=== PATIENT | male | born 1935 | race Caucasian/White ===

== ENCOUNTER 2021-10-17 11:06 | Emergency (ER) | payer MEDICARE, SELFPAY ==
[2021-10-17 11:18] VITALS: BP 98/74; PULSE 86; RESP 18; TEMP 36.1; O2SAT 97; BMI 29.3
--- NOTE | 2021-10-17 11:42 | ED_ITS ---
HPI - General Adult General Chief complaint: Extremity Pain/Injury, Upper Stated complaint: Forearm laceration Time Seen by Provider: 10/17/21 11:40 History of Present Illness HPI narrative: Pt scratched on the Right forarm by his dog earlier this week with skin tear. Minimal pain. Skin ear is 1 by 2 cm on posterior forearm. Minimal erythema. No other symptoms otherwise feeling well. Pt due for Tdap. Has been treating the wound with triple antibiotics. No fever. Related Data Home Medications Medication Instructions Recorded Confirmed [id number] tab PO 09/16/21 09/16/21 250 mg-250 mg-120 mg tab fluocinonide 0.05 % topical 1 topical BID 09/16/21 09/16/21 solution Previous Rx's Medication Instructions Recorded allopurinol 300 mg tablet 300 mg PO DAILY Gout #90 tabs 09/16/21 simvastatin 40 mg tablet 40 mg PO .Bedtime #90 tabs 09/16/21 tamsulosin 0.4 mg capsule 0.4 mg PO DAILY BPH #90 caps 09/16/21 triamterene 37.5 1 cap PO DAILY Hypertension #90 09/16/21 mg-hydrochlorothiazide 25 mg caps capsule levetiracetam 1,000 mg tablet 2,000 mg PO BID Seizure #180 tabs 10/06/21 Allergies Allergy/AdvReac Type Severity Reaction Status Date / Time enoxaparin Allergy Severe contraindictation Verified 10/17/21 11:17 to all anticoagulants - see history anticoagulants-relative AdvReac Unknown Uncoded 10/17/21 11:17 contraindication-brain bleed Review of Systems Status of ROS: Reports: 10 or more systems reviewed and unremarkable except as noted in History and below [facility] Medical History BPH (benign prostatic hyperplasia) History of pancreatitis (09/15/08) History of seizure (11/23/11) Surgical History History of hemorrhoidectomy (09/15/08) History of knee surgery (09/15/08) History of tonsillectomy Status post evacuation of subdural hematoma (06/01/11) Social History Smoking Status: Never smoker Exam Narrative: Exam Narrative: EXAM GENERAL: Patient appears comfortable and well. EYES: No scleral icterus. LYMPH: No supraclavicular or cervical lymphadenopathy. SKIN: Visible skin seen during exam normal or with benign process only. EXT: No dependent lower extremity pedal edema. HEART: Regular rate and rhythm with no murmurs, rubs, or gallops. LUNGS: Clear to auscultation bilaterally with no crackles or wheezes. ABD: Soft, non tender, non distended. PSYCH: Good eye contact, speech is not pressured. Const: Vital Signs, click to edit/add: Vital Signs - 24 hr 10/17/21 11:18 Temperature 97 F L Pulse Rate [Pulse Oximeter] 86 Respiratory Rate 18 Blood Pressure [Le ft Upper Arm] 98/74 Pulse Oximetry 97 Oxygen Delivery Me thod Room Air Course Course Hospital Course: Pts wound cleaned and bandaged. Tdap verified. Vital Signs Vital signs: Initial Vital Signs Temperature 97 F L 10/17/21 11:18 Temperature Source Temporal Artery Scan 10/17/21 11:18 Pulse Rate 86 10/17/21 11:18 Pulse Rhythm 10/17/21 11:18 Respiratory Rate 18 10/17/21 11:18 Blood Pressure 98/74 10/17/21 11:18 Blood Pressure Mean 82 10/17/21 11:18 Pulse Oximetry 97 10/17/21 11:18 Oxygen Delivery Method 10/17/21 11:18 Vital Signs Temperature 97 F L 10/17/21 11:18 Pulse Rate 86 10/17/21 11:18 Respiratory Rate 18 10/17/21 11:18 Blood Pressure 98/74 10/17/21 11:18 Pulse Oximetry 97 10/17/21 11:18 Oxygen Delivery Method 10/17/21 11:18 Temperature 97 F L 10/17/21 11:18 Pulse Rate 86 10/17/21 11:18 Respiratory Rate 18 10/17/21 11:18 Blood Pressure 98/74 10/17/21 11:18 Pulse Oximetry 97 10/17/21 11:18 Oxygen Delivery Method 10/17/21 11:18 Medical Decision Making MDM Narrative Medical decision making narrative: Dog bite could be infected by the oral soraya. Will cover with broad spectrum antibiotics and have pt change bandage daily. Discharge Plan Discharge Clinical Impression: Dog bite Patient Disposition: Home, Self-Care Condition: Stable Additional Instructions: Keflex as directed Daily dressing changes Follow up with Dr. Curran as needed Continue remainder of medications Activity Level: No Restrictions Discharge Diet: Regular Prescriptions: No Action [id number] 250-250-120 mg tablet PO fluocinonide 0.05 % solution 1 topical BID allopurinol 300 mg tablet 300 mg PO DAILY Qty: 90 3RF simvastatin 40 mg tablet 40 mg PO .Bedtime Qty: 90 3RF tamsulosin 0.4 mg capsule 0.4 mg PO DAILY Qty: 90 3RF triamterene-hydrochlorothiazid 37.5-25 mg capsule 1 cap PO DAILY Qty: 90 3RF levetiracetam 1,000 mg tablet 2,000 mg PO BID Qty: 180 3RF Follow Up/Referrals: Russ Curran MD [Primary Care Provider] - Stand Alone Forms: [employer] Info Instructions
[2021-10-17] MEDS: TETANUS/DIPHTH/PERTUSSIS 0.5 ML SYRINGE IM (12:25)
== END 2021-10-17 12:36 | disposition home or self-care (01) ==
LOC: ED 12:23
PROVIDERS: Emergency Provider Internal Medicine; PCP Internal Medicine
DX: S51.851A Open bite of right forearm, initial encounter (principal); W54.0XXA Bitten by dog, initial encounter
CPT/HCPCS: 90471; 90715; 99283; 99284

== ENCOUNTER 2022-11-23 10:00 | Outpatient (RCR) | payer MEDICARE, SELFPAY ==
--- NOTE | 2022-11-16 13:42 | PT.OPEX ---
[facility] Eval Start: 11/16/22 12:31 Freq: Status: Active Protocol: Document 11/16/22 12:32 CRP (Rec: 11/16/22 13:32 CRP [id number]) E-signed By Abel Abreu PT Physical Therapy Outpatient Evaluation Insurance Information Recert Due Date 02/14/23 Insurance Name Medicare B Medical Diagnosis Back Pain Subjective Subjective For the last year or so he has been waking up with sore back . November 03 started having more substantial LBP. Pain got up to 11/13. Was put on prednisone and pain meds. This has helped to some degree. Pain at /10 and is pretty constant. Yesterday he did have a flare. Pain is worse with sitting. Walks with walker and there isn't any aggravation of pain when walking. No pain into the LEs and no numbness or tingling. Pain is mainly on the R side but can go to the L. Sleep has been ok. Pain will also increase on going sit to stand . Is doing fine with self care now but last week it was really painful. Pain is associated with sitting in his desk chair when he uses the computer. Pt is legally blind and the only way he can watch TV is to use his computer. This means too many hours sitting in his desk chair. He feels fine if he is sitting in any of his lounge chairs. Pain Comments 06/13 Current Work Status Retired Objective Range of Motion Trunk ROM Flex mod dec wiht pain Ext jarett dec R SB jarett dec L SB jarett dec with LBP Hip ROM WNL bilat Strength Myotomes WNL Hip ext 4-/5 bilat Trunk flex 3+/5 bilat Trunk Ext 3+/5 bilat Balance & Gait Amb with SEC. Short step lengths with wide base of support Posture SItting Posture: Sitting without back support increases his pain Other/Pertinent Objective SLR testing negative bilateral Functional Test Performed & Score 30 sec sit to stand test - 2 reps and ended sec to pain Assessment Assessment/Impression Pt presents to the clinic with persistent LBP. Pt shows pain associated with poor postural load tolerance and underlying issues of lumbar DDD/DJD. Pts pain more associated with sitting and with this he does show a flexion pattern pain presentation. Skilled PT necessary to incorporate ther ex, postural ed, ther act, manual therapy, NM sharri and pt education to decrease pain and improve functional mobility. Primary Functional Limitations Poor tolerance to sitting Poor tolerance with sit to stand Pain with daily chores Plan of Care Rehabilitation Potential Excellent Physical Therapy Goals 1. Pt will have an appropriate ergonomic chair for home computer and understand proper posturing in 4 weeks 2. Pt will be independent with HEP in 4-6 weeks 3. Pt will sit as desired to work on his computer without pain in 12 weeks Coordination/Communication With Referral Source Treatment Plan/Direct Interventions Joint Mobilization,Manual Therapy,Neuromuscular Re-ed, Self-Care/Home Management, Therapeutic Activities, Therapeutic Exercises Frequency/Duration 1x/wk for 12 weeks Patient Will Be Discharged From Therapy Completion of LTG(s),Skills Plateau,Independent w/HEP, Independently Progressing Evaluation Billing Untimed Code Treatment Minutes 30 Complexity Moderate Certification Information Initial Certification Date 11/16/22 Ending Certification Date 02/14/23 Provider Signature Shows Agreement With POC & Medical Necessity Physician Signature & Date Requested Please Sign/Date Here Physician Comment/Change : Physician NPI Number #
== END 2023-03-23 14:47 | disposition home or self-care (01) ==
PROVIDERS: PCP Internal Medicine; Visit Provider Family Medicine
DX: M54.9 Dorsalgia, unspecified (principal); R29.3 Abnormal posture; R29.898 Other symptoms and signs involving the musculoskeletal system; M25.60 Stiffness of unspecified joint, not elsewhere classified; Z51.89 Encounter for other specified aftercare
CPT/HCPCS: 97110; 97140; 97162; 97530

== ENCOUNTER 2023-01-24 08:38 | Outpatient (CLI) | payer MEDICARE, SELFPAY | END 2023-01-24 08:39 | disposition home or self-care (01) | LOC: NFLDREF 14:31 | PROVIDERS: PCP Internal Medicine; Referring Provider Internal Medicine; Visit Provider Internal Medicine | DX: Z23 Encounter for immunization (principal); I10 Essential (primary) hypertension; E78.5 Hyperlipidemia, unspecified; Z12.5 Encounter for screening for malignant neoplasm of prostate | CPT/HCPCS: 80053; 80061; 84153 ==

== ENCOUNTER 2023-02-13 16:58 | Outpatient (CLI) | payer MEDICARE, SELFPAY | END 2023-02-13 16:59 | disposition home or self-care (01) | PROVIDERS: PCP Internal Medicine; Visit Provider Internal Medicine | DX: R53.83 Other fatigue (principal); R60.9 Edema, unspecified | CPT/HCPCS: 80048; 83880 ==

== ENCOUNTER 2023-02-16 09:31 | Observation (INO) | payer MEDICARE, SELFPAY ==
[2023-02-16] VITALS (37 sets, daily range): BP systolic 94–139; BP diastolic 62–93; PULSE 76–103; RESP 20–22; TEMP 36.3–36.9; O2SAT 94–99; BMI 30.3
--- NOTE | 2023-02-16 09:44 | ED_ITS ---
HPI - SOB/Dyspnea General Time Seen by Provider: 09:44 Date Seen: 02/16/23 Chief Complaint: Shortness of Breath/Dyspnea Stated Complaint: Shortness of breath Time Seen by Provider: 02/16/23 09:44 Source: patient, RN notes reviewed and old records reviewed Mode of arrival: ambulatory Limitations: no limitations History of Present Illness HPI Narrative: This very pleasant 87-year-old male is coming into the ER for further evaluation of shortness of breath. This morning he was just attempting to put his clothes on and get dressed and became very dyspneic. No chest pain, no palpitations. He is feeling bloated in his stomach, was in the clinic on February [address] Curran. He went into the clinic for increased lower extremity edema, feeling bloated and swollen, noting decreased appetite, malaise and fatigue. He was complaining of no chest pain, no orthopnea, no paroxysmal nocturnal dyspnea and still supports that he is not having no symptoms. He does have chronic hypertension. He was started on Lasix 20 mg daily, notes that he took that Monday, Monday and this morning. His lower extremities are still significantly swollen. During his clinic visit on February 13 he had chemistries, CBC which looked stable, no acute concerns. His proBNP was 260. He had a chest x-ray showing no acute findings but I do note that there was prominence of the left pulmonary artery noted which was not new. He is wondering if the Lasix is working. He feels like he has to go to the bathroom and will just go small amounts, have to go back in go small amounts. I do see BPH as listed issue for him. Did review that he could be having complications with his prostate making the Lasix not seem is as effective. He has not had a known significant cardiac, pulmonary history. MD elicited complaint: shortness of breath Related Data Home oxygen amount: none Home Medications Medication Instructions Recorded Confirmed gabapentin 100 mg capsule 100 mg PO HS 02/16/23 02/16/23 simvastatin 40 mg tablet 40 mg PO HS 02/16/23 02/16/23 Previous Rx's Medication Instructions Recorded levetiracetam 1,000 mg tablet 2,000 mg (2 x 1,000 mg) PO BID 03/18/22 Seizure #360 tabs allopurinol 300 mg tablet 300 mg PO DAILY Gout #90 tabs 10/05/22 tamsulosin 0.4 mg capsule 0.4 mg PO DAILY BPH #90 caps 10/05/22 furosemide 20 mg tablet 20 mg PO DAILY@0800 #30 tabs 02/17/23 spironolactone 50 mg tablet 50 mg PO DAILY #30 tabs 02/17/23 Allergies Allergy/AdvReac Type Severity Reaction Status Date / Time enoxaparin Allergy Severe contraindictation Verified 02/13/23 16:40 to all anticoagulants - see history anticoagulants-relative AdvReac Unknown Uncoded 02/13/23 16:40 contraindication-brain bleed Review of Systems Status of ROS: Reports: 6 or more systems reviewed and unremarkable except as noted in History and below [facility] Medical History (Updated 02/17/23 @ 14:54 by Chen Vargsa PA-C) History of subdural hematoma (11/23/11) ?Z86.79 - Personal history of other diseases of the circulatory system (ICD- 10) Gout (09/15/08) ?M10.9 - Gout, unspecified (ICD-10) Tubular adenoma of colon (09/15/08) ?D12.6 - Benign neoplasm of colon, unspecified (ICD-10) Traumatic brain injury (06/14/11) ?S06.9X9A - Unspecified intracranial injury with loss of consciousness of unspecified duration, initial encounter (ICD-10) Subjective tinnitus (10/06/11) ?H93.19 - Tinnitus, unspecified ear (ICD-10) Sensorineural hearing loss (SNHL) (11/23/11) ?H90.5 - Unspecified sensorineural hearing loss (ICD-10) Rosacea (05/21/06) ?L71.9 - Rosacea, unspecified (ICD-10) 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) ?L71.1 - Rhinophyma (ICD-10) Osteoarthritis of cervical spine ?M47.812 - Spondylosis without myelopathy or radiculopathy, cervical region (ICD-10) Obesity (08/16/10) ?E66.9 - Obesity, unspecified (ICD-10) Macular degeneration ?H35.30 - Unspecified macular degeneration (ICD-10) Intestinal obstruction ?K56.609 - Unspecified intestinal obstruction, unspecified as to partial versus complete obstruction (ICD-10) Hyperlipidemia (02/25/14) ?E78.5 - Hyperlipidemia, unspecified (ICD-10) BPH (benign prostatic hyperplasia) ?N40.0 - Benign prostatic hyperplasia without lower urinary tract symptoms (ICD-10) History of seizure (11/23/11) ?Z87.898 - Personal history of other specified conditions (ICD-10) History of pancreatitis (09/15/08) ?Z87.19 - Personal history of other diseases of the digestive system (ICD-10) Surgical History Status post evacuation of subdural hematoma (06/01/11) ?Z98.890 - Other specified postprocedural states (ICD-10) ?Z86.79 - Personal history of other diseases of the circulatory system (ICD- 10) History of tonsillectomy ?Z90.89 - Acquired absence of other organs (ICD-10) History of knee surgery (09/15/08) ?Z98.890 - Other specified postprocedural states (ICD-10) History of hemorrhoidectomy (09/15/08) ?Z98.890 - Other specified postprocedural states (ICD-10) Social History What is your current living situation?: I presently have a place to live Problems where you live: no known problems Problems where you live details: N/A In the past 12 months, utilities in danger of being shut off: no In past 12 months, lack of transportation kept you from medical appts, meetings, work, or getting things needed for daily living: no In the past 12 mos, have been you worried that your food would run out before you had money to buy more?: never true In the past 12 mos, the food you bought just didn't last and you didn't have money to buy more?: never true Highest level of school completed/degree received: Bachelor's degree Smoking Status: Former smoker How often do you have a drink containing alcohol: never How often do you have six or more drinks on one occasion: Never AUDIT-C Alcohol total score: 0 Non-prescribed substance use: denies use Caffeine: No How often does anyone, including family, friends and others, physically hurt you : never How often does anyone, including family, friends and others, insult or talk down to you: never How often does anyone, including family, friends and others, threaten you with harm: never How often does anyone, including family, friends and others, scream or curse at you: never Little interest or pleasure in doing things: not at all Feeling down, depressed, or hopeless: not at all service: No Exam Const: Vital Signs, click to edit/add: Vital Signs - 24 hr 02/16/23 09:41 02/16/23 09:54 02/16/23 10:00 Temperature 97.4 F L Pulse Rate 93 Pulse Rate [Pulse Oximeter] 103 H Respiratory Rate 20 Blood Pressure Blood Pressure [Ri ght Upper Arm] 121/87 Pulse Oximetry 99 99 96 Oxygen Delivery Me thod Room Air 02/16/23 10:15 02/16/23 10:30 02/16/23 10:45 Temperature Pulse Rate 88 87 90 Pulse Rate [Pulse Oximeter] Respiratory Rate Blood Pressure Blood Pressure [Ri ght Upper Arm] Pulse Oximetry 96 95 94 Oxygen Delivery Me thod 02/16/23 10:54 02/16/23 11:00 02/16/23 11:17 Temperature Pulse Rate 86 96 Pulse Rate [Pulse Oximeter] 85 Respiratory Rate Blood Pressure Blood Pressure [Ri ght Upper Arm] Pulse Oximetry 95 94 96 Oxygen Delivery Me thod Room Air 02/16/23 11:30 02/16/23 11:40 02/16/23 11:54 Temperature Pulse Rate 88 90 Pulse Rate [Pulse Oximeter] Respiratory Rate Blood Pressure 119/74 Blood Pressure [Ri ght Upper Arm] Pulse Oximetry 97 96 94 Oxygen Delivery Me thod 02/16/23 11:57 02/16/23 12:00 02/16/23 12:01 Temperature Pulse Rate 90 88 88 Pulse Rate [Pulse Oximeter] Respiratory Rate Blood Pressure 132/77 119/72 Blood Pressure [Ri ght Upper Arm] Pulse Oximetry 98 98 97 Oxygen Delivery Me thod 02/16/23 12:15 02/16/23 12:30 02/16/23 12:31 Temperature Pulse Rate 87 89 89 Pulse Rate [Pulse Oximeter] Respiratory Rate Blood Pressure 103/69 Blood Pressure [Ri ght Upper Arm] Pulse Oximetry 97 97 96 Oxygen Delivery Me thod 02/16/23 12:32 02/16/23 12:48 02/16/23 13:00 Temperature Pulse Rate 89 90 91 Pulse Rate [Pulse Oximeter] Respiratory Rate Blood Pressure Blood Pressure [Ri ght Upper Arm] Pulse Oximetry 97 98 96 Oxygen Delivery Me thod 02/16/23 13:01 Temperature Pulse Rate 91 Pulse Rate [Pulse Oximeter] Respiratory Rate Blood Pressure 107/74 Blood Pressure [Ri ght Upper Arm] Pulse Oximetry 96 Oxygen Delivery Me thod This is an 87-year-old male resting comfortably in the bed in exam room 3. He is oxygenating above 97% when I am in with him. At rest he is not tachypneic, able to speak in complete sentences. Sclera clear, face atraumatic, normal symmetrical facial function. Neck is thick, do not really appreciate jugular venous distension. There is certainly no cervical adenopathy, no thyromegaly masses or nodules. He is able to sit up with some assistance, lungs are clear, good air entry, no wheezing or crackles. CV regular rate and rhythm, no murmur, normal S1-S2, no S3 or S4. Abdomen is mildly obese but soft, nontender, does not seem to be distended, no organomegaly noted. He does have significant pitting edema of his lower extremities, at least 3 to 4+ up to his knees on my inspection. There does not seem to be any overlying erythema or skin changes concerning for infection. The edema is bilateral. Documenting provider has reviewed patient's vital signs: yes Course Course ED Course: Will have him on pulse oximetry, his initial EKG looks reassuring. Reviewed with him that we will be repeating some blood work, adding in some other blood work with a troponin, thyroid. Will repeat his chest x-ray. I do wonder if he perhaps needs an echo, this certainly could be right heart failure/cor pulmonale. Thyroid will be checked. He is also on trying tearing, hydrochlorothiazide baseline looking at his chart. Reevaluation(s) Time of Reevaluation #1: 11:06 Reevaluation #1: Have reviewed with patient that his D-dimer is elevated. We will be ordering ch est CT PE protocol and bilateral lower extremity venous ultrasounds. He understands. Reviewed that his chest x-ray is looking clear but the chest CT will show us a much better picture of his underlying lung parenchyma. Time of Reevaluation #2: 13:41 Reevaluation #2: Have explained to patient that it appears he has right heart failure, needs diuresis, needs ECHO to help define causative etiology of his symptoms. He understands that he will be hospitalized for further cares. Consultations Consultation #1: Have spoken with Chen Vargas regarding this patient. She does accept him for diagnosis of right heart failure. Will give this patient 40 mg IV Lasix as we have confirmed no pulmonary embolus. Time: 13:35 Vital Signs Vital signs: Initial Vital Signs Temperature 97.4 F L 02/16/23 09:41 Temperature Source Temporal Artery Scan 02/16/23 09:41 Pulse Rate 103 H 02/16/23 09:41 Respiratory Rate 20 02/16/23 09:41 Blood Pressure 121/87 02/16/23 09:41 Blood Pressure Mean 98 02/16/23 09:41 Blood Pressure Position Supine 02/16/23 09:41 Pulse Oximetry 99 02/16/23 09:41 Oxygen Delivery Method Room Air 02/16/23 09:41 Vital Signs Temperature 97.4 F L 02/16/23 09:41 Pulse Rate 103 H 02/16/23 09:41 Respiratory Rate 20 02/16/23 09:41 Blood Pressure 121/87 02/16/23 09:41 Pulse Oximetry 99 02/16/23 09:41 Oxygen Delivery Method Room Air 02/16/23 09:41 Temperature 98.0 F 02/17/23 11:00 Pulse Rate 80 02/17/23 11:00 Respiratory Rate 18 02/17/23 11:00 Blood Pressure 120/75 02/17/23 11:00 Pulse Oximetry 95 02/17/23 11:00 Oxygen Delivery Method Room Air 02/17/23 11:00 Medications Administered Medications: Discontinued Medications Generic Name Dose Route Start Last Admin Trade Name Freq PRN Reason Stop Dose Admin Allopurinol 300 mg 02/17/23 09:00 02/17/23 08:10 Allopurinol 300 Mg Tablet PO 300 mg DAILY DENNIS Administration Furosemide 40 mg 02/16/23 13:36 02/16/23 14:00 Furosemide 10 Mg/Ml Inj IVP 02/16/23 13:37 40 mg ONCE ONE Administration Furosemide 80 mg 02/17/23 08:00 02/17/23 08:10 Furosemide 40 Mg Tablet PO 80 mg DAILY@0800 DENNIS Administration Gabapentin 100 mg 02/16/23 21:00 02/16/23 20:53 Gabapentin 100 Mg Capsule PO 100 mg HS DENNIS Administration Levetiracetam 2,000 mg 02/16/23 21:00 02/17/23 08:09 Levetiracetam 500 Mg Tablet PO 2,000 mg BID DENNIS Administration Simvastatin 40 mg 02/16/23 21:00 02/16/23 20:54 Simvastatin 40 Mg Tablet PO 40 mg HS DENNIS Administration Sodium Chloride 5 ml 02/16/23 21:00 02/16/23 20:54 Sodium Chloride 0.9 % (Flush) 10 Ml Syringe IVF 5 ml BID DENNIS Administration Tamsulosin HCl 0.4 mg 02/17/23 09:00 02/17/23 08:09 Tamsulosin Hcl 0.4 Mg Capsule PO 0.4 mg DAILY DENNIS Administration MDM - SOB/Dyspnea Differential Diagnosis Differential diagnosis: Likely acute exacerbation of chronic obstructive airways disease, congestive heart failure, community acquired pneumonia and pulmonary embolism Lab Data Attestation: I reviewed the patient's lab results. Labs: Lab Results 02/16/23 02/16/23 Range/Units 10:00 13:53 WBC 6.51 (4.50-11.00) K/uL RBC 3.86 L (4.30-5.90) m/uL Hgb 13.1 L (13.5-17.5) gm/dL Hct 39.2 (37.0-53.0) % MCV 102 H (80-100) fL MCH 34 (26-34) pg MCHC 33 (32-36) gm/dL RDW Coeff of Jose 15.0 (11.5-15.5) % Plt Count 188 (140-440) K/uL Neut % (Auto) 60.6 (42.0-72.0) % Lymph % (Auto) 29.5 (20-44) % Wetzel % (Auto) 8.6 (0.0-11.0) % Eos % (Auto) 0.8 (0.0-7.0) % Baso % (Auto) 0.3 (0.0-3.0) % Neut # (Auto) 3.95 (1.7-7.0) K/uL Lymph # (Auto) 1.92 (0.90-2.90) K/uL Wetzel # (Auto) 0.60 (0.00-0.90) K/UL Eos # (Auto) 0.05 (0.00-0.50) K/uL Baso # (Auto) 0.02 (0.00-0.30) K/uL Abs Immat Gran (auto) 0.01 (0.00-0.30) K/uL Imm/Tot Granulo (auto) 0.2 % INR 1.16 H (0.91-1.10) APTT 39 H (23-33) Seconds Fibrinogen 258 (200-450) mg/dL D-Dimer Quant (PE/DVT) 2.52 H (0.00-0.50) ug/ml Sodium 137 (135-149) mmol/L Potassium 3.6 (3.6-5.1) mmol/L Chloride 105 (96-114) mmol/L Carbon Dioxide 27 (20-32) mmol/L Anion Gap 5 L (7-15) mEq/L BUN 19 (7-30) mg/dL Creatinine 0.9 (0.5-1.5) mg/dL Estimated GFR 83 ml/min Glucose 156 H (60-115) mg/dL Hemoglobin A1c 5.1 (0-5.6) % Uric Acid 3.3 (2.2-8.4) mg/dL Calcium 8.5 (8.4-10.6) mg/dL Magnesium 1.6 (1.5-2.6) mg/dL Total Bilirubin 1.4 (0.1-1.5) mg/dL GGT 90 H (8-55) U/L AST 57 H (12-35) U/L ALT 34 (4-50) U/L Alkaline Phosphatase 216 H (40-150) U/L Troponin I < 0.01 L (0.01-0.04) ng/mL NT-Pro-B Natriuret Pep 261 pg/mL Total Protein 6.5 (6.0-8.3) g/dL Albumin 3.0 L (3.3-5.0) g/dL Lipase 73 (23-300) U/L TSH 2.970 (0.270-4.200) uIU/mL SARS-CoV-2 (PCR) Cancelled Imaging Data Chest x-ray: Attestation: I have reviewed the pertinent imaging results. Radiologist's impression: Patient: LIYAH MARTIN Facility:?[facility] Patient ID:?[id number] Site Patient ID:?[id number]. Site :?[id number] Study:?XRay Chest Portable one view-02/16/2023 10:26:52 AM Ordering Physician:?Tammy Blanca Final Report: Indication: Worsening shortness of breath. Technique: Chest 1 view. Comparison: February 13, 2023. Findings/Impression: Cardiovascular and mediastinum: Heart size and vasculature are normal in caliber and appearance. Lungs and pleural space: Bibasilar atelectasis favored over infiltrates. Remainder of the lungs and pleural spaces are clear. No pneumothorax. Bones and soft tissues: No acute findings. Dictated by Butch Mccarthy MD @ 02/16/2023 10:50:14 AM (Electronic Signature) CT scan - chest: Attestation: I have reviewed the pertinent imaging results. Radiologist's impression: Patient: LIYAH MARTIN Facility:?[facility] Patient ID:?[id number] Site Patient ID:?[id number]. Site :?[id number] Study:?CT Chest Angio PE STUDY-02/16/2023 11:59:01 AM Ordering Physician:?Tammy Blanca Final Report: INDICATION: Short of breath and dyspnea on exertion with elevated D-dimer COMPARISON: Same-day chest radiograph. TECHNIQUE: CT angiogram chest with contrast, pulmonary embolism protocol. Multiplanar axial, coronal, and sagittal reformats are included. MIP images to improve detection of pulmonary emboli are included. Intravenous contrast: 95 mL Isovue 370 FINDINGS: PE: Well-timed contrast bolus. No pulmonary emboli. Normal caliber main pulmonary artery, but the branch pulmonary arteries are both significantly dilated. Dilated right ventricle. No reflux of contrast below the diaphragm. Heart and great vessels: No pericardial effusion. Dilated right ventricle with some septal flattening. Heavy coronary atherosclerotic plaques. Upper limits of normal size of the ascending aorta, 4 cm. Lungs: Inspiratory phase imaging. There is an 8 mm nodule in the peripheral left lower lobe on series 5, image 117. Immediately adjacent smaller, 4 mm, nodule. No consolidations. Centrilobular emphysema. Pleura: No pleural effusion. No pneumothorax. Airway: Normal tracheobronchial tree. Mild bronchial wall thickening in the parenchyma. Lymph nodes: Coarse calcifications consistent with prior granulomatous disease. Mediastinum: No pneumomediastinum. Bones: No fractures. No focal bone lesions. Normal for age. Chest wall: Normal. No masses. Upper abdomen: Cirrhosis. Ascites. IMPRESSION: 1. No pulmonary embolus. 2. Pulmonary nodules. Fleischner society recommends follow-up CT in 3-6 months, but must be taken in contact with the patient`s other medical history. 3. Cirrhosis and upper abdominal ascites. Please note that all CT scans at this facility use dose modulation, iterative reconstruction, and/or weight-based dosing when appropriate to reduce radiation dose to as low as reasonably achievable. Dictated by Jackie Esquivel MD @ 02/16/2023 1:00:41 PM (Electronic Signature) Venous US: Attestation: I have reviewed the pertinent imaging results. Radiologist's impression: Patient: LIYAH MARTIN Facility:?[facility] Patient ID:?[id number] Site Patient ID:?[id number]. Site :?[id number] Study:?US Extremity Bilateral LEV-02/16/2023 11:36:18 AM Ordering Physician:Peter Blanca Final Report: INDICATION: EDEMA, ELEVATED D-dimer COMPARISON: none TECHNIQUE: A compression venous ultrasound exam was performed of both lower extremities using bonds scale imaging, color Doppler and spectral Doppler analysis. FINDINGS: Sonographic imaging of the lower extremities demonstrates normal compressibility and color Doppler venous blood flow within the common femoral, deep femoral, and proximal greater saphenous veins. Within the thighs the femoral veins are patent and compressible. At a lower level the popliteal and posterior tibial veins also show normal compressibility and color Doppler venous blood flow. IMPRESSION: No evidence of deep vein thrombosis within either the left or right lower extremity. Dictated by Isai Chase MD @ 02/16/2023 12:02:08 PM (Electronic Signature) ECG Data Attestation: I personally reviewed and interpreted this ECG as follows: (Normal sinus rhythm, 99 beats per minute. Low voltage QRS noted, artifact noted. Nonspecific ST and T-wave changes, nothing indicative of an ischemic pattern. QT corrected 444 milliseconds.) ECG interpretation date: 02/16/23 ECG interpretation time: 09:45 Critical Care Time Critical Care Time Critical Care Time: No Discharge Plan Discharge Clinical Impression: Right heart failure Patient Disposition: Admitted As Observation Condition: Improved Activity Level: Activity as Tolerated Discharge Diet: Heart Healthy (2 gm sodium, low fat)
--- NOTE | 2023-02-16 09:55 | CRLHL7_ITS ---
For Patients: As a result of the Century Cures Act, medical imaging exams and procedure reports are released immediately into your electronic medical record. You may view this report before your referring provider. If you have questions, please contact your health care provider. Indication: Worsening shortness of breath. Technique: Chest 1 view. Comparison: February 13, 2023. Findings/Impression: Cardiovascular and mediastinum: Heart size and vasculature are normal in caliber and appearance. Lungs and pleural space: Bibasilar atelectasis favored over infiltrates. Remainder of the lungs and pleural spaces are clear. No pneumothorax. Bones and soft tissues: No acute findings. Dictated by Butch Mccarthy MD @ 02/16/2023 10:50:14 AM (Electronically Signed)
[2023-02-16 10:15] LABS: Basophils Absolute Auto 0.02 K/uL (0.00-0.30); Basophils Percent Auto 0.3 % (0.0-3.0); Eosinophils Absolute Auto 0.05 K/uL (0.00-0.50); Eosinophils Percent Auto 0.8 % (0.0-7.0); Hematocrit 39.2 % (37.0-53.0); Hemoglobin* 13.1 gm/dL (13.5-17.5); Immature Granulocytes Abs Auto 0.01 K/uL (0.00-0.30); Immature Granulocytes Pct Auto 0.2 %; Lymphocytes Absolute Auto 1.92 K/uL (0.90-2.90); Lymphocytes Percent Auto 29.5 % (20-44); Mean Corpuscular HGB Conc 33 gm/dL (32-36); Mean Corpuscular Hemoglobin 34 pg (26-34); Mean Corpuscular Volume 102 fL (80-100); Monocytes Percent Auto 8.6 % (0.0-11.0); Neutrophils Absolute Auto 3.95 K/uL (1.7-7.0); Neutrophils Percent Auto 60.6 % (42.0-72.0); Platelet Count* 188 K/uL (140-440); Red Blood Count 3.86 m/uL (4.30-5.90); White Blood Count* 6.51 K/uL (4.50-11.00)
[2023-02-16 10:20] LABS: Slide Review Reflex No
[2023-02-16 10:25] LABS: Chloride* 105 mmol/L (96-114); Potassium* 3.6 mmol/L (3.6-5.1); Sodium* 137 mmol/L (135-149)
[2023-02-16 10:27] LABS: Bilirubin Total* 1.4 mg/dL (0.1-1.5); Creatinine* 0.9 mg/dL (0.5-1.5); Estimated Glomerular Filt Rate 83 ml/min
[2023-02-16 10:28] LABS: Alanine Aminotransferase* 34 U/L (4-50); Alkaline Phosphatase* 216 U/L (40-150); Anion Gap 5 mEq/L (7-15); Aspartate Amino Transferase* 57 U/L (12-35); Blood Urea Nitrogen* 19 mg/dL (7-30); Carbon Dioxide* 27 mmol/L (20-32); Glucose* 156 mg/dL (60-115); Total Protein* 6.5 g/dL (6.0-8.3)
[2023-02-16 10:29] LABS: Calcium* 8.5 mg/dL (8.4-10.6); Magnesium* 1.6 mg/dL (1.5-2.6)
[2023-02-16 10:30] LABS: D Dimer Quantitative* 2.52 ug/ml (0.00-0.50)
[2023-02-16 10:39] LABS: NT Pro B Type NatriureticPept* 261 pg/mL
[2023-02-16 10:46] LABS: Troponin I* < 0.01 ng/mL (0.01-0.04)
--- NOTE | 2023-02-16 11:01 | CRLHL7_ITS ---
For Patients: As a result of the Century Cures Act, medical imaging exams and procedure reports are released immediately into your electronic medical record. You may view this report before your referring provider. If you have questions, please contact your health care provider. INDICATION: Short of breath and dyspnea on exertion with elevated D-dimer COMPARISON: Same-day chest radiograph. TECHNIQUE: CT angiogram chest with contrast, pulmonary embolism protocol. Multiplanar axial, coronal, and sagittal reformats are included. MIP images to improve detection of pulmonary emboli are included. Intravenous contrast: 95 mL Isovue 370 FINDINGS: PE: Well-timed contrast bolus. No pulmonary emboli. Normal caliber main pulmonary artery, but the branch pulmonary arteries are both significantly dilated. Dilated right ventricle. No reflux of contrast below the diaphragm. Heart and great vessels: No pericardial effusion. Dilated right ventricle with some septal flattening. Heavy coronary atherosclerotic plaques. Upper limits of normal size of the ascending aorta, 4 cm. Lungs: Inspiratory phase imaging. There is an 8 mm nodule in the peripheral left lower lobe on series 5, image 117. Immediately adjacent smaller, 4 mm, nodule. No consolidations. Centrilobular emphysema. Pleura: No pleural effusion. No pneumothorax. Airway: Normal tracheobronchial tree. Mild bronchial wall thickening in the parenchyma. Lymph nodes: Coarse calcifications consistent with prior granulomatous disease. Mediastinum: No pneumomediastinum. Bones: No fractures. No focal bone lesions. Normal for age. Chest wall: Normal. No masses. Upper abdomen: Cirrhosis. Ascites. IMPRESSION: 1. No pulmonary embolus. 2. Pulmonary nodules. Fleischner society recommends follow-up CT in 3-6 months, but must be taken in contact with the patient`s other medical history. 3. Cirrhosis and upper abdominal ascites. Please note that all CT scans at this facility use dose modulation, iterative reconstruction, and/or weight-based dosing when appropriate to reduce radiation dose to as low as reasonably achievable. Dictated by Jackie Esquivel MD @ 02/16/2023 1:00:41 PM (Electronically Signed)
--- NOTE | 2023-02-16 11:02 | CRLHL7_ITS ---
For Patients: As a result of the Century Cures Act, medical imaging exams and procedure reports are released immediately into your electronic medical record. You may view this report before your referring provider. If you have questions, please contact your health care provider. INDICATION: EDEMA, ELEVATED D-dimer COMPARISON: none TECHNIQUE: A compression venous ultrasound exam was performed of both lower extremities using bonds scale imaging, color Doppler and spectral Doppler analysis. FINDINGS: Sonographic imaging of the lower extremities demonstrates normal compressibility and color Doppler venous blood flow within the common femoral, deep femoral, and proximal greater saphenous veins. Within the thighs the femoral veins are patent and compressible. At a lower level the popliteal and posterior tibial veins also show normal compressibility and color Doppler venous blood flow. IMPRESSION: No evidence of deep vein thrombosis within either the left or right lower extremity. Dictated by Isai Chase MD @ 02/16/2023 12:02:08 PM (Electronically Signed)
--- NOTE | 2023-02-16 11:10 | ED.NURSE ---
Pt requested web content writer call with an update. Merchandise Buyer provided update to pt's .
--- NOTE | 2023-02-16 12:39 | ED.NURSE ---
Pt ambulatory independently to the restroom with standby assist.
--- NOTE | 2023-02-16 13:41 | ED.NURSE ---
Pt's called and given update about pt admission.
--- NOTE | 2023-02-16 13:59 | PM.IMHP1 ---
Hospitalist- H&P: HPI History of Present Illness Date Seen: 02/16/23 Chief complaint: Shortness of breath Narrative: ADMISSION HISTORY AND PHYSICAL - HOSPITALIST Chief Complaint: worsening shortness of breath HPI: 87-year-old with no previous cardiac history other than hypertension presents with worsening shortness of breath over the last 2-4 weeks. About 3 or 4 days ago he saw his PCP and was started on 20 mg of furosemide daily. The patient reports a weight gain of 17 lb in the last month. He said his baseline weight is approximately 217 and when he checked in with his PCP he was up to 234. He states that his weight seems mostly in his abdomen and legs. No chest pain or palpitations. No history of coronary artery disease or stents. No hx of cancer (other than skin), No history of liver disease, hepatitis, regular alcohol intake. The lasix has helped but when he still felt SOB this morning he called his PCP's office and told to be evaluated in the ED. No chest pain or cough. occasional he is getting a sharp pain in the left upper chest - he calls pleurisy - Not worse at night. sleeps well. no wheezing. Distant hx of heavy smoking, nothing in >20 years. No recent fever ER COURSE: labs, lasix, CTA, CXR, venous dopplers. Inpatient team asked to admit. CODE STATUS: FULL CODE EMERGENCY CONTACT PLAN: Snow Angela? ?Rel to [facility]? [phone]?Cell Phone? I've updated the PFSH, medications and allergies in the Expanse tabs. INVESTIGATIONS: LABS/MICRO/ECG/IMAGING 97.4? F Blood pressure little soft 103/69, 107/74 Pulse rate 80s and 90s Pulse ox 96% on room air Last weight in the clinic on 02/13 was 106.6 kg, today 101.3 - typically 98-99kg. CBC is unremarkable. There is no elevation is white blood cell count. His hemoglobin is stable at 13.1. His platelet count is 188. D-dimer 2.52 this triggered a CTA Electrolytes unremarkable, normal renal function. Glucose 156 Magnesium, calcium are normal. LFTs reveal an AST that is mildly bumped 57 and elevated alk phos at 216 Troponin is undetectable BNP 260, this is no different than earlier this week in the clinic. No previous levels to compare to. INR 1.16 APTT 39 Normal fibrinogen GGT 90 Normal lipase 73 Normal uric acid 3.3 A1c 5 1 Duplex, bilateral lower extremity No evidence of deep vein thrombosis within either the left or right lower extremity CTA 1. No pulmonary embolus. 2. Pulmonary nodules. Fleischner society recommends follow-up CT in 3-6 months, but must be taken in contact with the patient`s other medical history. 3. Cirrhosis and upper abdominal ascites. also noted on CTA: but the branch pulmonary arteries are both significantly dilated. Dilated right ventricle. No reflux of contrast below the diaphragm. CXR in ED Lungs and pleural space: Bibasilar atelectasis favored over infiltrates. Remainder of the lungs and pleural spaces are clear. No pneumothorax. Bones and soft tissues: No acute findings. REVIEW OF SYSTEMS: 12-point ROS completed with patient and negative unless otherwise stated in HPI or below. PHYSICAL EXAM: CONSTITUTIONAL: Conversive, good historian. A/O. Knows setting and context. making jokes. VITAL SIGNS: see record. mildly orthostatic. on room air. not in shock. HEENT: Normocephalic, atraumatic. PERRL, EOMI, conjunctivae pink, no scleral icterus. Ears and nose externally normal. Pharynx normal. NECK: No JVD. No carotid bruit, no thyromegaly, no adenopathy. CHEST: Clear to auscultation bilaterally without wheeze. HEART: S1 and S2 normal. No harsh murmurs. JVP is difficult to assess given his body habitus. Edema 2-3+ ABDOMEN: soft but generally enlarged. +fluid wave. MUSCULOSKELETAL: No gross joint deformity or swelling. NEURO: Cranial nerves intact. Grossly intact. No asymmetric findings. SKIN: No rashes, petechiae, concerning changes PSYCHIATRIC: Euthymic. ADMIT TO MEDSURG: FLOOR CARE DVT: GI: PO intake Time spent: Today I spent 75 minutes seeing the patient, discussing the patient with ER staff, reviewing Expanse and EPIC notes/diagnostics, discussing the care plan with our care time that includes social work, PT/OT, pharmacy, RT, detention and documenting my impressions and plan in the medical record. [facility] Medical History (Updated 02/16/23 @ 16:31 by Lori Olivera MD) History of subdural hematoma (11/23/11) ?Z86.79 - Personal history of other diseases of the circulatory system (ICD-10) Gout (09/15/08) ?M10.9 - Gout, unspecified (ICD-10) Tubular adenoma of colon (09/15/08) ?D12.6 - Benign neoplasm of colon, unspecified (ICD-10) Traumatic brain injury (06/14/11) ?S06.9X9A - Unspecified intracranial injury with loss of consciousness of unspecified duration, initial encounter (ICD-10) Subjective tinnitus (10/06/11) ?H93.19 - Tinnitus, unspecified ear (ICD-10) Sensorineural hearing loss (SNHL) (11/23/11) ?H90.5 - Unspecified sensorineural hearing loss (ICD-10) Rosacea (05/21/06) ?L71.9 - Rosacea, unspecified (ICD-10) 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) ?L71.1 - Rhinophyma (ICD-10) Osteoarthritis of cervical spine ?M47.812 - Spondylosis without myelopathy or radiculopathy, cervical region (ICD-10) Obesity (08/16/10) ?E66.9 - Obesity, unspecified (ICD-10) Macular degeneration ?H35.30 - Unspecified macular degeneration (ICD-10) Intestinal obstruction ?K56.609 - Unspecified intestinal obstruction, unspecified as to partial versus complete obstruction (ICD-10) Hyperlipidemia (02/25/14) ?E78.5 - Hyperlipidemia, unspecified (ICD-10) BPH (benign prostatic hyperplasia) ?N40.0 - Benign prostatic hyperplasia without lower urinary tract symptoms (ICD-10) History of seizure (11/23/11) ?Z87.898 - Personal history of other specified conditions (ICD-10) History of pancreatitis (09/15/08) ?Z87.19 - Personal history of other diseases of the digestive system (ICD-10) Surgical History Status post evacuation of subdural hematoma (06/01/11) ?Z98.890 - Other specified postprocedural states (ICD-10) ?Z86.79 - Personal history of other diseases of the circulatory system (ICD-10) History of tonsillectomy ?Z90.89 - Acquired absence of other organs (ICD-10) History of knee surgery (09/15/08) ?Z98.890 - Other specified postprocedural states (ICD-10) History of hemorrhoidectomy (09/15/08) ?Z98.890 - Other specified postprocedural states (ICD-10) Social History What is your current living situation?: I presently have a place to live Problems where you live: no known problems Problems where you live details: N/A In the past 12 months, utilities in danger of being shut off: no In past 12 months, lack of transportation kept you from medical appts, meetings, work, or getting things needed for daily living: no In the past 12 mos, have been you worried that your food would run out before you had money to buy more?: never true In the past 12 mos, the food you bought just didn't last and you didn't have money to buy more?: never true Highest level of school completed/degree received: Bachelor's degree Smoking Status: Former smoker How often do you have a drink containing alcohol: never How often do you have six or more drinks on one occasion: Never AUDIT-C Alcohol total score: 0 Non-prescribed substance use: denies use Caffeine: No How often does anyone, including family, friends and others, physically hurt you: never How often does anyone, including family, friends and others, insult or talk down to you: never How often does anyone, including family, friends and others, threaten you with harm: never How often does anyone, including family, friends and others, scream or curse at you: never Little interest or pleasure in doing things: not at all Feeling down, depressed, or hopeless: not at all service: No Meds Home Medications and Allergies Home Medications Medication Instructions Recorded Confirmed Type [id number] tab PO 09/16/21 02/13/23 History 250 mg-250 mg-120 mg tab gabapentin 100 mg capsule 100 mg PO HS 02/16/23 02/16/23 History simvastatin 40 mg tablet 40 mg PO HS 02/16/23 02/16/23 History Allergies Allergy/AdvReac Type Severity Reaction Status Date / Time enoxaparin Allergy Severe contraindictation Verified 02/13/23 16:40 to all anticoagulants - see history anticoagulants-relative AdvReac Unknown Uncoded 02/13/23 16:40 contraindication-brain bleed Exam Const: Vital Signs, click to edit/add: Vital Signs - 24 hr 02/16/23 09:41 02/16/23 09:54 02/16/23 10:00 Temperature 97.4 F L Pulse Rate 93 Pulse Rate [Pulse Oximeter] 103 H Respiratory Rate 20 Blood Pressure Blood Pressure [Ri ght Upper Arm] 121/87 Pulse Oximetry 99 99 96 Oxygen Delivery Me thod Room Air 02/16/23 10:15 02/16/23 10:30 02/16/23 10:45 Temperature Pulse Rate 88 87 90 Pulse Rate [Pulse Oximeter] Respiratory Rate Blood Pressure Blood Pressure [Ri ght Upper Arm] Pulse Oximetry 96 95 94 Oxygen Delivery Me thod 02/16/23 10:54 02/16/23 11:00 02/16/23 11:17 Temperature Pulse Rate 86 96 Pulse Rate [Pulse Oximeter] 85 Respiratory Rate Blood Pressure Blood Pressure [Ri ght Upper Arm] Pulse Oximetry 95 94 96 Oxygen Delivery Me thod Room Air 02/16/23 11:30 02/16/23 11:40 02/16/23 11:54 Temperature Pulse Rate 88 90 Pulse Rate [Pulse Oximeter] Respiratory Rate Blood Pressure 119/74 Blood Pressure [Ri ght Upper Arm] Pulse Oximetry 97 96 94 Oxygen Delivery Me thod 02/16/23 11:57 02/16/23 12:00 02/16/23 12:01 Temperature Pulse Rate 90 88 88 Pulse Rate [Pulse Oximeter] Respiratory Rate Blood Pressure 132/77 119/72 Blood Pressure [Ri ght Upper Arm] Pulse Oximetry 98 98 97 Oxygen Delivery Me thod 02/16/23 12:15 02/16/23 12:30 02/16/23 12:31 Temperature Pulse Rate 87 89 89 Pulse Rate [Pulse Oximeter] Respiratory Rate Blood Pressure 103/69 Blood Pressure [Ri ght Upper Arm] Pulse Oximetry 97 97 96 Oxygen Delivery Me thod 02/16/23 12:32 02/16/23 12:48 02/16/23 13:00 Temperature Pulse Rate 89 90 91 Pulse Rate [Pulse Oximeter] Respiratory Rate Blood Pressure Blood Pressure [Ri ght Upper Arm] Pulse Oximetry 97 98 96 Oxygen Delivery Me thod 02/16/23 13:01 Temperature Pulse Rate 91 Pulse Rate [Pulse Oximeter] Respiratory Rate Blood Pressure 107/74 Blood Pressure [Ri ght Upper Arm] Pulse Oximetry 96 [facility]: Result Labs Labs: Short CBC 02/16/23 Range/Units 10:00 WBC 6.51 (4.50-11.00) K/uL Hgb 13.1 L (13.5-17.5) gm/dL Hct 39.2 (37.0-53.0) % Plt Count 188 (140-440) K/uL BMP 02/16/23 10:00 Sodium 137 Potassium 3.6 Chloride 105 Carbon Dioxide 27 BUN 19 Creatinine 0.9 Glucose 156 H Calcium 8.5 Cardiac Enzymes 02/16/23 Range/Units 10:00 Troponin I < 0.01 L (0.01-0.04) ng/mL Liver Function 02/16/23 Range/Units 10:00 Total Bilirubin 1.4 (0.1-1.5) mg/dL AST 57 H (12-35) U/L ALT 34 (4-50) U/L Alkaline Phosphatase 216 H (40-150) U/L Albumin 3.0 L (3.3-5.0) g/dL Assessment and Plan Assessment and plan (1) Cor pulmonale, acute: Problem comment: -no evidence of shock or acute MS. subacute in presentation. Volume status needs to be assessed with frequent JVP and orthostatic checks. Small bumps with normal saline may be needed. -echo 02/17 -serial troponin -right sided EKG -cards consult when echo is done Caution: Nitrates, which are often used to relieve angina, and diuretics, which are given to patients with evidence of pulmonary congestion should be avoided, as they both reduce RV preload. Similarly, opioid drugs may lower preload. An increase in vagal tone caused by insertion of a bladder catheter can acutely decrease preload and lead to cardiogenic shock. Status: Acute (2) Ascites: Problem comment: -primarily from right-sided heart failure? Verses liver/portal hypertension - MARTI? -ultrasound +/- abd/pelvix CT (had contrast at 11 am on 02/16 - so I did not get CT on admission), echo, paracentesis all likely need to be completed Status: Acute (3) Hypertension: Problem comment: -holding triamterene Status: Acute (4) BPH (benign prostatic hyperplasia): Problem comment: -continue Flomax Status: Acute (5) History of subdural hematoma: Problem comment: -greater than a decade ago, fall on ice. Evacuation x2. Five weeks at [facility]. Maintained on Keppra. Status: Acute (6) Gout: Problem comment: -continue allopurinol -uric acid is normal Status: Acute
[2023-02-16] MEDS: FUROSEMIDE 10 MG/ML inj 40 MG IVP (14:00)
[2023-02-16 15:04] LABS: PCR FLU A Negative PCR FLU A (Negative); PCR FLU B Negative PCR FLU B (Negative); PCR RSV Negative PCR RSV (Negative)
[2023-02-16 15:07] LABS: SARS PCR* Negative SARS-CoV-2 (Negative)
[2023-02-16 15:32] LABS: Gamma Glutamyl Transpeptidase* 90 U/L (8-55); Lipase* 73 U/L (23-300); Uric Acid* 3.3 mg/dL (2.2-8.4)
[2023-02-16 15:33] LABS: Hemoglobin A1C* 5.1 % (0-5.6)
[2023-02-16 15:46] LABS: Fibrinogen* 258 mg/dL (200-450); INR 1.16 (0.91-1.10); Partial Thromboplastin Time* 39 Seconds (23-33); Prothrombin Time 15.5 Seconds
[2023-02-16 16:19] LABS: Troponin I* < 0.01 ng/mL (0.01-0.04)
--- NOTE | 2023-02-16 19:10 | PC.NURSE ---
End of shift: patient up to floor at 1415. Alert and oriented. uses cane to walk, 1 assist to BR and chair. Uses call light appropriately. [place] even though he wears dentures. Patient denies N/V/SOB. 96% on RA. Patient's VSS. NSR on Tele. Patient tolerating 2gm sodium diet. Bilateral Teds applied.
[2023-02-16] MEDS: levETIRAcetam 500 MG TABLET 2000 MG PO (20:53)
[2023-02-16] MEDS: GABAPENTIN 100 MG CAPSULE PO (20:53)
[2023-02-16] MEDS: SODIUM CHLORIDE 0.9 % (FLUSH) 10 ML SYRINGE 5 ML IVF (20:54)
[2023-02-16] MEDS: SIMVASTATIN 40 MG TABLET PO (20:54)
[2023-02-17 03:19] VITALS: BP 111/69; PULSE 71; RESP 20; TEMP 36.3; O2SAT 91
--- NOTE | 2023-02-17 06:30 | CRLHL7_ITS ---
For Patients: As a result of the Century Cures Act, medical imaging exams and procedure reports are released immediately into your electronic medical record. You may view this report before your referring provider. If you have questions, please contact your health care provider. INDICATION: Ascites. TECHNIQUE: Ultrasound abdomen limited. Sonographic images of the right upper quadrant were obtained using bonds-scale and color Doppler images. COMPARISON: None. FINDINGS: Liver: Heterogeneous echotexture nodular contour, consistent with hepatic cirrhosis. No suspicious masses. No intrahepatic biliary dilatation. Normal hepatopetal portal venous directional flow. Gallbladder: No stones or sludge. Gallbladder wall thickness within normal limits (2.9 millimeters), in light of upper abdominal ascites Common bile duct: 5 mm. Pancreas: Unremarkable. Right kidney: Normal in size. Normal echotexture and cortex. No suspicious masses, stones, or hydronephrosis. 1.6 centimeter cyst noted Vasculature: Proximal abdominal aorta and IVC are unremarkable. IMPRESSION: 1. Hepatic cirrhosis. 2. Moderate ascites Dictated by Sherman Viera MD @ 02/17/2023 7:42:06 AM (Electronically Signed)
--- NOTE | 2023-02-17 06:50 | PC.NURSE ---
Addendum entered by Jackie Nunes RN 02/17/23 07:50: Correction: IV to R forearm SL, not L forearm as previously stated. Original Note: IV to L forearm SL and patent when flushed. Pt NPO for ultrasound to be performed this AM which he is aware of. He is noted to be alert & oriented to person, place and time though is hard of hearing and has impaired vision. No c/o shortness of breath or CP this shift. Pt reports, ?I?m feeling so much better? when up to the bathroom after 0300. He transfers/ambulates with SBA using SPC. He has been continent of bladder and uses bathroom for toileting. VSS and pt has been afebrile.
[2023-02-17 07:00] VITALS: BP 117/70; PULSE 84; PULSE 85; RESP 18; TEMP 36.6; O2SAT 93
[2023-02-17] MEDS: levETIRAcetam 500 MG TABLET 2000 MG PO (08:09)
[2023-02-17] MEDS: TAMSULOSIN HCL 0.4 MG CAPSULE PO (08:09)
[2023-02-17] MEDS: allopurinoL 300 MG TABLET PO (08:10)
[2023-02-17] MEDS: FUROSEMIDE 40 MG TABLET 80 MG PO (08:10)
[2023-02-17 11:00] VITALS: BP 120/75; PULSE 80; RESP 18; TEMP 36.7; O2SAT 95
--- NOTE | 2023-02-17 12:07 | PM.IMPN1 ---
Progress Note: A&P Assessment and plan (1) Shortness of breath: Problem details: -initial working diagnosis on admission cor pulmonale, right-sided heart failure, pulmonary hypertension given symptomatology and findings of CTA chest, EKG, labs -serial troponins have been negative -right-sided EKG shows NSR, low voltage QRS 97, vent rate, QTc 457 -echocardiogram shows normal LV size, normal wall thickness, normal global systolic function with an estimated EF of 60-65%, right ventricular cavity size is normal, global systolic RV function is normal, no significant functional valve disease detected. Normal estimated pulmonary pressure. Estimated right ventricular systolic pressure is 23mmHg -patient reports clinical improvement with diuresis at rest. Will follow-up how he does with ambulation/exertion -more likely new working diagnosis is shortness of breath in setting of cirrhosis with moderate ascites after reviewing abdominal ultrasound and labs as noted below Status: Acute (2) Ascites: Problem details: -ultrasound shows heterogenous echotexture nodular contour, consistent with hepatic cirrhosis. No suspicious masses. No intrahepatic biliary dilatation. Normal hepatopetal portal venous directional flow. Hepatic cirrhosis with moderate ascites noted -GGT 90, AST 57, ALT 34, alk-phos 216, total bili 1.4 -hepatic panel pending -plan to start spironolactone 50 mg and Lasix 20 mg once daily. Will need to monitor for lightheadedness/dizziness. Plan for outpatient follow-up with PCP, recheck of electrolytes. Could consider increasing doses to 100 mg of spironolactone and 40 mg Lasix during follow-up -PCP to decide if outpatient follow-up with [facility] appropriate Status: Acute (3) Hypertension: Problem details: -holding triamterene. Continue to hold at discharge given initiation of spironolactone and Lasix. Status: Acute (4) BPH (benign prostatic hyperplasia): Problem details: -continue Flomax Status: Acute (5) History of subdural hematoma: Problem details: -greater than a decade ago, fall on ice. Evacuation x2. Five weeks at [facility]. Maintained on Keppra. Status: Acute (6) Gout: Problem details: -continue allopurinol -uric acid is normal Status: Acute Time Spent With Patient Total time spent: Total time spent caring for the patient today was 45 minutes. This includes time spent for the visit reviewing the chart, time spent during the visit, time spent after the visit and documentation and planning in coordination of care. Subjective Date Seen: 02/17/23 Interval history: Patient reports feeling good this morning, improved from admission. Tells me he already feels better after losing water weight. Denies headache or dizziness. Denies chest pain. No shortness of breath at rest. Has remained afebrile. Tolerating orals without nausea vomiting. Patient otherwise tells me he has not felt well for the past 3 weeks with shortness of breath even with just getting dressed in the morning. Belly has been bloated. History of previous chronic alcohol use, quitting in 2007. Exam Narrative: Exam Narrative: PHYSICAL EXAM General: Sitting up in chair, very Pleasant, conversant, NAD HEENT: Normocephalic, atraumatic, sclera white, EOMI, oral mucosa moist, legally blind Cardiovascular: RRR, S1S2. No pitting edema Pulmonary: CTA bilaterally without rhonchi, rales, expiratory wheezes. No dyspnea on room air Abdominal: distended, somewhat firm, NTTP, no guarding Neurological: Alert, answering questions appropriately, cranial nerves intact, no focal findings Extremities: No gross joint deformity or swelling. AROMI. Neurovascularly intact Skin: Warm, dry. Const: Vital Signs, click to edit/add: Vital Signs - 24 hr 02/16/23 12:15 02/16/23 12:30 02/16/23 12:31 Temperature Pulse Rate 87 89 89 Pulse Rate [Apical ] Pulse Rate [orthos tatic lying] Pulse Rate [orthos tatic sitting] Pulse Rate [orthos tatic standing] Respiratory Rate Blood Pressure 103/69 Blood Pressure [Le ft Arm] Blood Pressure [or thostatic lying] Blood Pressure [or thostatic sitting] Blood Pressure [or thostatic standing ] Pulse Oximetry 97 97 96 Oxygen Delivery Me thod 02/16/23 12:32 02/16/23 12:48 02/16/23 13:00 Temperature Pulse Rate 89 90 91 Pulse Rate [Apical ] Pulse Rate [orthos tatic lying] Pulse Rate [orthos tatic sitting] Pulse Rate [orthos tatic standing] Respiratory Rate Blood Pressure Blood Pressure [Le ft Arm] Blood Pressure [or thostatic lying] Blood Pressure [or thostatic sitting] Blood Pressure [or thostatic standing ] Pulse Oximetry 97 98 96 Oxygen Delivery Mt thod 02/16/23 13:01 02/16/23 13:02 02/16/23 13:15 Temperature Pulse Rate 91 90 89 Pulse Rate [Apical ] Pulse Rate [orthos tatic lying] Pulse Rate [orthos tatic sitting] Pulse Rate [orthos tatic standing] Respiratory Rate Blood Pressure 107/74 Blood Pressure [Le ft Arm] Blood Pressure [or thostatic lying] Blood Pressure [or thostatic sitting] Blood Pressure [or thostatic standing ] Pulse Oximetry 96 96 95 Oxygen Delivery Me thod 02/16/23 13:30 02/16/23 13:45 02/16/23 14:00 Temperature Pulse Rate 90 91 86 Pulse Rate [Apical ] Pulse Rate [orthos tatic lying] Pulse Rate [orthos tatic sitting] Pulse Rate [orthos tatic standing] Respiratory Rate Blood Pressure Blood Pressure [Le ft Arm] Blood Pressure [or thostatic lying] Blood Pressure [or thostatic sitting] Blood Pressure [or thostatic standing ] Pulse Oximetry 95 95 95 Oxygen Delivery Mt thod 02/16/23 14:02 02/16/23 14:22 02/16/23 14:22 Temperature Pulse Rate 91 Pulse Rate [Apical ] Pulse Rate [orthos tatic lying] Pulse Rate [orthos tatic sitting] Pulse Rate [orthos tatic standing] Respiratory Rate 20 Blood Pressure 114/72 Blood Pressure [Le ft Arm] Blood Pressure [or thostatic lying] Blood Pressure [or thostatic sitting] Blood Pressure [or thostatic standing ] Pulse Oximetry 95 98 98 Oxygen Delivery Mt thod Room Air 02/16/23 14:22 02/16/23 14:28 02/16/23 14:28 Temperature 97.3 F L 97.3 F L Pulse Rate Pulse Rate [Apical ] 94 94 Pulse Rate [orthos tatic lying] Pulse Rate [orthos tatic sitting] Pulse Rate [orthos tatic standing] Respiratory Rate 20 22 20 Blood Pressure Blood Pressure [Le ft Arm] 139/93 H 139/93 H Blood Pressure [or thostatic lying] Blood Pressure [or thostatic sitting] Blood Pressure [or thostatic standing ] Pulse Oximetry 98 97 97 Oxygen Delivery Me thod Room Air Room Air Room Air 02/16/23 15:00 02/16/23 15:05 02/16/23 15:11 Temperature Pulse Rate 94 Pulse Rate [Apical ] 98 Pulse Rate [orthos tatic lying] 95 Pulse Rate [orthos tatic sitting] 98 Pulse Rate [orthos tatic standing] 99 Respiratory Rate 20 Blood Pressure Blood Pressure [Le ft Arm] Blood Pressure [or thostatic lying] 129/81 Blood Pressure [or thostatic sitting] 127/70 Blood Pressure [or thostatic standing ] 99/62 Pulse Oximetry Oxygen Delivery Me thod 02/16/23 19:00 02/16/23 22:58 02/16/23 23:02 Temperature 97.9 F Pulse Rate 76 Pulse Rate [Apical ] 93 93 Pulse Rate [orthos tatic lying] Pulse Rate [orthos tatic sitting] Pulse Rate [orthos tatic standing] Respiratory Rate 20 20 Blood Pressure Blood Pressure [Le ft Arm] 127/79 Blood Pressure [or thostatic lying] Blood Pressure [or thostatic sitting] Blood Pressure [or thostatic standing ] Pulse Oximetry 95 Oxygen Delivery Me thod Room Air 02/16/23 23:42 02/17/23 03:19 02/17/23 07:00 Temperature 98.5 F 97.3 F L Pulse Rate 85 Pulse Rate [Apical ] 84 71 Pulse Rate [orthos tatic lying] Pulse Rate [orthos tatic sitting] Pulse Rate [orthos tatic standing] Respiratory Rate 20 20 Blood Pressure Blood Pressure [Le ft Arm] 94/63 111/69 Blood Pressure [or thostatic lying] Blood Pressure [or thostatic sitting] Blood Pressure [or thostatic standing ] Pulse Oximetry 94 91 Oxygen Delivery Me thod Room Air Room Air 02/17/23 07:00 Temperature 97.9 F Pulse Rate Pulse Rate [Apical ] 84 Pulse Rate [orthos tatic lying] Pulse Rate [orthos tatic sitting] Pulse Rate [orthos tatic standing] Respiratory Rate 18 Blood Pressure Blood Pressure [Le ft Arm] 117/70 Blood Pressure [or thostatic lying] Blood Pressure [or thostatic sitting] Blood Pressure [or thostatic standing ] Pulse Oximetry 93 Oxygen Delivery Me thod Room Air Labs Labs: Laboratory Results - last 24 hr 02/16/23 02/16/23 02/16/23 10:00 13:53 14:48 INR 1.16 H APTT 39 H Fibrinogen 258 Hemoglobin A1c 5.1 Uric Acid 3.3 GGT 90 H Troponin I Lipase 73 SARS-CoV-2 (PCR) Cancelled Influenza Type A (PCR) Influenza Type B (PCR) RSV (PCR) Lab Acknowledgement Test Added 02/16/23 02/16/23 15:35 Unknown INR Cancelled APTT Fibrinogen Hemoglobin A1c Uric Acid GGT Troponin I < 0.01 L Lipase SARS-CoV-2 (PCR) Negative SARS-CoV-2 Influenza Type A (PCR) Negative PCR FLU A Influenza Type B (PCR) Negative PCR FLU B RSV (PCR) Negative PCR RSV Lab Acknowledgement
--- NOTE | 2023-02-17 14:51 | P.DS_ITS ---
DS: Providers Provider Date Seen: 02/17/23 Date of admission: 02/16/23 14:06 Primary care physician: Russ Curran MD Admitting Clinician: Lori Olivera MD Consults: 02/16/23 14:22 Consult to Occupational Therapy [CONS] Routine Comment: Reason(s) for OT Consult:: Evaluate and Treat Any Restrictions?:: No Restrictions Consult to Physical Therapy [CONS] Routine Comment: Reason(s) for PT Consult:: Evaluate and Treat Any Restrictions?:: No Restrictions Consult to Respiratory Therapy [CONS] Routine Comment: Reason(s) for RT Consult:: Consult Consult to Neuropsychology Medical Consultant [CONS] Routine Comment: Reason for Consult:: Social Service Consult Attending Physician on discharge: Chen Vargas PA-C Date of Discharge: 02/17/23 DS: Diagnosis Discharge Diagnosis (1) Shortness of breath: Status: Acute Problem details: -initial working diagnosis on admission cor pulmonale, right-sided heart failure, pulmonary hypertension given symptomatology and findings of CTA chest, EKG, labs -serial troponins have been negative -right-sided EKG shows NSR, low voltage QRS 97, vent rate, QTc 457 -echocardiogram shows normal LV size, normal wall thickness, normal global systolic function with an estimated EF of 60-65%, right ventricular cavity size is normal, global systolic RV function is normal, no significant functional valve disease detected. Normal estimated pulmonary pressure. Estimated right ventricular systolic pressure is 23mmHg -patient reports clinical improvement with diuresis at rest. Will follow-up how he does with ambulation/exertion -more likely new working diagnosis is shortness of breath in setting of cirrhosis with moderate ascites after reviewing abdominal ultrasound and labs as noted below (2) Ascites: Status: Acute Problem details: -ultrasound shows heterogenous echotexture nodular contour, consistent with hepatic cirrhosis. No suspicious masses. No intrahepatic biliary dilatation. Normal hepatopetal portal venous directional flow. Hepatic cirrhosis with moderate ascites noted -GGT 90, AST 57, ALT 34, alk-phos 216, total bili 1.4 -hepatic panel pending at time of discharge -plan to start spironolactone 50 mg and Lasix 20 mg once daily. Will need to monitor for lightheadedness/dizziness. Plan for outpatient follow-up with PCP, recheck of electrolytes. Could consider increasing doses to 100 mg of spironolactone and 40 mg Lasix during follow-up -PCP to decide if outpatient follow-up with [facility] appropriate (3) Hypertension: Status: Acute Problem details: -holding triamterene. Continue to hold at discharge given initiation of spironolactone and Lasix. (4) BPH (benign prostatic hyperplasia): Status: Acute Problem details: -continue Flomax (5) History of subdural hematoma: Status: Acute Problem details: -greater than a decade ago, fall on ice. Evacuation x2. Five weeks at [facility]. Maintained on Keppra. (6) Gout: Status: Acute Problem details: -continue allopurinol -uric acid is normal (7) Pulmonary nodules: Status: Acute Problem details: -repeat CT 3-6 months per Fleischner society recommendations DS: Summary Hospital Course Hospital Course: [age] year old male past medical history significant for gout, BPH, hypertension, hyperlipidemia was admitted to the medical floor for further management shortness of breath. Course of care and details as noted above. Initiation of workup as above. Cor pulmonale, right-sided heart failure, pulmonary hypertension less likely cause. Active working diagnosis currently is cirrhosis with moderate ascites. Further workup to be completed in the outpatient setting. Hepatitis panel pending at discharge. Patient was started on spironolactone and Lasix for management with close outpatient follow-up with PCP for recheck of labs, medication management, and consideration for referral to Gastroenterology. PT and OT consulted. Patient able to ambulate 200 ft multiple times without dyspnea. Able to independently complete ADLs also without shortness of breath. Remainder of chronic medical comorbidities were monitored and managed with home medications. Status at Discharge Overall status at discharge: patient is back to baseline Time Spent with Patient Time attestation: Total time spent providing and/or coordinating discharge services: Time spent: Greater than 30 minutes Exam Narrative: Exam Narrative: PHYSICAL EXAM General: Sitting up in chair, very Pleasant, conversant, NAD HEENT: Normocephalic, atraumatic, sclera white, EOMI, oral mucosa moist, legally blind Cardiovascular: RRR, S1S2. No pitting edema Pulmonary: CTA bilaterally without rhonchi, rales, expiratory wheezes. No dyspnea on room air Abdominal: distended, somewhat firm, NTTP, no guarding Neurological: Alert, answering questions appropriately, cranial nerves intact, no focal findings Extremities: No gross joint deformity or swelling. AROMI. Neurovascularly intact Skin: Warm, dry. Const: Vital Signs, click to edit/add: Vital Signs - 24 hr 02/16/23 15:00 02/16/23 15:05 02/16/23 15:11 Temperature Pulse Rate 94 Pulse Rate [Apical ] 98 Pulse Rate [orthos tatic lying] 95 Pulse Rate [orthos tatic sitting] 98 Pulse Rate [orthos tatic standing] 99 Respiratory Rate 20 Blood Pressure [Le ft Arm] Blood Pressure [or thostatic lying] 129/81 Blood Pressure [or thostatic sitting] 127/70 Blood Pressure [or thostatic standing ] 99/62 Pulse Oximetry Oxygen Delivery Me thod 02/16/23 19:00 02/16/23 22:58 02/16/23 23:02 Temperature 97.9 F Pulse Rate 76 Pulse Rate [Apical ] 93 93 Pulse Rate [orthos tatic lying] Pulse Rate [orthos tatic sitting] Pulse Rate [orthos tatic standing] Respiratory Rate 20 20 Blood Pressure [Le ft Arm] 127/79 Blood Pressure [or thostatic lying] Blood Pressure [or thostatic sitting] Blood Pressure [or thostatic standing ] Pulse Oximetry 95 Oxygen Delivery Me thod Room Air 02/16/23 23:42 02/17/23 03:19 02/17/23 07:00 Temperature 98.5 F 97.3 F L Pulse Rate 85 Pulse Rate [Apical ] 84 71 Pulse Rate [orthos tatic lying] Pulse Rate [orthos tatic sitting] Pulse Rate [orthos tatic standing] Respiratory Rate 20 20 Blood Pressure [Le ft Arm] 94/63 111/69 Blood Pressure [or thostatic lying] Blood Pressure [or thostatic sitting] Blood Pressure [or thostatic standing ] Pulse Oximetry 94 91 Oxygen Delivery Me thod Room Air Room Air 02/17/23 07:00 02/17/23 11:00 Temperature 97.9 F 98.0 F Pulse Rate Pulse Rate [Apical ] 84 80 Pulse Rate [orthos tatic lying] Pulse Rate [orthos tatic sitting] Pulse Rate [orthos tatic standing] Respiratory Rate 18 18 Blood Pressure [Le ft Arm] 117/70 120/75 Blood Pressure [or thostatic lying] Blood Pressure [or thostatic sitting] Blood Pressure [or thostatic standing ] Pulse Oximetry 93 95 Oxygen Delivery Me thod Room Air Room Air DS: Data Data Completed and Pending Labs on day of discharge: Labs from last 24 hours 02/16/23 02/16/23 02/16/23 Unknown 15:35 14:48 INR Cancelled APTT Fibrinogen Hemoglobin A1c Uric Acid GGT Troponin I < 0.01 L Lipase SARS-CoV-2 (PCR) Negative SARS-CoV-2 Hepatitis A IgM Ab Pending Hep Bs Antigen Pending Hep B Core IgM Ab Pending Hep C Ab Index (RACHEL) Pending Hep C Ab Interp RACHEL Pending Hepatitis Interpret Pending Influenza Type A (PCR) Negative PCR FLU A Influenza Type B (PCR) Negative PCR FLU B RSV (PCR) Negative PCR RSV Lab Acknowledgement Test Added 02/16/23 10:00 INR 1.16 H APTT 39 H Fibrinogen 258 Hemoglobin A1c 5.1 Uric Acid 3.3 GGT 90 H Troponin I Lipase 73 SARS-CoV-2 (PCR) Hepatitis A IgM Ab Hep Bs Antigen Hep B Core IgM Ab Hep C Ab Index (RACHEL) Hep C Ab Interp RACHEL Hepatitis Interpret Influenza Type A (PCR) Influenza Type B (PCR) RSV (PCR) Lab Acknowledgement Imaging CT scan - chest: Attestation: I have reviewed the pertinent imaging results. Radiologist's impression: CT angiogram chest with contrast, pulmonary embolism protocol. Multiplanar axial, coronal, and sagittal reformats are included. MIP images to improve detection of pulmonary emboli are included. Intravenous contrast: 95 mL Isovue 370 FINDINGS: PE: Well-timed contrast bolus. No pulmonary emboli. Normal caliber main pulmonary artery, but the branch pulmonary arteries are both significantly dilated. Dilated right ventricle. No reflux of contrast below the diaphragm. Heart and great vessels: No pericardial effusion. Dilated right ventricle with some septal flattening. Heavy coronary atherosclerotic plaques. Upper limits of normal size of the ascending aorta, 4 cm. Lungs: Inspiratory phase imaging. There is an 8 mm nodule in the peripheral left lower lobe on series 5, image 117. Immediately adjacent smaller, 4 mm, nodule. No consolidations. Centrilobular emphysema. Pleura: No pleural effusion. No pneumothorax. Airway: Normal tracheobronchial tree. Mild bronchial wall thickening in the parenchyma. Lymph nodes: Coarse calcifications consistent with prior granulomatous disease. Mediastinum: No pneumomediastinum. Bones: No fractures. No focal bone lesions. Normal for age. Chest wall: Normal. No masses. Upper abdomen: Cirrhosis. Ascites. IMPRESSION: 1. No pulmonary embolus. 2. Pulmonary nodules. Fleischner society recommends follow-up CT in 3-6 months, but must be taken in contact with the patient`s other medical history. 3. Cirrhosis and upper abdominal ascites. Venous US: Attestation: I have reviewed the pertinent imaging results. Radiologist's impression: A compression venous ultrasound exam was performed of both lower extremities using bonds scale imaging, color Doppler and spectral Doppler analysis. FINDINGS: Sonographic imaging of the lower extremities demonstrates normal compressibility and color Doppler venous blood flow within the common femoral, deep femoral, and proximal greater saphenous veins. Within the thighs the femoral veins are patent and compressible. At a lower level the popliteal and posterior tibial veins also show normal compressibility and color Doppler venous blood flow. IMPRESSION: No evidence of deep vein thrombosis within either the left or right lower extremity. US - abdomen: Attestation: I have reviewed the pertinent imaging results. Radiologist's impression: Ascites. TECHNIQUE: Ultrasound abdomen limited. Sonographic images of the right upper quadrant were obtained using bonds-scale and color Doppler images. COMPARISON: None. FINDINGS: Liver: Heterogeneous echotexture nodular contour, consistent with hepatic cirrhosis. No suspicious masses. No intrahepatic biliary dilatation. Normal hepatopetal portal venous directional flow. Gallbladder: No stones or sludge. Gallbladder wall thickness within normal limits (2.9 millimeters), in light of upper abdominal ascites Common bile duct: 5 mm. Pancreas: Unremarkable. Right kidney: Normal in size. Normal echotexture and cortex. No suspicious masses, stones, or hydronephrosis. 1.6 centimeter cyst noted Vasculature: Proximal abdominal aorta and IVC are unremarkable. IMPRESSION: 1. Hepatic cirrhosis. 2. Moderate ascite Echo: Attestation: I have reviewed the pertinent imaging results. Radiologist's impression: Normal LV size, normal wall thickness, normal global systolic function with an estimated EF of 60-65%. Right ventricular cavity size is normal, global systolic RV function is normal. No significant functional valve disease detected Discharge Plan Discharge Disposition: Home, Self-Care Date of Admission: 02/16/23 14:06 Attending Provider on Discharge: Chen Vargas Primary Care Provider: Russ Curran Condition: Improved Anticipated Discharge Date/Time: 02/17/23 14:13 Discharge Medications: New spironolactone 50 mg tablet 50 mg PO DAILY Qty: 30 0RF furosemide 20 mg tablet 20 mg PO DAILY@0800 Qty: 30 0RF Continued simvastatin 40 mg tablet 40 mg PO HS gabapentin 100 mg capsule 100 mg PO HS levetiracetam 1,000 mg tablet 2,000 mg PO BID Qty: 360 3RF allopurinol 300 mg tablet 300 mg PO DAILY Qty: 90 3RF tamsulosin 0.4 mg capsule 0.4 mg PO DAILY Qty: 90 3RF Discontinued [id number] 250-250-120 mg tablet PO furosemide [Lasix] 20 mg tablet 20 mg PO QAM Qty: 30 0RF triamterene-hydrochlorothiazid 37.5-25 mg capsule 1 cap PO DAILY Qty: 90 3RF Discharge Orders: Discharge Order (Routine); Ordered 02/17/23 Ordered By: Chen Vargas Patient Education: Spironolactone (By mouth), Furosemide (By mouth), Cirrhosis of the Liver (GEN), Ascites (GEN) Additional Instructions: Continue to take Lasix every morning along with Spironolactone. Stop taking your triamterene HCTZ. You will need to follow up with Dr. Curran next week as already scheduled to recheck your kidney and liver labs. He may schedule you to see a Bpm Developer. Activity Level: Activity as Tolerated Discharge Diet: Heart Healthy (2 gm sodium, low fat) Follow Up Appointments: Russ Curran MD [Primary Care Provider] - 02/22/23 2:45 pm (Next week as scheduled for recheck liver and renal function. Consider outpatient [facility] consult for further evaluation. Repeat CT chest 3-6 months for pulmonary nodules finding) Forms: Explore[employer]To [employer] Info Instructions
--- NOTE | 2023-02-17 16:54 | PC.NURSE ---
Discharge Note: The patient discharged home via wheelchair this afternoon. IV was removed prior to discharge. All discharge instructions were reviewed and signed thoroughly with the patient. All belongings were sent home with the patient as well. JOE GOETZ BSN
[2023-02-18 21:48] LABS: Hep A Ab, IgM Negative (Negative); Hep B Core Ab, IgM Negative (Negative); Hep B Surface Antigen Negative (Negative); Hep C Ab by CIA Index 0.06 IV; Hep C Ab by CIA Interp Negative (Negative)
== END 2023-02-17 15:25 | disposition home or self-care (01) ==
LOC: ED 13:37 → MEDSURG 14:06
PROVIDERS: Admitting Provider Family Medicine; Emergency Provider Family Medicine; PCP Internal Medicine; Visit Provider Physician Assistant
DX: I26.09 Other pulmonary embolism with acute cor pulmonale (principal); I50.810 Right heart failure, unspecified; K74.60 Unspecified cirrhosis of liver; R18.8 Other ascites; I27.20 Pulmonary hypertension, unspecified; R79.89 Other specified abnormal findings of blood chemistry; I11.0 Hypertensive heart disease with heart failure; E78.5 Hyperlipidemia, unspecified; N40.0 Benign prostatic hyperplasia without lower urinary tract symptoms; M10.9 Gout, unspecified; R06.02 Shortness of breath; R91.8 Other nonspecific abnormal finding of lung field; R42 Dizziness and giddiness; R14.0 Abdominal distension (gaseous); H90.5 Unspecified sensorineural hearing loss; H35.30 Unspecified macular degeneration; Z87.898 Personal history of other specified conditions; Z86.79 Personal history of other diseases of the circulatory system; Z87.19 Personal history of other diseases of the digestive system; Z87.891 Personal history of nicotine dependence
CPT/HCPCS: 36415; 71045; 71275; 76705; 80053; 80074; 82977; 83036; 83690; 83735; 83880; 84443; 84484; 84550; 85025; 85379; 85384; 85610; 85730; 87631; 87635; 93005; 93306; 93970; 94761; 95992; 96374; 97116; 97161; 97165; 99285; G0378; A9270; J1940; Q9967

== ENCOUNTER 2023-02-22 09:56 | Outpatient (CLI) | payer MEDICARE, SELFPAY | END 2023-02-22 09:57 | disposition home or self-care (01) | PROVIDERS: PCP Internal Medicine; Visit Provider Internal Medicine | DX: I10 Essential (primary) hypertension (principal); K74.60 Unspecified cirrhosis of liver | CPT/HCPCS: 80053 ==

== ENCOUNTER 2023-03-06 11:57 | Emergency (ER) | payer MEDICARE, SELFPAY ==
[2023-03-06] VITALS (26 sets, daily range): BP systolic 82–121; BP diastolic 56–76; PULSE 80–97; RESP 20; TEMP 36.4; O2SAT 93–99
[2023-03-06 12:27] LABS: Basophils Absolute Auto 0.03 K/uL (0.00-0.30); Basophils Percent Auto 0.3 % (0.0-3.0); Eosinophils Absolute Auto 0.04 K/uL (0.00-0.50); Eosinophils Percent Auto 0.4 % (0.0-7.0); Hematocrit 42.6 % (37.0-53.0); Hemoglobin* 14.3 gm/dL (13.5-17.5); Immature Granulocytes Abs Auto 0.02 K/uL (0.00-0.30); Immature Granulocytes Pct Auto 0.2 %; Lymphocytes Absolute Auto 3.21 K/uL (0.90-2.90); Lymphocytes Percent Auto 32.9 % (20-44); Mean Corpuscular HGB Conc 34 gm/dL (32-36); Mean Corpuscular Hemoglobin 34 pg (26-34); Mean Corpuscular Volume 101 fL (80-100); Monocytes Percent Auto 8.4 % (0.0-11.0); Neutrophils Absolute Auto 5.65 K/uL (1.7-7.0); Neutrophils Percent Auto 57.8 % (42.0-72.0); Platelet Count* 275 K/uL (140-440); RDW Coefficient of Variation % 15.1 % (11.5-15.5); Red Blood Count 4.24 m/uL (4.30-5.90); White Blood Count* 9.77 K/uL (4.50-11.00)
[2023-03-06 12:30] LABS: Slide Review Reflex No
--- OUTSIDE RECORDS SUMMARY | 2023-03-06 12:56 | XMS_ITS | Continuity of Care Document ---
Author Name Unknown Organization [facility] Address [address] [address] [place] [address] Phone Care Team Providers Care Mechanism Assembler Name Role Phone Robert Butler MD, Thad Roman e Advance Directives Directive Yes / No Effective Date File Name No Information Encounters Encounter Description Practice Location Reason(s) For Visit Diagnoses Date Provider Providers Copied on Encounter [facility], [address] [address], [place], [place], [id number], [place] tel:[phone] [facility] No Information Robert Oneil. [address] [facility], [facility] [address], [place], [place], [id number], [place]. tel:[phone] Family History Family Member Type Diagnosis Age At Onset No Information Payers Payer name Insurance type Covered green party ID Authoriza tion(s) No Information Social History Type Description Quantity Date Captured Comments Sex Male Smoking Status No Information Chief Complaint And Reason For Visit No Information Reason For Referral Reason For Referral No Information Plan Of Treatment Date Type Action Status Appointment Scott Angela BOOKED History Of Present Illness Encounter Date Complaint History Of Prese nt Illness No Information Functional Status Date Functional Assessmen t No Information Instructions Date Instruction Additional Infor mation No Information Assessments Type Assessment Date No Information Patient Care Teams Name Effective Dates (start - stop) Status Members No Information
[2023-03-06 13:00] LABS: Albumin* 3.4 g/dL (3.3-5.0)
[2023-03-06 13:01] LABS: Chloride* 105 mmol/L (96-114); Sodium* 136 mmol/L (135-149)
[2023-03-06 13:03] LABS: Alkaline Phosphatase* 305 U/L (40-150); Amylase* 98 U/L (18-89); Anion Gap 9 mEq/L (7-15); Aspartate Amino Transferase* 74 U/L (12-35); Bilirubin Total* 1.7 mg/dL (0.1-1.5); Blood Urea Nitrogen* 19 mg/dL (7-30); Carbon Dioxide* 22 mmol/L (20-32); Creatinine* 0.9 mg/dL (0.5-1.5); Estimated Glomerular Filt Rate 83 ml/min; Glucose* 107 mg/dL (60-115); INR 1.07 (0.91-1.10); Prothrombin Time 14.6 Seconds; Total Protein* 7.2 g/dL (6.0-8.3)
[2023-03-06 13:04] LABS: Alanine Aminotransferase* 45 U/L (4-50); Calcium* 8.7 mg/dL (8.4-10.6)
[2023-03-06] MEDS: ALBUMIN HUMAN 25% 25 GM/100 ML VIAL IVPB (13:49)
--- NOTE | 2023-03-06 14:21 | ED_ITS ---
HPI - SOB/Dyspnea General Chief Complaint: Shortness of Breath/Dyspnea Stated Complaint: short of breath Time Seen by Provider: 03/06/23 12:04 History of Present Illness HPI Narrative: Patient is a 87-year-old gentleman well known to me as he is my primary care patient who called me earlier today stating that he was very short of breath. Item come to the emergency room where was working and found him to have a massive amount of ascites present on his abdomen. This was corroborated with ultrasound. Patient has been progressively short of breath since the last time we visited. He does have cirrhosis after abstaining from alcohol for the last 15 years. I do him set up with [facility] to consult for further management any is currently on both Lasix and spironolactone but is now having increasing lower extremity edema. He has had no chest pain. No orthopnea no PND but is generally short of breath. He has had no bruising or bleeding. He of course is up standing from alcohol. He has been compliant with his medications. Related Data Home Medications Medication Instructions Recorded Confirmed gabapentin 100 mg capsule 100 mg PO HS 02/16/23 02/22/23 simvastatin 40 mg tablet 40 mg PO HS 02/16/23 02/22/23 Previous Rx's Medication Instructions Recorded levetiracetam 1,000 mg tablet 2,000 mg (2 x 1,000 mg) PO BID 03/18/22 Seizure #360 tabs allopurinol 300 mg tablet 300 mg PO DAILY Gout #90 tabs 10/05/22 tamsulosin 0.4 mg capsule 0.4 mg PO DAILY BPH #90 caps 10/05/22 furosemide 20 mg tablet 20 mg PO DAILY@0800 #30 tabs 02/17/23 spironolactone 50 mg tablet 50 mg PO DAILY #30 tabs 02/17/23 Allergies Allergy/AdvReac Type Severity Reaction Status Date / Time enoxaparin Allergy Severe contraindictation Verified 02/22/23 09:33 to all anticoagulants - see history anticoagulants-relative AdvReac Unknown Uncoded 02/22/23 09:33 contraindication-brain bleed Review of Systems Status of ROS: Reports: 10 or more systems reviewed and unremarkable except as noted in History and below [facility] Medical History Cirrhosis ?K74.60 - Unspecified cirrhosis of liver (ICD-10) Hypertension (06/14/11) ?I10 - Essential (primary) hypertension (ICD-10) History of subdural hematoma (11/23/11) ?Z86.79 - Personal history of other diseases of the circulatory system (ICD- 10) Gout (09/15/08) ?M10.9 - Gout, unspecified (ICD-10) Tubular adenoma of colon (09/15/08) ?D12.6 - Benign neoplasm of colon, unspecified (ICD-10) Traumatic brain injury (06/14/11) ?S06.9X9A - Unspecified intracranial injury with loss of consciousness of unspecified duration, initial encounter (ICD-10) Subjective tinnitus (10/06/11) ?H93.19 - Tinnitus, unspecified ear (ICD-10) Sensorineural hearing loss (SNHL) (11/23/11) ?H90.5 - Unspecified sensorineural hearing loss (ICD-10) Rosacea (05/21/06) ?L71.9 - Rosacea, unspecified (ICD-10) 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) ?L71.1 - Rhinophyma (ICD-10) Osteoarthritis of cervical spine ?M47.812 - Spondylosis without myelopathy or radiculopathy, cervical region (ICD-10) Obesity (08/16/10) ?E66.9 - Obesity, unspecified (ICD-10) Macular degeneration ?H35.30 - Unspecified macular degeneration (ICD-10) Intestinal obstruction ?K56.609 - Unspecified intestinal obstruction, unspecified as to partial versus complete obstruction (ICD-10) Hyperlipidemia (02/25/14) ?E78.5 - Hyperlipidemia, unspecified (ICD-10) BPH (benign prostatic hyperplasia) ?N40.0 - Benign prostatic hyperplasia without lower urinary tract symptoms (ICD-10) History of seizure (11/23/11) ?Z87.898 - Personal history of other specified conditions (ICD-10) History of pancreatitis (09/15/08) ?Z87.19 - Personal history of other diseases of the digestive system (ICD-10) Surgical History Status post evacuation of subdural hematoma (06/01/11) ?Z98.890 - Other specified postprocedural states (ICD-10) ?Z86.79 - Personal history of other diseases of the circulatory system (ICD- 10) History of tonsillectomy ?Z90.89 - Acquired absence of other organs (ICD-10) History of knee surgery (09/15/08) ?Z98.890 - Other specified postprocedural states (ICD-10) History of hemorrhoidectomy (09/15/08) ?Z98.890 - Other specified postprocedural states (ICD-10) Social History What is your current living situation?: I presently have a place to live Problems where you live: no known problems Problems where you live details: N/A In the past 12 months, utilities in danger of being shut off: no In past 12 months, lack of transportation kept you from medical appts, meetings, work, or getting things needed for daily living: no In the past 12 mos, have been you worried that your food would run out before you had money to buy more?: never true In the past 12 mos, the food you bought just didn't last and you didn't have money to buy more?: never true Highest level of school completed/degree received: Bachelor's degree Smoking Status: Former smoker How often do you have a drink containing alcohol: never How often do you have six or more drinks on one occasion: Never AUDIT-C Alcohol total score: 0 Non-prescribed substance use: denies use Caffeine: No How often does anyone, including family, friends and others, physically hurt you : never How often does anyone, including family, friends and others, insult or talk down to you: never How often does anyone, including family, friends and others, threaten you with harm: never How often does anyone, including family, friends and others, scream or curse at you: never Little interest or pleasure in doing things: not at all Feeling down, depressed, or hopeless: not at all service: No Exam Narrative: Exam Narrative: EXAM GENERAL: Patient appears stable but uncomfortable. EYES: No scleral icterus. LYMPH: No supraclavicular or cervical lymphadenopathy. SKIN: Visible skin seen during exam normal or with benign process only. EXT: 1+ lower extremity edema bilaterally. HEART: Regular rate and rhythm with no murmurs, rubs, or gallops. LUNGS: Clear to auscultation bilaterally with no crackles or wheezes. ABD: Massively distended with a palpable fluid wave. PSYCH: Good eye contact, speech is not pressured. Const: Vital Signs, click to edit/add: Vital Signs - 24 hr 03/06/23 12:23 03/06/23 12:27 03/06/23 12:30 Temperature 97.6 F Pulse Rate 90 90 Pulse Rate [Pulse Oximeter] 97 Respiratory Rate 20 Blood Pressure Blood Pressure [Ri ght Upper Arm] 121/75 Pulse Oximetry 97 98 96 Oxygen Delivery Me thod Room Air 03/06/23 12:37 03/06/23 12:45 03/06/23 13:00 Temperature Pulse Rate 91 92 93 Pulse Rate [Pulse Oximeter] Respiratory Rate Blood Pressure 111/76 Blood Pressure [Ri ght Upper Arm] Pulse Oximetry 96 96 [facility] 13:02 03/06/23 13:15 03/06/23 13:30 Temperature Pulse Rate 94 90 87 Pulse Rate [Pulse Oximeter] Respiratory Rate Blood Pressure 119/72 Blood Pressure [Ri ght Upper Arm] Pulse Oximetry 97 97 98 Oxygen Delivery Hi thod 03/06/23 13:32 03/06/23 13:45 03/06/23 13:50 Temperature Pulse Rate 86 86 93 Pulse Rate [Pulse Oximeter] Respiratory Rate Blood Pressure 107/56 L 82/56 L Blood Pressure [Ri ght Upper Arm] Pulse Oximetry 99 98 97 Oxygen Delivery Hi thod 03/06/23 13:56 03/06/23 14:00 03/06/23 14:01 Temperature Pulse Rate 87 82 84 Pulse Rate [Pulse Oximeter] Respiratory Rate Blood Pressure 106/69 112/57 L Blood Pressure [Ri ght Upper Arm] Pulse Oximetry 97 97 97 Oxygen Delivery Hi thod 03/06/23 14:12 03/06/23 14:15 Temperature Pulse Rate 86 84 Pulse Rate [Pulse Oximeter] Respiratory Rate Blood Pressure 93/61 Blood Pressure [Ri ght Upper Arm] Pulse Oximetry 96 96 Oxygen Delivery Hi thod Course Course ED Course: Labs are stable upon my review ultrasound shows large volume ascites. After explaining the risks and benefits of the procedure I did with the patient in the recumbent is slightly rotated to the left position I did sterilely anesthetize left lower quadrant using 2% lidocaine. I then injected deeper until the peritoneal space was punctured. I removed the needle and made a 1 cm incision through which I inserted the paracentesis needle and catheter into the peritoneal space. Series of Vacutainer bottles was used to collect 7000 mL of yellow fluid. I did send fluid off for white blood cell/red blood cell with differential total protein LDH glucose cholesterol culture Gram stain and cytology. Once flow was stopped I did remove the catheter and a bandage the puncture site. Vital Signs Vital signs: Initial Vital Signs Temperature 97.6 F 03/06/23 12:23 Temperature Source Temporal Artery Scan 03/06/23 12:23 Pulse Rate 97 03/06/23 12:23 Respiratory Rate 03/06/23 12:23 Blood Pressure 121/75 03/06/23 12:23 Blood Pressure Mean 90 03/06/23 12:23 Blood Pressure Position Sitting 03/06/23 12:23 Pulse Oximetry 97 03/06/23 12:23 Oxygen Delivery Method Room Air 03/06/23 12:23 Vital Signs Temperature 97.6 F 03/06/23 12:23 Pulse Rate 97 03/06/23 12:23 Respiratory Rate 20 03/06/23 12:23 Blood Pressure 121/75 03/06/23 12:23 Pulse Oximetry 97 03/06/23 12:23 Oxygen Delivery Method Room Air 03/06/23 12:23 Temperature 97.6 F 03/06/23 12:23 Pulse Rate 84 03/06/23 14:15 Respiratory Rate 03/06/23 12:23 Blood Pressure 93/61 03/06/23 14:12 Pulse Oximetry 96 03/06/23 14:15 Oxygen Delivery Method Room Air 03/06/23 12:23 Medications Administered Medications: Discontinued Medications Generic Name Dose Route Start Last Admin Trade Name Freq PRN Reason Stop Dose Admin Albumin Human 25 gm in 100 mls @ 100 mls/hr 03/06/23 12:48 03/06/23 13:49 Albumin Human 25% IVPB 03/06/23 13:47 100 mls/hr ONCE ONE Administration MDM - SOB/Dyspnea MDM Narrative Medical decision making narrative: Patient is a 87-year-old gentle with cirrhosis who presents with worsening ascites. The rest of his workup is unremarkable. I did give him standard post procedure albumin infusion after the paracentesis. He is instructed on care will follow-up with me in the office in approximately 2 days. Differential diagnosis includes but not limited to ascites spontaneous bacterial peritonitis acute abdomen perforated viscus. Lab Data Labs: Lab Results 03/06/23 Range/Units 12:20 WBC 9.77 (4.50-11.00) K/uL RBC 4.24 L (4.30-5.90) m/uL Hgb 14.3 (13.5-17.5) gm/dL Hct 42.6 (37.0-53.0) % MCV 101 H (80-100) fL MCH 34 (26-34) pg MCHC 34 (32-36) gm/dL RDW Coeff of Jose 15.1 (11.5-15.5) % Plt Count 275 (140-440) K/uL Neut % (Auto) 57.8 (42.0-72.0) % Lymph % (Auto) 32.9 (20-44) % [place] % (Auto) 8.4 (0.0-11.0) % Eos % (Auto) 0.4 (0.0-7.0) % Baso % (Auto) 0.3 (0.0-3.0) % Neut # (Auto) 5.65 (1.7-7.0) K/uL Lymph # (Auto) 3.21 H (0.90-2.90) K/uL [place] # (Auto) 0.80 (0.00-0.90) K/UL Eos # (Auto) 0.04 (0.00-0.50) K/uL Baso # (Auto) 0.03 (0.00-0.30) K/uL Abs Immat Gran (auto) 0.02 (0.00-0.30) K/uL Imm/Tot Granulo (auto) 0.2 % INR 1.07 (0.91-1.10) Sodium 136 (135-149) mmol/L Potassium 4.0 (3.6-5.1) mmol/L Chloride 105 (96-114) mmol/L Carbon Dioxide 22 (20-32) mmol/L Anion Gap 9 (7-15) mEq/L BUN 19 (7-30) mg/dL Creatinine 0.9 (0.5-1.5) mg/dL Estimated GFR 83 ml/min Glucose 107 (60-115) mg/dL Calcium 8.7 (8.4-10.6) mg/dL Total Bilirubin 1.7 H (0.1-1.5) mg/dL AST 74 H (12-35) U/L ALT 45 (4-50) U/L Alkaline Phosphatase 305 H (40-150) U/L Total Protein 7.2 (6.0-8.3) g/dL Albumin 3.4 (3.3-5.0) g/dL Amylase 98 H (18-89) U/L Discharge Plan Discharge Clinical Impression: Ascites Patient Disposition: Home, Self-Care Condition: Stable Instructions: Ascites (ED) Additional Instructions: Continue current care Follow-up with Dr. Curran in 2 days Activity Level: No Restrictions Discharge Diet: Regular Prescriptions: No Action simvastatin 40 mg tablet 40 mg PO HS gabapentin 100 mg capsule 100 mg PO HS spironolactone 50 mg tablet 50 mg PO DAILY Qty: 30 0RF furosemide 20 mg tablet 20 mg PO DAILY@0800 Qty: 30 0RF levetiracetam 1,000 mg tablet 2,000 mg PO BID Qty: 360 3RF allopurinol 300 mg tablet 300 mg PO DAILY Qty: 90 3RF tamsulosin 0.4 mg capsule 0.4 mg PO DAILY Qty: 90 3RF Follow Up/Referrals: Russ Curran MD [Primary Care Provider] - Stand Alone Forms: MyHealth Info Instructions
[2023-03-06 14:41] LABS: Body Fluid Total Protein* < 2.0 gm/dL; Cholesterol Body Fluid* < 50 mg/dL; Glucose Body Fluid* 104 mg/dL; LDH Body Fluid* 83 U/L
[2023-03-06 15:22] LABS: Mononuclear WBC Body Fluid* 84 %; Polynuclear WBC Body Fluid* 16 %; RBC, Body Fluid* 3000 Cells/uL; WBC, Body Fluid* 439 Cells/uL
[2023-03-06 15:25] LABS: BF Total Volume* 5.2
[2023-03-06 15:26] LABS: BF Clarity* Slightly Cloudy; BF Color Xanthochromic
[2023-03-06 16:04] LABS: Albumin Body Fluid* < 1.0 gm/dL
[2023-03-06 16:08] LABS: Amylase Body Fluid* < 18 U/L
== END 2023-03-06 15:17 | disposition home or self-care (01) ==
PROVIDERS: Emergency Provider Internal Medicine; PCP Internal Medicine
DX: K74.60 Unspecified cirrhosis of liver (principal); R18.8 Other ascites
CPT/HCPCS: 36415; 49083; 80053; 82042; 82150; 82945; 83615; 84155; 84157; 84311; 85025; 85610; 87070; 87205; 88112; 89051; 99283; 99284; P9047

== ENCOUNTER 2023-03-17 13:32 | Outpatient (REF) | payer MEDICARE, SELFPAY ==
--- OUTSIDE RECORDS SUMMARY | 2023-03-17 13:35 | XMS_ITS | Clinical Summary ---
Author Name Unknown Organization [facility] Address [place], [place] [address] Care Team Providers Care Timber Surveyor Name Role Phone Russ Curran MD Primary Care Provider [phone] Allergies No known active allergies Medications Medication Sig Dispensed Refills Start Date End Date Status multivitamin (MVI) tablet Take 1 tablet by mouth once daily. 0 Active doxycycline (VIBRAMYCIN) 100 mg tablet Take 100 mg by mouth once daily. 0 Active HYDROcodone-aceta minophen, 5-500 mg, (VICODIN) Tab tablet Take 1-2 tablets by mouth every 4 hours if needed for Pain. Max acetaminophen dose: 4000mg in 24 hrs. 20 tablet 0 06/20/2011 Active sennosides-docusa te, 8.6-50 mg, (SENOKOT S) 8.6-50 mg tablet Take 1-2 tablets by mouth once daily if needed for Constipation. 40 tablet 0 06/20/2011 Active acetaminophen (TYLENOL EXTRA STRGTH) 500 mg tablet Take 1-2 tablets by mouth every 4 hours if needed for Pain. Max acetaminophen dose: 4000mg in 24 hrs. 0 06/20/2011 Active simvastatin (ZOCOR) 40 mg tablet Take 1 tablet by mouth at bedtime. 30 tablet 0 06/20/2011 Active tamsulosin (FLOMAX) 0.4 mg capsule Take 1 capsule by mouth once daily after a meal. 30 capsule 0 06/20/2011 Active allopurinol (ZYLOPRIM) 300 mg tablet Take 1 tablet by mouth once daily. 30 tablet 0 06/20/2011 Active polyethylene glycol (MIRALAX; GLYCOLAX) 17 g PwPk Take 1 Packet by mouth once daily if needed for Constipation. 30 Packet 0 06/20/2011 Active triamterene-hydro chlorothiazide, 37.5-25 mg, (MAXZIDE-25) 37.5-25 mg tablet Take 1 tablet by mouth every morning. 30 tablet 0 06/20/2011 Active zolpidem (AMBIEN) 5 mg tablet Take 0.5 tablets by mouth at bedtime if needed, may repeat once for Sleep. 30 tablet 0 06/20/2011 Active levETIRAcetam (KEPPRA) 1,000 mg tablet Take 2 tablets by mouth 2 times daily. 90 tablet 0 11/21/2011 Active sodium chloride 1 gram tablet Take 1 tablet by mouth 2 times daily. 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 10/06/2011 HTN (hypertension) 06/14/2011 Urinary retention 06/14/2011 TBI (traumatic brain injury) 06/14/2011 Subdural hematoma 06/01/2011 S/P evacuation of subdural hematoma 06/01/2011 ACP (advance care planning) 06/01/2011 Overview: Patient has identified Health Care Agent(s): Yes Add Health Care Agents: Yes Health Care Agent(s): Primary Health Care Agent: Snow Martin Relationship: Secondary Health Care Agent: Relationship: Phone: Conservator: Relationship: Phone: Guardian: Relationship: Phone: Patient has Advance Care Plan Documents (Health Care Directive, POLST): Yes Advance Care Plan Documents: Health Care Directive - requested pt have family bring in a copy so that it may be scanned into pt's EMR. 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 Encounters Date Type Department Care Team Description 03/07/2023 Lab Requisition [facility] [phone] Russ Curran MD 02/16/2023 6:00 PM FOREST FIRE FIGHTER Orders Only [facility] [address] [place] [address] 3 scans: (3-Ord) ECHO TTE COMPLETE WO CONTRAST ([id number]) 02/08/2023 Telephone [facility] [address] [place] [address] Atul Fortune AuD Hearing Test (Referral Question - Medicare ) 02/06/2023 1:30 PM FOREST FIRE FIGHTER Office Visit [facility] [address] [place] [address] Atul Fortune, Lily Hearing Aid 02/06/2023 Travel from Last 3 Months Immunizations Name Administration Dates Next Due Hepatitis A (Adult) 01/16/2003 Influenza, IIV3 (Age >=3 years) 01/03/2007,01/11 Pneumococcal Poly,23-Valent (Pneumovax) 01/17/20 03 Td (Age >=7 Years) 01/16/2003 Zoster (Zostavax-ZVL, live) 03/28/2007 Family History Medical History Relation Name Comments Other Father pulmonary embol ism Cancer-breast Mother Relation Name Status Comments Father Mother Social History Tobacco Use Types Packs/Day Years Used Date Smoking Tobacco: Former Cigarettes 2 40 1 - 12/05/1999 Smokeless Tobacco: Never Tobacco Cessation:Counseling Given: Yes Alcohol Use Standard Drinks/Week Comments No 23.3 (1 standard drink = 0.6 oz pure alcohol) Sex and Gender Information Value Date Recorded Sex Assigned at Not on file Gender Identity Not on file Sexual Orientation Not on file Obstetrics History Last Filed Vital Signs Vital Sign Reading Time Taken Comments Blood Pressure 106/71 04/18/2012 1:43 PM FOREST FIRE FIGHTER Pulse 96 04/18/2012 1:43 PM FOREST FIRE FIGHTER Temperature 36.9 ??C (98.4 ??F) 11/21/2011 8:00 AM CD T Respiratory Rate 18 11/21/2011 8:00 AM CDT Oxygen Saturation 98% 11/21/2011 8:00 AM CDT Inhaled Oxygen Concentration - - Weight 98.6 kg (217 lb 6 oz) 11/10/2011 6:00 AM CDT Height 180.3 cm (5' 11) 11/06/2011 8:00 PM CDT Body Mass Index 30.32 11/06/2011 8:00 PM CDT Plan of Treatment Upcoming Encounters Date Type Department Care Team (Late st Contact Info) Description 03/30/2023 10:00 AM FOREST FIRE FIGHTER Office Visit [facility] [address] [place] [address] Debbie Yu, AuD [address] [place] [address] 03/30/2023 11:00 AM FOREST FIRE FIGHTER Office Visit [facility] [address] [place] [address] Debbie Yu, AuD [address] [place] [address] Health Maintenance Due Date Last Done Comments Tdap 08/12/1946 Depression screening for age 12+ 1948 BMI (ht and wt on same day) for age 18+ 1954 Medicare Wellness for age 65+ 2001 Pneumococcal series for age 65+ (2 of 2 - PCV) 01/17/2004 01/16/2003 Zoster (shingles) series for age 50+ (2 of 3) 05/23/2007 03/28/2007 Tetanus booster 01/16/2013 01/16/2003 Influenza for age 65+ 11/04/2022 01/03/2007, 006 COVID-19 vaccine series Completed 12/23/19, 07/20/2021, 04/26/2020, Additional history exists Medical Devices Implanted Type Area Parole Or Probation Officer Device Identifier Shelf Expiration Date Model / Serial / Lot Plate Ti [id number] Holes Low Profile Neuro Box - [id number] Implanted:Qty: 1 on 11/07/2011 by Angel Marie MD at [facility] Left: Cranium J And J Depuy CMF [id number]# / / Buffalo Hole Cover 17mm Jocelin Ti Low Profile Neuro - [id number] Implanted:Qty: 1 on 11/07/2011 by Angel Marie MD at [facility] Left: Cranium J And J Depuy CMF 421.527# / / Set Plating Synthes Matex Neuro Profile - [id number] Implanted:Qty: 14 on 11/07/2011 by Angel Marie MD at [facility] Left: Cranium J And J Depuy CMF [id number] 4.01# / / Screw 5mm Emergency Titnm Matrixneuro - [id number] Implanted:Qty: 1 on 11/07/2011 by Angel Marie MD at [facility] Left: Cranium J And J Depuy CMF 503.11 5.01# / / Shunt Vj Hole Covre 17mm Implanted:Qty: 1 on 11/07/2011 at [facility] Left: Cranium 421.544 / / Description:SHUNT VJ HOLE COVRE 17MM Set Plating Synthes Matex Neuro Profile - [id number] Implanted:Qty: 7 on 11/17/2011 at [facility] . 4.01# / / Procedures Procedure Name Priority Date/Time Associated Diagnosis Comments LAB TRACKING EVENT Routine 03/06/2023 12 :00 PM FOREST FIRE FIGHTER PATH NON ELEMENTARY EDUCATOR CYTOLOGY Routine 03/06/2023 12:00 PM FOREST FIRE FIGHTER ECHO TTE COMPLETE WO CONTRAST Routine 02/16/2023 4:50 PM FOREST FIRE FIGHTER Right heart failure (HC) from Last 3 Months Results * LAB TRACKING EVENT (03/06/2023 12:00 PM FOREST FIRE FIGHTER) Other (Other) Client Collect / Unknown 03/06/2023 12:00 PM FOREST FIRE FIGHTER 03/07/2023 12:55 PM FOREST FIRE FIGHTER Russ Curran MD LAB BILL ONLY [facility] [address] [place] [address], * PATH NON ELEMENTARY EDUCATOR CYTOLOGY (03/06/2023 12:00 PM FOREST FIRE FIGHTER) Case Report Medical Cytology Report ? Case: [id number] ? Authorizing Provider: ??Russ Curran MD ?Collected: ? 03/06/2023 1200 ? Ordering Location: ? [facility] ?Received: ?03/08/2023 0735 ? Pathologist: ? Jacky Gutierrez Jr., ? MD ? Specimen: ?Peritoneal Fluid ? 03/09/2023 10:13 AM [facility] LAB[facility]AT[facility] Final Diagnosis PERITONEAL FLUID, CYTOLOGIC MATERIAL: Negative for malignancy in this sample 03/09/2023 10:13 AM [facility] Clinical Information Ascites 03/09/2023 10:13 AM [facility] LABORAT[facility] EN[facility]AL LABORATORY Gross Description A) SOURCE: Peritoneal Fluid The specimen consists of 3 cc of light yellow hazy fluid from which the following is prepared: ? -1 Air-dried slide for DiffQuik stain ? -1 ThinPrep slide for Papanicolaou Stain ? -1 Cell block slide A2: Cell block material was placed in formalin at 0828 on 03/08/23 and fixed in formalin at least 6 hours and no more than 72 hours. 03/09/2023 10:13 AM FOREST FIRE FIGHTER [facility] Microscopic Description Specimen adequacy: Adequate for interpretation. All slides were reviewed. The microscopic appearance substantiates the diagnosis. All slides were reviewed microscopically. Specimen adequacy: Adequate for interpretation. The microscopic appearance substantiates the diagnosis. 03/09/2023 10:13 AM FOREST FIRE FIGHTER [facility] Additional Information Cytology is screened at [facility] - [address], [place] [address] and [facility] - [address], [place] [address] and [facility] - [address] [place] [address] Interpreted at [facility] - [address], [place] [address] 03/09/2023 10:13 AM FOREST FIRE FIGHTER [facility] Other PERITONEAL FLUID SPECIMEN / Unknown 03/06/2023 12:00 PM FOREST FIRE FIGHTER 03/08/2023 7:35 AM FOREST FIRE FIGHTER Russ Curran MD PATHOLOGY/CYTOLOGY Performing Organization Address City/State/[facility] Co de Phone Number [facility] [address] [place] [address], * ECHO TTE COMPLETE WO CONTRAST (02/16/2023 4:50 PM FOREST FIRE FIGHTER) AORTIC VALVE MEAN PG 4 mmHg EJECTION FRACTION 64 % PEAK TR VELOCITY 2.4 m/s LVEDD 4.0 cm EJECTION FRACTION 60 - 65% Anatomical Region Laterality Modality Ultrasound 02/16/2023 4:27 PM FOREST FIRE FIGHTER Narrative 02/16/2023 5:12 PM FOREST FIRE FIGHTER ECHOCARDIOGRAM SCOTT MARTIN ?Accession#: ?? [id number] : ?1935 87 years Study Date: ?? 02/16/2023 4:27:05 PM Gender: M ? BP: ? 129/81 mmHg Height: 183.00 cm ? BSA: ?2.23 m? ? ? Weight: 101.00 kg ? Tech: ? MJS ?Referring MD: RIANNA SALAZAR Site: ? [facility] Reading Location: [facility] Patient Location: Inpatient. Procedure: 2D, Color Doppler and Spectral Doppler. Indication for study: RIGHT HEART FAILURE Cardiac Rhythm: Normal sinus.Study quality: Good. Imaging limitations: This study was subject to imaging limitations due to body habitus and transgastric difficulties. Final Impressions: 1. Normal LV size, normal wall thickness, normal global systolic function with an estimated EF of 60 - 65%. 2. Right ventricular cavity size is normal, global systolic RV function is normal. 3. No significant functional valve disease detected. Comparison Compared to prior exam of 11/10/11, there has been no significant change. Chamber Sizes and Function Normal left ventricular size, normal wall thickness, normal global systolic function with an estimated EF of 60 - 65%. Left atrial size is normal. Right ventricular cavity size is normal, global systolic RV function is normal. The right atrium is normal. Right atrial area is 15 cm? ? ?. The pulmonary artery is of normal size and origin. The sinus of Valsalva is normal sized. The ascending aorta is normal sized. Valves, RV Pressures and Diastolic Function The aortic valve is trileaflet, no stenosis and no regurgitation. The mitral valve is normal in structure, no mitral regurgitation. Normal diastolic function. The tricuspid valve is normal in structure. Tricuspid regurgitation is mild regurgitation. The tricuspid regurgitant velocity is 2.4 m/s, the estimated right ventricular systolic pressure is 23 mmHg plus right atrial pressure. There is normal estimated pulmonary pressure by tricuspid regurgitation velocity and right atrial pressure. The pulmonic valve is normal. No pulmonary regurgitation. TTE images do not appear adequate for transcather intervention with patient supine. Masses, Effusion, Shunts There is no pericardial effusion. The inferior vena cava is not well visualized, respiratory size variation not well visualized. No left to right shunting was detected by limited color flow Doppler interrogation of the interatrial septum. MEASUREMENTS AND CALCULATIONS 2-D Measurements and LV Function: LVID (d) 4.0 cm LV FS% (2D) ?? 33 % LVID (s) 2.7 cm LVOT diameter 2.0 cm IVS (d) ??1.1 cm HR ?92 bpm LVPW (d) 1.2 cm LA Vol index ??16 ml/m2 Ao Sinus 3.5 cm RA area ? 15 cm? ? ? Asc Ao ?? 3.6 cm RV Max 4C (d) 3.2 cm LA ? 3.8 cm Diastology: Mitral ?Tissue Doppler E Peak 0.7 m/s ??e', Septum ? 0.09 m/s A Peak 1.0 m/s ??e', Lateral ?0.10 m/s E/A ?0.7 ?E/e' Average ?? 7.79 DT ? 157 msec Aortic Valve: Vmax ? 1.4 m/s ??ORLANDO (V) ?? 3.00 cm? ? ? VTI ?0.26 m ?? ORLANDO (I) ?? 2.85 cm? ? ? LVOT V max 1.2 m/s ??Max PG ?7 mmHg LVOT VTI ?? 0.22 m ?? Mean PG ?? 4 mmHg SV ? 74 ml ?Dim Index 0.87 SV index ?? 33 ml/m? ? ? CO ?6.8 l/min ?CI ?3.0 l/min/m? ? ? Mitral Valve: MVA ?4.8 cm? ? ? MV P 1/2 46 msec Tricuspid Valve and estimated PA pressures: TR Vmax 2.4 m/s TAPSE 2.8 cm TR maxG 23 mmHg . This study was interpreted by an [facility] accredited facility. CC: HIM (med records) [facility], Med/Surg - IP [facility]. ??Final ?? Procedure Note Jeremy Em MD - 02/16/2023 ECHOCARDIOGRAM SCOTT MARTIN : 1935 87 years Study Date: 02/16/2023 4:27:05 PM Gender: M BP: 129/81 mmHg Height: 183.00 cm BSA: 2.23 m? ? ? Weight: 101.00 kg Tech: ANTONI Referring MD: RIANNA SALAZAR Site: [facility] Reading Location: [facility] Patient Location: Inpatient. Procedure: 2D, Color Doppler and Spectral Doppler. Indication for study: RIGHT HEART FAILURE Cardiac Rhythm: Normal sinus.Study quality: Good. Imaging limitations: This study was subject to imaging limitations due tobody habitus and transgastric difficulties. Final Impressions: 1. Normal LV size, normal wall thickness, normal global systolic functionwith an estimated EF of 60 - 65%. 2. Right ventricular cavity size is normal, global systolic RV functionis normal. 3. No significant functional valve disease detected. Comparison Compared to prior exam of 11/10/11, there has been no significant change. Chamber Sizes and Function Normal left ventricular size, normal wall thickness, normal globalsystolic function with an estimated EF of 60 - 65%. Left atrial size isnormal. Right ventricular cavity size is normal, global systolic RVfunction is normal. The right atrium is normal. Right atrial area is 15cm? ? ?. The pulmonary artery is of normal size and origin. The sinus ofValsalva is normal sized. The ascending aorta is normal sized. Valves, RV Pressures and Diastolic Function The aortic valve is trileaflet, no stenosis and no regurgitation. Themitral valve is normal in structure, no mitral regurgitation. Normaldiastolic function. The tricuspid valve is normal in structure. Tricuspidregurgitation is mild regurgitation. The tricuspid regurgitant velocity is2.4 m/s, the estimated right ventricular systolic pressure is 23 mmHg plusright atrial pressure. There is normal estimated pulmonary pressure bytricuspid regurgitation velocity and right atrial pressure. The pulmonicvalve is normal. No pulmonary regurgitation. TTE images do not appearadequate for transcather intervention with patient supine. Masses, Effusion, Shunts There is no pericardial effusion. The inferior vena cava is not wellvisualized, respiratory size variation not well visualized. No left toright shunting was detected by limited color flow Doppler interrogation ofthe interatrial septum. MEASUREMENTS AND CALCULATIONS 2-D Measurements and LV Function: LVID (d) 4.0 cm LV FS% (2D) 33 % LVID (s) 2.7 cm LVOT diameter 2.0 cm IVS (d) 1.1 cm HR 92 bpm LVPW (d) 1.2 cm LA Vol index 16 ml/m2 Ao Sinus 3.5 cm RA area 15 cm? ? ? Asc Ao 3.6 cm RV Max 4C (d) 3.2 cm LA 3.8 cm Diastology: Mitral Tissue Doppler E Peak 0.7 m/s e', Septum 0.09 m/s A Peak 1.0 m/s e', Lateral 0.10 m/s E/A 0.7 E/e' Average 7.79 DT 157 msec Aortic Valve: Vmax 1.4 m/s ORLANDO (V) 3.00 cm? ? ? VTI 0.26 m ORLANDO (I) 2.85 cm? ? ? LVOT V max 1.2 m/s Max PG 7 mmHg LVOT VTI 0.22 m Mean PG 4 mmHg SV 74 ml Dim Index 0.87 SV index 33 ml/m? ? ? CO 6.8 l/min CI 3.0 l/min/m? ? ? Mitral Valve: MVA 4.8 cm? ? ? MV P 1/2 46 msec Tricuspid Valve and estimated PA pressures: TR Vmax 2.4 m/s TAPSE 2.8 cm TR maxG 23 mmHg . This study was interpreted by an [facility] accredited facility. CC: HIM (med records) [facility], Med/Surg - IP [facility]. Final Rianna Salazar MD ECHO ORD from Last 3 Months Advance Directives Latest Code Status on File Code Status Date Activated Date Inactivated Comments Full Code 11/17/2011 1:02 PM 11/21/2011 3:10 PM Code Status History Code Status Date Activated Date Inactivated Comments Full Code 11/17/2011 6:18 AM 11/17/2011 1:02 PM Full Code 11/07/2011 1:40 PM 11/17/2011 6:18 AM Full Code 11/06/2011 9:37 PM 11/07/2011 1:40 PM Full Code 06/14/2011 10:42 AM 06/21/2011 1:23 PM Care Teams Timber Surveyor Relationship Specialty Start Date End Date Russ Curran MD [address] [place] [address] PCP - General 06/14/11
--- OUTSIDE RECORDS SUMMARY | 2023-03-17 13:36 | XMS_ITS | Clinical Summary ---
Author Name Unknown Organization [facility] Address [address] [place] [address] Care Team Providers Care Chassis Wirer Name Role Phone Russ Curran MD Primary Care Provider [phone] Source Comments You are receiving this document as you are listed as the primary care provider,follow-up provider, or the patient has been referred to you for consultation.This is in compliance with the Medicare and[facility] EHR Incentive Program,which states Providers who transition their patient to another setting of careor provider of care or refers their patient to another provider of care shouldprovide summary care record for each transition of care or referral. [employer] [facility] [employer] Allergies Active Allergy Reactions Criticality Noted Date Comments Nsaids Other, see comments 07/03/2015 PN: CANNOT TAKE w/ Subdural hematoma x4 Review Food Intolerance 12/05/2006 PN: LW FI1: food-nka Medications Medication Sig Dispensed Refills Start Date End Date Status simvastatin (AKA ZOCOR) 20 MG tablet Take 1 tablet by mouth every evening. LW Addl Instr:Indicated for: High Cholesterol 90 3 08/21/2006 Active unknown medication Indications: PN: 0 07/13/2010 Active ALLOPURINOL OR Take by mouth. 0 08/06/2012 Active TRIAMTERENE-HCTZ OR Take by mouth. 0 08/27/2012 A ctive leveTIRACETAM (AKA KEPPRA) 1000 MG tablet Take by mouth 2 times daily. patient reports taking 4 tablets daily 0 08/27/2012 Active traMADol (AKA ULTRAM) 50 MG tablet Take 1 tablet by mouth every 6 hours as needed for Pain. 30 tablet 0 06/24/2015 Active Active Problems Problem Noted Date Diagnosed Date Trigger finger, acquired 09/10/2012 Overview: Trigger finger (acquired) Radial styloid tenosynovitis 08/06/2012 Carpal tunnel syndrome 08/06/2012 Social History Tobacco Use Types Packs/Day Years Used Date Smoking Tobacco: Never Smokeless Tobacco: Never Comments:Quit smoking: Alcohol Use Standard Drinks/Week Comments No 0 (1 standard drink = 0.6 oz pur e alcohol) Sex and Gender Information Value Date Recorded Sex Assigned at Not on file Gender Identity Not on file Sexual Orientation Not on file Last Filed Vital Signs Vital Sign Reading Time Taken Comments Blood Pressure 112/71 09/27/2017 11:36 AM CDT Pulse - - Temperature 36.3 ??C (97.3 ??F) 06/24/2015 9:49 AM CD T Respiratory Rate - - Oxygen Saturation - - Inhaled Oxygen Concentration - - Weight 99.8 kg (220 lb) 06/24/2015 9:49 AM CDT Height 182.9 cm (6') 06/24/2015 9:49 AM CDT Body Mass Index 29.84 06/24/2015 9:49 AM CDT Plan of Treatment Health Maintenance Due Date Last Done Comments Medicare Annual Wellness Visit 1935 COVID-19 Vaccine (#1) 02/10/1936 Zoster/Shingles (2 of 3) 05/23/2007 03/28/2007 Influenza (#1) 2022 11/05/2019, 11/05, 12/06/2016, Additional history exists DTaP/Tdap/Td (2 - Tdap) 11/16/2022 11/16/2012, 01/16 HepA Aged Out 01/16/2003 No longer eligi ble based on patient's age to complete this topic Pneumococcal 65+ Yrs Completed 07/15/2014, 01/17/20 03 HepB Aged Out No longer eligi ble based on patient's age to complete this topic Hib Aged Out No longer eligi ble based on patient's age to complete this topic IPV (Polio) Aged Out No longer eligi ble based on patient's age to complete this topic MCV4 Aged Out No longer eligi ble based on patient's age to complete this topic Care Teams Chassis Wirer Relationship Specialty Start Date End Date Russ Curran MD [address] [place] [address] PCP - General 09/18/15
[2023-03-17 14:10] LABS: Chloride* 102 mmol/L (96-114); Sodium* 135 mmol/L (135-149)
[2023-03-17 14:12] LABS: Creatinine* 0.9 mg/dL (0.5-1.5); Estimated Glomerular Filt Rate 83 ml/min
[2023-03-17 14:13] LABS: Anion Gap 10 mEq/L (7-15); Blood Urea Nitrogen* 27 mg/dL (7-30); Calcium* 8.5 mg/dL (8.4-10.6); Carbon Dioxide* 23 mmol/L (20-32); Glucose* 144 mg/dL (60-115)
== END 2023-03-17 13:33 | disposition home or self-care (01) ==
LOC: NPINS 13:32
PROVIDERS: PCP Internal Medicine; Visit Provider Physician Assistant
DX: R18.8 Other ascites (principal)
CPT/HCPCS: 80048

== ENCOUNTER 2023-03-28 10:01 | Outpatient (CLI) | payer MEDICARE, SELFPAY ==
[2023-03-28 10:11] VITALS: BP 118/69; PULSE 58; RESP 20; O2SAT 98
[2023-03-28 10:15] VITALS: BP 106/51; PULSE 89; RESP 16; O2SAT 97
[2023-03-28 10:50] VITALS: BP 100/53; PULSE 88; RESP 16; O2SAT 95
[2023-03-28 11:05] VITALS: BP 102/55; PULSE 84; RESP 14; O2SAT 97
--- NOTE | 2023-03-28 11:21 | P.PCN_ITS ---
Procedure Note Time Seen by Provider: 10:15 Date Seen: 03/28/23 Provider Contact Time: 01:00 Date of procedure: 03/28/[address] [facility] bill your pro fee for this procedure?: Yes Pre-op diagnosis: Ascites Post-op diagnosis: same Procedure: Paracentesis Procedure Description: After explaining the risks and benefits of the procedure and with the patient in the recumbent position. I did localize the ascites to the Right Lower Quadrant with Ultrasound. I then anesthetized the area with SQ Lidocaine. I then made a 1 cm incision through which I advanced a paracentesis needle and catheter. I then directed flow of yellow fluid to a series of vacutainers until a total of 6400 cc of fluid had been removed. I then removed the catheter and applied pressure to the wound. The defect was then closed with dermabond and the patient was given instructions on wound care. Anesthesia: local Surgeon: Magdy Estimated blood loss (mL): 2 Pathology: none sent Condition: stable Disposition: other (Home)
== END 2023-03-28 11:44 | disposition home or self-care (01) ==
LOC: US 10:02 → OP CLINIC 10:04
PROVIDERS: PCP Internal Medicine; Visit Provider Internal Medicine
DX: K74.60 Unspecified cirrhosis of liver (principal)
CPT/HCPCS: 49083; P9047

== ENCOUNTER 2023-03-30 07:47 | Outpatient (CLI) | payer MEDICARE, SELFPAY ==
--- OUTSIDE RECORDS SUMMARY | 2023-03-30 07:49 | XMS_ITS | Clinical Summary ---
Author Name Unknown Organization [facility] Address [address] [place] [address] Care Team Providers Care Fall Internship Name Role Phone Russ Curran MD Primary Care Provider [phone]- [phone] Source Comments You are receiving this document as you are listed as the primary care provider,follow-up provider, or the patient has been referred to you for consultation.This is in compliance with the Medicare and[facility] EHR Incentive Program,which states Providers who transition their patient to another setting of careor provider of care or refers their patient to another provider of care shouldprovide summary care record for each transition of care or referral. [place] Allergies Active Allergy Reactions Criticality Noted Date [...] age to complete this topic Care Teams Fall Internship Relationship Specialty Start Date End Date Russ Curran MD [address] [place] [address] PCP - General 09/18/15
--- OUTSIDE RECORDS SUMMARY | 2023-03-30 07:49 | XMS_ITS | Clinical Summary ---
Author Name Unknown Organization [employer] [facility] [employer] Address [place], [place] [address] Care Team Providers Care Splitting Machine Operator Helper Name Role Phone Russ Curran MD Primary Care Provider Allergies No known active allergies Medications Medication [...] Department Care Team Description 03/07/2023 Lab Requisition [facility] [phone] Russ Curran MD 02/16/2023 6:00 PM FIREARMS MODEL MAKER Orders Only [facility] [place] at [facility] [address] [place] [address] 3 scans: (3-Ord) ECHO TTE COMPLETE WO CONTRAST ([id number]) 02/08/[address] [facility] [address] [place] [address] Atul Fortune AuD Hearing Test (Referral Question - Medicare ) 02/06/2023 1:30 PM FIREARMS MODEL MAKER Office Visit [facility] [address] [place] [address] Atul Fortune, Lily Hearing Aid 02/06/2023 Travel [...] Comments Blood Pressure 106/71 04/18/2012 1:43 PM FIREARMS MODEL MAKER Pulse 96 04/18/2012 1:43 PM FIREARMS MODEL MAKER Temperature 36.9 ??C (98.4 ??F) 11/21/2011 8:00 [...] Care Team (Late st Contact Info) Description 04/13/2023 10:00 AM FIREARMS MODEL MAKER Office Visit [facility] [address] [place] [address] Atul Fortune, AuD [address] [place] [phone] 04/13/2023 10:30 AM FIREARMS MODEL MAKER Office Visit [facility] [address] [place] [address] Atul Fortune, AuD [address] [place] [phone] Health Maintenance Due Date Last Done Comments [...] history exists Medical Devices Implanted Type Area Cell Biologist Device Identifier Shelf Expiration Date Model / Serial / Lot Plate Ti [id number] 4 Holes Low Profile Neuro Box - [id number] Implanted:Qty: 1 on 11/07/2011 by Angel Marie MD at [facility] Left: Cranium J And J Depuy CMF 421.511# / / [place] Hole Cover 17mm Jocelin Ti Low Profile Neuro - [id number] Implanted:Qty: 1 on 11/07/2011 by Angel Marie MD at [facility] Left: Cranium J And J Depuy CMF 421.527# / / Set Plating Synthes Matex Neuro Profile - [id number] Implanted:Qty: 14 on 11/07/2011 by Angel Marie MD at [facility] Left: Cranium J And J Depuy CMF 04503.10 4.01# / / Screw 5mm Emergency Titnm Matrixneuro - [id number] Implanted:Qty: 1 on 11/07/2011 by Angel Marie MD at [facility] Left: Cranium J And J Depuy CMF 04503.11 5.01# / / Shunt [place] Hole Covre 17mm Implanted:Qty: 1 on 11/07/2011 at [facility] Left: Cranium 421.544 / / Description:SHUN[place] HOLE COVRE 17MM Set Plating Synthes Matex Neuro Profile - [id number] Implanted:Qty: 7 on 11/17/2011 at [facility] 04.10 4.01# / / Procedures Procedure Name Priority Date/Time Associated Diagnosis Comments LAB TRACKING EVENT Routine 03/06/2023 12 :00 PM FIREARMS MODEL MAKER PATH NON CELL TOWER CLIMBER CYTOLOGY Routine 03/06/2023 12:00 PM FIREARMS MODEL MAKER ECHO TTE COMPLETE WO CONTRAST Routine 02/16/2023 4:50 PM FIREARMS MODEL MAKER Right heart failure (HC) from Last 3 Months Results * LAB TRACKING EVENT (03/06/2023 12:00 PM FIREARMS MODEL MAKER) Other (Other) Client Collect / Unknown 03/06/2023 12:00 PM FIREARMS MODEL MAKER 03/07/2023 12:55 PM FIREARMS MODEL MAKER Russ Curran MD LAB BILL ONLY [facility] [address] [place] [address], * PATH NON CELL TOWER CLIMBER CYTOLOGY (03/06/2023 12:00 PM FIREARMS MODEL MAKER) Case Report Medical Cytology Report ? Case: [id number] ? Authorizing Provider: ??Russ Curran MD ?Collected: ? 03/06/2023 1200 ? Ordering Location: ? [facility] ?Received: ?03/08/2023 0735 ? Pathologist: ? Jacky Gutierrez Jr., ? MD ? Specimen: ?Peritoneal Fluid ? 03/09/2023 10:13 AM [facility] Final Diagnosis PERITONEAL FLUID, CYTOLOGIC MATERIAL: Negative for malignancy in this sample 03/09/2023 10:13 AM [facility] Clinical Information Ascites 03/09/2023 10:13 AM [facility] Gross Description A) SOURCE: [...] more than 72 hours. 03/09/2023 10:13 AM FIREARMS MODEL MAKER [facility] Microscopic Description Specimen adequacy: Adequate for interpretation. All slides were reviewed. The microscopic appearance substantiates the diagnosis. All slides were reviewed microscopically. Specimen adequacy: Adequate for interpretation. The microscopic appearance substantiates the diagnosis. 03/09/2023 10:13 AM FIREARMS MODEL MAKER [facility] Additional Information Cytology is screened at [facility] - [address], [place] [address] and [facility] - [address] [place] [address] and [facility] - [address] [place] [address] Interpreted at [facility] - [address], [place] [address] 03/09/2023 10:13 AM FIREARMS MODEL MAKER [facility] Other PERITONEAL FLUID SPECIMEN / Unknown 03/06/2023 12:00 PM FIREARMS MODEL MAKER 03/08/2023 7:35 AM FIREARMS MODEL MAKER Russ Curran MD PATHOLOGY/CYTOLOGY [facility] [address] [place] [address], [place] * ECHO TTE COMPLETE WO CONTRAST (02/16/2023 4:50 PM FIREARMS MODEL MAKER) AORTIC VALVE MEAN PG 4 mmHg EJECTION FRACTION 64 % PEAK TR VELOCITY 2.4 m/s LVEDD 4.0 cm EJECTION FRACTION 60 - 65% Anatomical Region Laterality Modality Ultrasound 02/16/2023 4:27 PM FIREARMS MODEL MAKER Narrative 02/16/2023 5:12 PM FIREARMS MODEL MAKER ECHOCARDIOGRAM SCOTT MARTIN ?Accession#: ?? [id number] : ?1935 87 years Study Date: ?? 02/16/2023 4:27:05 PM Gender: M ? BP: ? 129/81 mmHg Height: 183.00 cm ? BSA: ?2.23 m? ? ? Weight: 101.00 kg ? Tech: ? MJS ?Referring MD: RIANNA SALAZAR Site: ? [facility] Reading Location: Mobile [facility] Patient Location: Inpatient. Procedure: 2D, Color Doppler [...] . This study was interpreted by an [facility] accredited facility. CC: HIM (med records) [facility], Med/Surg - IP [facility]. ??Final ?? Procedure Note Jeremy Em MD - 02/16/2023 ECHOCARDIOGRAM SCOTT MARTIN : 1935 87 years Study Date: 02/16/2023 4:27:05 PM Gender: M BP: 129/81 mmHg Height: 183.00 cm BSA: 2.23 m? ? ? Weight: 101.00 kg Tech: ANTONI Referring MD: RIANNA SALAZAR Site: [facility] Reading Location: Mobile [facility] [...] [facility] accredited facility. CC: HIM (med records) [facility] Final Rianna Salazar MD ECHO ORD from [...] 10:42 AM 06/21/2011 1:23 PM Care Teams Splitting Machine Operator Helper Relationship Specialty Start Date End Date Russ Curran MD [address] [place] [address] PCP - General 06/14/11
--- NOTE | 2023-03-30 08:22 | W.ANESCHARGE ---
Anesthesia Charges Start Date/Time Anesthesia Start Date: 03/30/23 Anesthesia Start Time: 09:01 Stop Date/Time Anesthesia Stop Date: 03/30/23 Anesthesia Stop Time: 09:17 Summary Extremes of Age - Over 70 or under 1: MDA
--- NOTE | 2023-03-30 09:20 | W.ANESCHARGE ---
Anesthesia Charges Start Date/Time Anesthesia Start Date: 03/30/23 Anesthesia Start Time: 09:01 Stop Date/Time Anesthesia Stop Date: 03/30/23 Anesthesia Stop Time: 09:17
== END 2023-03-30 07:48 | disposition home or self-care (01) ==
LOC: OP CLINIC 07:47
PROVIDERS: PCP Internal Medicine; Visit Provider Surgery
DX: K22.89 Other specified disease of esophagus (principal); K44.9 Diaphragmatic hernia without obstruction or gangrene; K29.70 Gastritis, unspecified, without bleeding; I85.00 Esophageal varices without bleeding; K74.60 Unspecified cirrhosis of liver; Z87.19 Personal history of other diseases of the digestive system
CPT/HCPCS: 00731; 43239; 88305; 88342; 99100; J2704

== ENCOUNTER 2023-04-06 17:34 | Outpatient (REF) | payer MEDICARE, SELFPAY ==
--- OUTSIDE RECORDS SUMMARY | 2023-04-06 17:39 | XMS_ITS | Clinical Summary ---
Author Name Unknown Organization [employer] [facility] Address [place], [place] [address] Care Team Providers Care Laboratory Veterinarian Name Role Phone Russ Curran MD Primary [...] Encounters Date Type Department Care Team Description 03/30/2023 Lab Requisition [facility] [phone] Unknown, Doctor 03/07/2023 Lab Requisition [facility] [phone] Russ Curran MD 02/16/2023 6:00 PM LEGAL ADMINISTRATOR Orders Only [facility] at [facility] [address] [place] [address] 3 scans: (3-Ord) ECHO TTE COMPLETE WO CONTRAST ([id number]) 02/08/[address] [facility] [address] [place] [address] Atul Fortune, Lily Hearing Test (Referral Question - Medicare ) 02/06/2023 1:30 PM LEGAL ADMINISTRATOR Office Visit [facility] [address] [place] [address] Atul Fortune, AuD Hearing Aid 02/06/2023 Travel from Last 3 [...] Comments Blood Pressure 106/71 04/18/2012 1:43 PM LEGAL ADMINISTRATOR Pulse 96 04/18/2012 1:43 PM LEGAL ADMINISTRATOR Temperature 36.9 ??C (98.4 ??F) 11/21/2011 8:00 [...] st Contact Info) Description 04/13/2023 10:00 AM LEGAL ADMINISTRATOR Office Visit [facility] [address] [place] [address] Atul Fortune, AuD [address] [place] [phone] 04/13/2023 10:30 AM LEGAL ADMINISTRATOR Office Visit [facility] [address] [place] [address] Atul oFrtune, AuD [address] [place] [phone] Health Maintenance Due Date Last Done Comments [...] history exists Medical Devices Implanted Type Area Blindmaker Device Identifier Shelf Expiration Date Model / Serial / Lot Plate Ti [id number] 4 Holes Low Profile Neuro Box - [id number] Implanted:Qty: 1 on 11/07/2011 by Angel Marie MD at [facility] Left: Cranium J And J Depuy CMF 421.511# / / [place]j Hole Cover 17mm Jocelin Ti Low Profile Neuro - [id number] Implanted:Qty: 1 on 11/07/2011 by Angel Marie MD at [facility] Left: Cranium J And J Depuy CMF 421.527# / / Set Plating Synthes Matex Neuro Profile - [id number] Implanted:Qty: 14 on 11/07/2011 by Angel Marie MD at [facility] Left: Cranium J And J Depuy CMF 04503.10 4.01# / / Screw 5mm Emergency Titnm Matrixneuro - [id number] Implanted:Qty: 1 on 11/07/2011 by Angel Marie MD at [facility] Left: Cranium J And J Depuy CMF 04503.11 5.01# / / Shunt Vj Hole Covre 17mm Implanted:Qty: 1 on 11/07/2011 at [facility] Left: Cranium 421.544 / / Description:SHUNT VJ HOLE COVRE 17MM Set Plating Synthes Matex Neuro Profile - [id number] Implanted:Qty: 7 on 11/17/2011 at [facility] 04503.10 4.01# / / Procedures Procedure Name Priority Date/Time Associated Diagnosis Comments LAB TRACKING EVENT Routine 03/30/2023 9: 10 AM LEGAL ADMINISTRATOR PATH TISSUE EXAM Routine 03/30/2023 9:10 AM LEGAL ADMINISTRATOR LAB TRACKING EVENT Routine 03/06/2023 12 :00 PM LEGAL ADMINISTRATOR PATH NON APPLICATIONS DEVELOPMENT CONSULTANT CYTOLOGY Routine 03/06/2023 12:00 PM LEGAL ADMINISTRATOR ECHO TTE COMPLETE WO CONTRAST Routine 02/16/2023 4:50 PM LEGAL ADMINISTRATOR Right heart failure (HC) from Last 3 Months Results * LAB TRACKING EVENT (03/30/2023 9:10 AM LEGAL ADMINISTRATOR) Only the most recent of2 resultswithin the time period is included. Other (Other) Client Collect / Unknown 03/30/2023 9:10 AM LEGAL ADMINISTRATOR 03/30/2023 8:38 PM LEGAL ADMINISTRATOR Doctor Unknown LAB BILL ONLY [facility] [address] [place] [address], [place] * PATH TISSUE EXAM (03/30/2023 9:10 AM LEGAL ADMINISTRATOR) Case Report Pathology Report ?Case: [id number] ? Authorizing Provider: ??Unknown, Doctor ?Collected: ? 03/30/2023 0910 ? Ordering Location: ? [facility] ?Received: ?03/30/20232100 ? Pathologist: ? Shabbir, Diamond, MD ? Specimens: ?? A) - Antrum Biopsy ? B) - Stomach Biopsy ? C) - Esophageal Biopsy ? 4 2:34 PM [facility] Final Diagnosis A) STOMACH, ANTRUM, BIOPSY: 1. Non-erosive reactive gastropathy (see comment) ?? a. Sampling: Antral mucosa ?? b. Distribution: Antral mucosa 2. Negative for inflammation, atrophy and Helicobacter B) STOMACH, BIOPSY: 1. Mild non-specific chronic inflammation (see comment) ?? a. Sampling: Antral and body mucosae ?? b. Distribution: Antral and body mucosae 2. Negative for atrophic gastritis 3. Negative for Helicobacter (Helicobacter immunohistochemistry negative) C) Z-LINE, BIOPSY: 1. Columnar mucosa with intestinal metaplasia (see comment) 2. Negative for dysplasia 3. Squamous mucosa with inflammatory changes consistent with reflux esophagitis 4 2:34 PM [facility] Comment A) The likely etiolo gy is an ongoing non-inflammatory type mucosal injury due to a chemical type of injury; this may be due to ingestion of non-steroidal anti-inflammatory drugs, aspirin (via prostaglandin-mediated injury), excess alcohol, corticosteroids, or bile/alkaline reflux, the latter usually in the setting of a gastroenteric anastomosis. B) Mild chronic inflammation in the stomach in the absence of Helicobacter often remains unexplained, but it could reflect prior or treated Helicobacter infection. The likelihood of histologically undetected Helicobacter is quite low in our opinion. C) The intestinal metaplasia seen in this biopsy if seen in association with an endoscopically identified columnar lined esophagus is in keeping with Deleon's esophagus; however, in the absence of these endoscopic findings this may represent intestinal metaplasia of the gastroesophageal junction which is a finding of uncertain clinical significance. There is no evidence of dysplasia. 4 2:34 PM [facility] Clinical Information No diagnosis of liver cirrhosis. Upper GI endoscopy showed gastritis and esophageal varices. 4 2:34 PM [facility] Gross Description A) Received in formalin are 4 pike mucosal fragments averaging 5 mm in greatest dimension, which are entirely submitted in one cassette. It is labeled with the patient's name and designated antral gastritis biopsies. B) Received in formalin are 4 pike mucosal fragments averaging 5 mm in greatest dimension, which are entirely submitted in one cassette. It is labeled with the patient's name and designated random stomach biopsies. C) Received in formalin are 4 pike mucosal fragments ranging from 2 mm to 6 mm in greatest dimension, which are entirely submitted in one cassette. It is labeled with the patient's name and designated Z-line biopsies. Son Pride 03/30/2023 9:06 PM 4 2:34 PM LEGAL ADMINISTRATOR [facility] Microscopic Description The final diagnosis is based on microscopic examination of appropriate sections of all specimens. 4 2:34 PM LEGAL ADMINISTRATOR [facility] Additional Information Interpreted at [facility] - [address] [address] 4 2:34 PM LEGAL ADMINISTRATOR [facility] Other (Antrum Biopsy) 03/30/2023 9:10 AM LEGAL ADMINISTRATOR 03/30/2023 9:01 PM LEGAL ADMINISTRATOR Specimen (specimen) (Stomach Biopsy) 03/30/2023 9:10 AM LEGAL ADMINISTRATOR 03/30/2023 9:01 PM LEGAL ADMINISTRATOR Specimen (specimen) (Esophageal Biopsy) 03/30/2023 9:10 AM LEGAL ADMINISTRATOR 03/30/2023 9:01 PM LEGAL ADMINISTRATOR Doctor Unknown PATHOLOGY/CYTOLOGY [facility] [address] [place] [address], * PATH NON APPLICATIONS DEVELOPMENT CONSULTANT CYTOLOGY (03/06/2023 12:00 PM LEGAL ADMINISTRATOR) Case Report Medical Cytology Report ? Case: [id number] ? Authorizing Provider: ??Russ Curran MD ?Collected: ? 03/06/2023 1200 ? Ordering Location: ? [facility] ?Received: ?03/08/2023 0735 ? Pathologist: ? Jacky Gutierrez Jr., ? MD ? Specimen: ?Peritoneal Fluid ? 03/09/2023 10:13 AM [facility] Final Diagnosis PERITONEAL FLUID, CYTOLOGIC MATERIAL: Negative for malignancy in this sample 03/09/2023 10:13 AM LEGAL ADMINISTRATOR [facility] Clinical Information Ascites 03/09/2023 10:13 AM [facility] Gross Description A) SOURCE: [...] more than 72 hours. 03/09/2023 10:13 AM LEGAL ADMINISTRATOR [facility] Microscopic Description Specimen adequacy: Adequate for interpretation. All slides were reviewed. The microscopic appearance substantiates the diagnosis. All slides were reviewed microscopically. Specimen adequacy: Adequate for interpretation. The microscopic appearance substantiates the diagnosis. 03/09/2023 10:13 AM LEGAL ADMINISTRATOR [facility] Additional Information Cytology is screened at [facility] - [address], [place] [address] and [facility] - [address], [place] [address] and [facility] - [address] [place] [address] Interpreted at [facility] - [address], [place] [address] 03/09/2023 10:13 AM LEGAL ADMINISTRATOR [facility] Other PERITONEAL FLUID SPECIMEN / Unknown 03/06/2023 12:00 PM LEGAL ADMINISTRATOR 03/08/2023 7:35 AM LEGAL ADMINISTRATOR Russ Curran MD PATHOLOGY/CYTOLOGY [facility] [address] [place] [address], [place] * ECHO TTE COMPLETE WO CONTRAST (02/16/2023 4:50 PM LEGAL ADMINISTRATOR) AORTIC VALVE MEAN PG 4 mmHg EJECTION FRACTION 64 % PEAK TR VELOCITY 2.4 m/s LVEDD 4.0 cm EJECTION FRACTION 60 - 65% Anatomical Region Laterality Modality Ultrasound 02/16/2023 4:27 PM LEGAL ADMINISTRATOR Narrative 02/16/2023 5:12 PM LEGAL ADMINISTRATOR ECHOCARDIOGRAM CSOTT MARTIN ?Accession#: ?? [id number] : ?1935 87 years Study Date: ?? 02/16/2023 4:27:05 PM Gender: M ? BP: ? 129/81 mmHg Height: 183.00 cm ? BSA: ?2.23 m? ? ? Weight: 101.00 kg ? Tech: ? MJS ?Referring MD: TOVA SALAZAR Site: ? [facility] Reading Location: Mobile [facility] Patient Location: Inpatient. Procedure: 2D, Color [...] . This study was interpreted by an [facility] accredited facility. CC: HIM (med records) [facility], Med/Surg - IP [facility]. ??Final ?? Procedure Note Jeremy Em MD - 02/16/2023 ECHOCARDIOGRAM SCOTT MARTIN : 1935 87 years Study Date: 02/16/2023 4:27:05 PM Gender: M BP: 129/81 mmHg Height: 183.00 cm BSA: 2.23 m? ? ? Weight: 101.00 kg Tech: ANTONI Referring MD: TOVA SALAZAR Site: [facility] Reading Location: Mobile [facility] Patient [...] . This study was interpreted by an [facility] accredited facility. CC: HIM (med records) [facility], Med/Surg - IP [facility]. Final Tova Salazar MD ECHO ORD from Last 3 [...] 10:42 AM 06/21/2011 1:23 PM Care Teams Laboratory Veterinarian Relationship Specialty Start Date End Date Russ Curran MD [address] [place] [address] PCP - General 06/14/11
--- OUTSIDE RECORDS SUMMARY | 2023-04-06 17:39 | XMS_ITS | Clinical Summary ---
Author Name Unknown Organization [facility] Address [address] [place] [address] Care Team Providers Care Autocad Detailer Name Role Phone Russ Curran MD Primary Care Provider [phone]- [phone] Source Comments You are receiving this document as you are listed as the primary care provider,follow-up provider, or the patient has been referred to you for consultation.This is in compliance with the Medicare and[facility] EHR Incentive Program,which states Providers who transition their patient to another setting of careor provider of care or refers their patient to another provider of care shouldprovide summary care record for each transition of care or referral. [employer] Allergies Active Allergy Reactions Criticality Noted Date [...] Done Comments Medicare Annual Wellness Visit 1935 Zoster/Shingles (2 of 3) 05/23/2007 03/28/2007 COVID-19 Vaccine (3 - season) 2022 04/26/2020, 03/29/2020 Influenza (#1) 2022 11/05/2019, 11/05, 12/06/2016, Additional [...] age to complete this topic Care Teams Autocad Detailer Relationship Specialty Start Date End Date Russ Curran MD [address] [place] [address] PCP - General 09/18/15
[2023-04-06 18:25] LABS: Chloride* 103 mmol/L (96-114); Potassium* 4.2 mmol/L (3.6-5.1); Sodium* 136 mmol/L (135-149)
[2023-04-06 18:28] LABS: Anion Gap 7 mEq/L (7-15); Blood Urea Nitrogen* 35 mg/dL (7-30); Carbon Dioxide* 26 mmol/L (20-32); Creatinine* 1.2 mg/dL (0.5-1.5); Estimated Glomerular Filt Rate 59 ml/min; Glucose* 79 mg/dL (60-115)
[2023-04-06 18:29] LABS: Calcium* 8.9 mg/dL (8.4-10.6)
== END 2023-04-06 17:35 | disposition home or self-care (01) ==
LOC: NPINS 17:34
PROVIDERS: PCP Internal Medicine; Visit Provider Physician Assistant
DX: K74.60 Unspecified cirrhosis of liver (principal)
CPT/HCPCS: 80048

== ENCOUNTER 2023-04-17 10:12 | Outpatient (REF) | payer MEDICARE, SELFPAY ==
--- OUTSIDE RECORDS SUMMARY | 2023-04-17 10:16 | XMS_ITS | Clinical Summary ---
Author Name Unknown Organization [facility] Address [address] [place] [address] Care Team Providers Care Public Transportation Inspector Name Role Phone Russ Curran MD Primary Care Provider [phone]- [phone] Source Comments You are receiving this document as you are listed as the primary care provider,follow-up provider, or the patient has been referred to you for consultation.This is in compliance with the Medicare and[facility] EHR Incentive Program,which states Providers who transition their patient to another setting of careor provider of care or refers their patient to another provider of care shouldprovide summary care record for each transition of care or referral. [employer] Allergies Active Allergy Reactions Criticality Noted Date [...] age to complete this topic Care Teams Public Transportation Inspector Relationship Specialty Start Date End Date Russ Curran MD [address] [place] [address] PCP - General 09/18/15
--- OUTSIDE RECORDS SUMMARY | 2023-04-17 10:16 | XMS_ITS | Clinical Summary ---
Author Name Unknown Organization [employer] [facility] Address [place], [place] [address] Care Team Providers Care Stogy Roller Name Role Phone Russ Curran MD Primary [...] Department Care Team Description 03/30/2023 Lab Requisition [facility] [phone] Unknown, Doctor 03/07/2023 Lab Requisition [facility] [phone] Russ Curran MD 02/16/2023 6:00 PM RETAIL FIELD REPRESENTATIVE Orders Only [facility] [place] [facility] [address] [place] [address] 3 scans: (3-Ord) ECHO TTE COMPLETE WO CONTRAST ([id number]) 02/08/2023 Telephone [facility] [address] [place] [address] Atul Fortune, Lily Hearing Test (Referral Question - Medicare ) 02/06/2023 1:30 PM RETAIL FIELD REPRESENTATIVE Office Visit [facility] [address] [place] [address] Atul Fortune, AuD Hearing Aid 02/06/2023 Travel [...] Comments Blood Pressure 106/71 04/18/2012 1:43 PM RETAIL FIELD REPRESENTATIVE Pulse 96 04/18/2012 1:43 PM RETAIL FIELD REPRESENTATIVE Temperature 36.9 ??C (98.4 ??F) 11/21/2011 8:00 [...] Care Team (Late st Contact Info) Description 05/03/2023 11:30 AM RETAIL FIELD REPRESENTATIVE Office Visit [facility] [address] [place] [address] Atul Fortune, AuD [address] [facility] [place] [phone] Health Maintenance Due Date Last Done Comments [...] history exists Medical Devices Implanted Type Area Cracker Sprayer Device Identifier Shelf Expiration Date Model / Serial / Lot Plate Ti [id number] 4 Holes Low Profile Neuro Box - [id number] Implanted:Qty: 1 on 11/07/2011 by Angel Marie MD at [facility] Left: Cranium J And J Depuy CMF 421.511# / / Clifton Hole Cover 17mm Jocelin Ti Low Profile Neuro - [id number] Implanted:Qty: 1 on 11/07/2011 by Angel Marie MD at [facility] Left: Cranium J And J Depuy CMF 421.527# / / Set Plating Synthes Matex Neuro Profile - [id number] Implanted:Qty: 14 on 11/07/2011 by Angel Marie MD at [facility] Left: Cranium J And J Depuy CMF 4.01# / / Screw 5mm Emergency Titnm Matrixneuro - [id number] Implanted:Qty: 1 on 11/07/2011 by Angel Marie MD at [facility] Left: Cranium J And J Depuy CMF 5.01# / / Shunt Clifton Hole Covre 17mm Implanted:Qty: 1 on 11/07/[address] [facility] Left: Cranium 421.544 / / Description:SHUNT WILMA HOLE COVRE 17MM Set Plating Synthes Matex Neuro Profile - [id number] Implanted:Qty: 7 on 11/17/[address] [facility] 4.01# / / Procedures Procedure Name Priority Date/Time Associated Diagnosis Comments LAB TRACKING EVENT Routine 03/30/2023 9: 10 AM RETAIL FIELD REPRESENTATIVE PATH TISSUE EXAM Routine 03/30/2023 9:10 AM RETAIL FIELD REPRESENTATIVE LAB TRACKING EVENT Routine 03/06/2023 12 :00 PM RETAIL FIELD REPRESENTATIVE PATH NON GUNC[place]TON PACKER CYTOLOGY Routine 03/06/2023 12:00 PM RETAIL FIELD REPRESENTATIVE ECHO TTE COMPLETE WO CONTRAST Routine 02/16/2023 4:50 PM RETAIL FIELD REPRESENTATIVE Right heart failure (HC) from Last 3 Months Results * LAB TRACKING EVENT (03/30/2023 9:10 AM RETAIL FIELD REPRESENTATIVE) Only the most recent of2 resultswithin the time period is included. Other (Other) Client Collect / Unknown 03/30/2023 9:10 AM RETAIL FIELD REPRESENTATIVE 03/30/2023 8:38 PM RETAIL FIELD REPRESENTATIVE Doctor Unknown LAB BILL ONLY [facility] [address] [place] [address], * PATH TISSUE EXAM (03/30/2023 9:10 AM RETAIL FIELD REPRESENTATIVE) Case Report Pathology Report ?Case: [id number] ? Authorizing Provider: ??Unknown, Doctor ?Collected: ? 03/30/2023 09 ? Ordering Location: ? [facility] ?Received: ?03/30/20232100 ? Pathologist: ? Shabbir, Diamond, MD ? Specimens: ?? A) - Antrum Biopsy ? B) - Stomach Biopsy ? C) - Esophageal Biopsy ? 4 2:34 PM [facility] Final Diagnosis A) STOMACH, ANTRUM, BIOPSY: [...] consistent with reflux esophagitis 4 2:34 PM [facility] Comment A) The likely etiolo gy is [...] no evidence of dysplasia. 4 2:34 PM [facility] Clinical Information No diagnosis of liver cirrhosis. Upper GI endoscopy showed gastritis and esophageal varices. 4 2:34 PM [facility] Gross Description A) Received in [...] Pride 03/30/2023 9:06 PM 4 2:34 PM RETAIL FIELD REPRESENTATIVE [facility] Microscopic Description The final diagnosis is based on microscopic examination of appropriate sections of all specimens. 4 2:34 PM RETAIL FIELD REPRESENTATIVE [facility] Additional Information Interpreted at [facility][1] Laboratory - [address] [facility] [address], [place] [address] 4 2:34 PM RETAIL FIELD REPRESENTATIVE [facility] Other (Antrum Biopsy) 03/30/2023 9:10 AM RETAIL FIELD REPRESENTATIVE 03/30/2023 9:01 PM RETAIL FIELD REPRESENTATIVE Specimen (specimen) (Stomach Biopsy) 03/30/2023 9:10 AM RETAIL FIELD REPRESENTATIVE 03/30/2023 9:01 PM RETAIL FIELD REPRESENTATIVE Specimen (specimen) (Esophageal Biopsy) 03/30/2023 9:10 AM RETAIL FIELD REPRESENTATIVE 03/30/2023 9:01 PM RETAIL FIELD REPRESENTATIVE Doctor Unknown PATHOLOGY/CYTOLOGY [facility] [address] [place] [address], * PATH NON [place] PACKER CYTOLOGY (03/06/2023 12:00 PM RETAIL FIELD REPRESENTATIVE) Case Report Medical Cytology Report ? Case: [id number] ? Authorizing Provider: ??Russ Curran MD ?Collected: ? 03/06/2023 1200 ? Ordering Location: ? [facility] ?Received: ?03/08/2023 0735 ? Pathologist: ? Jacky Gutiererz Jr., ? MD ? Specimen: ?Peritoneal Fluid ? 03/09/2023 10:13 AM [facility] Final Diagnosis PERITONEAL FLUID, CYTOLOGIC MATERIAL: Negative for malignancy in this sample 03/09/2023 10:13 AM [facility] Clinical Information Ascites 03/09/2023 10:13 AM [facility] Gross Description A) SOURCE: Peritoneal [...] more than 72 hours. 03/09/2023 10:13 AM [facility] LABORATORY-C ENTRAL LABORATORY Microscopic Description Specimen adequacy: Adequate for interpretation. All slides were reviewed. The microscopic appearance substantiates the diagnosis. All slides were reviewed microscopically. Specimen adequacy: Adequate for interpretation. The microscopic appearance substantiates the diagnosis. 03/09/2023 10:13 AM RETAIL FIELD REPRESENTATIVE [facility] Additional Information Cytology is screened at [facility], Central Laboratory - [address] [place] [address] and [facility] - [address], [place] [address] and [facility] - [address] [place] [address] Interpreted at [facility], Central Laboratory - [address], [place] [address] 03/09/2023 10:13 AM RETAIL FIELD REPRESENTATIVE [facility] LAB[facility] Other PERITONEAL FLUID SPECIMEN / Unknown 03/06/2023 12:00 PM RETAIL FIELD REPRESENTATIVE 03/08/2023 7:35 AM RETAIL FIELD REPRESENTATIVE Russ Curran MD PATHOLOGY/CYTOLOGY Performing Organization Address City/State/[facility] Co de Phone Number [facility] [address] [place] [address], [place] * ECHO TTE COMPLETE WO CONTRAST (02/16/2023 4:50 PM RETAIL FIELD REPRESENTATIVE) AORTIC VALVE MEAN PG 4 mmHg EJECTION FRACTION 64 % PEAK TR VELOCITY 2.4 m/s LVEDD 4.0 cm EJECTION FRACTION 60 - 65% Anatomical Region Laterality Modality Ultrasound 02/16/2023 4:27 PM RETAIL FIELD REPRESENTATIVE Narrative 02/16/2023 5:12 PM RETAIL FIELD REPRESENTATIVE ECHOCARDIOGRAM SCOTT MARTIN ?Accession#: ?? [id number] : ?1935 87 years Study Date: ?? 02/16/2023 4:27:05 PM Gender: M ? BP: ? 129/81 mmHg Height: 183.00 cm ? BSA: ?2.23 m? ? ? Weight: 101.00 kg ? Tech: ? MJS ?Referring MD: TOVA SALAZAR Site: ? [facility] Reading Location: Mobile [facility] Patient Location: Inpatient. Procedure: 2D, Color [...] . This study was interpreted by an [facility] accredited facility. CC: HIM (med records) [facility], Med/Surg - IP [facility]. ??Final ?? Procedure Note Jeremy Em MD - 02/16/2023 ECHOCARDIOGRAM SCOTT MARTIN : 1935 87 years Study Date: 02/16/2023 4:27:05 PM Gender: M BP: 129/81 mmHg Height: 183.00 cm BSA: 2.23 m? ? ? Weight: 101.00 kg Tech: ANTONI Referring MD: TOVA SALAZAR Site: [facility] Reading Location: Mobile [facility] Patient Location: Inpatient. Procedure: 2D, Color Doppler [...] [facility] accredited facility. CC: HIM (med records) [facility], Med/Surg - IP [facility]. Final Tova Salazar MD ECHO ORD from [...] 10:42 AM 06/21/2011 1:23 PM Care Teams Stogy Roller Relationship Specialty Start Date End Date Russ Curran MD [address] [place] [address] PCP - General 06/14/11
[2023-04-17 10:51] LABS: Chloride* 102 mmol/L (96-114); Sodium* 134 mmol/L (135-149)
[2023-04-17 10:54] LABS: Anion Gap 6 mEq/L (7-15); Carbon Dioxide* 26 mmol/L (20-32); Creatinine* 1.3 mg/dL (0.5-1.5); Estimated Glomerular Filt Rate 54 ml/min
[2023-04-17 10:55] LABS: Blood Urea Nitrogen* 37 mg/dL (7-30); Calcium* 9.1 mg/dL (8.4-10.6); Glucose* 110 mg/dL (60-115)
== END 2023-04-17 10:13 | disposition home or self-care (01) ==
LOC: NPINS 10:12
PROVIDERS: PCP Internal Medicine; Visit Provider Physician Assistant
DX: K74.60 Unspecified cirrhosis of liver (principal)
CPT/HCPCS: 80048

== ENCOUNTER 2023-05-01 12:06 | Outpatient (REF) | payer MEDICARE, SELFPAY ==
[2023-05-01 12:49] LABS: Chloride* 100 mmol/L (96-114)
[2023-05-01 12:50] LABS: Potassium* 3.9 mmol/L (3.6-5.1); Sodium* 133 mmol/L (135-149)
[2023-05-01 12:52] LABS: Creatinine* 1.2 mg/dL (0.5-1.5); Estimated Glomerular Filt Rate 59 ml/min
[2023-05-01 12:53] LABS: Anion Gap 8 mEq/L (7-15); Blood Urea Nitrogen* 51 mg/dL (7-30); Carbon Dioxide* 25 mmol/L (20-32); Glucose* 124 mg/dL (60-115)
[2023-05-01 12:54] LABS: Calcium* 9.3 mg/dL (8.4-10.6)
== END 2023-05-01 12:07 | disposition home or self-care (01) ==
LOC: NPINS 12:06
PROVIDERS: PCP Internal Medicine; Visit Provider Physician Assistant
DX: K74.60 Unspecified cirrhosis of liver (principal)
CPT/HCPCS: 80048

== ENCOUNTER 2023-05-05 12:18 | Outpatient (CLI) | payer MEDICARE, SELFPAY ==
[2023-05-05 12:46] VITALS: BP 123/78; RESP 18; TEMP 36.2; O2SAT 98
--- NOTE | 2023-05-05 13:15 | PM.PROC ---
Procedure Note Time Seen by Provider: 13:00 Date Seen: 05/05/23 Provider Contact Time: 13:00 Date of procedure: 05/05/23 Will [facility] bill your pro fee for this procedure?: Yes Pre-op diagnosis: Cirrhosis Post-op diagnosis: same Procedure: Diagnostic Paracentesis Procedure Description: as above Surgeon: Magdy Estimated blood loss (mL): 3 Pathology: specimen obtained, sent to pathology Condition: stable Disposition: other
[2023-05-05] MEDS: ALBUMIN HUMAN 25% 100 ML VIAL IV (13:21)
[2023-05-05 13:38] VITALS: BP 104/70; PULSE 81; RESP 16; O2SAT 98
[2023-05-05 14:16] LABS: Mononuclear WBC Body Fluid* 91 %; Polynuclear WBC Body Fluid* 9 %; RBC, Body Fluid* 2000 Cells/uL; WBC, Body Fluid* 827 Cells/uL
[2023-05-05 14:18] LABS: BF Clarity* Slightly Cloudy; BF Color Xanthochromic; BF Total Volume* 5
[2023-05-05 14:19] LABS: Albumin Body Fluid* < 1.0 gm/dL; Amylase Body Fluid* < 30 U/L; Body Fluid Total Protein* 2.1 gm/dL; Glucose Body Fluid* 124 mg/dL; LDH Body Fluid* 94 U/L
== END 2023-05-05 13:38 | disposition home or self-care (01) ==
LOC: US 12:34
PROVIDERS: PCP Internal Medicine; Visit Provider Physician Assistant
DX: K74.60 Unspecified cirrhosis of liver (principal)
CPT/HCPCS: 49083; 82042; 82150; 82945; 83615; 84157; 87070; 87205; 88112; 88305; 89051; P9047

== ENCOUNTER 2023-06-08 06:14 | Day surgery (SDC) | payer MEDICARE, SELFPAY ==
[2023-06-08] MEDS: LACTATED RINGERS 1000 ML 1,000 ML 100 ML IV (06:20)
[2023-06-08] MEDS: SODIUM CHLORIDE 0.9 % (FLUSH) 10 ML SYRINGE IVF (06:20)
[2023-06-08 06:32] VITALS: BP 97/63; PULSE 90; RESP 16; TEMP 37; O2SAT 98; BMI 28.8
[2023-06-08] MEDS: BUPIVACAINE 0.5% 30 ML INJECTION (07:23)
[2023-06-08] MEDS: CEFAZOLIN 2 GM INJ IVP (07:26)
--- NOTE | 2023-06-08 08:09 | PM.ORPRC ---
Procedure Note Date of procedure: 06/08/23 Procedure: Preop diagnosis: Right upper extremity carpal tunnel syndrome, cubital tunnel syndrome Postop diagnosis: Right upper extremity carpal tunnel syndrome, cubital tunnel syndrome Procedure: Right upper extremity carpal tunnel release, cubital tunnel release Anesthesia: Local plus monitored anesthesia care Surgeon: Cullen Chavez MD physiotherapy assistant: JEFFERY Maher EBL: 10 mL Complications: None Specimens: None Drains: None Preoperative antibiotics: Ancef 2 g Indications: The patient has a history of right upper extremity carpal tunnel syndrome, cubital tunnel syndrome symptoms. Despite appropriate nonoperative management consisting of nighttime bracing and occupational therapy they continue to have symptoms. Operative intervention was recommended. The risks, benefits alternatives and expected outcomes were discussed in detail. These included but were not limited to: Infection, bleeding, injury to blood vessel or nerve, venous thromboembolism. All questions were answered to their satisfaction. The patient was placed supine on the operating room table. Local anesthesia was established with 0.5% Marcaine with epinephrine and 2% lidocaine with epinephrine. The upper extremity was prepped and draped in usual sterile fashion. A longitudinal incision was made centered over the ulnar nerve at the cubital tunnel. Subcutaneous dissection was taken with the scalpel and Metzenbaum and tenotomy scissors to the ulnar nerve. Dissection was carried distally to the fascia over the flexor carpi ulnaris which was divided longitudinally. We visualized the motor branch to the FCU. Dissection was carried proximally into the triceps muscle belly. This results in a wide decompression of the ulnar nerve. Flexion and extension of the elbow shows the nerve is stable. Attention was then turned to the hand. A longitudinal incision was made centered over the radial border of the ring finger at the base of the palm. Subcutaneous dissection was sharply taken through the palmar fascia and the palmaris brevis to the transverse carpal ligament. The ligament was divided in line with the incision. Proximal and distal dissection was carried with tenotomy and Metzenbaum scissors for a wide decompression of the carpal tunnel. The hand wound was closed with a 3-0 nylon, the elbow with 3-0 Vicryl, 4-0 Monocryl and glue. A dry dressing was applied, sponge and needle counts were correct x 2. The patient tolerated the procedure well, there were no apparent complications. They were sent to same day surgery in satisfactory condition. Plan: Use of the hand as tolerates. Discontinue the intraoperative dressing on postoperative day 3 and may get the wound wet as tolerates. Follow up in the office in 2 weeks for a wound check and suture removal.
[2023-06-08 08:32] VITALS: BP 98/55; PULSE 79; RESP 18; TEMP 36.8; O2SAT 94
[2023-06-08] MEDS: ALBUTEROL SULFATE 2.5 MG/3 ML VIAL.NEB NEB (08:38)
--- NOTE | 2023-06-08 08:40 | W.ANESCHARGE ---
Anesthesia Charges Start Date/Time Anesthesia Start Date: 06/08/23 Anesthesia Start Time: 07:13 Stop Date/Time Anesthesia Stop Date: 06/08/23 Anesthesia Stop Time: 08:30
[2023-06-08 08:45] VITALS: BP 102/67; PULSE 88; RESP 18; O2SAT 93
[2023-06-08 09:00] VITALS: BP 115/71; PULSE 87; RESP 16; O2SAT 93
[2023-06-08 09:15] VITALS: BP 100/72; PULSE 79; RESP 16; O2SAT 93
--- NOTE | 2023-06-08 09:34 | SUR.PHASEII ---
UPON REMOVING TAPE FROM IV, I OBSERVED A SKIN TEAR APPROXIMATELY 0.75CM ROUND UNDER THE TAPE ON THE LEFT FOREARM. WASHED WOUND, AND APPLIED MEPILEX DRESSING. INSTRUCTED PATIENT TO CHANGE NEEDED, TEGADERM AND TELFA DRESSINGS SENT WITH PATIENT. INSTRUCTED PATIENT TO OBSERVE FOR SIGNS OF INFECTION AND CALL CLINIC IF NOTED.
== END 2023-06-08 09:30 | disposition home or self-care (01) ==
PROVIDERS: PCP Internal Medicine; Visit Provider Orthopaedic Surgery
PROC: (CPT 64721; principal; 2023-06-08 07:15)
PROC: (CPT 64721; 2023-06-08 07:15)
DX: G56.01 Carpal tunnel syndrome, right upper limb (principal); G56.21 Lesion of ulnar nerve, right upper limb
CPT/HCPCS: 64721; 64718; 01710; 01716; 94640; A4580; J0665; J0690; J2371; J2405; J2704; J3010; J7120

== ENCOUNTER 2023-06-13 18:26 | Emergency (ER) | payer MEDICARE, SELFPAY ==
--- OUTSIDE RECORDS SUMMARY | 2023-06-13 18:29 | XMS_ITS | Continuity of Care Document ---
Author Name Unknown Organization [facility] Address [address] [address] [place] [address] Phone Care Team Providers Care Director Of Publications Name Role Phone Robert Butler MD, Thad Weeks Unavailabl e Allergies, Adverse Reactions, Alerts Substance Reaction Status Criticality aspirin Active No Information Medications Medication Instructions Dosage Effective Dates (start - stop) Status Comments Tylenol Arthritis Pain 650 mg tablet,extended release take 1 tablet by oral route every 8 hours as needed swallowing whole with water. Do not break, crush, dissolve and/or chew. 650 MG - Active omeprazole 20 mg capsule,delayed release take 1 capsule by oral route every day 30 minutes to 1 hour before a meal 20 MG - Active spironolactone 50 mg tablet take 1 tablet by oral route every day 50 MG - Active furosemide 20 mg tablet take 2 tablet by oral route every day 40 MG - Active furosemide 40 mg tablet take 1 tablet by oral route every day 40 MG - Active simvastatin 40 mg tablet take 1 tablet by oral route every day in the evening 40 MG - Active MAGNESIUM (unknown strength) take 2 tablets by oral route every day Not Available - Active tamsulosin 0.4 mg capsule take 1 capsule by oral route every day 1/2 hour following the same meal each day 0.4 MG - Active allopurinol 300 mg tablet take 1 tablet by oral route every day 300 MG - Active levetiracetam 1,000 mg tablet take 2 tablet by oral route every 12 hours 2000 MG - Active Procedures Procedure Date Offic/outpt E&m [facility] Mod-hi 2 Offic/outpt E&m New Mod-wv Routine Serum Collection Advance Directives Directive Yes / No Effective Date File Name No Information Encounters Encounter Description Practice Location Reason(s) For Visit Diagnoses Date Provider Providers Copied on Encounter [facility], [address] [address], [place], [place], [id number], [place] tel:[phone] [facility] No Information 4 Robert Oneil. [address] [facility], [facility] [address], [place], [place], [id number] , [place]. tel:[phone] Offic/outpt E&m [facility] Mod-wv 2 [facility], [address] [address], [place], [place], [id number], [place] [phone] [facility] GI Symptoms or Concerns (chief complaint) Cirrhosis of liver with ascites, unspecified hepatic cirrhosis type 4 Severino Sandoval . [address] [facility], [address], [id number] , [place]. tel:[phone] Referring Provider: Referral Self, USE FOR SELF REFERRALS. [facility], [address] [address], [place], [place], [id number], [place] [phone] [facility] No Information 4 Severino Sandoval . [address] [facility], [facility] [address], [place], [id number] , [place]. tel:[phone] [facility], [address] [address], [place], [place], [id number], tel:[phone] [facility] Cirrhosis of liver with ascites, unspecified hepatic cirrhosis type 4 Severino Sandoval . [address] [facility], [address], [place], [place], [id number] , [place]. tel: [phone] [facility], [address] [address], [place], [place], [id number], [place] tel:[phone] [facility] No Information 4 Severino GIL Lori . [address] [facility], [address], [facility] [place], [place], [id number] , [place]. tel: [phone] [facility], [address] [address], [place], [place], [address], [place] tel:[phone] [facility] Cirrhosis of liver with ascites, unspecified hepatic cirrhosis type 4 Severino Sandoval . [address] [facility], [address], [place], [place], [id number] , [place]. tel: [phone] [facility], [address] [address], [place], [place], [id number], [place] tel:[phone] [facility] Cirrhosis of liver with ascites, unspecified hepatic cirrhosis type 4 Severino Sandoval . [address] [facility], [address], [place], [place], [id number] , [place]. tel: [phone] [facility], [address] [address], [place], [place], [address], [place] tel:[phone] [facility] Other ascites 4 Severino Sandoval . [address] [facility], [address], [place], [place], [id number] , [place]. tel: [phone] Offic/outpt E&m New Mod-hi [facility], [address] [address], [place], [place], [address], [place] tel:[phone] [facility] GI Symptoms or Concerns (chief complaint) Other cirrhosis of liverCirrhosis of liver with ascites, unspecified hepatic cirrhosis typeOther ascites 4 Severino Sandoval . [address] [facility], [address], [place], [place], [id number] , [place]. tel: [phone] Referring Provider: Russ Fontenot, [address] [place] [address], [address]. tel:[phone] [facility], [address] [address], [place], [place], [id number], [place] tel:[phone] [facility] No Information 4 Robert Oneil. [address] [facility], [facility] [address], [place], [place], [id number] , [place]. tel:[phone] [facility], [address] [address], [place], [place], [id number], [place] tel:[phone] [facility] No Information 3 Robert Oneil. [address] [facility], [facility] [address], [place], [place], [id number] , [place]. tel:[phone] Family History Family Member Type Diagnosis Age At Onset No Information Immunizations Vaccine Date Status Comments Respiratory syncytial virus (RSV), vaccine, bivalent, protein subunit RSV prefusion F, diluent reconstituted, 0.5 mL, preservative free administered Note: [facility] bi-direct ional interface ; Source: Other Registry influenza, high-dose seasona l, quadrivalent, 0.7mL dose, preservative free administered Note: [facility] bi-direct ional interface ; Source: Other Registry SARS-COV-2 (COVID-19) vaccin e, mRNA, spike protein, LNP, preservative free, 50 mcg/0.5 mL dose administered Note: [facility] bi-direct ional interface ; Source: Other Registry tetanus toxoid, reduced diphtheria toxoid, and acellular pertussis vaccine, adsorbed administered Note: [facility] b i-directional interface ; Source: Other Registry zoster vaccine recombinant administered N ote: [facility] bi-directional interface ; Source: Other Registry SARS-COV-2 (COVID-19) vaccin e, mRNA, spike protein, LNP, preservative free, 100 mcg/0.5mL dose or 50 mcg/0.25mL dose administered Note: [facility] bi -directional interface ; Source: Other Registry zoster vaccine recombinant administered N ote: [facility] bi-directional interface ; Source: Other Registry SARS-COV-2 (COVID-19) vaccin e, mRNA, spike protein, LNP, preservative free, 100 mcg/0.5mL dose or 50 mcg/0.25mL dose administered Note: [facility] bi -directional interface ; Source: Other Registry SARS-COV-2 (COVID-19) vaccin e, mRNA, spike protein, LNP, preservative free, 100 mcg/0.5mL dose or 50 mcg/0.25mL dose administered Note: [facility] bi -directional interface ; Source: Other Registry influenza, high-dose seasona l, quadrivalent, 0.7mL dose, preservative free administered Note: [facility] bi-direct ional interface ; Source: Other Registry Seasonal trivalent influenza vaccine, adjuvanted, preservative free administered Note: [facility] bi-direct ional interface ; Source: Other Registry influenza, high dose seasona l, preservative-free administered Note: [facility] bi-direct ional interface ; Source: Other Registry influenza, high dose seasona l, preservative-free administered Note: [facility] bi-direct ional interface ; Source: Other Registry influenza, high dose seasona l, preservative-free administered Note: [facility] bi-direct ional interface ; Source: Other Registry Prevnar administered Note: [facility] bi-d irectional interface ; Source: Other Registry tetanus toxoid, reduced diphtheria toxoid, and acellular pertussis vaccine, adsorbed administered Note: [facility] b i-directional interface ; Source: Other Registry Influenza, seasonal, injecta ble, preservative free administered Note: [facility] bi-direct ional interface ; Source: Other Registry Influenza, seasonal, injecta ble, preservative free administered Note: [facility] bi-direct ional interface ; Source: Other Registry Influenza, seasonal, injecta ble, preservative free administered Note: [facility] bi-direct ional interface ; Source: Other Registry zoster vaccine, live administered Note: [facility] bi-directional interface ; Source: Other Registry Influenza, seasonal, injectable administe red Note: [facility] bi- directional interface ; Source: Other Registry Influenza, seasonal, injectable administe red Note: [facility] bi- directional interface ; Source: Other Registry Influenza, seasonal, injectable administe red Note: [facility] bi- directional interface ; Source: Other Registry Pneumovax 23 administered Note: [facility] bi-d irectional interface ; Source: Other Registry Influenza, seasonal, injectable administe red Note: [facility] bi- directional interface ; Source: Other Registry Havrix administered Note: [facility] bi-d irectional interface ; Source: Other Registry Payers Payer name Insurance type Covered democrat ID [employer]at[employer] charlieherberth(s) Blue [employer] Medicare Advantage [id number] Social History Type Description Quantity Date Captured Comments Sex Male Smoking Status No Information Chief Complaint And Reason For Visit No Information Reason For Referral Reason For Referral No Information Plan Of Treatment Date Type Action Status Referral Ordered: PT/INR, Whole Blood Appointment date/timeframe: 06/20/2023 ordered Referral Ordered: AFP, Serum, Tumor Marker Appointment date/timeframe: 06/20/2023 ordered Referral Ordered: CBC, Whole Blood Appointment date/timeframe: 06/20/2023 ordered Referral Ordered: Hepatic Function Panel Appointment date/timeframe: 06/20/2023 ordered Referral Ordered: Ultrasound Liver Appointment date/timeframe: 06/20/2023 ordered Referral Ordered: Paracentesis Abdominal WITH Ultrasound Guidance; Diagnostic and Therapeutic Appointment date/timeframe: 04/19/2023 ordered Referral Ordered: BMP Appointment date/timeframe: 03/21/2023 ordered Referral Ordered: EGD Appointment date/timeframe: First Available ordered Referral Ordered: Hepatoma Protocol Appointment date/timeframe: First Available ordered Referral Ordered: Hep A Ab Appointment date/timeframe: First Available ordered History Of Present Illness Encounter Date Complaint History Of Prese nt Illness GI Symptoms or Concerns Scott Angela is an 87-year-old male, seen today for followup of liver cirrhosis.I initially saw the patient on 03/09/2023 in consultation for concern of cirrhosis. He has a significant past medical history of hypertension, hyperlipidemia, BPH, gout, and subdural hematoma. Prior to my visit, he had been seen in the emergency room for shortness of breath and abdominal bloating along with lower extremity edema and was found to have cirrhosis of the liver with abdominal ascites. He was noted to have a negative hepatitis B surface antigen, hepatitis B core antibody, hepatitis A IgM, and hepatitis C antibody. Echocardiogram during this hospitalization revealed a normal ejection fraction and no evidence of right-sided heart failure.Laboratory testing following his last visit revealed normal alpha-1 antitrypsin level with MZ phenotype, negative SMA, SPARKLE, and AMA. AFP was within normal limits at 2.0. CBC revealed an elevated MCV of 102, but normal hemoglobin and pl GI Symptoms or Concerns Scott Angela is a 87-year-old male seen today at the request of Dr. Russ Curran MD for concern of cirrhosis. He is accompanied today by his daughter, Leslie. Past medical history is significant for hypertension, hyperlipidemia, BPH, gout, subdural hematoma I reviewed records from a presentation to the emergency room at [facility] on 02/16/2023. Patient presented with shortness of breath and abdominal bloating with lower extremity edema and decreased appetite with malaise and fatigue. he was reportedly previously started on furosemide 20 milligrams daily prior to presenting to the emergency room. laboratory testing on 02/16/2023 revealed a CBC remarkable for a hemoglobin of 13.1 with a platelet count of 188. BMP was within normal limits troponin I also normal. Function panel revealed a total bilirubin of 1.4 AST 57 ALT 34 alk-phos 216 albumin 3.0. INR 1.16, Hgb A1c 5.1%Patient was noted to have a negative hepatitis-B surface antigen, negative hepatitis-B core antibody, negative hepatitis a IgM negative hepatitis-C antibody. CT chest with IV contrast pulmonary embolism protocol did not reveal any evidence of PE he was noted to have pulmonary nodules with recommended follow-up CT in 3-6 months and cirrhosis of the liver with upper abdominal ascites. Venous ultrasound of bilateral lower extremities was negative for DVT. Abdominal ultrasound revealed heterogeneous echotexture with nodular contour consistent with cirrhosis with normal hepatopetal portal venous flow. He was noted to have moderate volume ascites on this as well. initially, it was thought his shortness of breath may be related to right are heart failure, cor pulmonale or pulmonary hypertension. However, echocardiogram showed normal ejection fraction of 60-65 percent without evidence of right-sided heart failure. Was thought that ultimately his shortness of breath was likely related to ascites and liver disease. he was started on spironolactone 50 milligrams and Lasix 20 milligrams daily. Most recently, patient underwent laboratory testing on 02/22/2023 which included a CBC revealed a hemoglobin of 13.7 white blood cell count of 7.8 and platelet count of 225. MCV was mildly elevated 101. CMP was remarkable for hyponatremia with a sodium of 134 potassium 3.8 creatinine 0.9 glucose 148, total bilirubin 1.8 albumin 3.1 alkaline phosphatase 221 AST 69 ALT 40. INR was noted to be 1.1.Patient reports that 16 years ago he was diagnosed with pancreatitis and has not had any alcohol since then. He reports that in January of 2023 1 week before he started to notice shortness of breath that got progressively worse along with abdominal distention and lower extremity edema. He initially saw his primary care provider and was started on Lasix but as this was not helpful ended up going to the emergency room as noted above. He then returned to the Emergency on 03/06/2023 and underwent a paracentesis at [facility]- unfortunately I do not have all the results for this but it does appear cytology was sent and found to be negative. Patient reports that 7 liters have been removed. He has had some issues with continued leakage from his paracentesis site. He continues to have issues with lower extremity edema but notes that this has improved substantially since starting furosemide and spironolactone. He has not noted substantial reaccumulation of fluid and denies any issues with current shortness of breath. He has been trying to follow a low salt diet. Of note, patient does reside at [facility]. He does not recall ever being told there were any concerns regarding his liver in the past.Denies any issues with confusion. He does report some difficulty with urination. Denies any nausea, vomiting, melena or hematochezia.FAMILY HISTORY Denies any family history of liver disease or liver cancer. No history of colon cancer, esophageal cancer, gastric cancer or pancreatic cancer. 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 Prior tobacco use, quit 25 years ago denies any NSAID use given his history of brain surgery he was advised not to take any sort of blood thinners. He does take Tylenol 1300 milligrams once a week if needed. Denies any history of recreational drug use. Does not have any tattoos Does not take any herbal supplements No history of blood transfusions. Functional Status Date Functional Assessmen t No Information Instructions Date Instruction Additional Infor mation No Information Assessments Type Assessment Date No Information Patient Care Teams Name Effective Dates (start - stop) Status Members No Information
--- OUTSIDE RECORDS SUMMARY | 2023-06-13 18:29 | XMS_ITS | Clinical Summary ---
Author Name Unknown Organization [facility] Address [address] [place] [address] Care Team Providers Care Water Sander Name Role Phone Russ Curran MD Primary Care Provider [phone] Source Comments You are receiving this document as you are listed as the primary care provider,follow-up provider, or the patient has been referred to you for consultation.This is in compliance with the Medicare and[place] EHR Incentive Program,which states Providers who transition their patient to another setting of careor provider of care or refers their patient to another provider of care shouldprovide summary care record for each transition of care or referral. [employer] Allergies Active Allergy Reactions Criticality Noted Date [...] 3 08/21/2006 Active unknown medication Indications: PN: 07/13/2010 Active ALLOPURINOL OR Take by mouth. 08/06/2012 Active TRIAMTERENE-HCTZ OR Take by mouth. 08/27/2012 A ctive leveTIRACETAM (AKA KEPPRA) 1000 MG tablet Take by mouth 2 times daily. patient reports taking 4 tablets daily 08/27/2012 Active traMADol (AKA ULTRAM) 50 MG [...] age to complete this topic Care Teams Water Sander Relationship Specialty Start Date End Date Russ Curran MD [address] [place] [address] PCP - General 09/18/15
--- OUTSIDE RECORDS SUMMARY | 2023-06-13 18:29 | XMS_ITS | Clinical Summary ---
Author Name Unknown Organization [facility] Address [place], [place] [address] Care Team Providers Care Vp Data Name Role Phone Russ Curran MD Primary Care Provider Allergies No known active allergies Medications Medication Sig Dispensed Refills Start Date End Date Status multivitamin (MVI) tablet Take 1 tablet by mouth once daily. Active doxycycline (VIBRAMYCIN) 100 mg tablet Take 100 mg by mouth once daily. Active HYDROcodone-aceta minophen, 5-500 mg, (VICODIN) Tab [...] Care Agent(s): Primary Health Care Agent: Snow Angela Relationship: Secondary Health Care Agent: Relationship: Phone: [...] Encounters Date Type Department Care Team Description 05/05/2023 Lab Requisition [facility] [phone] Russ Curran MD 05/03/2023 11:30 AM SHEARING SUPERVISOR Office Visit [facility] [address] [place] [address] Atul Fortune, AuD Hearing Problem 05/03/2023 Travel 03/30/2023 Lab Requisition [facility] [phone] Unknown, Doctor from Last 3 Months Immunizations Name Administration [...] Comments Blood Pressure 106/71 04/18/2012 1:43 PM SHEARING SUPERVISOR Pulse 96 04/18/2012 1:43 PM SHEARING SUPERVISOR Temperature 36.9 ??C (98.4 ??F) 11/21/2011 8:00 AM CD T Respiratory Rate 18 11/21/2011 8:00 AM CDT Oxygen Saturation 98% 11/21/2011 8:00 AM CDT Inhaled Oxygen Concentration - - Weight 98.6 kg (217 lb 6 oz) 11/10/2011 6:00 AM CDT Height 180.3 cm (5' 11) 11/06/2011 8:00 PM CDT Body Mass Index 30.32 11/06/2011 8:00 PM CDT Plan of Treatment Health Maintenance Due [...] booster 01/16/2013 01/16/2003 Influenza for age 65+ 11/05/2023 01/03/2007, 006 COVID-19 vaccine series Completed 12/23/19, 07/20/2021, 04/26/2020, Additional history exists Medical Devices Implanted Type Area Loan Services Professional Device Identifier Shelf Expiration Date Model / Serial / Lot Plate Ti [id number] 4 Holes Low Profile Neuro Box - [id number] Implanted:Qty: 1 on 11/07/2011 by Angel Marie MD at [facility] Left: Cranium J And J Depuy CMF 421.511# / / Wilma Hole Cover 17mm Jocelin Ti Low Profile Neuro - [id number] Implanted:Qty: 1 on 11/07/2011 by Angel Marie MD at [facility] Left: Cranium J And J Depuy CMF 421.527# / / Set Plating Synthes Matex Neuro Profile - [id number] Implanted:Qty: 14 on 11/07/2011 by Angel Marie MD at [facility] Left: Cranium J And J Depuy CMF 04.503.10 4.01# / / Screw 5mm Emergency Titnm Matrixneuro - [id number] Implanted:Qty: 1 on 11/07/2011 by Angel Marie MD at [facility] Left: Cranium J And J Depuy CMF 04.503.11 5.01# / / Shunt Wilma Hole Covre 17mm Implanted:Qty: 1 on 11/07/2011 at [facility] Left: Cranium 421.544 / / Description:SHUNT WILMA HOLE COVRE 17MM Set Plating Synthes Matex Neuro Profile - [id number] Implanted:Qty: 7 on 11/17/2011 at [facility] 04.503.10 4.01# / / Procedures Procedure Name Priority Date/Time Associated Diagnosis Comments LAB TRACKING EVENT Routine 05/05/2023 1: 17 PM SHEARING SUPERVISOR PATH NON PATENTS EXAMINER CYTOLOGY Routine 05/05/2023 1:17 PM SHEARING SUPERVISOR LAB TRACKING EVENT Routine 03/30/2023 9: 10 AM SHEARING SUPERVISOR PATH TISSUE EXAM Routine 03/30/2023 9:10 AM SHEARING SUPERVISOR from Last 3 Months Results * LAB TRACKING EVENT (05/05/2023 1:17 PM SHEARING SUPERVISOR) Only the most recent of2 resultswithin the time period is included. Other PERITONEAL FLUID SPECIMEN / Unknown Client Collect / Unknown 05/05/2023 1:17 PM SHEARING SUPERVISOR 05/05/2023 9:58 PM SHEARING SUPERVISOR Russ Curran MD LAB BILL ONLY [facility] [address] [place] [address], * PATH NON PATENTS EXAMINER CYTOLOGY (05/05/2023 1:17 PM SHEARING SUPERVISOR) Case Report Medical Cytology Report ? Case: [id number] ? Authorizing Provider: ??Russ Curran MD ?Collected: ? 05/05/2023 1317 ? Ordering Location: ? [facility] ?Received: ?05/06/2023 0831 ? Pathologist: ? Danielle Melara ? MD Jovita ? Specimen: ?Peritoneal Fluid ? 05/08/2023 9:15 AM [facility] weendy [facility] Final Diagnosis PERITONEAL FLUID, CYTOLOGIC MATERIAL: Negative for malignancy in this sample 05/08/2023 9:15 AM [facility] Clinical Information Not provided. 05/08/2023 9:15 AM [facility] weendy [facility] Gross Description A) SOURCE: Peritoneal Fluid The specimen consists of 1 cc of yellow cloudy fluid from which the following is prepared: ? -1 Air-dried slide for DiffQuik stain ? -1 ThinPrep slide for Papanicolaou Stain ? -1 Cell block slide A2 Cell block material was placed in formalin at 0930 on 05/06/23 and fixed in formalin at least 6 hours and no more than 72 hours. 05/08/2023 9:15 AM [facility] Microscopic Description Specimen adequacy: Adequate for interpretation. All slides were reviewed. The microscopic appearance substantiates the diagnosis. 05/08/2023 9:15 AM [facility] Additional Information Cytology is screened at [facility], Central Laboratory - [address] [facility] [address], [place] [address] and [facility] - [address], [place] [address] and [facility] - [address] [place] [address] Interpreted at [facility], Central Laboratory - [address], [place] [address] 05/08/2023 9:15 AM SHEARING SUPERVISOR [facility] Other PERITONEAL FLUID SPECIMEN / Unknown 05/05/2023 1:17 PM SHEARING SUPERVISOR 05/06/2023 8:31 AM SHEARING SUPERVISOR Russ Curran MD PATHOLOGY/CYTOLOGY [facility] [address] [place] [address], * PATH TISSUE EXAM (03/30/2023 9:10 AM SHEARING SUPERVISOR) Case Report Pathology Report ?Case: [id number] ? Authorizing Provider: ??Unknown, Doctor ?Collected: ? 03/30/2023 0910 ? Ordering Location: ? [facility] ?Received: ?03/30/2023 210 ? Pathologist: ? Diamond Shea MD ? Specimens: ?? A) - Antrum Biopsy ? B) - Stomach Biopsy ? C) - Esophageal Biopsy ? 4 2:34 PM [facility] Final Diagnosis A) STOMACH, ANTRUM, BIOPSY: [...] no evidence of dysplasia. 4 2:34 PM SHEARING SUPERVISOR [facility] Clinical Information No diagnosis of liver cirrhosis. Upper GI endoscopy showed gastritis and esophageal varices. 4 2:34 PM SHEARING SUPERVISOR [facility] Gross Description A) Received in [...] Pride 03/30/2023 9:06 PM 4 2:34 PM SHEARING SUPERVISOR [facility] Microscopic Description The final diagnosis is based on microscopic examination of appropriate sections of all specimens. 4 2:34 PM SHEARING SUPERVISOR [facility] Additional Information Interpreted at [facility] Laboratory - [address], [place] [address] 4 2:34 PM SHEARING SUPERVISOR [facility] Other (Antrum Biopsy) 03/30/2023 9:10 AM SHEARING SUPERVISOR 03/30/2023 9:01 PM SHEARING SUPERVISOR Specimen (specimen) (Stomach Biopsy) 03/30/2023 9:10 AM SHEARING SUPERVISOR 03/30/2023 9:01 PM SHEARING SUPERVISOR Specimen (specimen) (Esophageal Biopsy) 03/30/2023 9:10 AM SHEARING SUPERVISOR 03/30/2023 9:01 PM SHEARING SUPERVISOR Doctor Unknown PATHOLOGY/CYTOLOGY [facility] [address] [place] [address], from Last 3 Months Advance Directives * Full Code (Latest Code Status on File) Date Activated Date Inactivated Comments 11/17/2011 1:02 PM 11/21/2011 3:10 PM * Full Code Date Activated Date Inactivated Comments 11/17/2011 6:18 AM 11/17/2011 1:02 PM * Full Code Date Activated Date Inactivated Comments 11/07/2011 1:40 PM 11/17/2011 6:18 AM * Full Code Date Activated Date Inactivated Comments 11/06/2011 9:37 PM 11/07/2011 1:40 PM * Full Code Date Activated Date Inactivated Comments 06/14/2011 10:42 AM 06/21/2011 1:23 PM Care Teams Vp Data Relationship Specialty Start Date End Date Russ Curran MD [address] [place] [address] PCP - General 06/14/11
[2023-06-13 18:47] VITALS: BP 112/76; PULSE 98; RESP 18; TEMP 36.4; O2SAT 95; BMI 28.9
--- OUTSIDE RECORDS SUMMARY | 2023-06-13 20:41 | XMS_ITS | Continuity of Care Document ---
Author Name Unknown Organization [facility] Address [address] [address] [place] [address] Phone Care Team Providers Care City Wellness Coordinator Name Role Phone Robert Butler MD, Thad [...] - Active Procedures Procedure Date Offic/outpt E&m [facility] Mod-hi 2 Offic/outpt E&m New Mod-wi Routine Serum Collection Advance Directives Directive Yes / No Effective Date File Name No Information Encounters Encounter Description Practice Location Reason(s) For Visit Diagnoses Date Provider Providers Copied on Encounter [facility], [address] [address], [place], [place], [id number], [place] tel:[phone] [facility] No Information 4 Robert Oneil. [address] [facility], [address], [place], [place], [id number] , [place]. tel:[phone] Offic/outpt E&m [facility] Mod-wi 2 [facility], [address] [address], [place], [place], [id number], [place] [phone] [facility] GI Symptoms or Concerns (chief complaint) Cirrhosis of liver with ascites, unspecified hepatic cirrhosis type 4 Severino Sandoval . [address] [facility], [address], [id number] , [place]. tel:[phone] Referring Provider: Referral Self, USE FOR SELF REFERRALS. [facility], [address] [address], [place], [place], [id number], [place] [phone] [facility] No Information 4 Severino Sandovla . [address] [facility], [facility] [address], [place], [id number] , [place]. tel:[phone] [facility], [address] [address], [place], [place], [id number], tel:[phone] [facility] Cirrhosis of liver with ascites, unspecified hepatic cirrhosis type 4 Severino Sandoval . [address] [facility], [place], [place], [id number] , [place]. tel: [phone] [facility], [address] [address], [place], [place], [id number], [place] tel:[phone] [facility] No Information 4 Severino GIL Lori . [address] [facility], [address], [facility], [place], [id number] , [place]. tel: [phone] [facility], [address] [address], [place], [place], [address], [place] tel:[phone] [facility] Cirrhosis of liver with ascites, unspecified hepatic cirrhosis type 4 Severino Sandoval . [address] [facility], [address], [place], [place], [id number] , [place]. tel: [phone] [facility], [address] [address], [place], [place], [address], [place] tel:[phone] [facility] Cirrhosis of liver with ascites, unspecified hepatic cirrhosis type 4 Severino Sandoval . [address] [facility], [address], [place], [place], [id number] , [place]. tel: [phone] [facility], [address] [address], [place], [place], [address], [place] tel:[phone] [facility] Other ascites 4 Severino Sandoval . [address] [facility], [address], [place], [place], [address] , [place]. tel: [phone] Offic/outpt E&m New Mod-hi [facility], [address] [address], [place], [place], [id number], [place] tel:[phone] [facility] GI Symptoms or Concerns (chief complaint) Other cirrhosis of liverCirrhosis of liver with ascites, unspecified hepatic cirrhosis typeOther ascites 4 Severino Sandoval . [address] [facility], [address], [place], [place], [id number] , [place]. tel: [phone] Referring Provider: Russ Fontenot, [address] [place] [address], [address]. tel:[phone] [facility], [address] [address], [place], [place], [address], [place] tel:[phone] [facility] No Information 4 Robert Oneil. [address] [facility], [facility] [address], [place], [place], [id number] , [place]. tel:[phone] [facility], [address] [address], [place], [place], [address], [place] tel:[phone] [facility] No Information 3 Robert Oneil. [address] [facility], [facility] [address], [place], [place], [address] , [place]. tel:[phone] Family History Family Member Type Diagnosis Age [...] Registry Payers Payer name Insurance type Covered alliance party ID Authormatthewa charlieherberth(s) Blue Cross Medicare Advantage [id number] Social History Type Description Quantity Date [...] a presentation to the emergency room at [facility] on 02/16/2023. Patient presented with shortness of [...] on 03/06/2023 and underwent a paracentesis at [facility]- unfortunately I do not have all the [...]
--- OUTSIDE RECORDS SUMMARY | 2023-06-13 20:41 | XMS_ITS | Clinical Summary ---
Author Name Unknown Organization [facility] Address [address] [place] [address] Care Team Providers Care Sleeve Bottom Feller Name Role Phone Russ Curran MD Primary Care Provider [phone] Source Comments You are receiving this document as you are listed as the primary care provider,follow-up provider, or the patient has been referred to you for consultation.This is in compliance with the Medicare and[facility] EHR Incentive Program,which states Providers who transition their patient to another setting of careor provider of care or refers their patient to another provider of care shouldprovide summary care record for each transition of care or referral. [employer] Allergies Active Allergy Reactions Criticality Noted Date [...] age to complete this topic Care Teams Sleeve Bottom Feller Relationship Specialty Start Date End Date Russ Curran MD [address] [place] [address] PCP - General 09/18/15
--- OUTSIDE RECORDS SUMMARY | 2023-06-13 20:41 | XMS_ITS | Clinical Summary ---
Author Name Unknown Organization [facility] Address [place], [place] [address] Care Team Providers Care Life Skills Teacher Name Role Phone Russ Curran MD Primary [...] Department Care Team Description 05/05/2023 Lab Requisition [facility] [phone] Russ Curran MD 05/03/2023 11:30 AM MANAGER CRISIS Office Visit [facility] [address] [place] [address] Atul Fortune, AuD Hearing Problem 05/03/2023 Travel 03/30/2023 Lab Requisition [facility] [phone] Unknown, Doctor from Last 3 Months Immunizations [...] Comments Blood Pressure 106/71 04/18/2012 1:43 PM MANAGER CRISIS Pulse 96 04/18/2012 1:43 PM MANAGER CRISIS Temperature 36.9 ??C (98.4 ??F) 11/21/2011 8:00 [...] history exists Medical Devices Implanted Type Area Camp Coordinator Device Identifier Shelf Expiration Date Model / Serial / Lot Plate Ti [id number] 4 Holes Low Profile Neuro Box - [id number] Implanted:Qty: 1 on 11/07/2011 by Angel Marie MD at [facility] Left: Cranium J And J Depuy CMF 421.511# / / Wilma Hole Cover 17mm Jocelin Ti Low Profile Neuro - [id number] Implanted:Qty: 1 on 11/07/2011 by Angel Marie MD at [facility] Left: Cranium J And J Depuy CMF 421.527# / / Set Plating Synthes Matex Neuro Profile - [id number] Implanted:Qty: 14 on 11/07/2011 by Angel Marie MD at [facility] Left: Cranium J And J Depuy CMF 04.503.10 4.01# / / Screw 5mm Emergency Titnm Matrixneuro - [id number] Implanted:Qty: 1 on 11/07/2011 by Angel Marie MD at [facility] Left: Cranium J And J Depuy CMF 04.503.11 5.01# / / Shunt Wilma Hole Covre 17mm Implanted:Qty: 1 on 11/07/2011 at [facility] Left: Cranium 421.544 / / Description:SHUNT WILMA HOLE COVRE 17MM Set Plating Synthes Matex Neuro Profile - [id number] Implanted:Qty: 7 on 11/17/2011 at [facility] 04.503.10 4.01# / / Procedures Procedure Name Priority Date/Time Associated Diagnosis Comments LAB TRACKING EVENT Routine 05/05/2023 1: 17 PM MANAGER CRISIS PATH NON WEB PRODUCTION MANAGER CYTOLOGY Routine 05/05/2023 1:17 PM MANAGER CRISIS LAB TRACKING EVENT Routine 03/30/2023 9: 10 AM MANAGER CRISIS PATH TISSUE EXAM Routine 03/30/2023 9:10 AM MANAGER CRISIS from Last 3 Months Results * LAB TRACKING EVENT (05/05/2023 1:17 PM MANAGER CRISIS) Only the most recent of2 resultswithin the time period is included. Other PERITONEAL FLUID SPECIMEN / Unknown Client Collect / Unknown 05/05/2023 1:17 PM MANAGER CRISIS 05/05/2023 9:58 PM MANAGER CRISIS Russ Curran MD LAB BILL ONLY [facility] [address] [place] [address], * PATH NON WEB PRODUCTION MANAGER CYTOLOGY (05/05/2023 1:17 PM MANAGER CRISIS) Case Report Medical Cytology Report ? Case: [id number] ? Authorizing Provider: ??Russ Curran MD ?Collected: ? 05/05/2023 1317 ? Ordering Location: ? [facility] ?Received: ?05/06/2023 0831 ? Pathologist: ? Danielle Melara ? MD Jovita ? Specimen: ?Peritoneal Fluid ? 05/08/2023 9:15 AM [facility] [employer] [facility] Final Diagnosis PERITONEAL FLUID, CYTOLOGIC MATERIAL: Negative for malignancy in this sample 05/08/2023 9:15 AM [facility] Clinical Information Not provided. 05/08/2023 9:15 AM [facility] [employer] [facility] Gross Description A) SOURCE: Peritoneal Fluid [...] more than 72 hours. 05/08/2023 9:15 AM [facility] Microscopic Description Specimen adequacy: Adequate for interpretation. All slides were reviewed. The microscopic appearance substantiates the diagnosis. 05/08/2023 9:15 AM [facility] Additional Information Cytology is screened at [facility], Central Laboratory - [address] [facility] [address], [place] [address] and [facility] - [address] [place] [address] and [facility] - [address] [place] [address] Interpreted at [facility] [employer] [facility], Central Laboratory - [address], [place] [address] 05/08/2023 9:15 AM MANAGER CRISIS [facility] LAB[facility] Other PERITONEAL FLUID SPECIMEN / Unknown 05/05/2023 1:17 PM MANAGER CRISIS 05/06/2023 8:31 AM MANAGER CRISIS Russ Curran MD PATHOLOGY/CYTOLOGY [facility] [address] [place] [address], * PATH TISSUE EXAM (03/30/2023 9:10 AM MANAGER CRISIS) Case Report Pathology Report ?Case: [id number] ? Authorizing Provider: ??Unknown, Doctor ?Collected: ? 03/30/2023 0910 ? Ordering Location: ? [facility] ?Received: ?03/30/2023 210 ? Pathologist: ? Diamond Shea MD ? Specimens: ?? A) - Antrum Biopsy ? B) - Stomach Biopsy ? C) - Esophageal Biopsy ? 4 2:34 PM [facility] Final Diagnosis A) STOMACH, ANTRUM, [...] consistent with reflux esophagitis 4 2:[address] [facility] Comment A) The likely etiolo gy is [...] no evidence of dysplasia. 4 2:34 PM MANAGER CRISIS [facility] Clinical Information No diagnosis of liver cirrhosis. Upper GI endoscopy showed gastritis and esophageal varices. 4 2:34 PM MANAGER CRISIS [facility] Gross Description A) Received in [...] Pride 03/30/2023 9:06 PM 4 2:34 PM MANAGER CRISIS [facility] Microscopic Description The final diagnosis is based on microscopic examination of appropriate sections of all specimens. 4 2:34 PM MANAGER CRISIS [facility] Additional Information Interpreted at [facility] Laboratory - [address], [place] [address] 4 2:34 PM MANAGER CRISIS [facility] Other (Antrum Biopsy) 03/30/2023 9:10 AM MANAGER CRISIS 03/30/2023 9:01 PM MANAGER CRISIS Specimen (specimen) (Stomach Biopsy) 03/30/2023 9:10 AM MANAGER CRISIS 03/30/2023 9:01 PM MANAGER CRISIS Specimen (specimen) (Esophageal Biopsy) 03/30/2023 9:10 AM MANAGER CRISIS 03/30/2023 9:01 PM MANAGER CRISIS Doctor Unknown PATHOLOGY/CYTOLOGY [facility] [address] [place] [address], from Last 3 Months Advance Directives * [...] 10:42 AM 06/21/2011 1:23 PM Care Teams Life Skills Teacher Relationship Specialty Start Date End Date Russ Curran MD [address] [place] [address] PCP - General 06/14/11
== END 2023-06-13 20:48 | disposition left against medical advice (07) ==
PROVIDERS: Emergency Provider Emergency Medicine; PCP Internal Medicine
DX: Z53.21 Procedure and treatment not carried out due to patient leaving prior to being seen by health care provider (principal)

== ENCOUNTER 2023-06-14 07:50 | Outpatient (CLI) | payer MEDICARE, SELFPAY ==
--- OUTSIDE RECORDS SUMMARY | 2023-06-18 06:22 | XMS_ITS | Clinical Summary ---
Author Name Unknown Organization [facility] Address [place], [place] [address] Care Team Providers Care Phys Therapist Name Role Phone Russ Curran MD Primary [...] Department Care Team Description 05/05/2023 Lab Requisition [facility] [phone] Russ Curran MD 05/03/2023 11:30 AM FIELD CANE SCALER HELPER Office Visit [facility] [address] [place] [address] Atul Fortune, AuD Hearing Problem 05/03/2023 Travel 03/30/2023 Lab Requisition [facility] [phone] Unknown, Doctor from Last 3 Months Immunizations [...] Comments Blood Pressure 106/71 04/18/2012 1:43 PM FIELD CANE SCALER HELPER Pulse 96 04/18/2012 1:43 PM FIELD CANE SCALER HELPER Temperature 36.9 ??C (98.4 ??F) 11/21/2011 8:00 [...] history exists Medical Devices Implanted Type Area Manager Technical Services Device Identifier Shelf Expiration Date Model / Serial / Lot Plate Ti [id number] Holes Low Profile Neuro Box - [id number] Implanted:Qty: 1 on 11/07/2011 by Angel Marie MD at [facility] Left: Cranium J And J Depuy CMF 421.511# / / [place] Hole Cover 17mm Jocelin Ti Low Profile Neuro - [id number] Implanted:Qty: 1 on 11/07/2011 by Angel Marie MD at [facility] Left: Cranium J And J Depuy CMF 421.527# / / Set Plating Synthes Matex Neuro Profile - [id number] Implanted:Qty: 14 on 11/07/2011 by Angel Marie MD at [facility] Left: Cranium J And J Depuy CMF 04.503.10 4.01# / / Screw 5mm Emergency Titnm Matrixneuro - [id number] Implanted:Qty: 1 on 11/07/2011 by Angel Marie MD at [facility] Left: Cranium J And J Depuy CMF 04.503.11 5.01# / / Shunt Wilma Hole Covre 17mm Implanted:Qty: 1 on 11/07/2011 at [facility] Left: Cranium 421.544 / / Description:SHUNT WILMA HOLE COVRE 17MM Set Plating Synthes Matex Neuro Profile - [id number] Implanted:Qty: 7 on 11/17/2011 at [facility] 04.503.10 4.01# / / Procedures Procedure Name Priority Date/Time Associated Diagnosis Comments LAB TRACKING EVENT Routine 05/05/2023 1: 17 PM FIELD CANE SCALER HELPER PATH NON TRAFFIC OFFICER CYTOLOGY Routine 05/05/2023 1:17 PM FIELD CANE SCALER HELPER LAB TRACKING EVENT Routine 03/30/2023 9: 10 AM FIELD CANE SCALER HELPER PATH TISSUE EXAM Routine 03/30/2023 9:10 AM FIELD CANE SCALER HELPER from Last 3 Months Results * LAB TRACKING EVENT (05/05/2023 1:17 PM FIELD CANE SCALER HELPER) Only the most recent of2 resultswithin the time period is included. Other PERITONEAL FLUID SPECIMEN / Unknown Client Collect / Unknown 05/05/2023 1:17 PM FIELD CANE SCALER HELPER 05/05/2023 9:58 PM FIELD CANE SCALER HELPER Russ Curran MD LAB BILL ONLY [facility] [address] [place] [address], * PATH NON TRAFFIC OFFICER CYTOLOGY (05/05/2023 1:17 PM FIELD CANE SCALER HELPER) Case Report Medical Cytology Report ? Case: [id number] ? Authorizing Provider: ??Russ Curran MD ?Collected: ? 05/05/2023 1317 ? Ordering Location: ? [facility] ?Received: ?05/06/2023 0831 ? Pathologist: ? Danielle Melara ? MD Jovita ? Specimen: ?Peritoneal Fluid ? 05/08/2023 9:15 AM [facility] 1jiajie [facility] Final Diagnosis PERITONEAL FLUID, CYTOLOGIC MATERIAL: Negative for malignancy in this sample 05/08/2023 9:15 AM [facility] Clinical Information Not provided. 05/08/2023 9:15 AM [facility] 1jiajie [facility] Gross Description A) SOURCE: Peritoneal Fluid [...] more than 72 hours. 05/08/2023 9:15 AM [facility] Microscopic Description Specimen adequacy: Adequate for interpretation. All slides were reviewed. The microscopic appearance substantiates the diagnosis. 05/08/2023 9:15 AM [facility] Additional Information Cytology is screened at [facility], Central Laboratory - [address] [facility] [address], [place] [address] and [facility] - [address] [place] [address] and [facility] - [address] [place] [address] Interpreted at [facility], Central Laboratory - [address], [place] [address] 05/08/2023 9:15 AM FIELD CANE SCALER HELPER [facility] Other PERITONEAL FLUID SPECIMEN / Unknown 05/05/2023 1:17 PM FIELD CANE SCALER HELPER 05/06/2023 8:31 AM FIELD CANE SCALER HELPER Russ Curran MD PATHOLOGY/CYTOLOGY [facility] [address] [place] [address], * PATH TISSUE EXAM (03/30/2023 9:10 AM FIELD CANE SCALER HELPER) Case Report Pathology Report ?Case: [id number] ? Authorizing Provider: ??Unknown, Doctor ?Collected: ? 03/30/2023 0910 ? Ordering Location: ? [facility] ?Received: ?03/30/2023 210 ? Pathologist: ? Diamond Shea MD ? Specimens: ?? A) - Antrum Biopsy ? B) - Stomach Biopsy ? C) - Esophageal Biopsy ? 4 2:34 PM [facility] Final Diagnosis A) STOMACH, ANTRUM, BIOPSY: [...] consistent with reflux esophagitis 4 2:34 PM [facility] Comment A) The likely etiolo [...] no evidence of dysplasia. 4 2:34 PM FIELD CANE SCALER HELPER [facility] Clinical Information No diagnosis of liver cirrhosis. Upper GI endoscopy showed gastritis and esophageal varices. 4 2:34 PM FIELD CANE SCALER HELPER [facility] Gross Description A) Received in formalin [...] Pride 03/30/2023 9:06 PM 4 2:34 PM FIELD CANE SCALER HELPER [facility] Microscopic Description The final diagnosis is based on microscopic examination of appropriate sections of all specimens. 4 2:34 PM FIELD CANE SCALER HELPER [facility] Additional Information Interpreted at [facility] Central Laboratory - [address] [address] 4 2:34 PM FIELD CANE SCALER HELPER [facility] Other (Antrum Biopsy) 03/30/2023 9:10 AM FIELD CANE SCALER HELPER 03/30/2023 9:01 PM FIELD CANE SCALER HELPER Specimen (specimen) (Stomach Biopsy) 03/30/2023 9:10 AM FIELD CANE SCALER HELPER 03/30/2023 9:01 PM FIELD CANE SCALER HELPER Specimen (specimen) (Esophageal Biopsy) 03/30/2023 9:10 AM FIELD CANE SCALER HELPER 03/30/2023 9:01 PM FIELD CANE SCALER HELPER Doctor Unknown PATHOLOGY/CYTOLOGY [facility] [address] [place] [address], from Last 3 Months Advance Directives * [...] 10:42 AM 06/21/2011 1:23 PM Care Teams Phys Therapist Relationship Specialty Start Date End Date Russ Curran MD [address] [place] [address] PCP - General 06/14/11
--- OUTSIDE RECORDS SUMMARY | 2023-06-18 06:22 | XMS_ITS | Continuity of Care Document ---
Author Name Unknown Organization [facility] Address [address] [address] [place] [address] Phone Care Team Providers Care Movers Name Role Phone Lori Contreras Unavailable Unavailabl e Allergies, Adverse Reactions, Alerts Substance Reaction Status Criticality aspirin Active No Information Medications Medication Instructions Dosage Effective Dates (start - stop) Status Comments spironolactone 50 mg tablet take 1 tablet by oral route every day 50 MG - Active Tylenol Arthritis Pain 650 mg tablet,extended release take 1 tablet by oral route every 8 hours as needed swallowing whole with water. Do not break, crush, dissolve and/or chew. 650 MG - Active omeprazole 20 mg capsule,delayed release take 1 capsule by oral route every day 30 minutes to 1 hour before a meal 20 MG - Active furosemide 20 mg tablet [...] every 12 hours 2000 MG - Active spironolactone 50 mg tablet take 1 tablet by oral route every day 50 MG - No Longer Active Procedures Procedure Date Offic/outpt E&m Estab Mod-hi 2 24 Offic/outpt E&m New Mod-hi Routine Serum Collection Advance Directives Directive Yes / No Effective Date File Name No Information Encounters Encounter Description Practice Location Reason(s) For Visit Diagnoses Date Provider Providers Copied on Encounter [facility], [address] [address], [place], [place], [id number], [place] tel:[phone] [facility] No Information 4 Severino Sandoval . [address] [place] [address], [address], [id number] , [place]. tel:[phone] Offic/outpt E&m [facility] 2 [facility], [address] [address], [place], [place], [id number], [place] tel:[phone] [facility] GI Symptoms or Concerns (chief complaint) Cirrhosis of liver with ascites, unspecified hepatic cirrhosis type 4 Severino Sandoval . [address] [place] [address], [address], [id number] , [place]. tel:[phone] Referring Provider: Referral Self, USE FOR SELF REFERRALS. [facility], [address] [address], [place], [place], [id number], [place] tel:[phone] [facility] No Information 4 Severino Sandoval . [address] [place] [address], [facility] [address], [place], [id number] , [place]. tel:[phone] [facility], [address] [address], [place], [place], [id number], [place] tel:[phone] [facility] Cirrhosis of liver with ascites, unspecified hepatic cirrhosis type 4 Severino GIL Lori . [address], [facility], [place], [id number] , [place]. tel: [phone] [facility], [address] [address], [place], [place], [id number], [place] tel:[phone] [facility] No Information 4 Severino Sandoval . [address], [facility], [place], [id number] , [place]. tel: [phone] [facility], [address] [address], [place], [place], [id number], [place] tel:[phone] [facility] Cirrhosis of liver with ascites, unspecified hepatic cirrhosis type 4 Severino Sandoval . [address] [facility], [place], [place], [id number] , [place]. tel: [phone] [facility], [address] [address], [place], [place], [id number], [place] tel:[phone] [facility] Cirrhosis of liver with ascites, unspecified hepatic cirrhosis type 4 Severino Sandoval . [address] [facility], [place], [place], [id number] , [place]. tel: [phone] [facility], [address] [address], [place], [place], [id number], [place] tel:[phone] [facility] Other ascites 4 Severino Sandoval . [address], [place], [place], [id number] , [place]. tel: [phone] Offic/outpt E&m New Mod-hi [facility], [address] [address], [place], [place], [id number], [place] tel:[phone] [facility] GI Symptoms or Concerns (chief complaint) Other cirrhosis of liverCirrhosis of liver with ascites, unspecified hepatic cirrhosis typeOther ascites 4 Severino Sandoval . [address], [place], [place], [id number] , [place]. [phone] Referring Provider: Russ Fontenot, [address] [place] [address], [address]. tel:[phone] [facility], [address] [address], [place], [place], [id number], [place] tel:[phone] [facility] No Information 4 Robert Oneil. [address], [place], [place], [id number] , [place]. [phone] [facility], [address] [address], [place], [place], [address], [place] tel:[phone] [facility] No Information 3 Robert Oneil. [address], [place], [place], [id number] , [place]. [phone] Family History Family Member Type Diagnosis Age [...] ional interface ; Source: Other Registry Prevnar 13 administered Note: MI[facility] bi-d irectional interface ; [...] Registry Payers Payer name Insurance type Covered constitution party ID Joshua self(s) Blue Cross Medicare Advantage BL [id number] Social History Type Description Quantity Date Captured Comments Alcohol Use Details Unknown Caffeine Use Details Unknown Tobacco Use Status No Information Smoking Status No Information Sex Male Chief Complaint And Reason For Visit No [...] a presentation to the emergency room at [facility] on 02/16/2023. Patient presented with shortness [...] on 03/06/2023 and underwent a paracentesis at [facility]- unfortunately I do not have all [...]
--- OUTSIDE RECORDS SUMMARY | 2023-06-18 06:22 | XMS_ITS | Clinical Summary ---
Author Name Unknown Organization [facility] Address [address] [place] [address] Care Team Providers Care Copyist Name Role Phone Russ Curran MD Primary Care Provider [phone] Source Comments You are receiving this document as you are listed as the primary care provider,follow-up provider, or the patient has been referred to you for consultation.This is in compliance with the Medicare and[facility] Cent[facility] EHR Incentive Program,which states Providers who transition their patient to another setting of careor provider of care or refers their patient to another provider of care shouldprovide summary care record for each transition of care or referral. [place] Allergies Active Allergy Reactions Criticality Noted Date [...] age to complete this topic Care Teams Copyist Relationship Specialty Start Date End Date Russ Curran MD [address] [place] [address] PCP - General 09/18/15
== END 2023-06-14 07:51 | disposition home or self-care (01) ==
LOC: AMB 06-18 06:19
PROVIDERS: PCP Internal Medicine; Visit Provider Family Medicine
DX: R18.8 Other ascites (principal)
CPT/HCPCS: A0425; A0429

== ENCOUNTER 2023-06-14 08:08 | Emergency (ER) | payer MEDICARE, SELFPAY ==
[2023-06-14] VITALS (52 sets, daily range): BP systolic 88–121; BP diastolic 51–76; PULSE 77–94; RESP 18; TEMP 36.8; O2SAT 91–100; BMI 28.9
--- NOTE | 2023-06-14 08:32 | XR_ITS ---
Patient: LIYAH MARTIN Facility:?[facility] Patient ID:?[id number] Site Patient ID:?[id number]. Site :?[id number] Study:?XRay-Chest Portable-06/14/2023 10:18:28 AM Ordering Physician:Joe Cast Final Report: INDICATION: Shortness of breath TECHNIQUE: 1 view chest radiograph COMPARISON: CT 02/16/2023 FINDINGS: Devices: None. Lung volumes are good. Bandlike scarring or atelectasis in the left mid lung, mild. No large consolidation. No pleural effusion. No pneumothorax. Heart size is normal. Large pulmonary artery silhouette and both carlo. This is not a new finding. IMPRESSION: No acute findings. Dilated pulmonary arteries. Dictated by Jackie Esquivel MD @ 06/14/2023 10:24:28 AM Signed by:?Jackie Esquivel MD @06/14/2023 10:24:28 AM (Electronic Signature)
--- NOTE | 2023-06-14 08:33 | ED_ITS ---
HPI - General Adult General Chief complaint: Shortness of Breath/Dyspnea Stated complaint: abdominal distension Time Seen by Provider: 06/14/23 08:14 History of Present Illness HPI narrative: Patient is a pleasant 87 year white male who lives at [facility] with his in independent living, he has a history of cirrhosis for last 15 years has not had any alcohol. Unclear what his etiology of cirrhosis is. He has had several paracentesis and feels that he is short of breath from increasing abdominal girth and fluid at this time. He is not having chest pain he is not having a whole lot of abdominal pain although it is tense and tight, but he is more short of breath. His O2 sat is 96% on room air, his weight has gone up, he is on spironolactone and Lasix. He has had Dr. Right gorman to his paracentesis in the past. Related Data Home Medications Medication Instructions Recorded Confirmed gabapentin 100 mg capsule 100 mg PO HS 02/16/23 06/08/23 simvastatin 40 mg tablet 40 mg PO HS 02/16/23 06/08/23 Previous Rx's Medication Instructions Recorded allopurinol 300 mg tablet 300 mg PO DAILY Gout #90 tabs 10/05/22 tamsulosin 0.4 mg capsule 0.4 mg PO DAILY BPH #90 caps 10/05/22 furosemide 20 mg tablet 20 mg PO DAILY@0800 #30 tabs 02/17/23 spironolactone 50 mg tablet 50 mg PO DAILY #30 tabs 02/17/23 levetiracetam 1,000 mg tablet 2,000 mg (2 x 1,000 mg) PO BID 04/24/23 Seizure #360 tabs Allergies Allergy/AdvReac Type Severity Reaction Status Date / Time enoxaparin Allergy Severe contraindictation Verified 06/08/23 06:23 to all anticoagulants - see history anticoagulants-relative AdvReac Unknown Uncoded 05/29/23 12:44 contraindication-brain bleed Review of Systems Status of ROS: Reports: 6 or more systems reviewed and unremarkable except as noted in History and below [facility] Medical History Pulmonary nodules ?R91.8 - Other nonspecific abnormal finding of lung field (ICD-10) Ascites ?R18.8 - Other ascites (ICD-10) Bronchitis ?J40 - Bronchitis, not specified as acute or chronic (ICD-10) Cirrhosis ?K74.60 - Unspecified cirrhosis of liver (ICD-10) Hypertension (06/14/11) ?I10 - Essential (primary) hypertension (ICD-10) History of subdural hematoma (11/23/11) ?Z86.79 - Personal history of other diseases of the circulatory system (ICD-1 0) Gout (09/15/08) ?M10.9 - Gout, unspecified (ICD-10) Tubular adenoma of colon (09/15/08) ?D12.6 - Benign neoplasm of colon, unspecified (ICD-10) Traumatic brain injury (06/14/11) ?S06.9X9A - Unspecified intracranial injury with loss of consciousness of unspecified duration, initial encounter (ICD-10) Subjective tinnitus (10/06/11) ?H93.19 - Tinnitus, unspecified ear (ICD-10) Sensorineural hearing loss (SNHL) (11/23/11) ?H90.5 - Unspecified sensorineural hearing loss (ICD-10) Rosacea (05/21/06) ?L71.9 - Rosacea, unspecified (ICD-10) 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) ?L71.1 - Rhinophyma (ICD-10) Osteoarthritis of cervical spine ?M47.812 - Spondylosis without myelopathy or radiculopathy, cervical region (ICD-10) Obesity (08/16/10) ?E66.9 - Obesity, unspecified (ICD-10) Macular degeneration ?H35.30 - Unspecified macular degeneration (ICD-10) Intestinal obstruction ?K56.609 - Unspecified intestinal obstruction, unspecified as to partial versus complete obstruction (ICD-10) Hyperlipidemia (02/25/14) ?E78.5 - Hyperlipidemia, unspecified (ICD-10) BPH (benign prostatic hyperplasia) ?N40.0 - Benign prostatic hyperplasia without lower urinary tract symptoms (ICD-10) History of seizure (11/23/11) ?Z87.898 - Personal history of other specified conditions (ICD-10) History of pancreatitis (09/15/08) ?Z87.19 - Personal history of other diseases of the digestive system (ICD-10) Surgical History History of carpal tunnel surgery of right wrist (06/08/23) ?Z98.890 - Other specified postprocedural states (ICD-10) Status post evacuation of subdural hematoma (06/01/11) ?Z98.890 - Other specified postprocedural states (ICD-10) ?Z86.79 - Personal history of other diseases of the circulatory system (ICD- 10) History of tonsillectomy ?Z90.89 - Acquired absence of other organs (ICD-10) History of knee surgery (09/15/08) ?Z98.890 - Other specified postprocedural states (ICD-10) History of hemorrhoidectomy (09/15/08) ?Z98.890 - Other specified postprocedural states (ICD-10) Social History Narrative: -Snow former smoker What is your current living situation?: I presently have a place to live Problems where you live: no known problems Problems where you live details: N/A In the past 12 months, utilities in danger of being shut off: no In past 12 months, lack of transportation kept you from medical appts, meetings, work, or getting things needed for daily living: no In the past 12 mos, have been you worried that your food would run out before you had money to buy more?: never true In the past 12 mos, the food you bought just didn't last and you didn't have money to buy more?: never true Highest level of school completed/degree received: Bachelor's degree Smoking Status: Former smoker What tobacco products do you use: cigarettes Smoking quit date/years: >15 years ago Do you use any of these nicotine containing products: None How often do you have a drink containing alcohol: never How often do you have six or more drinks on one occasion: Never AUDIT-C Alcohol total score: 0 Non-prescribed substance use: denies use Caffeine: Yes How often does anyone, including family, friends and others, physically hurt you : never How often does anyone, including family, friends and others, insult or talk down to you: never How often does anyone, including family, friends and others, threaten you with harm: never How often does anyone, including family, friends and others, scream or curse at you: never Little interest or pleasure in doing things: not at all Feeling down, depressed, or hopeless: not at all service: No Exam Narrative: Exam Narrative: Objective: The patient's vital signs look within normal limits, he is afebrile, O2 sats 96% on room air HEENT unremarkable Pulses regular Abdomen is distended tympanitic, there is a fluid wave . His abdominal exam is tense, tympanitic Extremities trace edema Neurologic normal grossly nonfocal good peripheral perfusion noted. Const: Vital Signs, click to edit/add: Vital Signs - 24 hr 06/14/23 08:18 06/14/23 08:32 06/14/23 09:27 Temperature 98.3 F Pulse Rate 87 Pulse Rate [Pulse Oximeter] 89 Respiratory Rate 18 Blood Pressure 114/76 Blood Pressure [Ri ght Upper Arm] 107/68 Pulse Oximetry 96 96 95 Oxygen Delivery Me thod Room Air 06/14/23 09:30 06/14/23 09:31 06/14/23 09:35 Temperature Pulse Rate 90 88 88 Pulse Rate [Pulse Oximeter] Respiratory Rate Blood Pressure 121/72 Blood Pressure [Ri ght Upper Arm] Pulse Oximetry 95 95 96 Oxygen Delivery Me thod 06/14/23 09:37 06/14/23 09:40 06/14/23 09:42 Temperature Pulse Rate 87 90 87 Pulse Rate [Pulse Oximeter] Respiratory Rate Blood Pressure 114/71 106/73 Blood Pressure [Ri ght Upper Arm] Pulse Oximetry 96 94 92 Oxygen Delivery Me thod 06/14/23 09:45 06/14/23 09:47 06/14/23 09:50 Temperature Pulse Rate 85 87 82 Pulse Rate [Pulse Oximeter] Respiratory Rate Blood Pressure 103/69 Blood Pressure [Ri ght Upper Arm] Pulse Oximetry 94 92 94 Oxygen Delivery Me thod 06/14/23 09:52 06/14/23 09:55 06/14/23 09:57 Temperature Pulse Rate 87 86 87 Pulse Rate [Pulse Oximeter] Respiratory Rate Blood Pressure 108/68 114/67 Blood Pressure [Ri ght Upper Arm] Pulse Oximetry 91 91 94 Oxygen Delivery Me thod 06/14/23 10:00 06/14/23 10:02 06/14/23 10:05 Temperature Pulse Rate 86 86 87 Pulse Rate [Pulse Oximeter] Respiratory Rate Blood Pressure 105/63 Blood Pressure [Ri ght Upper Arm] Pulse Oximetry 92 94 96 Oxygen Delivery Me thod 06/14/23 10:07 06/14/23 10:10 06/14/23 10:12 Temperature Pulse Rate 83 81 78 Pulse Rate [Pulse Oximeter] Respiratory Rate Blood Pressure 89/63 L 112/63 Blood Pressure [Ri ght Upper Arm] Pulse Oximetry 96 97 96 Oxygen Delivery Me thod 06/14/23 10:15 06/14/23 10:17 06/14/23 10:20 Temperature Pulse Rate 77 83 79 Pulse Rate [Pulse Oximeter] Respiratory Rate Blood Pressure 92/58 L Blood Pressure [Ri ght Upper Arm] Pulse Oximetry 96 98 95 Oxygen Delivery Me thod 06/14/23 10:22 06/14/23 10:25 06/14/23 10:27 Temperature Pulse Rate 78 80 82 Pulse Rate [Pulse Oximeter] Respiratory Rate Blood Pressure 98/62 93/60 Blood Pressure [Ri ght Upper Arm] Pulse Oximetry 96 97 98 Oxygen Delivery Pa thod 06/14/23 10:30 06/14/23 10:32 06/14/23 10:35 Temperature Pulse Rate 79 79 78 Pulse Rate [Pulse Oximeter] Respiratory Rate Blood Pressure 101/64 Blood Pressure [Ri ght Upper Arm] Pulse Oximetry 96 96 95 Oxygen Delivery Pa thod 06/14/23 10:40 06/14/23 10:45 06/14/23 10:47 Temperature Pulse Rate 78 82 81 Pulse Rate [Pulse Oximeter] Respiratory Rate Blood Pressure 94/61 Blood Pressure [Ri ght Upper Arm] Pulse Oximetry 96 97 97 Oxygen Delivery Me thod 06/14/23 10:50 06/14/23 10:55 06/14/23 11:00 Temperature Pulse Rate 80 83 86 Pulse Rate [Pulse Oximeter] Respiratory Rate Blood Pressure Blood Pressure [Ri ght Upper Arm] Pulse Oximetry 98 95 97 Oxygen Delivery Me thod 06/14/23 11:02 06/14/23 11:05 06/14/23 11:10 Temperature Pulse Rate 89 91 91 Pulse Rate [Pulse Oximeter] Respiratory Rate Blood Pressure 114/51 L Blood Pressure [Ri ght Upper Arm] Pulse Oximetry 97 96 95 Oxygen Delivery Me thod 06/14/23 11:15 06/14/23 11:17 06/14/23 11:20 Temperature Pulse Rate 94 94 88 Pulse Rate [Pulse Oximeter] Respiratory Rate Blood Pressure 88/60 L Blood Pressure [Ri ght Upper Arm] Pulse Oximetry 95 95 94 Oxygen Delivery Pa thod 06/14/23 11:25 06/14/23 11:30 06/14/23 11:32 Temperature Pulse Rate 85 83 84 Pulse Rate [Pulse Oximeter] Respiratory Rate Blood Pressure 93/61 Blood Pressure [Ri ght Upper Arm] Pulse Oximetry 95 95 95 Oxygen Delivery Pa thod 06/14/23 11:35 06/14/23 11:40 06/14/23 11:45 Temperature Pulse Rate 84 87 86 Pulse Rate [Pulse Oximeter] Respiratory Rate Blood Pressure Blood Pressure [Ri ght Upper Arm] Pulse Oximetry 96 95 94 Oxygen Delivery Pa thod 06/14/23 11:47 06/14/23 11:50 06/14/23 11:55 Temperature Pulse Rate 88 85 87 Pulse Rate [Pulse Oximeter] Respiratory Rate Blood Pressure 95/56 L Blood Pressure [Ri ght Upper Arm] Pulse Oximetry 95 94 100 Oxygen Delivery Pa thod 06/14/23 12:01 Temperature Pulse Rate Pulse Rate [Pulse Oximeter] Respiratory Rate Blood Pressure 96/70 Blood Pressure [Ri ght Upper Arm] Pulse Oximetry [facility] Signs Vital signs: Initial Vital Signs Temperature 98.3 F 06/14/23 08:18 Temperature Source Temporal Artery Scan 06/14/23 08:18 Pulse Rate 89 06/14/23 08:18 Respiratory Rate 18 06/14/23 08:18 Blood Pressure 107/68 06/14/23 08:18 Blood Pressure Mean 81 06/14/23 08:18 Pulse Oximetry 96 06/14/23 08:18 Oxygen Delivery Method Room Air 06/14/23 08:18 Vital Signs Temperature 98.3 F 06/14/23 08:18 Pulse Rate 89 06/14/23 08:18 Respiratory Rate 18 06/14/23 08:18 Blood Pressure 107/68 06/14/23 08:18 Pulse Oximetry 96 06/14/23 08:18 Oxygen Delivery Method Room Air 06/14/23 08:18 Temperature 98.3 F 06/14/23 08:18 Pulse Rate 87 06/14/23 11:55 Respiratory Rate 18 06/14/23 08:18 Blood Pressure 96/70 06/14/23 12:01 Pulse Oximetry 100 06/14/23 11:55 Oxygen Delivery Method Room Air 06/14/23 08:18 Medications Administered Medications: Discontinued Medications Generic Name Dose Route Start Last Admin Trade Name Héctorq PRN Reason Stop Dose Admin Albumin Human 25 gm in 100 mls @ 100 mls/hr 06/14/23 09:43 06/14/23 11:20 Albumin Human 25% IVPB 06/14/23 10:42 Infused ONCE ONE Infusion Medical Decision Making MDM Narrative Medical decision making narrative: [age] white male with cirrhosis chronic with increasing abdominal girth, shortness of breath, likely reaccumulation of his sedate ascitic fluid from his cirrhosis. Will check an ultrasound to confirm, get a chest x-ray as well to make sure his lungs are clear, check electrolytes and labs, IV will be established, he will be put on monitors. Will discuss with surgeon regarding paracentesis. Addendum: Dr. Olivera General surgery is here to perform paracentesis. Patient will also be given 25% albumin unit IV. Patient also had a negative chest x-ray by my read, his laboratory studies look pretty reassuring, his alk- phos is a little elevated likely consistent with cirrhosis. He will follow-up with Dr. Olivera as planned peers. Return to ED sooner problems or concerns. Lab Data Labs: Lab Results 06/14/23 Range/Units 09:42 WBC 7.90 (4.50-11.00) K/uL RBC 3.40 L (4.30-5.90) m/uL Hgb 11.7 L (13.5-17.5) gm/dL Hct 35.3 L (37.0-53.0) % MCV 104 H (80-100) fL MCH 34 (26-34) pg MCHC 33 (32-36) gm/dL RDW Coeff of Jose 14.5 (11.5-15.5) % Plt Count 264 (140-440) K/uL Neut % (Auto) 67.6 (42.0-72.0) % Lymph % (Auto) 21.6 (20-44) % Concho % (Auto) 9.2 (0.0-11.0) % Eos % (Auto) 0.9 (0.0-7.0) % Baso % (Auto) 0.6 (0.0-3.0) % Neut # (Auto) 5.33 (1.7-7.0) K/uL Lymph # (Auto) 1.71 (0.90-2.90) K/uL Concho # (Auto) 0.70 (0.00-0.90) K/UL Eos # (Auto) 0.07 (0.00-0.50) K/uL Baso # (Auto) 0.05 (0.00-0.30) K/uL Abs Immat Gran (auto) 0.01 (0.00-0.30) K/uL Imm/Tot Granulo (auto) 0.1 % INR 1.16 H (0.91-1.10) APTT 37 H (23-33) Seconds Sodium 134 L (135-149) mmol/L Potassium 4.2 (3.6-5.1) mmol/L Chloride 107 (96-114) mmol/L Carbon Dioxide 24 (20-32) mmol/L Anion Gap 3 L (7-15) mEq/L BUN 40 H (7-30) mg/dL Creatinine 1.0 (0.5-1.5) mg/dL Estimated Creat Clear 58.20 Estimated GFR 73 ml/min Glucose 103 (60-115) mg/dL Calcium 8.7 (8.4-10.6) mg/dL Total Bilirubin 1.0 (0.1-1.5) mg/dL Direct Bilirubin 0.0 (0.0-0.5) mg/dL AST 55 H (12-35) U/L ALT 29 (4-50) U/L Alkaline Phosphatase 278 H (40-150) U/L Total Protein 6.4 (6.0-8.3) g/dL Albumin 2.7 L (3.3-5.0) g/dL Amylase 93 H (18-89) U/L Discharge Plan Discharge Clinical Impression: Ascites, Cirrhosis Patient Disposition: Home w/ Parent or Adult Condition: Improved Additional Instructions: Light activity today, resume your usual medications. Make she drink adequate water today perhaps 3-4 glasses of water. Would also follow-up as scheduled with Dr. Olivera for four-week paracentesis. Return to ED sooner problems or concerns. Activity Level: Light activity Discharge Diet: Heart Healthy (2 gm sodium, low fat) Prescriptions: No Action simvastatin 40 mg tablet 40 mg PO HS gabapentin 100 mg capsule 100 mg PO HS spironolactone 50 mg tablet 50 mg PO DAILY Qty: 30 0RF furosemide 20 mg tablet 20 mg PO DAILY@0800 Qty: 30 0RF allopurinol 300 mg tablet 300 mg PO DAILY Qty: 90 3RF tamsulosin 0.4 mg capsule 0.4 mg PO DAILY Qty: 90 3RF levetiracetam 1,000 mg tablet 2,000 mg PO BID Qty: 360 3RF Follow Up/Referrals: Russ Curran MD [Primary Care Provider] - Stand Alone Forms: [employer] Info Instructions
--- OUTSIDE RECORDS SUMMARY | 2023-06-14 08:58 | XMS_ITS | Clinical Summary ---
Author Name Unknown Organization [facility] Address [place], [place] [address] Care Team Providers Care Rn X Ray Name Role Phone Russ Curran MD Primary Care Provider [phone] Allergies No known active allergies Medications Medication [...] Department Care Team Description 05/05/2023 Lab Requisition [facility] [phone] Russ Curran MD 05/03/2023 11:30 AM [employer] Office Visit [facility] [address] [place] [address] Atul Fortune, AuD Hearing Problem 05/03/2023 Travel 03/30/2023 Lab Requisition [facility] [phone] Unknown, Doctor from Last 3 Months Immunizations [...] Comments Blood Pressure 106/71 04/18/2012 1:43 PM [employer] Pulse 96 04/18/2012 1:43 PM [employer] Temperature 36.9 ??C (98.4 ??F) 11/21/2011 8:00 [...] history exists Medical Devices Implanted Type Area Heat Treat Inspector Device Identifier Shelf Expiration Date Model / Serial / Lot Plate Ti [id number] Holes Low Profile Neuro Box - [id number] Implanted:Qty: 1 on 11/07/2011 by Angel Marie MD at [facility] Left: Cranium J And J Depuy CMF [id number]# / / Julian Hole Cover 17mm Jocelin Ti Low Profile Neuro - [id number] Implanted:Qty: 1 on 11/07/2011 by Angel Marie MD at [facility] Left: Cranium J And J Depuy CMF [id number]# / / Set Plating Synthes Matex Neuro Profile - [id number] Implanted:Qty: 14 on 11/07/2011 by Angel Marie MD at [facility] Left: Cranium J And J Depuy CMF [id number] 4.01# / / Screw 5mm Emergency Titnm Matrixneuro - [id number] Implanted:Qty: 1 on 11/07/2011 by Angel Marie MD at [facility] Left: Cranium J And J Depuy CMF [id number] 5.01# / / Shunt Wilma Hole Covre 17mm Implanted:Qty: 1 on 11/07/2011 at [facility] Left: Cranium 421.544 / / Description:SHUNT WILMA HOLE COVRE 17MM Set Plating Synthes Matex Neuro Profile - [id number] Implanted:Qty: 7 on 11/17/2011 at [facility] 04.503.10 4.01# / / Procedures Procedure Name Priority Date/Time Associated Diagnosis Comments LAB TRACKING EVENT Routine 05/05/2023 1: 17 PM [employer] PATH NON FUR FEEDER CYTOLOGY Routine 05/05/2023 1:17 PM [employer] LAB TRACKING EVENT Routine 03/30/2023 9: 10 AM [employer] PATH TISSUE EXAM Routine 03/30/2023 9:10 AM [employer] from Last 3 Months Results * LAB TRACKING EVENT (05/05/2023 1:17 PM [employer]) Only the most recent of2 resultswithin the time period is included. Other PERITONEAL FLUID SPECIMEN / Unknown Client Collect / Unknown 05/05/2023 1:17 PM [employer] 05/05/2023 9:58 PM [employer] Russ Curran MD LAB BILL ONLY [facility] [address] [place] [address], * PATH NON FUR FEEDER CYTOLOGY (05/05/2023 1:17 PM [employer]) Case Report Medical Cytology Report ? Case: [id number] ? Authorizing Provider: ??Russ Curran MD ?Collected: ? 05/05/2023 1317 ? Ordering Location: ? [facility] ?Received: ?05/06/2023 0831 ? Pathologist: ? Danielle Melara ? MD Jovita ? Specimen: ?Peritoneal Fluid ? 05/08/2023 9:15 AM [facility] Level [facility] Final Diagnosis PERITONEAL FLUID, CYTOLOGIC MATERIAL: Negative for malignancy in this sample 05/08/2023 9:15 AM [facility] Clinical Information Not provided. 05/08/2023 9:15 AM [facility] Level [facility] Gross Description A) SOURCE: Peritoneal [...] more than 72 hours. 05/08/2023 9:15 AM [facility] Microscopic Description Specimen adequacy: Adequate for interpretation. All slides were reviewed. The microscopic appearance substantiates the diagnosis. 05/08/2023 9:15 AM [facility] Additional Information Cytology is screened at [facility], Central Laboratory - [address], [place] [address] and [facility] - [address] [place] [address] and [facility] - [address] [place] [address] Interpreted at [facility], Central Laboratory - [address], [place] [address] 05/08/2023 9:15 AM [employer] [facility] Other PERITONEAL FLUID SPECIMEN / Unknown 05/05/2023 1:17 PM [employer] 05/06/2023 8:31 AM [employer] Russ Curran MD PATHOLOGY/CYTOLOGY [facility] [address] [place] [address], * PATH TISSUE EXAM (03/30/2023 9:10 AM [employer]) Case Report Pathology Report ?Case: [id number] ? Authorizing Provider: ??Unknown, Doctor ?Collected: ? 03/30/2023 0910 ? Ordering Location: ? [facility] ?Received: ?03/30/2023 210 ? Pathologist: ? Diamond Shea MD ? Specimens: ?? A) - Antrum Biopsy ? B) - Stomach Biopsy ? C) - Esophageal Biopsy ? 4 2:34 PM [facility] Final Diagnosis A) STOMACH, [...] consistent with reflux esophagitis 4 2:34 PM [facility] Comment A) The likely etiolo gy is [...] no evidence of dysplasia. 4 2:34 PM [employer] [facility] Clinical Information No diagnosis of liver cirrhosis. Upper GI endoscopy showed gastritis and esophageal varices. 4 2:34 PM [employer] [facility] Gross Description A) Received in [...] Pride 03/30/2023 9:06 PM 4 2:34 PM [employer] [facility] Microscopic Description The final diagnosis is based on microscopic examination of appropriate sections of all specimens. 4 2:34 PM [employer] [facility] Additional Information Interpreted at [facility] - [address], [place] [address] 4 2:34 PM [employer] [facility] Other (Antrum Biopsy) 03/30/2023 9:10 AM [employer] 03/30/2023 9:01 PM [employer] Specimen (specimen) (Stomach Biopsy) 03/30/2023 9:10 AM [employer] 03/30/2023 9:01 PM [employer] Specimen (specimen) (Esophageal Biopsy) 03/30/2023 9:10 AM [employer] 03/30/2023 9:01 PM [employer] Doctor Unknown PATHOLOGY/CYTOLOGY [facility] [address] [place] [address], from Last 3 Months Advance Directives * [...] 10:42 AM 06/21/2011 1:23 PM Care Teams Rn X Ray Relationship Specialty Start Date End Date Russ Curran MD [address] [place] [address] PCP - General 06/14/11
--- OUTSIDE RECORDS SUMMARY | 2023-06-14 08:59 | XMS_ITS | Clinical Summary ---
Author Name Unknown Organization [facility] Address [address] [place] [address] Care Team Providers Care Needle Valve Operator Name Role Phone Russ Curran MD Primary Care Provider [phone] Source Comments You are receiving this document as you are listed as the primary care provider,follow-up provider, or the patient has been referred to you for consultation.This is in compliance with the Medicare and[facility] EHR Incentive Program,which states Providers who transition their patient to another setting of careor provider of care or refers their patient to another provider of care shouldprovide summary care record for each transition of care or referral. [employer] Allergies Active Allergy Reactions Criticality Noted [...] on patient's age to complete this topic Insurance Payer Benefit Plan / Group Subscriber ID Effective Dates Phone Address Type [facility] D[facility] HP PREVENTIVE SR PREV ONEVISIT [id number] 2001-Pre sent Preventive MEDICARE MEDICARE MANAGED CARE HP [id number] 2011-Pre sent Medicare [facility] [employer] [id number] 2011-Pre sent Medicare [facility] DENTAL [facility] HP COMM FULLY INSURED DENTAL [id number] 2012-Pre sent Commercial Care Teams Needle Valve Operator Relationship Specialty Start Date End Date Russ Curran MD [address] [place] [address] PCP - General 09/18/15
[2023-06-14 09:56] LABS: Basophils Absolute Auto 0.05 K/uL (0.00-0.30); Basophils Percent Auto 0.6 % (0.0-3.0); Eosinophils Absolute Auto 0.07 K/uL (0.00-0.50); Eosinophils Percent Auto 0.9 % (0.0-7.0); Hematocrit 35.3 % (37.0-53.0); Hemoglobin* 11.7 gm/dL (13.5-17.5); Immature Granulocytes Abs Auto 0.01 K/uL (0.00-0.30); Immature Granulocytes Pct Auto 0.1 %; Lymphocytes Absolute Auto 1.71 K/uL (0.90-2.90); Lymphocytes Percent Auto 21.6 % (20-44); Mean Corpuscular HGB Conc 33 gm/dL (32-36); Mean Corpuscular Hemoglobin 34 pg (26-34); Mean Corpuscular Volume 104 fL (80-100); Monocytes Percent Auto 9.2 % (0.0-11.0); Neutrophils Absolute Auto 5.33 K/uL (1.7-7.0); Neutrophils Percent Auto 67.6 % (42.0-72.0); Platelet Count* 264 K/uL (140-440); RDW Coefficient of Variation % 14.5 % (11.5-15.5)
[2023-06-14 10:00] LABS: Slide Review Reflex No
[2023-06-14 10:13] LABS: Albumin* 2.7 g/dL (3.3-5.0); Chloride* 107 mmol/L (96-114); Potassium* 4.2 mmol/L (3.6-5.1); Sodium* 134 mmol/L (135-149)
[2023-06-14 10:15] LABS: Amylase* 93 U/L (18-89); Estimated Glomerular Filt Rate 73 ml/min
[2023-06-14 10:16] LABS: Alanine Aminotransferase* 29 U/L (4-50); Alkaline Phosphatase* 278 U/L (40-150); Anion Gap 3 mEq/L (7-15); Aspartate Amino Transferase* 55 U/L (12-35); Blood Urea Nitrogen* 40 mg/dL (7-30); Calcium* 8.7 mg/dL (8.4-10.6); Carbon Dioxide* 24 mmol/L (20-32); Glucose* 103 mg/dL (60-115); INR 1.16 (0.91-1.10); Partial Thromboplastin Time* 37 Seconds (23-33); Prothrombin Time 15.5 Seconds; Total Protein* 6.4 g/dL (6.0-8.3)
[2023-06-14] MEDS: ALBUMIN HUMAN 25% 25 GM/100 ML VIAL IVPB (10:20)
--- NOTE | 2023-06-14 10:23 | P.PARA_ITS ---
Paracentesis Date Date: 06/14/23 Procedure Note Procedure: Paracentesis with Ultrasound Guidance Type of paracentesis: Therapeutic Initial or Repeat?: Repeat Surgeon: Christina Taylor Indications: 87-year-old male with history of liver cirrhosis and no intra-abdominal surgical history presented to emergency room with increasing shortness of breath and increasing abdominal fullness. Patient has a known history of liver cirrhosis and had 2 previous paracentesis in March. In May he states that paracentesis was attempted but only 5 mL of fluid was drained. In the last several days patient has been not feeling well and was feeling increasingly short of breath and uncomfortable. He was still able to tolerate regular diet. He came into the emergency room because his primary care doctor was out of town and not able to arrange paracentesis for him. On clinical exam patient has distended large abdomen that is tympanic to percussion with no tender to pa lpation. The abdomen is not taut. Given patient's history and the ultrasound findings of ascites, therapeutic paracentesis was recommended. The procedure was discussed in detail. The risks associated procedure including infection, bleeding, and injury to intra-abdominal organs were all discussed with the patient and he agreed to proceed. Labs and Cytology Sent:: No Albumin infused: Yes Procedure Note:: Prior to the procedure, the risks and benefits of the procedure were discussed and an informed consent was obtained. Patient identification was confirmed and TIME OUT was performed. A bedside ultrasound was brought onto the field and an easily accessible pocket of ascites was identified that was away from intraabdominal organs. The patient's abdomen in the right lower quadrant was prepped and draped in the usual sterile fashion. 1% Lidocaine was used to anesthetize the skin, soft tissues and peritoneum over the proposed needle insertion site. A skin incision was made with a scalpel just large enough to fit the needle. The needle with the paracentesis catheter was advanced into the abd omen and a cystic fluid was aspirated into the syringe. The needle was then withdrawn and the catheter was left in place. The catheter was then connected to the drainage tubing. 5.5 Liters of straw colored fluid was drained. Post procedure ultrasound still revealed some residual ascitic fluid. The catheter was then removed and the skin was closed with Dermabond. 25% albumin was ordered to be infused. Patient's blood pressure remained above 100 systolic throughout the entire procedure. Patient tolerated procedure well and there were no immediate complications. Patient's vital signs were stable throughout the procedure and 1 bottle of albumin is ordered to be infused. Recomendation: Discharge to home (ambulatory) and return to normal activities tomorrow. Follow up with referring provider as needed.
== END 2023-06-14 12:00 | disposition home or self-care (01) ==
PROVIDERS: Emergency Provider Family Medicine; PCP Internal Medicine
DX: K74.60 Unspecified cirrhosis of liver (principal); R18.8 Other ascites
CPT/HCPCS: 36415; 49083; 71045; 80048; 80076; 82150; 85025; 85610; 85730; 94761; 99284; 99285; P9047

== ENCOUNTER 2023-06-27 06:57 | Day surgery (SDC) | payer MEDICARE, SELFPAY ==
--- OUTSIDE RECORDS SUMMARY | 2023-06-27 06:59 | XMS_ITS | Clinical Summary ---
Author Name Unknown Organization [facility] Address [place], [place] [address] Care Team Providers Care Gore Seamer Name Role Phone Russ Curran MD Primary [...] Department Care Team Description 05/05/2023 Lab Requisition [facility] [phone] Russ Curran MD 05/03/2023 11:30 AM BOBBIN WINDER TENDER Office Visit [facility] [address] [place] [address] Atul Fortune, AuD Hearing Problem 05/03/2023 Travel 03/30/2023 Lab Requisition [facility] [phone] Unknown, Doctor from Last 3 Months Immunizations [...] Comments Blood Pressure 106/71 04/18/2012 1:43 PM BOBBIN WINDER TENDER Pulse 96 04/18/2012 1:43 PM BOBBIN WINDER TENDER Temperature 36.9 ??C (98.4 ??F) 11/21/2011 8:00 [...] history exists Medical Devices Implanted Type Area Bridge Inspector Device Identifier Shelf Expiration Date Model / Serial / Lot Plate Ti [id number] 4 Holes Low Profile Neuro Box - [id number] Implanted:Qty: 1 on 11/07/2011 by Angel Marie MD at [facility] Left: Cranium J And J Depuy CMF 421.511# / / [place] Hole Cover 17mm Jocelin Ti Low Profile Neuro - [id number] Implanted:Qty: 1 on 11/07/2011 by Angel Marie MD at [facility] Left: Cranium J And J Depuy CMF 421.527# / / Set Plating Synthes Matex Neuro Profile - [id number] Implanted:Qty: 14 on 11/07/2011 by Angel Marie MD at [facility] Left: Cranium J And J Depuy CMF 04.503.10 4.01# / / Screw 5mm Emergency Titnm Matrixneuro - [id number] Implanted:Qty: 1 on 11/07/2011 by Angel Marie MD at [facility] Left: Cranium J And J Depuy CMF 04.503.11 5.01# / / Shunt Wilma Hole Covre 17mm Implanted:Qty: 1 on 11/07/[address] [facility] Left: Cranium 421.544 / / Description:SHUNT WILMA HOLE COVRE 17MM Set Plating Synthes Matex Neuro Profile - [id number] Implanted:Qty: 7 on 11/17/[address] [facility] 04.503.10 4.01# / / Procedures Procedure Name Priority Date/Time Associated Diagnosis Comments LAB TRACKING EVENT Routine 05/05/2023 1: 17 PM BOBBIN WINDER TENDER PATH NON BRADLEY LINEBACKER CREWMEMBER CYTOLOGY Routine 05/05/2023 1:17 PM BOBBIN WINDER TENDER LAB TRACKING EVENT Routine 03/30/2023 9: 10 AM BOBBIN WINDER TENDER PATH TISSUE EXAM Routine 03/30/2023 9:10 AM BOBBIN WINDER TENDER from Last 3 Months Results * LAB TRACKING EVENT (05/05/2023 1:17 PM BOBBIN WINDER TENDER) Only the most recent of2 resultswithin the time period is included. Other PERITONEAL FLUID SPECIMEN / Unknown Client Collect / Unknown 05/05/2023 1:17 PM BOBBIN WINDER TENDER 05/05/2023 9:58 PM BOBBIN WINDER TENDER Russ Curran MD LAB BILL ONLY [facility] [address] [place] [address], * PATH NON BRADLEY LINEBACKER CREWMEMBER CYTOLOGY (05/05/2023 1:17 PM BOBBIN WINDER TENDER) Case Report Medical Cytology Report ? Case: [id number] ? Authorizing Provider: ??Russ Curran MD ?Collected: ? 05/05/2023 1317 ? Ordering Location: ? [facility] ?Received: ?05/06/2023 0831 ? Pathologist: ? Danielle Melara ? MD Jovita ? Specimen: ?Peritoneal Fluid ? 05/08/2023 9:15 AM [facility] Final Diagnosis PERITONEAL FLUID, CYTOLOGIC MATERIAL: Negative for malignancy in this sample 05/08/2023 9:15 AM [facility] Clinical Information Not provided. 05/08/2023 9:15 AM [facility] Gross Description A) SOURCE: [...] more than 72 hours. 05/08/2023 9:15 AM [facility] Microscopic Description Specimen adequacy: Adequate for interpretation. All slides were reviewed. The microscopic appearance substantiates the diagnosis. 05/08/2023 9:15 AM [facility] Additional Information Cytology is screened at [facility], Central Laboratory - [address] [facility] [address], [place] [address] and [facility] - [address], [place] [address] and [facility] - [address] [place] [address] Interpreted at [facility], Central Laboratory - [address], [place] [address] 05/08/2023 9:15 AM BOBBIN WINDER TENDER [facility] Other PERITONEAL FLUID SPECIMEN / Unknown 05/05/2023 1:17 PM BOBBIN WINDER TENDER 05/06/2023 8:31 AM BOBBIN WINDER TENDER Russ Curran MD PATHOLOGY/CYTOLOGY [facility] [address] [place] [address], * PATH TISSUE EXAM (03/30/2023 9:10 AM BOBBIN WINDER TENDER) Case Report Pathology Report ?Case: [id number] ? Authorizing Provider: ??Unknown, Doctor ?Collected: ? 03/30/2023 0910 ? Ordering Location: ? [facility] ?Received: ?03/30/2023 210 ? Pathologist: ? Diamond Shea MD ? Specimens: ?? A) - Antrum Biopsy ? B) - Stomach Biopsy ? C) - Esophageal Biopsy ? 4 2:34 PM [facility] Final Diagnosis A) STOMACH, ANTRUM, BIOPSY: [...] consistent with reflux esophagitis 4 2:34 PM [facility] Comment A) The likely etiolo gy [...] no evidence of dysplasia. 4 2:34 PM BOBBIN WINDER TENDER [facility] Clinical Information No diagnosis of liver cirrhosis. Upper GI endoscopy showed gastritis and esophageal varices. 4 2:34 PM BOBBIN WINDER TENDER [facility] Gross Description A) Received in formalin [...] Pride 03/30/2023 9:06 PM 4 2:34 PM BOBBIN WINDER TENDER [facility] Microscopic Description The final diagnosis is based on microscopic examination of appropriate sections of all specimens. 4 2:34 PM BOBBIN WINDER TENDER [facility] Additional Information Interpreted at [facility] Laboratory - [address], [place] [address] 4 2:34 PM BOBBIN WINDER TENDER [facility] Other (Antrum Biopsy) 03/30/2023 9:10 AM BOBBIN WINDER TENDER 03/30/2023 9:01 PM BOBBIN WINDER TENDER Specimen (specimen) (Stomach Biopsy) 03/30/2023 9:10 AM BOBBIN WINDER TENDER 03/30/2023 9:01 PM BOBBIN WINDER TENDER Specimen (specimen) (Esophageal Biopsy) 03/30/2023 9:10 AM BOBBIN WINDER TENDER 03/30/2023 9:01 PM BOBBIN WINDER TENDER Doctor Unknown PATHOLOGY/CYTOLOGY [facility] [address] [place] [address], from Last 3 Months Advance Directives * [...] 10:42 AM 06/21/2011 1:23 PM Care Teams Gore Seamer Relationship Specialty Start Date End Date Russ Curran MD [address] [place] [address] PCP - General 06/14/11
--- OUTSIDE RECORDS SUMMARY | 2023-06-27 07:00 | XMS_ITS | Clinical Summary ---
Author Name Unknown Organization [facility] Address [address] [place] [address] Care Team Providers Care Technician Inventory Specialist Name Role Phone Russ Curran MD Primary Care Provider [phone] Source Comments You are receiving this document as you are listed as the primary care provider,follow-up provider, or the patient has been referred to you for consultation.This is in compliance with the Medicare and[facility] EHR Incentive Program,which states Providers who transition their patient to another setting of careor provider of care or refers their patient to another provider of care shouldprovide summary care record for each transition of care or referral. [email or web address] Allergies Active Allergy Reactions Criticality Noted Date [...] age to complete this topic Care Teams Technician Inventory Specialist Relationship Specialty Start Date End Date Russ Curran MD [address] [place] [address] PCP - General 09/18/15
[2023-06-27 07:15] VITALS: BP 112/72; PULSE 100; RESP 20; TEMP 36.2; O2SAT 95; BMI 28.8
[2023-06-27] MEDS: LACTATED RINGERS 1000 ML 1,000 ML 100 ML IV (07:30)
[2023-06-27] MEDS: SODIUM CHLORIDE 0.9 % (FLUSH) 10 ML SYRINGE IVF (07:30)
[2023-06-27] MEDS: BUPIVACAINE 0.5 %/EPI 1:200K 10 ML INJECTION (09:09)
[2023-06-27] MEDS: CEFAZOLIN 2 GM INJ IVP (09:15)
--- NOTE | 2023-06-27 09:56 | P.ORPRC_ITS ---
Procedure Note Date of procedure: 06/27/23 Procedure: Preop diagnosis: Left upper extremity carpal tunnel syndrome, cubital tunnel syndrome Postop diagnosis: Left upper extremity carpal tunnel syndrome, cubital tunnel syndrome Procedure: Left upper extremity carpal tunnel release, cubital tunnel release Anesthesia: Local plus monitored anesthesia care Surgeon: Cullen Chavez MD assistant professor of philosophy: JEFFERY Maher EBL: 20 mL Complications: None Specimens: None Drains: None Preoperative antibiotics: Ancef 1 g Indications: The patient has a history of left upper extremity carpal tunnel syndrome, cubital tunnel syndrome symptoms. Despite appropriate nonoperative management consisting of nighttime bracing and occupational therapy they continue to have symptoms. Operative intervention was recommended. The risks, benefits alternatives and expected outcomes were discussed in detail. These included but were not limited to: Infection, bleeding, injury to blood vessel or nerve, venous thromboembolism. All questions were answered to their satisfaction. The patient was placed supine on the operating room table. IV sedation was administered. Local anesthesia was established with 0.5% Marcaine without epinephrine and 2% lidocaine without epinephrine. The upper extremity was prepped and draped in usual sterile fashion. A longitudinal incision was made centered over the radial border of the ring finger at the base of the palm. Subcutaneous dissection was sharply taken through the palmar fascia and the palmaris brevis to the transverse carpal ligament. The ligament was divided in line with the incision. Proximal and distal dissection was carried with tenotomy and Metzenbaum scissors for a wide decompression of the carpal tunnel. Attention was then turned to the elbow. A longitudinal incision was made centered over the ulnar nerve at the cubital tunnel. Subcutaneous dissection was taken with the scalpel and Metzenbaum and tenotomy scissors to the ulnar nerve. Dissection was carried distally to the fascia over the flexor carpi ulnaris which was divided longitudinally. We visualized the motor branch to the FCU. Dissection was carried proximally into the triceps muscle belly. This results in a wide decompression of the ulnar nerve. Flexion and extension of the elbow shows the nerve is stable. The wound was irrigated with normal saline. It was closed with a 2-0 Vicryl and a 3-0 Monocryl in a subcuticular fashion. Glue was used to seal the skin. The hand wound was closed with a 3-0 nylon. A soft dressing was applied, sponge and needle counts were correct x 2. The patient tolerated the procedure well, there were no apparent complications. They were sent to same day surgery in satisfactory condition. Plan: Use of the hand as tolerates. Discontinue the intraoperative dressing on postoperative day 3 and may get the wound wet as tolerates. Follow up in the office in 2 weeks for a wound check and suture removal.
[2023-06-27 10:20] VITALS: BP 115/81; PULSE 84; RESP 18; TEMP 36.6; O2SAT 95
[2023-06-27 10:30] VITALS: BP 115/97; PULSE 85; RESP 20; O2SAT 96
--- NOTE | 2023-06-27 10:30 | W.ANESCHARGE ---
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
[2023-06-27 10:45] VITALS: BP 119/77; PULSE 86; RESP 18; TEMP 36.7; O2SAT 96
[2023-06-27 11:00] VITALS: BP 115/97; PULSE 85; RESP 18; O2SAT 96
== END 2023-06-27 11:30 | disposition home or self-care (01) ==
PROVIDERS: PCP Internal Medicine; Visit Provider Orthopaedic Surgery
PROC: (CPT 64721; principal; 2023-06-27 09:15)
PROC: (CPT 64721; 2023-06-27 09:15)
DX: G56.02 Carpal tunnel syndrome, left upper limb (principal); G56.22 Lesion of ulnar nerve, left upper limb
CPT/HCPCS: 64721; 64718; 01830; 99100; J0690; J2371; J2405; J2704; J3010; J3490; J7120

== ENCOUNTER 2023-06-30 10:09 | Emergency (ER) | payer MEDICARE, SELFPAY ==
[2023-06-30] VITALS (23 sets, daily range): BP systolic 99–116; BP diastolic 55–71; PULSE 84–95; RESP 18; TEMP 36.4; O2SAT 95–98; BMI 29.2
--- NOTE | 2023-06-30 11:07 | ED_ITS ---
HPI - General Adult General Date Seen: 06/30/23 Chief complaint: Abdominal Pain Stated complaint: liver issues Time Seen by Provider: 06/30/23 11:06 History of Present Illness HPI narrative: 87-year-old male with a history of cirrhosis-apparently ongoing for about 15 years (records indicate unclear etiology) with several previous paracentesis procedures. History of ascites. History of de Quervain tenosynovitis, bronchitis. History of hypertension. He has had paracentesis done by surgery, Dr. Olivera and by PCP Dr. Curran in the past. He is on Lasix 20 mg daily and spironolactone 50 mg daily. Also Keppra for seizures. Records indicate that he had a paracentesis done by Dr. Curran on 03/28/2023. 6.4 L of ascitic fluid removed. Prior to that he had paracentesis in the end of May done by surgery. Prior to that he had gone 12 weeks between paracenteses. He has been gaining weight in feeling increasing abdominal girth over the past several days, this is making it hard for him to breathe and makes him feel weak when he is walking. He tried to contact his primary care provider, Dr. Curran, today to set up an outpatient paracentesis. But no slots were available. He does not think he could wait until next week so he came here to the ER. He was hoping his primary care, Dr. Curran, could meet him to perform a paracentesis. He is not having any abdominal pain (other than feeling full from fluid). No fever or chills. No body aches or myalgias. Urination normal. Bowel movements normal. No chest pain. He does have some chronic swelling in his left lower extremity that is not changed from baseline. He does feel short of breath from abdominal compression on his diaphragm. No cough. Related Data Home Medications Medication Instructions Recorded Confirmed gabapentin 100 mg capsule 100 mg PO HS 02/16/23 06/30/23 simvastatin 40 mg tablet 40 mg PO HS 02/16/23 06/30/23 furosemide 40 mg tablet 40 mg PO DAILY 06/21/23 06/21/23 omeprazole 20 mg capsule,delayed 20 mg PO DAILY 06/21/23 06/30/23 release spironolactone 100 mg tablet 100 mg PO DAILY 06/21/23 06/30/23 Previous Rx's Medication Instructions Recorded allopurinol 300 mg tablet 300 mg PO DAILY Gout #90 tabs 10/05/22 tamsulosin 0.4 mg capsule 0.4 mg PO DAILY BPH #90 caps 10/05/22 furosemide 20 mg tablet 20 mg PO DAILY@0800 #30 tabs 02/17/23 levetiracetam 1,000 mg tablet 2,000 mg (2 x 1,000 mg) PO BID 04/24/23 Seizure #360 tabs Allergies Allergy/AdvReac Type Severity Reaction Status Date / Time enoxaparin Allergy Severe contraindictation Verified 06/30/23 10:43 to all anticoagulants - see history anticoagulants-relative AdvReac Unknown Uncoded 06/21/23 08:59 contraindication-brain bleed [facility] Medical History (Updated 06/30/23 @ 16:17 by Az Banerjee MD) Pulmonary nodules ?R91.8 - Other nonspecific abnormal finding of lung field (ICD-10) Ascites ?R18.8 - Other ascites (ICD-10) Bronchitis ?J40 - Bronchitis, not specified as acute or chronic (ICD-10) Cirrhosis ?K74.60 - Unspecified cirrhosis of liver (ICD-10) Hypertension (06/14/11) ?I10 - Essential (primary) hypertension (ICD-10) History of subdural hematoma (11/23/11) ?Z86.79 - Personal history of other diseases of the circulatory system (ICD- 10) Gout (09/15/08) ?M10.9 - Gout, unspecified (ICD-10) Tubular adenoma of colon (09/15/08) ?D12.6 - Benign neoplasm of colon, unspecified (ICD-10) Traumatic brain injury (06/14/11) ?S06.9X9A - Unspecified intracranial injury with loss of consciousness of unspecified duration, initial encounter (ICD-10) Subjective tinnitus (10/06/11) ?H93.19 - Tinnitus, unspecified ear (ICD-10) Sensorineural hearing loss (SNHL) (11/23/11) ?H90.5 - Unspecified sensorineural hearing loss (ICD-10) Rosacea (05/21/06) ?L71.9 - Rosacea, unspecified (ICD-10) 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) ?L71.1 - Rhinophyma (ICD-10) Osteoarthritis of cervical spine ?M47.812 - Spondylosis without myelopathy or radiculopathy, cervical region (ICD-10) Obesity (08/16/10) ?E66.9 - Obesity, unspecified (ICD-10) Macular degeneration ?H35.30 - Unspecified macular degeneration (ICD-10) Intestinal obstruction ?K56.609 - Unspecified intestinal obstruction, unspecified as to partial niki pedro luis complete obstruction (ICD-10) Hyperlipidemia (02/25/14) ?E78.5 - Hyperlipidemia, unspecified (ICD-10) BPH (benign prostatic hyperplasia) ?N40.0 - Benign prostatic hyperplasia without lower urinary tract symptoms (ICD-10) History of seizure (11/23/11) ?Z87.898 - Personal history of other specified conditions (ICD-10) History of pancreatitis (09/15/08) ?Z87.19 - Personal history of other diseases of the digestive system (ICD-10) Surgical History (Updated 06/27/23 @ 11:50 by Catrina Esteban) History of carpal tunnel surgery of left wrist (06/27/23) ?Z98.890 - Other specified postprocedural states (ICD-10) History of carpal tunnel surgery of right wrist (06/08/23) ?Z98.890 - Other specified postprocedural states (ICD-10) Status post evacuation of subdural hematoma (06/01/11) ?Z98.890 - Other specified postprocedural states (ICD-10) ?Z86.79 - Personal history of other diseases of the circulatory system (ICD- 10) History of tonsillectomy ?Z90.89 - Acquired absence of other organs (ICD-10) History of knee surgery (09/15/08) ?Z98.890 - Other specified postprocedural states (ICD-10) History of hemorrhoidectomy (09/15/08) ?Z98.890 - Other specified postprocedural states (ICD-10) Social History (Reviewed 06/21/23 @ 08:58 by Mayi Hampton ~ [facility]) Narrative: -Snow former smoker What is your current living situation?: I presently have a place to live Problems where you live: no known problems Problems where you live details: N/A In the past 12 months, utilities in danger of being shut off: no In past 12 months, lack of transportation kept you from medical appts, meetings, work, or getting things needed for daily living: no In the past 12 mos, have been you worried that your food would run out before you had money to buy more?: never true In the past 12 mos, the food you bought just didn't last and you didn't have money to buy more?: never true Highest level of school completed/degree received: Bachelor's degree Smoking Status: Former smoker What tobacco products do you use: cigarettes Smoking quit date/years: >15 years ago Do you use any of these nicotine containing products: None How often do you have a drink containing alcohol: never How often do you have six or more drinks on one occasion: Never AUDIT-C Alcohol total score: 0 Non-prescribed substance use: denies use Caffeine: Yes How often does anyone, including family, friends and others, physically hurt you : never How often does anyone, including family, friends and others, insult or talk down to you: never How often does anyone, including family, friends and others, threaten you with harm: never How often does anyone, including family, friends and others, scream or curse at you: never Little interest or pleasure in doing things: not at all Feeling down, depressed, or hopeless: not at all service: No Exam Narrative: Exam Narrative: Constitutional: Appears well-developed and well-nourished. Alert. Conversant. Non toxic. HENT: Head: Atraumatic. Nose: Nose normal. Mouth/Throat: Oral mucosa is clear and moist. no trismus. Pharynx normal. Tonsils symmetric. No tonsillar enlargement, erythema, or exudate. Eyes: Conjunctivae normal. EOM normal. Pupils equal, round, and reactive to light. No scleral icterus. Neck: Normal range of motion. Neck supple. No tracheal deviation present. Cardiovascular: Normal rate, regular rhythm. No gallop. No friction rub. Cyst on murmur heard. Symmetric radial and PT artery pulses Pulmonary/Chest: Effort normal. No stridor. No respiratory distress. No wheezes. No rales. No rhonchi . No tenderness. Abdominal: Soft. Bowel sounds normal. Very distended and dull to percussion. Suspicious for ascites.. No mass. No tenderness. No rebound. No guarding. Musculoskeletal: RUE: Normal range of motion. No tenderness. No deformity LUE: Normal range of motion. No tenderness. No deformity RLE: Normal range of motion. 1+ edema. No tenderness. No deformity LLE: Normal range of motion. 2+ edema (left ankle chronically more swollen than the right). No tenderness. No deformity Neurological: Alert and oriented to person, place, and time. Normal strength. CN II-VII intact. No sensory deficit. GCS eye subscore is 4. GCS verbal subscore is 5. GCS motor subscore is 6. Normal coordination Skin: Skin is warm and dry. No rash noted. No pallor. Normal capillary refill. Psychiatric: Normal mood. Normal affect. Const: Vital Signs, click to edit/add: Vital Signs - 24 hr 06/30/23 10:38 06/30/23 11:17 06/30/23 11:30 Temperature 97.6 F Pulse Rate 91 91 Pulse Rate [Pulse Oximeter] 95 Respiratory Rate 18 Blood Pressure Blood Pressure [Ri ght Upper Arm] 101/71 Pulse Oximetry 95 97 97 Oxygen Delivery Me thod Room Air 06/30/23 11:31 06/30/23 11:32 06/30/23 12:32 Temperature Pulse Rate 91 91 86 Pulse Rate [Pulse Oximeter] Respiratory Rate Blood Pressure 116/70 Blood Pressure [Ri ght Upper Arm] Pulse Oximetry 98 97 95 Oxygen Delivery Me thod 06/30/23 12:33 06/30/23 12:34 06/30/23 12:45 Temperature Pulse Rate 86 86 84 Pulse Rate [Pulse Oximeter] Respiratory Rate Blood Pressure 99/67 Blood Pressure [Ri ght Upper Arm] Pulse Oximetry 96 95 95 Oxygen Delivery Me thod 06/30/23 14:11 06/30/23 14:13 06/30/23 14:15 Temperature Pulse Rate 90 91 93 Pulse Rate [Pulse Oximeter] Respiratory Rate Blood Pressure 104/58 L Blood Pressure [Ri ght Upper Arm] Pulse Oximetry 98 98 98 Oxygen Delivery Me thod 06/30/23 14:30 06/30/23 14:45 06/30/23 15:01 Temperature Pulse Rate 85 86 87 Pulse Rate [Pulse Oximeter] Respiratory Rate Blood Pressure Blood Pressure [Ri ght Upper Arm] Pulse Oximetry 98 97 97 Oxygen Delivery Me thod 06/30/23 15:15 06/30/23 15:30 06/30/23 15:43 Temperature Pulse Rate 86 87 86 Pulse Rate [Pulse Oximeter] Respiratory Rate Blood Pressure 105/69 Blood Pressure [Ri ght Upper Arm] Pulse Oximetry 97 96 96 Oxygen Delivery Me thod 06/30/23 15:45 06/30/23 16:01 Temperature Pulse Rate 86 85 Pulse Rate [Pulse Oximeter] Respiratory Rate Blood Pressure 101/55 L Blood Pressure [Ri ght Upper Arm] Pulse Oximetry 98 96 Oxygen Delivery Me thod Course Vital Signs Vital signs: Initial Vital Signs Temperature 97.6 F 06/30/23 10:38 Temperature Source Temporal Artery Scan 06/30/23 10:38 Pulse Rate 95 06/30/23 10:38 Respiratory Rate 18 06/30/23 10:38 Blood Pressure 101/71 06/30/23 10:38 Blood Pressure Mean 81 06/30/23 10:38 Blood Pressure Position Sitting 06/30/23 10:38 Pulse Oximetry 95 06/30/23 10:38 Oxygen Delivery Method Room Air 06/30/23 10:38 Vital Signs Temperature 97.6 F 06/30/23 10:38 Pulse Rate 95 06/30/23 10:38 Respiratory Rate 18 06/30/23 10:38 Blood Pressure 101/71 06/30/23 10:38 Pulse Oximetry 95 06/30/23 10:38 Oxygen Delivery Method Room Air 06/30/23 10:38 Temperature 97.6 F 06/30/23 10:38 Pulse Rate 85 06/30/23 16:01 Respiratory Rate 18 06/30/23 10:38 Blood Pressure 101/55 L 06/30/23 16:01 Pulse Oximetry 96 06/30/23 16:01 Oxygen Delivery Method Room Air 06/30/23 10:38 Medications Administered Medications: Discontinued Medications Generic Name Dose Route Start Last Admin Trade Name Freq PRN Reason Stop Dose Admin Albumin Human 25 gm in 100 mls @ 100 mls/hr 06/30/23 14:02 06/30/23 15:40 Albumin Human 25% IVPB 06/30/23 15:01 Infused ONCE ONE Infusion Albumin Human 25 gm in 100 mls @ 100 mls/hr 06/30/23 14:04 06/30/23 15:40 Albumin Human 25% IVPB 06/30/23 15:03 100 mls/hr ONCE ONE Administration Medical Decision Making [facility] Narrative Medical decision making narrative: Very pleasant 87-year-old gentleman with a history of cirrhosis (unclear etiology) with chronic ascites presenting the ER today with reaccumulation of ascites leading to abdominal distension, bloating, diaphragm compression, and shortness of breath. He has generalized weakness. He has had several recent paracenteses. He came to the ER today because he could not arrange an outpatient paracentesis. He is not having any fever chills or other clear symptom to suggest SBP. No known abdominal injury. We did do a therapeutic paracentesis here in the ER today under ultrasound guidance. We removed in 10 L of ascitic fluid. Fluid was translucent and yellow. No blood, bloody, purulent, or cloudy fluid. Patient tolerated the procedure well. No discomfort. He noticed significant improvement in his breathing after removal of the fluid We administered 50 g of albumin (based on volume of ascitic fluid removed). Dose discussed with pharmacist. Repeat lab work shows. Elevated BUN and normal creatinine, possibly prerenal. LFTs mildly abnormal with albumin low at 2.9, alk-phos 362, AST 67. Total bilirubin 1.0. These are similar to previous. Platelet count an INR normal. No clear explanation based on workup is so far here in the ER why the ascites is been accumulating more rapidly over the past couple of months. At this point the patient is feeling better and is very eager to be discharged home Discussed with his primary care provider, Dr. Curran who has arranged plan for outpatient follow-up and schedule outpatient paracenteses. Precautions for return to the ER reviewed. Questions answered. Lab Data Labs: Lab Results 06/30/23 Range/Units 14:30 WBC 8.33 (4.50-11.00) K/uL RBC 3.44 L (4.30-5.90) m/uL Hgb 11.9 L (13.5-17.5) gm/dL Hct 34.7 L (37.0-53.0) % MCV 101 H (80-100) fL MCH 35 H (26-34) pg MCHC 34 (32-36) gm/dL RDW Coeff of Jose 14.5 (11.5-15.5) % Plt Count 261 (140-440) K/uL Neut % (Auto) 70.9 (42.0-72.0) % Lymph % (Auto) 19.0 L (20-44) % [place] % (Auto) 8.8 (0.0-11.0) % Eos % (Auto) 0.8 (0.0-7.0) % Baso % (Auto) 0.4 (0.0-3.0) % Neut # (Auto) 5.91 (1.7-7.0) K/uL Lymph # (Auto) 1.60 (0.90-2.90) K/uL [place] # (Auto) 0.70 (0.00-0.90) K/UL Eos # (Auto) 0.07 (0.00-0.50) K/uL Baso # (Auto) 0.03 (0.00-0.30) K/uL Abs Immat Gran (auto) 0.01 (0.00-0.30) K/uL Imm/Tot Granulo (auto) 0.1 % INR 1.05 (0.91-1.10) Sodium 134 L (135-149) mmol/L Potassium 4.1 (3.6-5.1) mmol/L Chloride 104 (96-114) mmol/L Carbon Dioxide 26 (20-32) mmol/L Anion Gap 4 L (7-15) mEq/L BUN 40 H (7-30) mg/dL Creatinine 1.4 (0.5-1.5) mg/dL Estimated Creat Clear 41.57 Estimated GFR 49 ml/min Glucose 92 (60-115) mg/dL Calcium 8.9 (8.4-10.6) mg/dL Total Bilirubin 1.0 (0.1-1.5) mg/dL AST 67 H (12-35) U/L ALT 35 (4-50) U/L Alkaline Phosphatase 362 H (40-150) U/L Total Protein 6.7 (6.0-8.3) g/dL Albumin 2.9 L (3.3-5.0) g/dL Discharge Plan Discharge Clinical Impression: Ascites, Cirrhosis Patient Disposition: Home, Self-Care Condition: Stable Instructions: Cirrhosis of the Liver (ED), Ascites (ED) Additional Instructions: Please come back to the ER right away if you have any concerning symptoms especially returning trouble breathing, abdominal bloating, any abdominal pain, fever, or if you have any concerned about an infection at the needle puncture site on your abdominal wall. Please follow-up in the clinic with Dr. Curran for repeat paracentesis and further workup. Prescriptions: No Action spironolactone 100 mg tablet 100 mg PO DAILY furosemide 40 mg tablet 40 mg PO DAILY omeprazole 20 mg capsule,delayed release(DR/EC) 20 mg PO DAILY simvastatin 40 mg tablet 40 mg PO HS gabapentin 100 mg capsule 100 mg PO HS furosemide 20 mg tablet 20 mg PO DAILY@0800 Qty: 30 0RF allopurinol 300 mg tablet 300 mg PO DAILY Qty: 90 3RF tamsulosin 0.4 mg capsule 0.4 mg PO DAILY Qty: 90 3RF levetiracetam 1,000 mg tablet 2,000 mg PO BID Qty: 360 3RF Follow Up/Referrals: Russ Curran MD [Primary Care Provider] - Stand Alone Forms: [facility] Info Instructions Procedures Paracentesis Pre procedure diagnosis: Ascites, cirrhosis Post procedure diagnosis: Ascites Site marking: site marked Verification/time out: correct patient, correct site and correct procedure Indication: Ascites Imaging guidance used?: Yes Procedure: therapeutic paracentesis Location: RLQ Bedside Ultrasound Used: yes, Ascites confirmed and location marked (Low donell quency con FRAX away abdominal probe used. We identified significant ascites in the abdominal cavity. We identified the largest site of ascites in the right lower quadrant. There was between 6 cm and 10 cm distance from the in her abdominal wall/peritoneal lining and the intestine.) Preparation: 11 blade used to make doreen in skin Anesthesia: lidocaine 1% and with Epi Amount of anesthesia used (mL): 4 Amount of fluid obtained (mL): 10,000 Fluid: clear Size of Needle Used: 7 Post Procedure Exam: awake, alert, normal BP, normal HR and normal SpO2 Estimated blood loss (if any): none Complications: none Patient Tolerated Procedure: well
--- OUTSIDE RECORDS SUMMARY | 2023-06-30 12:04 | XMS_ITS | Clinical Summary ---
Author Name Unknown Organization [employer] [facility] Address [place], [place] [address] Care Team Providers Care Microfiche Camera Operator Name Role Phone Russ Curran MD [...] Department Care Team Description 05/05/2023 Lab Requisition [facility] [phone] Russ Curran MD 05/03/2023 11:30 AM MAIL PROCESSING EQUIPMENT MECHANIC Office Visit [facility] [address] [place] [address] Atul Fortune, AuD Hearing Problem 05/03/2023 Travel from Last 3 Months Immunizations Name [...] Comments Blood Pressure 106/71 04/18/2012 1:43 PM MAIL PROCESSING EQUIPMENT MECHANIC Pulse 96 04/18/2012 1:43 PM MAIL PROCESSING EQUIPMENT MECHANIC Temperature 36.9 ??C (98.4 ??F) 11/21/2011 8:00 [...] history exists Medical Devices Implanted Type Area Painting Department Supervisor Device Identifier Shelf Expiration Date Model / Serial / Lot Plate Ti [id number] 4 Holes Low Profile Neuro Box - [id number] Implanted:Qty: 1 on 11/07/2011 by Angel Marie MD at [facility] Left: Cranium J And J Depuy CMF 421.511# / / Wilma Hole Cover 17mm Jocelin Ti Low Profile Neuro - [id number] Implanted:Qty: 1 on 11/07/2011 by Angel Marie MD at [facility] Left: Cranium J And J Depuy CMF 421.527# / / Set Plating Synthes Matex Neuro Profile - [id number] Implanted:Qty: 14 on 11/07/2011 by Angel Marie MD at [facility] Left: Cranium J And J Depuy CMF 04.503.10 4.01# / / Screw 5mm Emergency Titnm Matrixneuro - [id number] Implanted:Qty: 1 on 11/07/2011 by Angel Marie MD at [facility] Left: Cranium J And J Depuy CMF 04.503.11 5.01# / / Shunt [place] Hole Covre 17mm Implanted:Qty: 1 on 11/07/2011 at [facility] Left: Cranium 421.544 / / Description:SHUNT WILMA HOLE COVRE 17MM Set Plating Synthes Matex Neuro Profile - [id number] Implanted:Qty: 7 on 11/17/2011 at [facility] 04.503.10 4.01# / / Procedures Procedure Name Priority Date/Time Associated Diagnosis Comments LAB TRACKING EVENT Routine 05/05/2023 1: 17 PM MAIL PROCESSING EQUIPMENT MECHANIC PATH NON BRIDGE INSPECTOR CYTOLOGY Routine 05/05/2023 1:17 PM MAIL PROCESSING EQUIPMENT MECHANIC from Last 3 Months Results * LAB TRACKING EVENT (05/05/2023 1:17 PM MAIL PROCESSING EQUIPMENT MECHANIC) Other PERITONEAL FLUID SPECIMEN / Unknown Client Collect / Unknown 05/05/2023 1:17 PM MAIL PROCESSING EQUIPMENT MECHANIC 05/05/2023 9:58 PM MAIL PROCESSING EQUIPMENT MECHANIC Russ Curran MD LAB BILL ONLY [facility] LAB[facility] [address] [place] [address], * PATH NON BRIDGE INSPECTOR CYTOLOGY (05/05/2023 1:17 PM MAIL PROCESSING EQUIPMENT MECHANIC) Case Report Medical Cytology Report ? Case: [id number] ? Authorizing Provider: ??Russ Curran MD ?Collected: ? 05/05/2023 1317 ? Ordering Location: ? [facility] ?Received: ?05/06/2023 0831 ? Pathologist: ? Danielle Melara ? MD Jovita ? Specimen: ?Peritoneal Fluid ? 05/08/2023 9:15 AM [facility] EN[facility] LAB[facility]ATORY Final Diagnosis PERITONEAL FLUID, CYTOLOGIC MATERIAL: Negative for malignancy in this sample 05/08/2023 9:15 AM [facility] Clinical Information Not provided. 05/08/2023 9:15 AM [facility] Gross Description A) SOURCE: Peritoneal Fluid [...] more than 72 hours. 05/08/2023 9:15 AM [facility] Microscopic Description Specimen adequacy: Adequate for interpretation. All slides were reviewed. The microscopic appearance substantiates the diagnosis. 05/08/2023 9:15 AM [facility] Additional Information Cytology is screened at [facility] - [address], [place] [address] and [facility] - [address], [place] [address] and [facility] - [address] [place] [address] Interpreted at [facility] - [address], [place] [address] 05/08/2023 9:15 AM [facility] Other PERITONEAL FLUID SPECIMEN / Unknown 05/05/2023 1:17 PM MAIL PROCESSING EQUIPMENT MECHANIC 05/06/2023 8:31 AM MAIL PROCESSING EQUIPMENT MECHANIC Russ Curran MD PATHOLOGY/CYTOLOGY [facility] LABORATORY-CENTRAL LABORATORY [address] [place] [address], from Last 3 Months Advance Directives * [...] 10:42 AM 06/21/2011 1:23 PM Care Teams Microfiche Camera Operator Relationship Specialty Start Date End Date Russ Curran MD [address] [place] [address] PCP - General 06/14/11
--- OUTSIDE RECORDS SUMMARY | 2023-06-30 12:05 | XMS_ITS | Clinical Summary ---
Author Name Unknown Organization [facility] Address [address] [place] [address] Care Team Providers Care Broom Bundler Name Role Phone Russ Curran MD Primary Care Provider [phone] Source Comments You are receiving this document as you are listed as the primary care provider,follow-up provider, or the patient has been referred to you for consultation.This is in compliance with the Medicare and[facility] EHR Incentive Program,which states Providers who transition their patient to another setting of careor provider of care or refers their patient to another provider of care shouldprovide summary care record for each transition of care or referral. [employer] Allergies Active Allergy Reactions Criticality Noted Date [...] age to complete this topic Care Teams Broom Bundler Relationship Specialty Start Date End Date Russ Curran MD [address] [place] [address] PCP - General 09/18/15
[2023-06-30 14:37] LABS: Basophils Absolute Auto 0.03 K/uL (0.00-0.30); Basophils Percent Auto 0.4 % (0.0-3.0); Eosinophils Absolute Auto 0.07 K/uL (0.00-0.50); Eosinophils Percent Auto 0.8 % (0.0-7.0); Hematocrit 34.7 % (37.0-53.0); Hemoglobin* 11.9 gm/dL (13.5-17.5); Immature Granulocytes Abs Auto 0.01 K/uL (0.00-0.30); Immature Granulocytes Pct Auto 0.1 %; Mean Corpuscular HGB Conc 34 gm/dL (32-36); Mean Corpuscular Hemoglobin 35 pg (26-34); Mean Corpuscular Volume 101 fL (80-100); Monocytes Percent Auto 8.8 % (0.0-11.0); Neutrophils Absolute Auto 5.91 K/uL (1.7-7.0); Neutrophils Percent Auto 70.9 % (42.0-72.0); Platelet Count* 261 K/uL (140-440); RDW Coefficient of Variation % 14.5 % (11.5-15.5); Red Blood Count 3.44 m/uL (4.30-5.90); White Blood Count* 8.33 K/uL (4.50-11.00)
[2023-06-30] MEDS: ALBUMIN HUMAN 25% 25 GM/100 ML VIAL IVPB ×2 (14:40→15:40)
[2023-06-30 14:50] LABS: Slide Review Reflex No
[2023-06-30 14:54] LABS: Chloride* 104 mmol/L (96-114)
[2023-06-30 14:55] LABS: Albumin* 2.9 g/dL (3.3-5.0); Potassium* 4.1 mmol/L (3.6-5.1); Sodium* 134 mmol/L (135-149)
[2023-06-30 14:57] LABS: Anion Gap 4 mEq/L (7-15); Carbon Dioxide* 26 mmol/L (20-32); Creatinine* 1.4 mg/dL (0.5-1.5); Est. Creatinine Clearance* 41.57; Estimated Glomerular Filt Rate 49 ml/min; Total Protein* 6.7 g/dL (6.0-8.3)
[2023-06-30 14:58] LABS: Alanine Aminotransferase* 35 U/L (4-50); Alkaline Phosphatase* 362 U/L (40-150); Aspartate Amino Transferase* 67 U/L (12-35); Blood Urea Nitrogen* 40 mg/dL (7-30); Calcium* 8.9 mg/dL (8.4-10.6); Glucose* 92 mg/dL (60-115)
[2023-06-30 15:09] LABS: INR 1.05 (0.91-1.10); Prothrombin Time 14.3 Seconds
== END 2023-06-30 16:45 | disposition home or self-care (01) ==
PROVIDERS: Emergency Provider Emergency Medicine; PCP Internal Medicine
DX: R18.8 Other ascites (principal); K74.60 Unspecified cirrhosis of liver
CPT/HCPCS: 49083; 36415; 80053; 85025; 85610; 93005; 96365; 99283; 99284; P9047

== ENCOUNTER 2023-07-11 13:27 | Outpatient (REF) | payer MEDICARE, SELFPAY ==
--- OUTSIDE RECORDS SUMMARY | 2023-07-11 13:33 | XMS_ITS | Clinical Summary ---
Author Name Unknown Organization [employer] Address [place], [place] [address] Care Team Providers Care Launch Steward Name Role Phone Russ Curran MD Primary Care Provider [phone] Allergies No known active allergies Medications Medication [...] Department Care Team Description 05/05/2023 Lab Requisition [facility] [phone] Russ Curran MD 05/03/2023 11:30 AM ASSESSMENT COUNSELOR Office Visit [facility] [address] [place] [address] Atul Fortune, AuD Hearing Problem [...] Comments Blood Pressure 106/71 04/18/2012 1:43 PM ASSESSMENT COUNSELOR Pulse 96 04/18/2012 1:43 PM ASSESSMENT COUNSELOR Temperature 36.9 ??C (98.4 ??F) 11/21/2011 8:00 [...] history exists Medical Devices Implanted Type Area Network Support Administrator Device Identifier Shelf Expiration Date Model / Serial / Lot Plate Ti [id number] 4 Holes Low Profile Neuro Box - [id number] Implanted:Qty: 1 on 11/07/2011 by Angel Marie MD at [facility] Left: Cranium J And J Depuy CMF 421.511# / / [place] Hole Cover 17mm Jocelin Ti Low Profile Neuro - [id number] Implanted:Qty: 1 on 11/07/2011 by Angel Marie MD at [facility] Left: Cranium J And J Depuy CMF 421.527# / / Set Plating Synthes Matex Neuro Profile - [id number] Implanted:Qty: 14 on 11/07/2011 by Angel Marie MD at [facility] Left: Cranium J And J Depuy CMF 04.503.10 4.01# / / Screw 5mm Emergency Titnm Matrixneuro - [id number] Implanted:Qty: 1 on 11/07/2011 by Angel Marie MD at [facility] Left: Cranium J And J Depuy CMF 04.503.11 5.01# / / Shunt [place] Hole Covre 17mm Implanted:Qty: 1 on 11/07/2011 at [facility] Left: Cranium 421.544 / / Description:SHUNT WILMA HOLE COVRE 17MM Set Plating Synthes Matex Neuro Profile - [id number] Implanted:Qty: 7 on 11/17/2011 at [facility] 04.503.10 4.01# / / Procedures Procedure Name Priority Date/Time Associated Diagnosis Comments LAB TRACKING EVENT Routine 05/05/2023 1: 17 PM ASSESSMENT COUNSELOR PATH NON INTEGRATION DEVELOPER CYTOLOGY Routine 05/05/2023 1:17 PM ASSESSMENT COUNSELOR from Last 3 Months Results * LAB TRACKING EVENT (05/05/2023 1:17 PM ASSESSMENT COUNSELOR) Other PERITONEAL FLUID SPECIMEN / Unknown Client Collect / Unknown 05/05/2023 1:17 PM ASSESSMENT COUNSELOR 05/05/2023 9:58 PM ASSESSMENT COUNSELOR Russ Curran MD LAB BILL ONLY [facility]-C[facility]AL LABORATORY [address] [place] [address], * PATH NON INTEGRATION DEVELOPER CYTOLOGY (05/05/2023 1:17 PM ASSESSMENT COUNSELOR) Case Report Medical Cytology Report ? Case: [id number] ? Authorizing Provider: ??Russ Curran MD ?Collected: ? 05/05/2023 1317 ? Ordering Location: ? [facility] ?Received: ?05/06/2023 0831 ? Pathologist: ? Danielle Melara ? MD Jovita ? Specimen: ?Peritoneal Fluid ? 05/08/2023 9:15 AM [facility] EN[facility] LABORATORY Final Diagnosis PERITONEAL FLUID, CYTOLOGIC MATERIAL: Negative for malignancy in this sample 05/08/2023 9:15 AM [facility] Clinical Information Not provided. 05/08/2023 9:15 AM [facility] Gross Description A) SOURCE: Peritoneal Fluid [...] more than 72 hours. 05/08/2023 9:15 AM [facility] Microscopic Description Specimen adequacy: Adequate for interpretation. All slides were reviewed. The microscopic appearance substantiates the diagnosis. 05/08/2023 9:15 AM [facility] Additional Information Cytology is screened at [facility] - [address] [address] and [facility] - [address], [place] [address] and [facility] - [address] [place] [address] Interpreted at [facility] Laboratory - [address], [place] [address] 05/08/2023 9:15 AM [facility] Other PERITONEAL FLUID SPECIMEN / Unknown 05/05/2023 1:17 PM ASSESSMENT COUNSELOR 05/06/2023 8:31 AM ASSESSMENT COUNSELOR Russ Curran MD PATHOLOGY/CYTOLOGY [facility] LABORATORY-CENTRAL LABORATORY [address] [place] [address], from Last 3 Months Advance Directives * [...] 10:42 AM 06/21/2011 1:23 PM Care Teams Launch Steward Relationship Specialty Start Date End Date Russ Curran MD [address] [place] [address] PCP - General 06/14/11
--- OUTSIDE RECORDS SUMMARY | 2023-07-11 13:33 | XMS_ITS | Clinical Summary ---
Author Name Unknown Organization [facility] Address [address] [place] [address] Care Team Providers Care Film Processor Name Role Phone Russ Curran MD Primary Care Provider [phone]- [phone] Source Comments You are receiving this document as you are listed as the primary care provider,follow-up provider, or the patient has been referred to you for consultation.This is in compliance with the Medicare and[facility] EHR Incentive Program,which states Providers who transition their patient to another setting of careor provider of care or refers their patient to another provider of care shouldprovide summary care record for each transition of care or referral. [employer] Allergies Active Allergy Reactions Criticality Noted [...] Vaccine (3 - season) 2022 04/26/2020, 03/29/2020 DTaP/Tdap/Td (2 - Tdap) 11/16/2022 11/16/2012, 01/16 Influenza (Season Ended) 2023 020, 11/23/2018, 12/06/2016, Additional history exists HepA Aged Out 01/16/2003 No longer eligi [...] age to complete this topic Care Teams Film Processor Relationship Specialty Start Date End Date Russ Curran MD [address] [place] [address] PCP - General 09/18/15
[2023-07-11 14:24] LABS: Basophils Absolute Auto 0.02 K/uL (0.00-0.30); Basophils Percent Auto 0.3 % (0.0-3.0); Eosinophils Absolute Auto 0.05 K/uL (0.00-0.50); Eosinophils Percent Auto 0.6 % (0.0-7.0); Hematocrit 35.2 % (37.0-53.0); Hemoglobin* 11.9 gm/dL (13.5-17.5); Immature Granulocytes Abs Auto 0.06 K/uL (0.00-0.30); Immature Granulocytes Pct Auto 0.8 %; Lymphocytes Percent Auto 23.8 % (20-44); Mean Corpuscular HGB Conc 34 gm/dL (32-36); Mean Corpuscular Hemoglobin 35 pg (26-34); Mean Corpuscular Volume 102 fL (80-100); Monocytes Percent Auto 6.5 % (0.0-11.0); Neutrophils Absolute Auto 5.45 K/uL (1.7-7.0); Platelet Count* 194 K/uL (140-440); RDW Coefficient of Variation % 15.2 % (11.5-15.5); Red Blood Count 3.45 m/uL (4.30-5.90)
[2023-07-11 14:25] LABS: Slide Review Reflex No
[2023-07-11 16:44] LABS: INR 1.03 (0.91-1.10); Prothrombin Time 14.1 Seconds
[2023-07-11 16:53] LABS: Albumin* 2.8 g/dL (3.3-5.0); Chloride* 103 mmol/L (96-114); Potassium* 3.9 mmol/L (3.6-5.1); Sodium* 133 mmol/L (135-149)
[2023-07-11 16:55] LABS: Anion Gap 6 mEq/L (7-15); Bilirubin Direct* 0.1 mg/dL (0.0-0.5); Bilirubin Total* 1.2 mg/dL (0.1-1.5); Carbon Dioxide* 24 mmol/L (20-32); Creatinine* 1.2 mg/dL (0.5-1.5); Estimated Glomerular Filt Rate 59 ml/min
[2023-07-11 16:56] LABS: Alanine Aminotransferase* 36 U/L (4-50); Alkaline Phosphatase* 305 U/L (40-150); Aspartate Amino Transferase* 61 U/L (12-35); Blood Urea Nitrogen* 42 mg/dL (7-30); Glucose* 148 mg/dL (60-115); Total Protein* 6.2 g/dL (6.0-8.3)
[2023-07-13 17:55] LABS: Alpha Fetoprotein Tumor Marker 2 ng/mL (0-9)
== END 2023-07-11 13:28 | disposition home or self-care (01) ==
LOC: NPINS 13:27
PROVIDERS: PCP Internal Medicine; Visit Provider Physician Assistant
DX: K74.60 Unspecified cirrhosis of liver (principal)
CPT/HCPCS: 80048; 80076; 82105; 85025; 85610

== ENCOUNTER 2023-07-14 20:05 | Outpatient (CLI) | payer MEDICARE, SELFPAY ==
--- OUTSIDE RECORDS SUMMARY | 2023-07-16 05:27 | XMS_ITS | Continuity of Care Document ---
Author Name Unknown Organization [facility] Address [address] [address] [place] [address] Phone Care Team Providers Care Electronic Equipment Maint Tech Name Role Phone Lori Contreras Unavailable Unavailabl [...] - Active Procedures Procedure Date Offic/outpt E&m [facility] 2 Offic/outpt E&m [facility] [place] Routine Serum Collection Advance Directives Directive Yes / No Effective Date File Name No Information Encounters Encounter Description Practice Location Reason(s) For Visit Diagnoses Date Provider Providers Copied on Encounter [facility], [address] [address], [place], [place], [id number], [place] tel:[phone] [facility] No Information 4 Severino Sandoval . [address] [facility], [facility] [address], [place], [place], [id number] , [place]. tel: [phone] [facility], [address] [address], [place], [place], [id number], [place] [phone] [facility] Other ascitesElevated alkaline phosphatase levelCirrhosis of liver with ascites, unspecified hepatic cirrhosis type 4 Severino Sandoval . [address] [facility], [facility] [address], [place], [place], [id number] , [place]. tel:[phone] [facility], [address] [address], [place], [place], [address], [place] tel:[phone] [facility] No Information 4 Severino Sandoval . [address] [facility], [facility] [address], [place], [place], [id number] , [place]. tel:[phone] Offic/outpt E&m [facility] 2 [facility], [address] [address], [place], [place], [id number], [place] tel:[phone] [facility] GI Symptoms or Concerns (chief complaint) Cirrhosis of liver with ascites, unspecified hepatic cirrhosis type 4 Severino Sandoval . [address] [facility], [facility] [address], [place], [place], [id number] , [place]. tel: [phone] Referring Provider: Referral Self, USE FOR SELF REFERRALS. [facility], [address] [address], [place], [place], [address], [place] tel:[phone] [facility] Cirrhosis of liver with ascites, unspecified hepatic cirrhosis type 4 Severino GIL Lori . [address] [facility], [place], [place], [id number] , [place]. tel: [phone] [facility], [address] [address], [place], [place], [address], [place] tel: [phone] [facility] No Information 4 Severino Sandoval . [address] [facility], [address], [place], [place], [id number] , [place]. tel: [phone] [facility], [address] [address], [place], [place], [address], [place] tel: [phone] [facility] Cirrhosis of liver with ascites, unspecified hepatic cirrhosis type 4 Severino GIL Lori . [address] [facility], [address], [place], [place], [address] , [place]. tel: [phone] [facility], [address] [address], [place], [place], [address], [place] tel: [phone] [facility] Cirrhosis of liver with ascites, unspecified hepatic cirrhosis type 4 Severino Sandoval . [address] [facility], [address], [place], [place], [address] , [place]. tel: [phone] [facility], [address] [address], [place], [place], [address], [place] tel: [phone] [facility] Other ascites 4 Severino Sandoval . [address] [facility], [address], [place], [place], [id number] , [place]. tel: [phone] Offic/outpt E&m [facility], [address] [address], [place], [place], [address], [place] tel:[phone] [facility] GI Symptoms or Concerns (chief complaint) Other cirrhosis of liverCirrhosis of liver with ascites, unspecified hepatic cirrhosis typeOther ascites 4 Severino JEFFERY Lori . [address] [facility], [facility] [address], [place], [place], [address] , [place]. [phone] Referring Provider: Russ Fontenot, [address] [place] [address], [address]. tel:[phone] [facility], [address] [address], [place], [place], [address], [place] [phone] [facility] No Information 4 Robert Oneil. [address] [facility], [facility] [address], [place], [place], [address] , [place]. [phone] [facility] [place], [address] [address], [place], [place], [address], [place] tel:[phone] [facility] No Information 3 Robert Oneil. [address] [facility], [facility] [address], [place], [place], [address] , [place]. [phone] Family History Family Member Type Diagnosis Age [...] and acellular pertussis vaccine, adsorbed administered Note: IAIC b i-directional interface ; Source: Other Registry [...] Authormatthewa charlieherberth(s) Blue Cross Medicare Advantage BL [id number] Social History Type Description Quantity Date [...] a presentation to the emergency room at [facility] on 02/16/2023. Patient presented with shortness [...] on 03/06/2023 and underwent a paracentesis at [facility]- unfortunately I do not have all [...]
--- OUTSIDE RECORDS SUMMARY | 2023-07-16 05:27 | XMS_ITS | Clinical Summary ---
Author Name Unknown Organization [facility] Address [address] [place] [address] Care Team Providers Care Senior Actuarial Analyst Name Role Phone Russ Curran MD Primary Care Provider [phone] Source Comments You are receiving this document as you are listed as the primary care provider,follow-up provider, or the patient has been referred to you for consultation.This is in compliance with the Medicare and[facility] EHR Incentive Program,which states Providers who transition their patient to another setting of careor provider of care or refers their patient to another provider of care shouldprovide summary care record for each transition of care or referral. [employer] Allergies Active Allergy Reactions Criticality Noted Date [...] age to complete this topic Care Teams Senior Actuarial Analyst Relationship Specialty Start Date End Date Russ Curran MD [address] [place] [address] PCP - General 09/18/15
--- OUTSIDE RECORDS SUMMARY | 2023-07-16 05:27 | XMS_ITS | Clinical Summary ---
Author Name Unknown Organization [facility] Address [place], [place] [address] Care Team Providers Care Senior Information Developer Name Role Phone Russ Curran MD Primary Care Provider [phone] Allergies No known active allergies Medications Medication [...] Department Care Team Description 05/05/2023 Lab Requisition [facility] [phone] Russ Curran MD 05/03/2023 11:30 AM BILLET CUTTER Office Visit [facility] [address] [place] [address] Atul Fortune, AuD Hearing Problem [...] Comments Blood Pressure 106/71 04/18/2012 1:43 PM BILLET CUTTER Pulse 96 04/18/2012 1:43 PM BILLET CUTTER Temperature 36.9 ??C (98.4 ??F) 11/21/2011 8:00 [...] history exists Medical Devices Implanted Type Area Bank Compliance Officer Device Identifier Shelf Expiration Date Model / Serial / Lot Plate Ti [id number] 4 Holes Low Profile Neuro Box - [id number] Implanted:Qty: 1 on 11/07/2011 by Angel Marie MD at [facility] Left: Cranium J And J Depuy CMF 421.511# / / Wilma Hole Cover 17mm Jocelin Ti Low Profile Neuro - [id number] Implanted:Qty: 1 on 11/07/2011 by Angel Marie MD at [facility] Left: Cranium J And J Depuy CMF 421.527# / / Set Plating Synthes Matex Neuro Profile - [id number] Implanted:Qty: 14 on 11/07/2011 by Angel Marie MD at [facility] Left: Cranium J And J Depuy CMF 04.503.10 4.01# / / Screw 5mm Emergency Titnm Matrixneuro - [id number] Implanted:Qty: 1 on 11/07/2011 by Angel Marie MD at [facility] Left: Cranium J And J Depuy CMF 04.503.11 5.01# / / Shunt [place] Hole Covre 17mm Implanted:Qty: 1 on 11/07/[address] [facility] Left: Cranium 421.544 / / Description:SHUNT WILMA HOLE COVRE 17MM Set Plating Synthes Matex Neuro Profile - [id number] Implanted:Qty: 7 on 11/17/[address] [facility] 04.503.10 4.01# / / Procedures Procedure Name Priority Date/Time Associated Diagnosis Comments LAB TRACKING EVENT Routine 05/05/2023 1: 17 PM BILLET CUTTER PATH NON SCALP SPECIALIST CYTOLOGY Routine 05/05/2023 1:17 PM BILLET CUTTER from Last 3 Months Results * LAB TRACKING EVENT (05/05/2023 1:17 PM BILLET CUTTER) Other PERITONEAL FLUID SPECIMEN / Unknown Client Collect / Unknown 05/05/2023 1:17 PM BILLET CUTTER 05/05/2023 9:58 PM BILLET CUTTER Russ Curran MD LAB BILL ONLY [facility] [address] [place] [address], * PATH NON SCALP SPECIALIST CYTOLOGY (05/05/2023 1:17 PM BILLET CUTTER) Case Report Medical Cytology Report ? Case: [id number] ? Authorizing Provider: ??Russ Curran MD ?Collected: ? 05/05/2023 1317 ? Ordering Location: ? [facility] ?Received: ?05/06/2023 0831 ? Pathologist: ? Danielle Melara ? MD Jovita ? Specimen: ?Peritoneal Fluid ? 05/08/2023 9:15 AM [facility] Final Diagnosis PERITONEAL FLUID, CYTOLOGIC MATERIAL: Negative for malignancy in this sample 05/08/2023 9:15 AM [facility] Clinical Information Not provided. 05/08/2023 9:15 AM [facility] Gross Description A) SOURCE: Peritoneal Fluid [...] more than 72 hours. 05/08/2023 9:15 AM [facility] Microscopic Description Specimen adequacy: Adequate for interpretation. All slides were reviewed. The microscopic appearance substantiates the diagnosis. 05/08/2023 9:15 AM [facility] Additional Information Cytology is screened at [facility] - [address] [address] and [facility] - [address], [place] [address] and [facility] - [address] [place] [address] Interpreted at [facility] - [address], [place] [address] 05/08/2023 9:15 AM [facility] Other PERITONEAL FLUID SPECIMEN / Unknown 05/05/2023 1:17 PM BILLET CUTTER 05/06/2023 8:31 AM BILLET CUTTER Russ Curran MD PATHOLOGY/CYTOLOGY [facility] [address] [place] [address], from Last 3 Months Advance Directives * [...] 10:42 AM 06/21/2011 1:23 PM Care Teams Senior Information Developer Relationship Specialty Start Date End Date Russ Curran MD [address] [place] [address] PCP - General 06/14/11
== END 2023-07-14 20:06 | disposition home or self-care (01) ==
LOC: AMB 07-16 05:25
PROVIDERS: PCP Internal Medicine; Visit Provider Internal Medicine
DX: R06.09 Other forms of dyspnea (principal); R18.8 Other ascites
CPT/HCPCS: A0425; A0427

== ENCOUNTER 2023-07-14 20:18 | Emergency (ER) | payer MEDICARE, SELFPAY ==
[2023-07-14] VITALS (7 sets, daily range): BP systolic 100–132; BP diastolic 60–82; PULSE 82–96; RESP 18–30; TEMP 36.4; O2SAT 97–99; BMI 28.9
--- OUTSIDE RECORDS SUMMARY | 2023-07-14 20:40 | XMS_ITS | Clinical Summary ---
Author Name Unknown Organization [facility] Address [address] [place] [address] Care Team Providers Care Air Pumper Name Role Phone Russ Curran MD Primary Care Provider [phone] Source Comments You are receiving this document as you are listed as the primary care provider,follow-up provider, or the patient has been referred to you for consultation.This is in compliance with the Medicare and[facility] EHR Incentive Program,which states Providers who transition their patient to another setting of careor provider of care or refers their patient to another provider of care shouldprovide summary care record for each transition of care or referral. [employer] Allergies Active Allergy Reactions Criticality Noted Date [...] age to complete this topic Care Teams Air Pumper Relationship Specialty Start Date End Date Russ Curran MD [address] [place] [address] PCP - General 09/18/15
--- OUTSIDE RECORDS SUMMARY | 2023-07-14 20:40 | XMS_ITS | Clinical Summary ---
Author Name Unknown Organization [employer] [facility] Address [place], [place] [address] Care Team Providers Care Metal Roofing Mechanic Name Role Phone Russ Curran MD Primary Care Provider [phone] Allergies No known active allergies Medications Medication [...] Department Care Team Description 05/05/2023 Lab Requisition [facility] [phone] Russ Curran MD 05/03/2023 11:30 AM SENIOR TECHNICAL SPECIALIST Office Visit [facility] [address] [place] [address] Atul Fortune, AuD Hearing Problem [...] Comments Blood Pressure 106/71 04/18/2012 1:43 PM SENIOR TECHNICAL SPECIALIST Pulse 96 04/18/2012 1:43 PM SENIOR TECHNICAL SPECIALIST Temperature 36.9 ??C (98.4 ??F) 11/21/2011 8:00 [...] history exists Medical Devices Implanted Type Area Control Area Operator Device Identifier Shelf Expiration Date Model / Serial / Lot Plate Ti [id number] 4 Holes Low Profile Neuro Box - [id number] Implanted:Qty: 1 on 11/07/2011 by Angel Marie MD at [facility] Left: Cranium J And J Depuy CMF 421.511# / / Wilma Hole Cover 17mm Jocelin Ti Low Profile Neuro - [id number] Implanted:Qty: 1 on 11/07/2011 by Angel Marie MD at [facility] Left: Cranium J And J Depuy CMF 421.527# / / Set Plating Synthes Matex Neuro Profile - [id number] Implanted:Qty: 14 on 11/07/2011 by Angel Marie MD at [facility] Left: Cranium J And J Depuy CMF 04.503.10 4.01# / / Screw 5mm Emergency Titnm Matrixneuro - [id number] Implanted:Qty: 1 on 11/07/2011 by Angel Marie MD at [facility] Left: Cranium J And J Depuy CMF 04.503.11 5.01# / / Shunt [place] Hole Covre 17mm Implanted:Qty: 1 on 11/07/2011 at [facility] Left: Cranium 421.544 / / Description:SHUNT WILMA HOLE COVRE 17MM Set Plating Synthes Matex Neuro Profile - [id number] Implanted:Qty: 7 on 11/17/2011 at [facility] 04.503.10 4.01# / / Procedures Procedure Name Priority Date/Time Associated Diagnosis Comments LAB TRACKING EVENT Routine 05/05/2023 1: 17 PM SENIOR TECHNICAL SPECIALIST PATH NON DIGITAL MARKETING APPRENTICE CYTOLOGY Routine 05/05/2023 1:17 PM SENIOR TECHNICAL SPECIALIST from Last 3 Months Results * LAB TRACKING EVENT (05/05/2023 1:17 PM SENIOR TECHNICAL SPECIALIST) Other PERITONEAL FLUID SPECIMEN / Unknown Client Collect / Unknown 05/05/2023 1:17 PM SENIOR TECHNICAL SPECIALIST 05/05/2023 9:58 PM SENIOR TECHNICAL SPECIALIST Russ Curran MD LAB BILL ONLY [facility] LABORATORY [address] [place] [address], * PATH NON DIGITAL MARKETING APPRENTICE CYTOLOGY (05/05/2023 1:17 PM SENIOR TECHNICAL SPECIALIST) Case Report Medical Cytology Report ? Case: [id number] ? Authorizing Provider: ??Russ Curran MD ?Collected: ? 05/05/2023 1317 ? Ordering Location: ? [facility] ?Received: ?05/06/2023 0831 ? Pathologist: ? Danielle Melara ? MD Jovita ? Specimen: ?Peritoneal Fluid ? 05/08/2023 9:15 AM [facility] EN[facility] Final Diagnosis PERITONEAL FLUID, CYTOLOGIC MATERIAL: Negative for malignancy in this sample 05/08/2023 9:15 AM [facility] Clinical Information Not provided. 05/08/2023 9:15 AM [facility] Gross Description A) SOURCE: Peritoneal Fluid [...] more than 72 hours. 05/08/2023 9:15 AM [facility] Microscopic Description Specimen adequacy: Adequate for interpretation. All slides were reviewed. The microscopic appearance substantiates the diagnosis. 05/08/2023 9:15 AM [facility] Additional Information Cytology is screened at [facility] - [address] [address] and [facility] - [address], [place] [address] and [facility] - [address] [place] [address] Interpreted at [facility] Laboratory - [address], [place] [address] 05/08/2023 9:15 AM [facility] Other PERITONEAL FLUID SPECIMEN / Unknown 05/05/2023 1:17 PM SENIOR TECHNICAL SPECIALIST 05/06/2023 8:31 AM SENIOR TECHNICAL SPECIALIST Russ Curran MD PATHOLOGY/CYTOLOGY [facility] LABORATORY-CENTRAL LABORATORY [address] [place] [address], from Last 3 Months Advance Directives * [...] 10:42 AM 06/21/2011 1:23 PM Care Teams Metal Roofing Mechanic Relationship Specialty Start Date End Date Russ Curran MD [address] [place] [address] PCP - General 06/14/11
--- OUTSIDE RECORDS SUMMARY | 2023-07-14 20:40 | XMS_ITS | Continuity of Care Document ---
Author Name Unknown Organization [facility] Address [address] [address] [place] [address] Phone Care Team Providers Care Sliding Joint Maker Name Role Phone Lori Contreras Unavailable Unavailabl [...] - Active Procedures Procedure Date Offic/outpt E&m [facility]-il 2 Offic/outpt E&m [facility]-il Routine Serum Collection Advance Directives Directive Yes / No Effective Date File Name No Information Encounters Encounter Description Practice Location Reason(s) For Visit Diagnoses Date Provider Providers Copied on Encounter [facility], [address] [address], [place], [place], [id number], [place] tel:[phone] [facility] No Information 4 Severino Sandoval . [address] [facility] [address], [place], [place], [id number] , [place]. tel: [phone] [email or web address] [place], [address] [address], [place], [place], [id number], [place] [phone] [facility] Other ascitesElevated alkaline phosphatase levelCirrhosis of liver with ascites, unspecified hepatic cirrhosis type 4 Severino Sandoval . [address] [facility] [address], [place], [place], [id number] , [place]. tel:[phone] [email or web address] [place], [address] [address], [place], [place], [id number], [place] tel:[phone] [facility] No Information 4 Severino Sandoval . [address] [facility] [address], [place], [place], [id number] , [place]. tel:[phone] Offic/outpt E&m [facility] 2 [email or web address] [place], [address] [address], [place], [place], [address], [place] tel:[phone] [facility] GI Symptoms or Concerns (chief complaint) Cirrhosis of liver with ascites, unspecified hepatic cirrhosis type 4 Severino Sandoval . [address] [facility] [address], [place], [place], [id number] , [place]. tel: [phone] Referring Provider: Referral Self, USE FOR SELF REFERRALS. [facility], [address] [address], [place], [place], [id number], [place] tel:[phone] [facility] Cirrhosis of liver with ascites, unspecified hepatic cirrhosis type 4 Severino GIL Lori . [address], [place], [place], [id number] , [place]. tel: [phone] [facility], [address] [address], [place], [place], [address], [place] tel: [phone] [facility] No Information 4 Severino Sandoval . [address], [place], [place], [address] , [place]. tel: [phone] [facility], [address] [address], [place], [place], [address], [place] tel: [phone] [facility] Cirrhosis of liver with ascites, unspecified hepatic cirrhosis type 4 Severino GIL Lori . [address], [place], [place], [address] , [place]. tel: [phone] [facility], [address] [address], [place], [place], [address], [place] tel: [phone] [facility] Cirrhosis of liver with ascites, unspecified hepatic cirrhosis type [address], [place], [place], [address] , [place]. tel: [phone] [facility], [address] [address], [place], [place], [address], [place] tel: [phone] [facility] Other ascites [address] . [address] [address], [place], [place], [address] , [place]. tel: [phone] Offic/outpt E&m [facility], [address] [address], [place], [place], [address], [place] tel:[phone] [facility] GI Symptoms or Concerns (chief complaint) Other cirrhosis of liverCirrhosis of liver with ascites, unspecified hepatic cirrhosis typeOther ascites 4 Severino JEFFERY Lori . [address] [facility] [address], [place], [place], [address] , [place]. [phone] Referring Provider: Russ Fontenot, [address] [place] [address], [address]. tel:[phone] [facility] [place], [address] [address], [place], [place], [address], [place] [phone] [facility] No Information [address] [facility] [address], [place], [place], [id number] , [place]. [phone] [facility] [place], [address] [address], [place], [place], [address], [place] tel:[phone] [facility] No Information [address] [facility] [address], [place], [place], [address] , [place]. [phone] Family History Family Member Type Diagnosis Age [...] and acellular pertussis vaccine, adsorbed administered Note: [facility] b i-directional interface ; Source: Other Registry [...] ID Authormatthewa charlieherberth(s) Blue [employer] Medicare Advantage BL [id number] Social History Type Description Quantity Date Captured Comments Alcohol Use Details Unknown Caffeine Use Details Unknown Tobacco Use Status No Information Smoking Status No Information Sex Male Chief Complaint And Reason For Visit No Information Reason For Referral Reason For Referral No Information Plan Of Treatment Date Type Action Status Referral Ordered: Alk Phos Isoenzyme Appointment date/timeframe: 07/21/2023 ordered Referral Ordered: PT/INR, Whole Blood Appointment date/timeframe: 06/20/2023 ordered Referral Ordered: AFP, Serum, Tumor Marker Appointment date/timeframe: 06/20/2023 ordered Referral Ordered: CBC, Whole Blood Appointment date/timeframe: 06/20/2023 ordered Referral Ordered: Hepatic Function Panel Appointment date/timeframe: 06/20/2023 ordered Referral Ordered: Ultrasound Liver Appointment date/timeframe: 08/07/2023 ordered Referral Ordered: Paracentesis Abdominal WITH Ultrasound [...] a presentation to the emergency room at [facility] on 02/16/2023. Patient presented with shortness [...] on 03/06/2023 and underwent a paracentesis at [facility]- unfortunately I do not have all [...]
[2023-07-14 20:46] LABS: Basophils Absolute Auto 0.04 K/uL (0.00-0.30); Basophils Percent Auto 0.4 % (0.0-3.0); Eosinophils Absolute Auto 0.11 K/uL (0.00-0.50); Eosinophils Percent Auto 1.2 % (0.0-7.0); Hematocrit 35.1 % (37.0-53.0); Hemoglobin* 11.8 gm/dL (13.5-17.5); Immature Granulocytes Abs Auto 0.03 K/uL (0.00-0.30); Immature Granulocytes Pct Auto 0.3 %; Lymphocytes Percent Auto 21.2 % (20-44); Mean Corpuscular HGB Conc 34 gm/dL (32-36); Mean Corpuscular Hemoglobin 34 pg (26-34); Mean Corpuscular Volume 102 fL (80-100); Monocytes Percent Auto 9.1 % (0.0-11.0); Neutrophils Absolute Auto 6.38 K/uL (1.7-7.0); Neutrophils Percent Auto 67.8 % (42.0-72.0); Platelet Count* 271 K/uL (140-440); RDW Coefficient of Variation % 15.2 % (11.5-15.5); Red Blood Count 3.44 m/uL (4.30-5.90); White Blood Count* 9.42 K/uL (4.50-11.00)
[2023-07-14 20:52] LABS: Slide Review Reflex No
--- NOTE | 2023-07-14 20:57 | ED_ITS ---
HPI - General Adult General Chief complaint: Shortness of Breath/Dyspnea Stated complaint: SOB Time Seen by Provider: 07/14/23 20:29 History of Present Illness HPI narrative: Patient is a 87-year-old gentleman with history of cirrhosis and ascites who presents today with increased abdominal girth and shortness of breath. He has my chronic primary care patient and we have been trying to get him scheduled every 2 weeks for paracentesis. He is scheduled on Monday in 3 days. He is u nable to make it is due to increased edema and shortness of breath. 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 He has no signs of fever chills that would make us consider spontaneous bacterial peritonitis. He is simply an because he is having hard time breathing due to increased abdominal girth and shortness of breath. Related Data Home Medications Medication Instructions Recorded Confirmed gabapentin 100 mg capsule 100 mg PO HS 02/16/23 07/14/23 simvastatin 40 mg tablet 40 mg PO HS 02/16/23 07/14/23 furosemide 40 mg tablet 40 mg PO DAILY 06/21/23 07/14/23 omeprazole 20 mg capsule,delayed 20 mg PO DAILY 06/21/23 07/14/23 release spironolactone 100 mg tablet 100 mg PO DAILY 06/21/23 07/14/23 Previous Rx's Medication Instructions Recorded allopurinol 300 mg tablet 300 mg PO DAILY Gout #90 tabs 10/05/22 tamsulosin 0.4 mg capsule 0.4 mg PO DAILY BPH #90 caps 10/05/22 furosemide 20 mg tablet 20 mg PO DAILY@0800 #30 tabs 02/17/23 levetiracetam 1,000 mg tablet 2,000 mg (2 x 1,000 mg) PO BID 04/24/23 Seizure #360 tabs Allergies Allergy/AdvReac Type Severity Reaction Status Date / Time enoxaparin Allergy Severe contraindictation Verified 07/14/23 20:25 to all anticoagulants - see history anticoagulants-relative AdvReac Unknown Uncoded 07/10/23 13:54 contraindication-brain bleed Review of Systems Status of ROS: Reports: 10 or more systems reviewed and unremarkable except as noted in History and below [facility] Medical History Pulmonary nodules ?R91.8 - Other nonspecific abnormal finding of lung field (ICD-10) Ascites ?R18.8 - Other ascites (ICD-10) Bronchitis ?J40 - Bronchitis, not specified as acute or chronic (ICD-10) Cirrhosis ?K74.60 - Unspecified cirrhosis of liver (ICD-10) Hypertension (06/14/11) ?I10 - Essential (primary) hypertension (ICD-10) History of subdural hematoma (11/23/11) ?Z86.79 - Personal history of other diseases of the circulatory system (ICD- 10) Gout (09/15/08) ?M10.9 - Gout, unspecified (ICD-10) Tubular adenoma of colon (09/15/08) ?D12.6 - Benign neoplasm of colon, unspecified (ICD-10) Traumatic brain injury (06/14/11) ?S06.9X9A - Unspecified intracranial injury with loss of consciousness of unspecified duration, initial encounter (ICD-10) Subjective tinnitus (10/06/11) ?H93.19 - Tinnitus, unspecified ear (ICD-10) Sensorineural hearing loss (SNHL) (11/23/11) ?H90.5 - Unspecified sensorineural hearing loss (ICD-10) Rosacea (05/21/06) ?L71.9 - Rosacea, unspecified (ICD-10) 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) ?L71.1 - Rhinophyma (ICD-10) Osteoarthritis of cervical spine ?M47.812 - Spondylosis without myelopathy or radiculopathy, cervical region (ICD-10) Obesity (08/16/10) ?E66.9 - Obesity, unspecified (ICD-10) Macular degeneration ?H35.30 - Unspecified macular degeneration (ICD-10) Intestinal obstruction ?K56.609 - Unspecified intestinal obstruction, unspecified as to partial versus complete obstruction (ICD-10) Hyperlipidemia (02/25/14) ?E78.5 - Hyperlipidemia, unspecified (ICD-10) BPH (benign prostatic hyperplasia) ?N40.0 - Benign prostatic hyperplasia without lower urinary tract symptoms (ICD-10) History of seizure (11/23/11) ?Z87.898 - Personal history of other specified conditions (ICD-10) History of pancreatitis (09/15/08) ?Z87.19 - Personal history of other diseases of the digestive system (ICD-10) Surgical History History of carpal tunnel surgery of left wrist (06/27/23) ?Z98.890 - Other specified postprocedural states (ICD-10) History of carpal tunnel surgery of right wrist (06/08/23) ?Z98.890 - Other specified postprocedural states (ICD-10) Status post evacuation of subdural hematoma (06/01/11) ?Z98.890 - Other specified postprocedural states (ICD-10) ?Z86.79 - Personal history of other diseases of the circulatory system (ICD- 10) History of tonsillectomy ?Z90.89 - Acquired absence of other organs (ICD-10) History of knee surgery (09/15/08) ?Z98.890 - Other specified postprocedural states (ICD-10) History of hemorrhoidectomy (09/15/08) ?Z98.890 - Other specified postprocedural states (ICD-10) Social History Narrative: -Snow former smoker What is your current living situation?: I presently have a place to live Problems where you live: no known problems Problems where you live details: N/A In the past 12 months, utilities in danger of being shut off: no In past 12 months, lack of transportation kept you from medical appts, meetings, work, or getting things needed for daily living: no In the past 12 mos, have been you worried that your food would run out before you had money to buy more?: never true In the past 12 mos, the food you bought just didn't last and you didn't have money to buy more?: never true Highest level of school completed/degree received: Bachelor's degree Smoking Status: Former smoker What tobacco products do you use: cigarettes Smoking quit date/years: >15 years ago Do you use any of these nicotine containing products: None How often do you have a drink containing alcohol: never How often do you have six or more drinks on one occasion: Never AUDIT-C Alcohol total score: 0 Non-prescribed substance use: denies use Caffeine: Yes How often does anyone, including family, friends and others, physically hurt you : never How often does anyone, including family, friends and others, insult or talk down to you: never How often does anyone, including family, friends and others, threaten you with harm: never How often does anyone, including family, friends and others, scream or curse at you: never Little interest or pleasure in doing things: not at all Feeling down, depressed, or hopeless: not at all service: No Exam Narrative: Exam Narrative: EXAM GENERAL: Patient appears comfortable and well. EYES: No scleral icterus. LYMPH: No supraclavicular or cervical lymphadenopathy. SKIN: Visible skin seen during exam normal or with benign process only. EXT: 1+ lower extremity edema. HEART: Regular rate and rhythm with no murmurs, rubs, or gallops. LUNGS: Decreased breath sounds bilaterally. ABD: significantly distended with positive fluid wave. PSYCH: Good eye contact, speech is not pressured. Const: Vital Signs, click to edit/add: Vital Signs - 24 hr 07/14/23 20:20 Temperature 97.6 F Pulse Rate [Pulse Oximeter] 96 Respiratory Rate 30 H Blood Pressure [Le ft Upper Arm] 132/82 Pulse Oximetry 97 Oxygen Delivery Me thod Room Air Course Course ED Course: We are going to proceed with ultrasound of his abdomen to localize is fluid in likely proceed with a paracentesis. In addition I did send off CBC CMP amylase INR. Vital Signs Vital signs: Initial Vital Signs Temperature 97.6 F 07/14/23 20:20 Temperature Source Temporal Artery Scan 07/14/23 20:20 Pulse Rate 96 07/14/23 20:20 Respiratory Rate 30 H 07/14/23 20:20 Blood Pressure 132/82 07/14/23 20:20 Blood Pressure Mean 98 07/14/23 20:20 Blood Pressure Position Supine 07/14/23 20:20 Pulse Oximetry 97 07/14/23 20:20 Oxygen Delivery Method Room Air 07/14/23 20:20 Vital Signs Temperature 97.6 F 07/14/23 20:20 Pulse Rate 96 07/14/23 20:20 Respiratory Rate 30 H 07/14/23 20:20 Blood Pressure 132/82 05/10/24 20:20 Pulse Oximetry 97 07/14/23 20:20 Oxygen Delivery Method Room Air 07/14/23 20:20 Temperature 97.6 F 07/14/23 20:20 Pulse Rate 96 07/14/23 20:20 Respiratory Rate 30 H 07/14/23 20:20 Blood Pressure 132/82 07/14/23 20:20 Pulse Oximetry 97 07/14/23 20:20 Oxygen Delivery Method Room Air 07/14/23 20:20 Medications Administered Medications: Discontinued Medications Generic Name Dose Route Start Last Admin Trade Name Song PRN Reason Stop Dose Admin Albumin Human 25 gm in 100 mls @ 100 mls/hr 07/14/23 21:43 07/14/23 22:13 Albumin Human 25% IVPB 07/14/23 22:42 100 mls/hr ONCE ONE Administration Medical Decision Making MDM Narrative Medical decision making narrative: Patient is a 87-year-old gentleman with cirrhosis and resultant ascites. I did stent her laboratory studies which are reasonably stable. I did after explaining the risks and benefits of procedure performed a paracentesis under ultrasound guidance in the right lower quadrant removing a total of 10 L of yellow fluid. Patient tolerated the procedure well. He is feeling much better at this time will be discharged home follow-up with me in the office next week. Lab Data Labs: Lab Results 07/14/23 Range/Units 20:42 WBC 9.42 (4.50-11.00) K/uL RBC 3.44 L (4.30-5.90) m/uL Hgb 11.8 L (13.5-17.5) gm/dL Hct 35.1 L (37.0-53.0) % MCV 102 H (80-100) fL MCH 34 (26-34) pg MCHC 34 (32-36) gm/dL RDW Coeff of Jose 15.2 (11.5-15.5) % Plt Count 271 (140-440) K/uL Neut % (Auto) 67.8 (42.0-72.0) % Lymph % (Auto) 21.2 (20-44) % Bradley % (Auto) 9.1 (0.0-11.0) % Eos % (Auto) 1.2 (0.0-7.0) % Baso % (Auto) 0.4 (0.0-3.0) % Neut # (Auto) 6.38 (1.7-7.0) K/uL Lymph # (Auto) 2.00 (0.90-2.90) K/uL Bradley # (Auto) 0.90 (0.00-0.90) K/UL Eos # (Auto) 0.11 (0.00-0.50) K/uL Baso # (Auto) 0.04 (0.00-0.30) K/uL Abs Immat Gran (auto) 0.03 (0.00-0.30) K/uL Imm/Tot Granulo (auto) 0.3 % INR 1.02 (0.91-1.10) Sodium 133 L (135-149) mmol/L Potassium 4.4 (3.6-5.1) mmol/L Chloride 104 (96-114) mmol/L Carbon Dioxide 24 (20-32) mmol/L Anion Gap 5 L (7-15) mEq/L BUN 37 H (7-30) mg/dL Creatinine 1.3 (0.5-1.5) mg/dL Estimated Creat Clear 44.77 Estimated GFR 54 ml/min Glucose 128 H (60-115) mg/dL Calcium 8.6 (8.4-10.6) mg/dL Total Bilirubin 0.7 (0.1-1.5) mg/dL AST 72 H (12-35) U/L ALT 40 (4-50) U/L Alkaline Phosphatase 342 H (40-150) U/L Total Protein 6.5 (6.0-8.3) g/dL Albumin 3.0 L (3.3-5.0) g/dL Discharge Plan Discharge Clinical Impression: Ascites Patient Disposition: Home, Self-Care Condition: Stable Instructions: Ascites (ED) Additional Instructions: Continue current care Contact Dr. Curran for follow-up next week. Activity Level: No Restrictions Discharge Diet: Regular Prescriptions: No Action spironolactone 100 mg tablet 100 mg PO DAILY furosemide 40 mg tablet 40 mg PO DAILY omeprazole 20 mg capsule,delayed release(DR/EC) 20 mg PO DAILY simvastatin 40 mg tablet 40 mg PO HS gabapentin 100 mg capsule 100 mg PO HS furosemide 20 mg tablet 20 mg PO DAILY@0800 Qty: 30 0RF allopurinol 300 mg tablet 300 mg PO DAILY Qty: 90 3RF tamsulosin 0.4 mg capsule 0.4 mg PO DAILY Qty: 90 3RF levetiracetam 1,000 mg tablet 2,000 mg PO BID Qty: 360 3RF Follow Up/Referrals: Russ Curran MD [Primary Care Provider] - Stand Alone Forms: [employer] Info Instructions
[2023-07-14 21:01] LABS: Chloride* 104 mmol/L (96-114); Sodium* 133 mmol/L (135-149)
[2023-07-14 21:02] LABS: Potassium* 4.4 mmol/L (3.6-5.1)
[2023-07-14 21:03] LABS: INR 1.02 (0.91-1.10)
[2023-07-14 21:04] LABS: Alanine Aminotransferase* 40 U/L (4-50); Alkaline Phosphatase* 342 U/L (40-150); Anion Gap 5 mEq/L (7-15); Aspartate Amino Transferase* 72 U/L (12-35); Bilirubin Total* 0.7 mg/dL (0.1-1.5); Blood Urea Nitrogen* 37 mg/dL (7-30); Carbon Dioxide* 24 mmol/L (20-32); Creatinine* 1.3 mg/dL (0.5-1.5); Est. Creatinine Clearance* 44.77; Estimated Glomerular Filt Rate 54 ml/min; Glucose* 128 mg/dL (60-115); Total Protein* 6.5 g/dL (6.0-8.3)
[2023-07-14 21:05] LABS: Calcium* 8.6 mg/dL (8.4-10.6)
[2023-07-14] MEDS: ALBUMIN HUMAN 25% 25 GM/100 ML VIAL IVPB (22:13)
== END 2023-07-14 23:20 | disposition home or self-care (01) ==
PROVIDERS: Emergency Provider Internal Medicine; PCP Internal Medicine
DX: R18.8 Other ascites (principal)
CPT/HCPCS: 49083; 36415; 76705; 80053; 85025; 85610; 87070; 96365; 99283; 99284; P9047

== ENCOUNTER 2023-07-16 12:55 | Emergency (ER) | payer MEDICARE, SELFPAY ==
[2023-07-16] VITALS (7 sets, daily range): BP systolic 99–105; BP diastolic 66–69; PULSE 95–97; RESP 16; TEMP 36.3; O2SAT 99–100; BMI 29.2
--- NOTE | 2023-07-16 13:37 | ED_ITS ---
HPI - General Adult General Chief complaint: Unspecified Complaint, Adult Stated complaint: Drainage from abdomen Time Seen by Provider: 07/16/23 12:56 History of Present Illness HPI narrative: [age] year white male who has regular paracentesis for cirrhosis and ascites, he had 1 done [address] Right gorman, he has continued leakage of that fluid. Also he reports that he got injured by his dog in his left forearm scratched and at his skin is quite thin and it caused a skin avulsion. He is up-to-date on tetanus. He is not have any abdominal pain or fevers. Dr. Yadav our surgeon was here and is able to evaluate the patient and is planning on putting a stitch around that area. Related Data Home Medications Medication Instructions Recorded Confirmed gabapentin 100 mg capsule 100 mg PO HS 02/16/23 07/14/23 simvastatin 40 mg tablet 40 mg PO HS 02/16/23 07/14/23 furosemide 40 mg tablet 40 mg PO DAILY 06/21/23 07/14/23 omeprazole 20 mg capsule,delayed 20 mg PO DAILY 06/21/23 07/14/23 release spironolactone 100 mg tablet 100 mg PO DAILY 06/21/23 07/14/23 Previous Rx's Medication Instructions Recorded allopurinol 300 mg tablet 300 mg PO DAILY Gout #90 tabs 10/05/22 tamsulosin 0.4 mg capsule 0.4 mg PO DAILY BPH #90 caps 10/05/22 furosemide 20 mg tablet 20 mg PO DAILY@0800 #30 tabs 02/17/23 levetiracetam 1,000 mg tablet 2,000 mg (2 x 1,000 mg) PO BID 04/24/23 Seizure #360 tabs Allergies Allergy/AdvReac Type Severity Reaction Status Date / Time enoxaparin Allergy Severe contraindictation Verified 07/16/23 12:59 to all anticoagulants - see history anticoagulants-relative AdvReac Unknown Uncoded 07/10/23 13:54 contraindication-brain bleed Review of Systems Status of ROS: Reports: 6 or more systems reviewed and unremarkable except as noted in History and below [facility] Medical History Pulmonary nodules ?R91.8 - Other nonspecific abnormal finding of lung field (ICD-10) Ascites ?R18.8 - Other ascites (ICD-10) Bronchitis ?J40 - Bronchitis, not specified as acute or chronic (ICD-10) Cirrhosis ?K74.60 - Unspecified cirrhosis of liver (ICD-10) Hypertension (06/14/11) ?I10 - Essential (primary) hypertension (ICD-10) History of subdural hematoma (11/23/11) ?Z86.79 - Personal history of other diseases of the circulatory system (ICD- 10) Gout (09/15/08) ?M10.9 - Gout, unspecified (ICD-10) Tubular adenoma of colon (09/15/08) ?D12.6 - Benign neoplasm of colon, unspecified (ICD-10) Traumatic brain injury (06/14/11) ?S06.9X9A - Unspecified intracranial injury with loss of consciousness of unspecified duration, initial encounter (ICD-10) Subjective tinnitus (10/06/11) ?H93.19 - Tinnitus, unspecified ear (ICD-10) Sensorineural hearing loss (SNHL) (11/23/11) ?H90.5 - Unspecified sensorineural hearing loss (ICD-10) Rosacea (05/21/06) ?L71.9 - Rosacea, unspecified (ICD-10) 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) ?L71.1 - Rhinophyma (ICD-10) Osteoarthritis of cervical spine ?M47.812 - Spondylosis without myelopathy or radiculopathy, cervical region (ICD-10) Obesity (08/16/10) ?E66.9 - Obesity, unspecified (ICD-10) Macular degeneration ?H35.30 - Unspecified macular degeneration (ICD-10) Intestinal obstruction ?K56.609 - Unspecified intestinal obstruction, unspecified as to partial versus complete obstruction (ICD-10) Hyperlipidemia (02/25/14) ?E78.5 - Hyperlipidemia, unspecified (ICD-10) BPH (benign prostatic hyperplasia) ?N40.0 - Benign prostatic hyperplasia without lower urinary tract symptoms (ICD-10) History of seizure (11/23/11) ?Z87.898 - Personal history of other specified conditions (ICD-10) History of pancreatitis (09/15/08) ?Z87.19 - Personal history of other diseases of the digestive system (ICD-10) Surgical History History of carpal tunnel surgery of left wrist (06/27/23) ?Z98.890 - Other specified postprocedural states (ICD-10) History of carpal tunnel surgery of right wrist (06/08/23) ?Z98.890 - Other specified postprocedural states (ICD-10) Status post evacuation of subdural hematoma (06/01/11) ?Z98.890 - Other specified postprocedural states (ICD-10) ?Z86.79 - Personal history of other diseases of the circulatory system (ICD- 10) History of tonsillectomy ?Z90.89 - Acquired absence of other organs (ICD-10) History of knee surgery (09/15/08) ?Z98.890 - Other specified postprocedural states (ICD-10) History of hemorrhoidectomy (09/15/08) ?Z98.890 - Other specified postprocedural states (ICD-10) Social History Narrative: -Snow former smoker What is your current living situation?: I presently have a place to live Problems where you live: no known problems Problems where you live details: N/A In the past 12 months, utilities in danger of being shut off: no In past 12 months, lack of transportation kept you from medical appts, meetings, work, or getting things needed for daily living: no In the past 12 mos, have been you worried that your food would run out before you had money to buy more?: never true In the past 12 mos, the food you bought just didn't last and you didn't have money to buy more?: never true Highest level of school completed/degree received: Bachelor's degree Smoking Status: Former smoker What tobacco products do you use: cigarettes Smoking quit date/years: >15 years ago Do you use any of these nicotine containing products: None How often do you have a drink containing alcohol: never How often do you have six or more drinks on one occasion: Never AUDIT-C Alcohol total score: 0 Non-prescribed substance use: denies use Caffeine: Yes How often does anyone, including family, friends and others, physically hurt you : never How often does anyone, including family, friends and others, insult or talk down to you: never How often does anyone, including family, friends and others, threaten you with harm: never How often does anyone, including family, friends and others, scream or curse at you: never Little interest or pleasure in doing things: not at all Feeling down, depressed, or hopeless: not at all service: No Exam Narrative: Exam Narrative: Objective: Patient has a pretty soft abdomen he is slightly distended but much better than I have seen him in the past when he needs a paracentesis. The patient has a little bit of clear fluid drainage out of a punctate lesion in his abdomen around where his incisional site hurts to me his access site was. He has got a skin avulsion on the left forearm noted, he is updated on a tetanus. He this was cleansed and covered by nursing staff. Const: Vital Signs, click to edit/add: Vital Signs - 24 hr 07/16/23 12:59 07/16/23 13:20 07/16/23 13:30 Temperature 97.4 F L Pulse Rate 95 96 Pulse Rate [Radial ] 95 Respiratory Rate 16 Blood Pressure Blood Pressure [Ri ght Upper Arm] 105/69 Pulse Oximetry 99 99 99 Oxygen Delivery Me thod Room Air 07/16/23 13:31 07/16/23 13:45 07/16/23 14:00 Temperature Pulse Rate 97 96 95 Pulse Rate [Radial ] Respiratory Rate Blood Pressure 99/67 Blood Pressure [Ri ght Upper Arm] Pulse Oximetry 99 99 100 Oxygen Delivery Me thod 07/16/23 14:02 Temperature Pulse Rate 95 Pulse Rate [Radial ] Respiratory Rate Blood Pressure 103/66 Blood Pressure [Ri ght Upper Arm] Pulse Oximetry 100 Oxygen Delivery Me thod Course Vital Signs Vital signs: Initial Vital Signs Temperature 97.4 F L 07/16/23 12:59 Temperature Source Temporal Artery Scan 07/16/23 12:59 Pulse Rate 95 07/16/23 12:59 Respiratory Rate 16 07/16/23 12:59 Blood Pressure 105/69 07/16/23 12:59 Blood Pressure Mean 81 07/16/23 12:59 Blood Pressure Position High-Fowlers 07/16/23 12:59 Pulse Oximetry 99 05/12/24 12:59 Oxygen Delivery Method Room Air 07/16/23 12:59 Vital Signs Temperature 97.4 F L 07/16/23 12:59 Pulse Rate 95 07/16/23 12:59 Respiratory Rate 16 07/16/23 12:59 Blood Pressure 105/69 07/16/23 12:59 Pulse Oximetry 99 07/16/23 12:59 Oxygen Delivery Method Room Air 07/16/23 12:59 Temperature 97.4 F L 07/16/23 12:59 Pulse Rate 95 07/16/23 14:02 Respiratory Rate 16 07/16/23 12:59 Blood Pressure 103/66 07/16/23 14:02 Pulse Oximetry 100 07/16/23 14:02 Oxygen Delivery Method Room Air 07/16/23 12:59 Medical Decision Making MDM Narrative Medical decision making narrative: [age] year white male up-to-date on tetanus with a left forearm skin avulsion, keep this covered for 2 days and then may take off the bandage in simply cover with a bandage as needed. Would also recommend follow-up as per Dr. Yadav regarding the suture that she is placing his abdomen did a stop his leak. Return sooner problems or concerns Discharge Plan Discharge Clinical Impression: Status post abdominal paracentesis, Avulsion of skin Patient Disposition: Home w/ Parent or Adult Condition: Improved Additional Instructions: Keep the form wound covered for 2 days then may take off the bandage and cover with a regular bandage large as needed. If any redness or changes return back to the ED or to primary care. Follow-up as per Dr. Yadav for the suture removal of the abdominal stitch. Activity Level: Light activity Discharge Diet: Regular Prescriptions: No Action spironolactone 100 mg tablet 100 mg PO DAILY furosemide 40 mg tablet 40 mg PO DAILY omeprazole 20 mg capsule,delayed release(DR/EC) 20 mg PO DAILY simvastatin 40 mg tablet 40 mg PO HS gabapentin 100 mg capsule 100 mg PO HS furosemide 20 mg tablet 20 mg PO DAILY@0800 Qty: 30 0RF allopurinol 300 mg tablet 300 mg PO DAILY Qty: 90 3RF tamsulosin 0.4 mg capsule 0.4 mg PO DAILY Qty: 90 3RF levetiracetam 1,000 mg tablet 2,000 mg PO BID Qty: 360 3RF Follow Up/Referrals: Russ Curran MD [Primary Care Provider] - Stand Alone Forms: [employer] Info Instructions
--- NOTE | 2023-07-16 13:47 | P.GSCN_ITS ---
History of Present Illness Consult details Date Seen: 07/16/23 Consult date: 07/16/23 Narrative: The patient is an 87-year-old male with cirrhosis and ascites who underwent paracentesis on 07/14/2023 for shortness of breath secondary to ascites. 10 Liters of fluid were removed per record. He presented to the emergency department with leaking from the parancentesis site. He states he had a large amount of fluid that wet three shirts. no fevers. No abdominal pain. [facility] Medical History Pulmonary nodules ?R91.8 - Other nonspecific abnormal finding of lung field (ICD-10) Ascites ?R18.8 - Other ascites (ICD-10) Bronchitis ?J40 - Bronchitis, not specified as acute or chronic (ICD-10) Cirrhosis ?K74.60 - Unspecified cirrhosis of liver (ICD-10) Hypertension (06/14/11) ?I10 - Essential (primary) hypertension (ICD-10) History of subdural hematoma (11/23/11) ?Z86.79 - Personal history of other diseases of the circulatory system (ICD- 10) Gout (09/15/08) ?M10.9 - Gout, unspecified (ICD-10) Tubular adenoma of colon (09/15/08) ?D12.6 - Benign neoplasm of colon, unspecified (ICD-10) Traumatic brain injury (06/14/11) ?S06.9X9A - Unspecified intracranial injury with loss of consciousness of unspecified duration, initial encounter (ICD-10) Subjective tinnitus (10/06/11) ?H93.19 - Tinnitus, unspecified ear (ICD-10) Sensorineural hearing loss (SNHL) (11/23/11) ?H90.5 - Unspecified sensorineural hearing loss (ICD-10) Rosacea (05/21/06) ?L71.9 - Rosacea, unspecified (ICD-10) 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) ?L71.1 - Rhinophyma (ICD-10) Osteoarthritis of cervical spine ?M47.812 - Spondylosis without myelopathy or radiculopathy, cervical region (ICD-10) Obesity (08/16/10) ?E66.9 - Obesity, unspecified (ICD-10) Macular degeneration ?H35.30 - Unspecified macular degeneration (ICD-10) Intestinal obstruction ?K56.609 - Unspecified intestinal obstruction, unspecified as to partial versus complete obstruction (ICD-10) Hyperlipidemia (02/25/14) ?E78.5 - Hyperlipidemia, unspecified (ICD-10) BPH (benign prostatic hyperplasia) ?N40.0 - Benign prostatic hyperplasia without lower urinary tract symptoms (ICD-10) History of seizure (11/23/11) ?Z87.898 - Personal history of other specified conditions (ICD-10) History of pancreatitis (09/15/08) ?Z87.19 - Personal history of other diseases of the digestive system (ICD-10) Surgical History History of carpal tunnel surgery of left wrist (06/27/23) ?Z98.890 - Other specified postprocedural states (ICD-10) History of carpal tunnel surgery of right wrist (06/08/23) ?Z98.890 - Other specified postprocedural states (ICD-10) Status post evacuation of subdural hematoma (06/01/11) ?Z98.890 - Other specified postprocedural states (ICD-10) ?Z86.79 - Personal history of other diseases of the circulatory system (ICD- 10) History of tonsillectomy ?Z90.89 - Acquired absence of other organs (ICD-10) History of knee surgery (09/15/08) ?Z98.890 - Other specified postprocedural states (ICD-10) History of hemorrhoidectomy (09/15/08) ?Z98.890 - Other specified postprocedural states (ICD-10) Social History Narrative: -Snow former smoker What is your current living situation?: I presently have a place to live Problems where you live: no known problems Problems where you live details: N/A In the past 12 months, utilities in danger of being shut off: no In past 12 months, lack of transportation kept you from medical appts, meetings, work, or getting things needed for daily living: no In the past 12 mos, have been you worried that your food would run out before you had money to buy more?: never true In the past 12 mos, the food you bought just didn't last and you didn't have money to buy more?: never true Highest level of school completed/degree received: Bachelor's degree Smoking Status: Former smoker What tobacco products do you use: cigarettes Smoking quit date/years: >15 years ago Do you use any of these nicotine containing products: None How often do you have a drink containing alcohol: never How often do you have six or more drinks on one occasion: Never AUDIT-C Alcohol total score: 0 Non-prescribed substance use: denies use Caffeine: Yes How often does anyone, including family, friends and others, physically hurt you : never How often does anyone, including family, friends and others, insult or talk down to you: never How often does anyone, including family, friends and others, threaten you with harm: never How often does anyone, including family, friends and others, scream or curse at you: never Little interest or pleasure in doing things: not at all Feeling down, depressed, or hopeless: not at all service: No Meds Home Medications and Allergies Home Medications Medication Instructions Recorded Confirmed Type gabapentin 100 mg capsule 100 mg PO HS 02/16/23 07/14/23 History simvastatin 40 mg tablet 40 mg PO HS 02/16/23 07/14/23 History furosemide 40 mg tablet 40 mg PO DAILY 06/21/23 07/14/23 History omeprazole 20 mg capsule,delayed 20 mg PO DAILY 06/21/23 07/14/23 History release spironolactone 100 mg tablet 100 mg PO DAILY 06/21/23 07/14/23 History Allergies Allergy/AdvReac Type Severity Reaction Status Date / Time enoxaparin Allergy Severe contraindictation Verified 07/16/23 12:59 to all anticoagulants - see history anticoagulants-relative AdvReac Unknown Uncoded 07/10/23 13:54 contraindication-brain bleed Exam Narrative: Exam Narrative: General: No acute distress. Abdomen: protuberant, right lower quadrant Stab incision with glue noted. There is a steady drain of serous fluid from the incision. The glue was removed. The area was prepped with alcohol. 1% lidocaine was injected into the skin around the stab incision. A [id number] suture was created with 3 0 nylon suture to close the skin opening. This resulted in stopping the drainage. Additionally, glue was applied to the area over the suture in the event that there is further leakage. Const: Vital Signs, click to edit/add: Vital Signs - 24 hr 07/16/23 12:59 Temperature 97.4 F L Pulse Rate [Radial ] 95 Respiratory Rate 16 Blood Pressure [Ri ght Upper Arm] 105/69 Pulse Oximetry 99 Oxygen Delivery Me thod Room Air Results Labs Labs: All other labs normal. Progress Note:A&P Assessment and plan (1) Status post abdominal paracentesis: Status: Acute (2) Avulsion of skin: Status: Acute (3) Ascites: Status: Acute (4) Cirrhosis: Status: Acute Plan The patient is an 87-year-old male who is status post paracentesis now with drainage from his paracentesis site. A suture was placed as well as glue. This resulted in stopping the fluid drainage. The patient should return if the drainage would return. He can have the glue and suture removed in clinic in 1-2 weeks. He states that he is going to have a repeat paracentesis at some point in the future. He can follow-up with his primary care provider for this.
--- OUTSIDE RECORDS SUMMARY | 2023-07-16 14:01 | XMS_ITS | Continuity of Care Document ---
Author Name Unknown Organization [facility] Address [address] [address] [place] [address] Phone Care Team Providers Care Durability Technician Name Role Phone Lori Contreras Unavailable Unavailabl [...] - Active Procedures Procedure Date Offic/outpt E&m [facility] 2 Offic/outpt E&m [facility] Routine Serum Collection Advance Directives Directive Yes / No Effective Date File Name No Information Encounters Encounter Description Practice Location Reason(s) For Visit Diagnoses Date Provider Providers Copied on Encounter [facility], [address] [address], [place], [place], [id number], [place] tel:[phone] [facility] No Information 4 Severino Sandoval . [address] [facility] [facility] [address], [place], [place], [id number] , [place]. tel: [phone] [facility], [address] [address], [place], [place], [address], [place] [phone] [facility] Other ascitesElevated alkaline phosphatase levelCirrhosis of liver with ascites, unspecified hepatic cirrhosis type 4 Severino Sandoval . [address] [facility], [facility] [address], [place], [place], [id number] , [place]. tel:[phone] [facility], [address] [address], [place], [place], [address], [place] tel:[phone] [facility] No Information 4 Severino Sandoavl . [address] [facility], [facility] [address], [place], [place], [id number] , [place]. tel:[phone] Offic/outpt E&m [facility] 2 [facility], [address] [address], [place], [place], [address], [place] tel:[phone] [facility] GI Symptoms or Concerns (chief complaint) Cirrhosis of liver with ascites, unspecified hepatic cirrhosis type 4 Severino Sandoval . [address] [facility], [facility] [address], [place], [place], [id number] , [place]. tel: [phone] Referring Provider: Referral Self, USE FOR SELF REFERRALS. [facility], [address] [address], [place], [place], [address], [place] tel:[phone] [facility] Cirrhosis of liver with ascites, unspecified hepatic cirrhosis type 4 Severino GIL Lori . [address] [facility], [place], [place], [id number] , [place]. tel: [phone] [facility], [address] [address], [place], [place], [address], [place] tel: [phone] [facility] No Information 4 Severino Sandoval . [address] [facility], [place], [place], [id number] , [place]. tel: [phone] [facility], [address] [address], [place], [place], [address], [place] tel: [phone] [facility] Cirrhosis of liver with ascites, unspecified hepatic cirrhosis type 4 Severino GIL Lori . [address] [facility], [address], [place], [place], [address] , [place]. tel: [phone] [facility], [address] [address], [place], [place], [address], [place] tel: [phone] [facility] Cirrhosis of liver with ascites, unspecified hepatic cirrhosis type 4 Severino Sandoval . [address] [facility], [address], [place], [place], [address] , [place]. tel: [phone] [facility], [address] [address], [place], [place], [address], [place] tel: [phone] [facility] Other ascites 4 Severino Sandoval . [address] [facility], [place], [place], [id number] , [place]. tel: [phone] Offic/outpt E&m [place] [facility], [address] [address], [place], [place], [address], [place] tel:[phone] [facility] GI Symptoms or Concerns (chief complaint) Other cirrhosis of liverCirrhosis of liver with ascites, unspecified hepatic cirrhosis typeOther ascites 4 Severino JEFFERY Lori . [address] [facility], [facility] [address], [place], [place], [address] , [place]. [phone] Referring Provider: Russ Fontenot, [address] [place] [address], [address]. tel:[phone] [facility] [place], [address] [address], [place], [place], [address], [place] [phone] [facility] No Information 4 Robert Oneil. [address] [facility], [facility] [address], [place], [place], [address] , [place]. [phone] [facility] [place], [address] [address], [place], [place], [address], [place] tel:[phone] [facility] No Information 3 Robert Oneil. [address] [facility], [facility] [address], [place], [place], [address] , [place]. [phone] Family History Family Member Type Diagnosis Age [...] and acellular pertussis vaccine, adsorbed administered Note: MEIC b i-directional interface ; Source: Other Registry [...] name Insurance type Covered constitution party ID Authormatthewa charlieherberth(s) [employer] Medicare Advantage BL [id number] Social History Type Description Quantity Date [...] a presentation to the emergency room at [facility] on 02/16/2023. Patient presented with shortness of [...] on 03/06/2023 and underwent a paracentesis at [facility]- unfortunately I do not have all [...]
--- OUTSIDE RECORDS SUMMARY | 2023-07-16 14:01 | XMS_ITS | Clinical Summary ---
Author Name Unknown Organization [employer] [facility] Address [place], [place] [address] Care Team Providers Care Health Analytics Consultant Name Role Phone Russ Curran MD Primary [...] Department Care Team Description 05/05/2023 Lab Requisition [facility] [phone] Russ Curran MD 05/03/2023 11:30 AM BRAIDED BAND ASSEMBLER Office Visit [facility] [address] [place] [address] Atul Fortune, AuD Hearing Problem [...] Comments Blood Pressure 106/71 04/18/2012 1:43 PM BRAIDED BAND ASSEMBLER Pulse 96 04/18/2012 1:43 PM BRAIDED BAND ASSEMBLER Temperature 36.9 ??C (98.4 ??F) 11/21/2011 [...] history exists Medical Devices Implanted Type Area Business Services Sales Representative Device Identifier Shelf Expiration Date Model / Serial / Lot Plate Ti [id number] 4 Holes Low Profile Neuro Box - [id number] Implanted:Qty: 1 on 11/07/2011 by Angel Marie MD at [facility] Left: Cranium J And J Depuy CMF 421.511# / / Wilma Hole Cover 17mm Jocelin Ti Low Profile Neuro - [id number] Implanted:Qty: 1 on 11/07/2011 by Angel Marie MD at [facility] Left: Cranium J And J Depuy CMF 421.527# / / Set Plating Synthes Matex Neuro Profile - [id number] Implanted:Qty: 14 on 11/07/2011 by Angel Marie MD at [facility] Left: Cranium J And J Depuy CMF 04.503.10 4.01# / / Screw 5mm Emergency Titnm Matrixneuro - [id number] Implanted:Qty: 1 on 11/07/2011 by Angel Marie MD at [facility] Left: Cranium J And J Depuy CMF 04.503.11 5.01# / / Shunt Bowie Hole Covre 17mm Implanted:Qty: 1 on 11/07/2011 at [facility] Left: Cranium 421.544 / / Description:SHUNT WILMA HOLE COVRE 17MM Set Plating Synthes Matex Neuro Profile - [id number] Implanted:Qty: 7 on 11/17/2011 at [facility] 04.503.10 4.01# / / Procedures Procedure Name Priority Date/Time Associated Diagnosis Comments LAB TRACKING EVENT Routine 05/05/2023 1: 17 PM BRAIDED BAND ASSEMBLER PATH NON CNC APPLICATIONS ENGINEER CYTOLOGY Routine 05/05/2023 1:17 PM BRAIDED BAND ASSEMBLER from Last 3 Months Results * LAB TRACKING EVENT (05/05/2023 1:17 PM BRAIDED BAND ASSEMBLER) Other PERITONEAL FLUID SPECIMEN / Unknown Client Collect / Unknown 05/05/2023 1:17 PM BRAIDED BAND ASSEMBLER 05/05/2023 9:58 PM BRAIDED BAND ASSEMBLER Russ Curran MD LAB BILL ONLY [facility] [address] [place] [address], * PATH NON CNC APPLICATIONS ENGINEER CYTOLOGY (05/05/2023 1:17 PM BRAIDED BAND ASSEMBLER) Case Report Medical Cytology Report ? Case: [id number] ? Authorizing Provider: ??Russ Curran MD ?Collected: ? 05/05/2023 1317 ? Ordering Location: ? [facility] ?Received: ?05/06/2023 0831 ? Pathologist: ? Danielle Melara ? MD Jovita ? Specimen: ?Peritoneal Fluid ? 05/08/2023 9:15 AM [facility] Final Diagnosis PERITONEAL FLUID, CYTOLOGIC MATERIAL: Negative for malignancy in this sample 05/08/2023 9:15 AM [facility] Clinical Information Not provided. 05/08/2023 9:15 AM [facility] Gross Description A) SOURCE: Peritoneal Fluid [...] more than 72 hours. 05/08/2023 9:15 AM [facility] Microscopic Description Specimen adequacy: Adequate for interpretation. All slides were reviewed. The microscopic appearance substantiates the diagnosis. 05/08/2023 9:15 AM [facility] Additional Information Cytology is screened at [facility] - [address] [address] and [facility] - [address], [place] [address] and [facility] - [address] [place] [address] Interpreted at [facility] - [address], [place] [address] 05/08/2023 9:15 AM [facility] Other PERITONEAL FLUID SPECIMEN / Unknown 05/05/2023 1:17 PM BRAIDED BAND ASSEMBLER 05/06/2023 8:31 AM BRAIDED BAND ASSEMBLER Russ Curran MD PATHOLOGY/CYTOLOGY [facility] [address] [place] [address], from Last 3 Months Advance Directives * [...] 10:42 AM 06/21/2011 1:23 PM Care Teams Health Analytics Consultant Relationship Specialty Start Date End Date Russ Curran MD [address] [place] [address] PCP - General 06/14/11
--- OUTSIDE RECORDS SUMMARY | 2023-07-16 14:01 | XMS_ITS | Clinical Summary ---
Author Name Unknown Organization [facility] Address [address] [place] [address] Care Team Providers Care Photolithographic Stripper Name Role Phone Russ Curran MD Primary Care Provider [phone] Source Comments You are receiving this document as you are listed as the primary care provider,follow-up provider, or the patient has been referred to you for consultation.This is in compliance with the Medicare and[facility] EHR Incentive Program,which states Providers who transition their patient to another setting of careor provider of care or refers their patient to another provider of care shouldprovide summary care record for each transition of care or referral. YouMail Allergies Active Allergy Reactions Criticality Noted Date [...] age to complete this topic Care Teams Photolithographic Stripper Relationship Specialty Start Date End Date Russ Curran MD [address] [place] [address] PCP - General 09/18/15
== END 2023-07-16 14:10 | disposition home or self-care (01) ==
LOC: ED 13:59
PROVIDERS: Emergency Provider Family Medicine; PCP Internal Medicine
DX: S51.802A Unspecified open wound of left forearm, initial encounter (principal); X58.XXXA Exposure to other specified factors, initial encounter
CPT/HCPCS: 99282; 99283; 99284

== ENCOUNTER 2023-07-26 19:30 | Outpatient (CLI) | payer MEDICARE, SELFPAY ==
--- OUTSIDE RECORDS SUMMARY | 2023-08-03 00:35 | XMS_ITS | Clinical Summary ---
Author Organization [facility] Address [address] [place] [address] Care Team Providers Care Java Development Manager Name Role Phone Russ Curran MD Primary Care Provider [phone] Source Comments You are receiving this document as you are listed as the primary care provider,follow-up provider, or the patient has been referred to you for consultation.This is in compliance with the Medicare and[facility] Centercaid EHR Incentive Program,which states Providers who transition their patient to another setting of careor provider of care or refers their patient to another provider of care shouldprovide summary care record for each transition of care or referral. [facility] Allergies Active Allergy Reactions Criticality Noted Date [...] age to complete this topic Care Teams Java Development Manager Relationship Specialty Start Date End Date Russ Curran MD [address] [place] [address] PCP - General 09/18/15
--- OUTSIDE RECORDS SUMMARY | 2023-08-03 00:35 | XMS_ITS | Continuity of Care Document ---
Author Organization [facility] Address [address] [address] [place] [address] Phone Care Team Providers Care Mixed Livestock Farmer Name Role Phone Lori Contreras Unavailable Unavailabl e Allergies, Adverse Reactions, Alerts Substance Reaction Status Criticality aspirin Active No Information Medications Medication Instructions Dosage Effective Dates (start - stop) Status Comments furosemide 20 mg tablet take 2 tablet by oral route every day 40 MG - Active spironolactone 50 mg tablet [...] a meal 20 MG - Active furosemide 40 mg tablet [...] every 12 hours 2000 MG - Active furosemide 20 mg tablet take 2 tablet by oral route every day 40 MG - No Longer Active Procedures Procedure Date Offic/outpt E&m [facility] 2 Offic/outpt E&m [facility] Routine Serum Collection Advance Directives Directive Yes / No Effective Date File Name No Information Encounters Encounter Description Practice Location Reason(s) For Visit Diagnoses Date Provider Providers Copied on Encounter [facility], [address] [address], [place], [place], [id number], [place] tel:[phone] [place] [address] No Information 4 Severino Sandoval . [address] [facility] [facility] [address], [place], [place], [address] , [place]. tel: [phone] [facility], [address] [address], [place], [place], [address], [place] tel:[phone] [facility] No Information 4 Severino Sandoval . [address] [facility], [facility] [address], [place], [place], [address] , [place]. tel: [phone] [facility], [address] [address], [place], [place], [address], [place] tel:[phone] [facility] Other ascites 4 Severino Sandoval . [address] [facility], [place], [place], [address] , [place]. tel:[phone] [facility], [address] [address], [place], [place], [address], [place] tel:[phone] [facility] Cirrhosis of liver with ascites, unspecified hepatic cirrhosis type 4 Severino Sandoval . [address] [facility], [place], [place], [address] , [place]. tel:[phone] [facility], [address] [address], [place], [place], [address], [place] tel:[phone] [facility] Other ascitesElevated alkaline phosphatase levelCirrhosis of liver with ascites, unspecified hepatic cirrhosis type Apr-2 4 Severino Sandoval . [address] [facility], [place], [place], [address] , [place]. tel: [phone] [facility], [address] [address], [place], [place], [address], [place] tel:[phone] [facility] No Information 4 Severino Sandoval . [address] [facility], [place], [place], [address] , [place]. tel: [phone] Offic/outpt E&m Estab Mod-hi 2 [facility], [address] [address], [place], [place], [address], [place] tel:[phone] [facility] GI Symptoms or Concerns (chief complaint) Cirrhosis of liver with ascites, unspecified hepatic cirrhosis type Apr-0 4 Severino Sandoval . [address] [facility], [facility] [address], [place], [place], [address] , [place]. tel: [phone] Referring Provider: Referral Self, USE FOR SELF REFERRALS. [facility], [address] [address], [place], [place], [address], [place] tel:[phone] [facility] Cirrhosis of liver with ascites, unspecified hepatic cirrhosis type 4 Severino Sandoval . [address] [facility], [address], [place], [place], [address] , [place]. tel: [phone] [facility], [address] [address], [place], [place], [address], [place] tel:[phone] [facility] No Information 4 Severino Sandoval . [address] [facility], [address], [place], [place], [address] , [place]. tel: [phone] [facility], [address] [address], [place], [place], [address], [place] tel:[phone] [facility] Cirrhosis of liver with ascites, unspecified hepatic cirrhosis type Fe 4 Severino Sandoval . [address] [facility], [address], [place], [place], [address] , [place]. tel:[phone] [facility], [address] [address], [place], [place], [address], [place] [phone] [facility] Cirrhosis of liver with ascites, unspecified hepatic cirrhosis type 4 [facility] Lori . [address] [facility], [address], [place], [place], [address] , [place]. tel:[phone] [facility], [address] [address], [place], [place], [address], [place] [phone] [facility] Other ascites 4 [facility] Lori . [address] [facility], [facility] [address], [place], [place], [address] , [place]. tel:[phone] Offic/outpt E&m [facility] Mod-hi [facility], [address] [address], [place], [place], [address], [place] [phone] [facility] GI Symptoms or Concerns (chief complaint) Other cirrhosis of liverCirrhosis of liver with ascites, unspecified hepatic cirrhosis typeOther ascites 4 [facility] Lori . [address] [facility], [address], [place], [place], [address] , [place]. [phone] Referring Provider: Russ Fontenot, [address] [place] [address], [address]. tel:[phone] [facility], [address] [address], [place], [place], [address], [place] tel:[phone] [facility] No Information 4 Robert Oneil. [address] [facility], [address], [place], [place], [address] , [place]. tel:[phone] [facility], [address] [address], [place], [place], [address], [place] tel:[phone] [facility] No Information Robert Oneil. [address] [facility], [address], [place], [place], [address] , [place]. tel:[phone] Family History Family Member Type Diagnosis Age [...] name Insurance type Covered constitution party ID Authormegan self(s) [place] [employer] Medicare Advantage BL [id number] Social History Type Description Quantity Date Captured Comments Alcohol Use Details Unknown Caffeine Use Details Unknown Tobacco Use Status No Information Smoking Status No Information Sex Male Chief Complaint And Reason For Visit No Information Reason For Referral Reason For Referral No Information Plan Of Treatment Date Type Action Status Referral Ordered: Echocardiogram, Transthoracic, Complete Appointment date/timeframe: 08/10/2023 ordered Referral Ordered: Doppler Hepatic And Portal Vein Appointment date/timeframe: 08/10/2023 ordered Referral Ordered: follow-up visit First Available Appointment [...] First Available ordered Appointment Scott Angela BOOKED Appointment Scott Angela BOOKED History Of Present [...] a presentation to the emergency room at [facility] on 02/16/2023. Patient presented with [...] on 03/06/2023 and underwent a paracentesis at [facility]- unfortunately I do not have [...]
--- OUTSIDE RECORDS SUMMARY | 2023-08-03 00:35 | XMS_ITS | Clinical Summary ---
Author Organization [employer] [facility] [employer] Address [place], [place] [address] Care Team Providers Care Manager Sap Name Role Phone Russ Curran MD Primary [...] Department Care Team Description 05/05/2023 Lab Requisition [facility] [phone] Russ Curran MD from Last 3 Months Immunizations Name Administration [...] Comments Blood Pressure 106/71 04/18/2012 1:43 PM ROTOR BALANCER Pulse 96 04/18/2012 1:43 PM ROTOR BALANCER Temperature 36.9 ??C (98.4 ??F) 11/21/2011 8:00 [...] history exists Medical Devices Implanted Type Area Furnace Operator Oil Or Gas Device Identifier Shelf Expiration Date Model / Serial / Lot Plate Ti [id number] 4 Holes Low Profile Neuro Box - [id number] Implanted:Qty: 1 on 11/07/2011 by Angel Marie MD at [facility] Left: Cranium J And J Depuy CMF 421.511# / / [place] Hole Cover 17mm Jocelin Ti Low Profile Neuro - [id number] Implanted:Qty: 1 on 11/07/2011 by Angel Marie MD at [facility] Left: Cranium J And J Depuy CMF 421.527# / / Set Plating Synthes Matex Neuro Profile - [id number] Implanted:Qty: 14 on 11/07/2011 by Angel Marie MD at [facility] Left: Cranium J And J Depuy CMF 04.503.10 4.01# / / Screw 5mm Emergency Titnm Matrixneuro - [id number] Implanted:Qty: 1 on 11/07/2011 by Angel Marie MD at [facility] Left: Cranium J And J Depuy CMF 04.503.11 5.01# / / Shunt [place] Hole Covre 17mm Implanted:Qty: 1 on 11/07/2011 at [facility] Left: Cranium 421.544 / / Description:SHUNT WILMA HOLE COVRE 17MM Set Plating Synthes Matex Neuro Profile - [id number] Implanted:Qty: 7 on 11/17/2011 at [facility] 04.503.10 4.01# / / Procedures Procedure Name Priority Date/Time Associated Diagnosis Comments LAB TRACKING EVENT Routine 05/05/2023 1: 17 PM ROTOR BALANCER PATH NON LEAD APPLIER CYTOLOGY Routine 05/05/2023 1:17 PM ROTOR BALANCER from Last 3 Months Results * LAB TRACKING EVENT (05/05/2023 1:17 PM ROTOR BALANCER) Other PERITONEAL FLUID SPECIMEN / Unknown Client Collect / Unknown 05/05/2023 1:17 PM ROTOR BALANCER 05/05/2023 9:58 PM ROTOR BALANCER Russ Curran MD LAB BILL ONLY [facility] [address] [place] [address], * PATH NON LEAD APPLIER CYTOLOGY (05/05/2023 1:17 PM ROTOR BALANCER) Case Report Medical Cytology Report ? Case: [id number] ? Authorizing Provider: ??Russ Curran MD ?Collected: ? 05/05/2023 1317 ? Ordering Location: ? [facility] ?Received: ?05/06/2023 0831 ? Pathologist: ? Danielle Melara ? MD Jovita ? Specimen: ?Peritoneal Fluid ? 05/08/2023 9:15 AM [facility] Final Diagnosis PERITONEAL FLUID, CYTOLOGIC MATERIAL: Negative for malignancy in this sample 05/08/2023 9:15 AM [facility] Clinical Information Not provided. 05/08/2023 9:15 AM [facility] Gross Description A) SOURCE: Peritoneal [...] more than 72 hours. 05/08/2023 9:15 AM [facility] Microscopic Description Specimen adequacy: Adequate for interpretation. All slides were reviewed. The microscopic appearance substantiates the diagnosis. 05/08/2023 9:15 AM [facility] Additional Information Cytology is screened at [facility] - [address], [place] [address] and [facility] - [address] [place] [address] and [facility] - [address] [facility] [place] [address] Interpreted at [facility] - [address], [place] [address] 05/08/2023 9:15 AM [facility] Other PERITONEAL FLUID SPECIMEN / Unknown 05/05/2023 1:17 PM ROTOR BALANCER 05/06/2023 8:31 AM ROTOR BALANCER Russ Curran MD PATHOLOGY/CYTOLOGY [facility] [address] [place] [address], [place] from Last 3 Months Advance Directives * [...] 10:42 AM 06/21/2011 1:23 PM Care Teams Manager Sap Relationship Specialty Start Date End Date Russ Curran MD [address] [place] [address] PCP - General 06/14/11
== END 2023-07-26 19:31 | disposition home or self-care (01) ==
LOC: AMB 08-03 00:32
PROVIDERS: PCP Internal Medicine; Visit Provider Emergency Medicine
DX: R10.9 Unspecified abdominal pain (principal); R06.02 Shortness of breath
CPT/HCPCS: A0425; A0429

== ENCOUNTER 2023-07-26 19:39 | Emergency (ER) | payer MEDICARE, SELFPAY ==
[2023-07-26] VITALS (41 sets, daily range): BP systolic 84–113; BP diastolic 50–71; PULSE 80–107; RESP 16–20; TEMP 36.7; O2SAT 96–99; BMI 30.2
--- NOTE | 2023-07-26 19:58 | ED_ITS ---
HPI - General Adult General Date Seen: 07/26/23 Chief complaint: Abdominal Pain Stated complaint: abdominal pain Time Seen by Provider: 07/26/23 19:43 History of Present Illness HPI narrative: 87-year-old male with a history of cirrhosis, ascites, hyperlipidemia, BPH, seizure disorder, previous intracranial hemorrhage (now off anticoagulants), osteoarthritis of cervical spine, obesity, presenting to the ER tonight for evaluation of abdominal pain. has recently worsening ascites with multiple recent ER visits. Was in the ER and had an Radiology based paracentesis on 06/13. I saw him here in the ER on 06/29 and a 10 L paracentesis. Seen again in the ER on 07/13 for increasing ascites with shortness of breath of and had another paracentesis with 10 L removed. Was seen again in follow-up 2 days later on 07/15 with the leakage from the paracentesis site. He he had a suture placed and the leakage stopped. He also had a skin avulsion on his left forearm which was treated. Since his last visit to the ER he has noted gradually worsening abdominal di stention and fluid. He has gotten to the point where he is having intermittent pain in his upper abdomen and feel short of breath because of fluid overload. He is scheduled to have another ultrasound in 3 days on Monday and then to have another paracentesis on 08/06/2009 days from now. He came to the ER saying he just can not wait that long. He is too uncomfortable. Related Data Home Medications ?Medication ?Instructions ?Recorded ?Confirmed gabapentin 100 mg capsule 100 mg PO HS 02/16/23 07/26/23 simvastatin 40 mg tablet 40 mg PO HS 02/16/23 07/26/23 furosemide 40 mg tablet 40 mg PO DAILY 06/21/23 07/26/23 omeprazole 20 mg capsule,delayed 20 mg PO DAILY 06/21/23 07/26/23 release spironolactone 100 mg tablet 100 mg PO DAILY 06/21/23 07/26/23 Previous Rx's ?Medication ?Instructions ?Recorded allopurinol 300 mg tablet 300 mg PO DAILY Gout #90 tabs 10/05/22 tamsulosin 0.4 mg capsule 0.4 mg PO DAILY BPH #90 caps 10/05/22 furosemide 20 mg tablet 20 mg PO DAILY@0800 #30 tabs 02/17/23 levetiracetam 1,000 mg tablet 2,000 mg (2 x 1,000 mg) PO BID 04/24/23 Seizure #360 tabs Allergies Allergy/AdvReac Type Severity Reaction Status Date / Time enoxaparin Allergy Severe contraindictation Verified 07/26/23 19:46 to all anticoagulants - see history anticoagulants-relative AdvReac Unknown Uncoded 07/25/23 11:53 contraindication-brain bleed [facility] Medical History Pulmonary nodules ?R91.8 - Other nonspecific abnormal finding of lung field (ICD-10) Ascites ?R18.8 - Other ascites (ICD-10) Bronchitis ?J40 - Bronchitis, not specified as acute or chronic (ICD-10) Cirrhosis ?K74.60 - Unspecified cirrhosis of liver (ICD-10) Hypertension (06/14/11) ?I10 - Essential (primary) hypertension (ICD-10) History of subdural hematoma (11/23/11) ?Z86.79 - Personal history of other diseases of the circulatory system (ICD- 10) Gout (09/15/08) ?M10.9 - Gout, unspecified (ICD-10) Tubular adenoma of colon (09/15/08) ?D12.6 - Benign neoplasm of colon, unspecified (ICD-10) Traumatic brain injury (06/14/11) ?S06.9X9A - Unspecified intracranial injury with loss of consciousness of unspecified duration, initial encounter (ICD-10) Subjective tinnitus (10/06/11) ?H93.19 - Tinnitus, unspecified ear (ICD-10) Sensorineural hearing loss (SNHL) (11/23/11) ?H90.5 - Unspecified sensorineural hearing loss (ICD-10) Rosacea (05/21/06) ?L71.9 - Rosacea, unspecified (ICD-10) 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) ?L71.1 - Rhinophyma (ICD-10) Osteoarthritis of cervical spine ?M47.812 - Spondylosis without myelopathy or radiculopathy, cervical region (ICD-10) Obesity (08/16/10) ?E66.9 - Obesity, unspecified (ICD-10) Macular degeneration ?H35.30 - Unspecified macular degeneration (ICD-10) Intestinal obstruction ?K56.609 - Unspecified intestinal obstruction, unspecified as to partial versus complete obstruction (ICD-10) Hyperlipidemia (02/25/14) ?E78.5 - Hyperlipidemia, unspecified (ICD-10) BPH (benign prostatic hyperplasia) ?N40.0 - Benign prostatic hyperplasia without lower urinary tract symptoms (ICD-10) History of seizure (11/23/11) ?Z87.898 - Personal history of other specified conditions (ICD-10) History of pancreatitis (09/15/08) ?Z87.19 - Personal history of other diseases of the digestive system (ICD-10) Surgical History History of carpal tunnel surgery of left wrist (06/27/23) ?Z98.890 - Other specified postprocedural states (ICD-10) History of carpal tunnel surgery of right wrist (06/08/23) ?Z98.890 - Other specified postprocedural states (ICD-10) Status post evacuation of subdural hematoma (06/01/11) ?Z98.890 - Other specified postprocedural states (ICD-10) ?Z86.79 - Personal history of other diseases of the circulatory system (ICD- 10) History of tonsillectomy ?Z90.89 - Acquired absence of other organs (ICD-10) History of knee surgery (09/15/08) ?Z98.890 - Other specified postprocedural states (ICD-10) History of hemorrhoidectomy (09/15/08) ?Z98.890 - Other specified postprocedural states (ICD-10) Social History Narrative: -Snow former smoker What is your current living situation?: I presently have a place to live Problems where you live: no known problems Problems where you live details: N/A In the past 12 months, utilities in danger of being shut off: no In past 12 months, lack of transportation kept you from medical appts, meetings, work, or getting things needed for daily living: no In the past 12 mos, have been you worried that your food would run out before you had money to buy more?: never true In the past 12 mos, the food you bought just didn't last and you didn't have money to buy more?: never true Highest level of school completed/degree received: Bachelor's degree Smoking Status: Former smoker What tobacco products do you use: cigarettes Smoking quit date/years: >15 years ago Do you use any of these nicotine containing products: None How often do you have a drink containing alcohol: never How often do you have six or more drinks on one occasion: Never AUDIT-C Alcohol total score: 0 Non-prescribed substance use: denies use Caffeine: Yes How often does anyone, including family, friends and others, physically hurt you : never How often does anyone, including family, friends and others, insult or talk down to you: never How often does anyone, including family, friends and others, threaten you with harm: never How often does anyone, including family, friends and others, scream or curse at you: never Little interest or pleasure in doing things: not at all Feeling down, depressed, or hopeless: not at all service: No Exam Narrative: Exam Narrative: Constitutional: Appears well-developed and well-nourished. Alert. Conversant. Non toxic. HENT: Head: Atraumatic. Nose: Nose normal. Mouth/Throat: Oral mucosa is clear and moist. no trismus. Pharynx normal. To nsils symmetric. No tonsillar enlargement, erythema, or exudate. Eyes: Conjunctivae normal. EOM normal. Pupils equal, round, and reactive to light. No scleral icterus. Neck: Normal range of motion. Neck supple. No tracheal deviation present. Cardiovascular: Normal rate, regular rhythm. No gallop. No friction rub. Cyst on murmur heard. Symmetric radial and PT artery pulses Pulmonary/Chest: Effort normal. No stridor. No respiratory distress. No wheezes. No rales. No rhonchi . No tenderness. Abdominal: Soft. Bowel sounds normal. Very distended and dull to percussion. Suspicious for ascites. No mass. No tenderness. No rebound. No guarding. Band- Aid in place in right lower quadrant from previous paracentesis site. Musculoskeletal: RUE: Normal range of motion. No tenderness. No deformity LUE: Normal range of motion. No tenderness. No deformity RLE: Normal range of motion. 1+ edema. No tenderness. No deformity LLE: Normal range of motion. 2+ edema (left ankle usually more swollen than the right). No tenderness. No deformity Neurological: Alert and oriented to person, place, and time. Normal strength. CN II-VII intact. No sensory deficit. GCS eye subscore is 4. GCS verbal subscore is 5. GCS motor subscore is 6. Normal coordination Skin: Skin is warm and dry. No rash noted. No pallor. Normal capillary refill. Psychiatric: Normal mood. Normal affect. Const: Vital Signs, click to edit/add: Vital Signs - 24 hr 07/26/23 19:42 07/26/23 19:53 07/26/23 20:00 Temperature 98.1 F Pulse Rate 85 84 Pulse Rate [Pulse Oximeter] 87 Respiratory Rate 20 Blood Pressure Blood Pressure [Ri ght Upper Arm] 105/70 Pulse Oximetry 98 97 [facility] 07/26/23 20:02 07/26/23 20:04 07/26/23 20:15 Temperature Pulse Rate 83 86 85 Pulse Rate [Pulse Oximeter] Respiratory Rate Blood Pressure 94/59 L 90/67 Blood Pressure [Ri ght Upper Arm] Pulse Oximetry 97 96 96 Oxygen Delivery Me thod 07/26/23 20:19 07/26/23 20:20 07/26/23 20:29 Temperature Pulse Rate 82 82 Pulse Rate [Pulse Oximeter] Respiratory Rate Blood Pressure 88/70 L 113/71 Blood Pressure [Ri ght Upper Arm] Pulse Oximetry 97 97 Oxygen Delivery La thod 07/26/23 20:37 07/26/23 20:39 07/26/23 20:45 Temperature Pulse Rate 87 85 Pulse Rate [Pulse Oximeter] Respiratory Rate Blood Pressure 100/64 Blood Pressure [Ri ght Upper Arm] Pulse Oximetry 98 97 Oxygen Delivery Me thod 07/26/23 20:52 07/26/23 20:53 07/26/23 21:00 Temperature Pulse Rate 83 83 83 Pulse Rate [Pulse Oximeter] Respiratory Rate Blood Pressure 96/69 Blood Pressure [Ri ght Upper Arm] Pulse Oximetry 97 97 97 Oxygen Delivery La thod 07/26/23 21:07 07/26/23 21:15 07/26/23 21:22 Temperature Pulse Rate 82 81 80 Pulse Rate [Pulse Oximeter] Respiratory Rate Blood Pressure 99/66 100/58 L Blood Pressure [Ri ght Upper Arm] Pulse Oximetry 97 97 98 Oxygen Delivery Me thod 07/26/23 21:30 07/26/23 21:36 07/26/23 21:45 Temperature Pulse Rate 83 81 82 Pulse Rate [Pulse Oximeter] Respiratory Rate Blood Pressure 100/60 Blood Pressure [Ri ght Upper Arm] Pulse Oximetry 99 98 98 Oxygen Delivery Me thod 07/26/23 21:52 07/26/23 21:53 07/26/23 22:00 Temperature Pulse Rate 107 H 84 85 Pulse Rate [Pulse Oximeter] Respiratory Rate Blood Pressure 108/51 L Blood Pressure [Ri ght Upper Arm] Pulse Oximetry 98 98 99 Oxygen Delivery Me thod 07/26/23 22:15 07/26/23 22:22 07/26/23 22:23 Temperature Pulse Rate 84 82 81 Pulse Rate [Pulse Oximeter] Respiratory Rate Blood Pressure 86/55 L 84/50 L Blood Pressure [Ri ght Upper Arm] Pulse Oximetry 98 97 98 Oxygen Delivery Me thod 07/26/23 22:30 07/26/23 22:32 07/26/23 22:37 Temperature Pulse Rate 81 82 83 Pulse Rate [Pulse Oximeter] Respiratory Rate Blood Pressure 98/64 94/55 L Blood Pressure [Ri ght Upper Arm] Pulse Oximetry 98 98 98 Oxygen Delivery Me thod 07/26/23 22:42 07/26/23 22:45 07/26/23 22:46 Temperature Pulse Rate 81 82 83 Pulse Rate [Pulse Oximeter] Respiratory Rate Blood Pressure 95/61 95/60 Blood Pressure [Ri ght Upper Arm] Pulse Oximetry 98 98 97 Oxygen Delivery Me thod 07/26/23 22:52 07/26/23 22:57 07/26/23 23:00 Temperature Pulse Rate 86 81 82 Pulse Rate [Pulse Oximeter] Respiratory Rate Blood Pressure 98/57 L 94/55 L Blood Pressure [Ri ght Upper Arm] Pulse Oximetry 98 97 97 Oxygen Delivery Me thod 07/26/23 23:02 07/26/23 23:08 07/26/23 23:13 Temperature Pulse Rate 82 81 81 Pulse Rate [Pulse Oximeter] Respiratory Rate Blood Pressure 100/59 L 109/64 92/62 Blood Pressure [Ri ght Upper Arm] Pulse Oximetry 97 97 97 Oxygen Delivery Me thod 07/26/23 23:15 07/26/23 23:15 07/26/23 23:17 Temperature Pulse Rate 82 83 Pulse Rate [Pulse Oximeter] Respiratory Rate 16 Blood Pressure 104/61 Blood Pressure [Ri ght Upper Arm] Pulse Oximetry 97 98 Oxygen Delivery Me thod Course Course ED Course: Patient initially arrived and had stable blood pressure. He declined to take off his sweatshirt or his shirt for vital signs. Nurses did place a blood pressure cuff over his heavy sweatshirt and we had several hypotensive blood pressure readings. I Rue did have him remove his sweatshirt and we arranged a properly sized cuff. I make sure route it was fitting appropriately in the upper arm. Repeat blood pressure with the appropriate cuff, with a sweatshirt off was normal at 113/80. Recheck-patient is still eager to get paracentesis. Reevaluation(s) Reevaluation #1: Paracentesis performed. 9 L of fluid removed. Reevaluation #2: Recheck-after paracentesis patient noting a much better he feels. However blood pressure measured low. It 88/60. He is asymptomatic and feeling fine. He not es how much better he feels after paracentesis. He agrees to stay to complete his 2nd bolus of albumin. Will also give 500 mL of saline for possible hypovolemia. Reevaluation #3: Recheck-albumin in. Saline infusing. Subsequent blood pressures normal per Additional Reevaluation(s): Recheck-completed 500 mL bolus of saline blood pressure still normal. Tolerating ambulation without dizziness or weakness. He feels fine. He wants to call his to discharge home. Vital Signs Vital signs: Initial Vital Signs Temperature 98.1 F 07/26/23 19:42 Temperature Source Temporal Artery Scan 07/26/23 19:42 Pulse Rate 87 07/26/23 19:42 Respiratory Rate 20 07/26/23 19:42 Blood Pressure 105/70 07/26/23 19:42 Blood Pressure Mean 81 07/26/23 19:42 Blood Pressure Position Supine 07/26/23 19:42 Pulse Oximetry 98 07/26/23 19:42 Oxygen Delivery Method Room Air 07/26/23 19:42 Vital Signs Temperature 98.1 F 07/26/23 19:42 Pulse Rate 87 07/26/23 19:42 Respiratory Rate 20 07/26/23 19:42 Blood Pressure 105/70 07/26/23 19:42 Pulse Oximetry 98 07/26/23 19:42 Oxygen Delivery Method Room Air 07/26/23 19:42 Temperature 98.1 F 07/26/23 19:42 Pulse Rate 83 07/26/23 23:17 Respiratory Rate 16 07/26/23 23:15 Blood Pressure 104/61 07/26/23 23:17 Pulse Oximetry 98 07/26/23 23:17 Oxygen Delivery Method Room Air 07/26/23 19:42 Medications Administered Medications: Generic Name Dose Route Start Last Admin Trade Name Freq PRN Reason Stop Dose Admin Sodium Chloride 500 mls @ 500 mls/hr 07/26/23 22:28 07/26/23 23:22 0.9 % Sodium Chloride 500 Ml IV 07/26/23 23:27 0 mls/hr .Q1H ONE Infusion Discontinued Medications Generic Name Dose Route Start Last Admin Trade Name Freq PRN Reason Stop Dose Admin Albumin Human 25 gm in 100 mls @ 100 mls/hr 07/26/23 20:11 07/26/23 21:52 Albumin Human 25% IVPB 07/26/23 21:10 Infused ONCE ONE Infusion Albumin Human 25 gm in 100 mls @ 100 mls/hr 07/26/23 21:41 07/26/23 22:50 Albumin Human 25% IVPB 07/26/23 22:40 Infused ONCE ONE Infusion Medical Decision Making MDM Narrative Medical decision making narrative: pleasant 87-year-old gentleman with a history of cirrhosis with chronic ascites returning the ER today with reaccumulation of ascites leading to abdominal distension, bloating, diaphragm compression, and shortness of breath. He has had several recent paracenteses. He came to the ER today because he could not wait for his upcoming outpatient paracentesis. He is not having any fever chills or other clear symptom to suggest SBP. However we did send ascitic fluid cell count. Total PMN count less than 250 would suggest no SBP. No known abdominal injury. We did do a therapeutic paracentesis here in the ER today under ultrasound guidance. We removed in 9 L of ascitic fluid. Fluid was translucent and yellow. No blood, bloody, purulent, or cloudy fluid. Patient tolerated the procedure well. No discomfort. He noticed significant improvement in his breathing after removal of the fluid. He is smiling and noting how much better he can breathe We administered 50 g of albumin (based on volume of ascitic fluid removed). Despite albumin he did develop hypotension after the paracentesis. Five hundred mils of saline administered. Blood pressure normalized. Patient passed ambulation trial. Feeling well. Repeat lab work shows: Elevated BUN and normal creatinine, possibly prerenal, but similar to prior. LFTs mildly abnormal also similar to baseline. These are similar to previous. Platelet count normal. Hemoglobin mildly anemic but baseline. No clear explanation based on workup is so far here in the ER why the ascites is been accumulating more rapidly over the past couple of months. Ascitic fluid cell count is 223. PMN count considerably lower than 250. No evidence for SBP. Procedures Paracentesis Pre procedure diagnosis: Ascites, cirrhosis Post procedure diagnosis: Ascites Site marking: site marked Verification/time out: correct patient, correct site and correct procedure Indication: Ascites Imaging guidance used?: Yes Procedure: therapeutic paracentesis Location: RLQ Bedside Ultrasound Used: yes, Ascites confirmed and location marked (Low freq uency con FRAX away abdominal probe used. We identified significant ascites in the abdominal cavity. We identified the largest site of ascites in the right lower quadrant. There was between 6 cm and 10 cm distance from the in her abdominal wall/peritoneal lining and the intestine.) Preparation: 11 blade used to make doreen in skin Anesthesia: lidocaine 1% and with Epi Amount of anesthesia used (mL): 4 Amount of fluid obtained (mL): 9,000 Fluid: clear Size of Needle Used: 7 Post Procedure Exam: awake, alert, normal BP, normal HR and normal SpO2 Estimated blood loss (if any): none Complications: none Patient Tolerated Procedure: well Lab Data Labs: Lab Results 07/26/23 07/26/23 Range/Units 20:15 20:30 WBC 9.65 (4.50-11.00) K/uL RBC 3.36 L (4.30-5.90) m/uL Hgb 11.6 L (13.5-17.5) gm/dL Hct 34.1 L (37.0-53.0) % MCV 102 H (80-100) fL MCH 35 H (26-34) pg MCHC 34 (32-36) gm/dL RDW Coeff of Jose 15.2 (11.5-15.5) % Plt Count 312 (140-440) K/uL Neut % (Auto) 64.9 (42.0-72.0) % Lymph % (Auto) 22.0 (20-44) % [place] % (Auto) 10.9 (0.0-11.0) % Eos % (Auto) 1.3 (0.0-7.0) % Baso % (Auto) 0.4 (0.0-3.0) % Neut # (Auto) 6.26 (1.7-7.0) K/uL Lymph # (Auto) 2.12 (0.90-2.90) K/uL [place] # (Auto) 1.10 H (0.00-0.90) K/UL Eos # (Auto) 0.13 (0.00-0.50) K/uL Baso # (Auto) 0.04 (0.00-0.30) K/uL Abs Immat Gran (auto) 0.05 (0.00-0.30) K/uL Imm/Tot Granulo (auto) 0.5 % Sodium 129 L (135-149) mmol/L Potassium 4.4 (3.6-5.1) mmol/L Chloride 101 (96-114) mmol/L Carbon Dioxide 23 (20-32) mmol/L Anion Gap 5 L (7-15) mEq/L BUN 42 H (7-30) mg/dL Creatinine 1.4 (0.5-1.5) mg/dL Estimated Creat Clear 41.57 Estimated GFR 49 ml/min Glucose 122 H (60-115) mg/dL Calcium 8.3 L (8.4-10.6) mg/dL Total Bilirubin 0.8 (0.1-1.5) mg/dL AST 64 H (12-35) U/L ALT 40 (4-50) U/L Alkaline Phosphatase 348 H (40-150) U/L Total Protein 6.3 (6.0-8.3) g/dL Albumin 2.8 L (3.3-5.0) g/dL Lipase 186 (23-300) U/L Fluid Volume 10 Fluid Color Xanthochromic A Fluid Appearance Clear Fluid WBC 233 Cells/uL Fluid RBC 1000 Cells/uL Fluid Polynuclear WBCs 12 % Fluid Mononuclear WBCs 89 % Discharge Plan Discharge Clinical Impression: Ascites Patient Disposition: Home, Self-Care Condition: Stable Instructions: Ascites (ED), Paracentesis (DC) Additional Instructions: As we discussed, please come back to the ER right away if you have any problems especially fever, abdominal pain, dizzy spells or weakness, or if you have recurring ascites, trouble breathing, or any problems. Continue on your regular medications. Even if you are doing well, please follow-up on Monday for your next doctor appointment. Please call Dr. Curran his office to see if they can move up your next scheduled paracentesis see you can avoid building up this much fluid and feeling so uncomfortable. Prescriptions: No Action spironolactone 100 mg tablet 100 mg PO DAILY furosemide 40 mg tablet 40 mg PO DAILY omeprazole 20 mg capsule,delayed release(DR/EC) 20 mg PO DAILY simvastatin 40 mg tablet 40 mg PO HS gabapentin 100 mg capsule 100 mg PO HS furosemide 20 mg tablet 20 mg PO DAILY@0800 Qty: 30 0RF allopurinol 300 mg tablet 300 mg PO DAILY Qty: 90 3RF tamsulosin 0.4 mg capsule 0.4 mg PO DAILY Qty: 90 3RF levetiracetam 1,000 mg tablet 2,000 mg PO BID Qty: 360 3RF Follow Up/Referrals: Russ Curran MD [Primary Care Provider] - Stand Alone Forms: [employer] Info Instructions
[2023-07-26] MEDS: ALBUMIN HUMAN 25% 25 GM/100 ML VIAL IVPB ×2 (20:35→21:52)
[2023-07-26 20:37] LABS: Basophils Absolute Auto 0.04 K/uL (0.00-0.30); Basophils Percent Auto 0.4 % (0.0-3.0); Eosinophils Absolute Auto 0.13 K/uL (0.00-0.50); Eosinophils Percent Auto 1.3 % (0.0-7.0); Hematocrit 34.1 % (37.0-53.0); Hemoglobin* 11.6 gm/dL (13.5-17.5); Immature Granulocytes Abs Auto 0.05 K/uL (0.00-0.30); Immature Granulocytes Pct Auto 0.5 %; Lymphocytes Absolute Auto 2.12 K/uL (0.90-2.90); Mean Corpuscular HGB Conc 34 gm/dL (32-36); Mean Corpuscular Hemoglobin 35 pg (26-34); Mean Corpuscular Volume 102 fL (80-100); Monocytes Percent Auto 10.9 % (0.0-11.0); Neutrophils Absolute Auto 6.26 K/uL (1.7-7.0); Neutrophils Percent Auto 64.9 % (42.0-72.0); Platelet Count* 312 K/uL (140-440); RDW Coefficient of Variation % 15.2 % (11.5-15.5); Red Blood Count 3.36 m/uL (4.30-5.90); White Blood Count* 9.65 K/uL (4.50-11.00)
[2023-07-26 20:41] LABS: Slide Review Reflex No
[2023-07-26 20:49] LABS: Albumin* 2.8 g/dL (3.3-5.0); Chloride* 101 mmol/L (96-114); Potassium* 4.4 mmol/L (3.6-5.1); Sodium* 129 mmol/L (135-149)
[2023-07-26 20:51] LABS: Creatinine* 1.4 mg/dL (0.5-1.5); Est. Creatinine Clearance* 41.57; Estimated Glomerular Filt Rate 49 ml/min
[2023-07-26 20:52] LABS: Alanine Aminotransferase* 40 U/L (4-50); Alkaline Phosphatase* 348 U/L (40-150); Anion Gap 5 mEq/L (7-15); Aspartate Amino Transferase* 64 U/L (12-35); Bilirubin Total* 0.8 mg/dL (0.1-1.5); Blood Urea Nitrogen* 42 mg/dL (7-30); Calcium* 8.3 mg/dL (8.4-10.6); Carbon Dioxide* 23 mmol/L (20-32); Glucose* 122 mg/dL (60-115); Lipase* 186 U/L (23-300); Total Protein* 6.3 g/dL (6.0-8.3)
[2023-07-26 21:10] LABS: Mononuclear WBC Body Fluid* 89 %; Polynuclear WBC Body Fluid* 12 %; RBC, Body Fluid* 1000 Cells/uL; WBC, Body Fluid* 233 Cells/uL
[2023-07-26 21:13] LABS: BF Color Xanthochromic
[2023-07-26 21:15] LABS: BF Clarity* Clear
[2023-07-26 21:18] LABS: BF Total Volume* 10
--- OUTSIDE RECORDS SUMMARY | 2023-07-26 21:52 | XMS_ITS | Continuity of Care Document ---
Author Organization [facility] Address [address] [address] [place] [address] Phone Care Team Providers Care Cashier Tube Room Name Role Phone Lori Contreras Unavailable Unavailabl [...] - Active Procedures Procedure Date Offic/outpt E&m [facility] 2 Offic/outpt E&m [facility] Routine Serum Collection Advance Directives Directive Yes / No Effective Date File Name No Information Encounters Encounter Description Practice Location Reason(s) For Visit Diagnoses Date Provider Providers Copied on Encounter [facility], [address] [address], [place], [place], [address], [place] tel:[phone] [facility] No Information 4 Severino Sandoval . [address] [facility], [place], [place], [address] , [place]. tel: [phone] [facility], [address] [address], [place], [place], [address], [place] tel:[phone] [facility] Cirrhosis of liver with ascites, unspecified hepatic cirrhosis type 4 Severino Sandoval . [address] [facility], [place], [place], [address] , [place]. tel: [phone] [facility], [address] [address], [place], [place], [address], [place] tel:[phone] [facility] Other ascitesElevated alkaline phosphatase levelCirrhosis of liver with ascites, unspecified hepatic cirrhosis type 4 Severino Sandoval . [address] [facility], [place], [place], [address] , [place]. tel: [phone] [facility], [address] [address], [place], [place], [address], [place] tel:[phone] [facility] No Information 4 Severino Sandoval . [address] [facility], [place], [place], [address] , [place]. tel: [phone] Offic/outpt E&m [facility]-hi 2 [facility], [address] [address], [place], [place], [address], [place] tel:[phone] [facility] GI Symptoms or Concerns (chief complaint) Cirrhosis of liver with ascites, unspecified hepatic cirrhosis type Jun- 4 Severino Sandoval . [address] [facility], [place], [place], [address] , [place]. tel: [phone] Referring Provider: Referral Self, USE FOR SELF REFERRALS. [facility], [address] [address], [place], [place], [address], [place] tel:[phone] [facility] Cirrhosis of liver with ascites, unspecified hepatic cirrhosis type 4 Severino Sandoval . [address] [facility], [place], [place], [address] , [place]. tel: [phone] [facility], [address] [address], [place], [place], [address], [place] tel:[phone] [facility] No Information 4 Severino Sandoval . [address] [facility], [place], [place], [address] , [place]. tel: [phone] [facility], [address] [address], [place], [place], [address], [place] tel:[phone] [facility] Cirrhosis of liver with ascites, unspecified hepatic cirrhosis type 4 Severino Sandoval . [address] [facility], [place], [place], [address] , [place]. tel: [phone] [facility], [address] [address], [place], [place], [address], [place] tel:[phone] [facility] Cirrhosis of liver with ascites, unspecified hepatic cirrhosis type 4 Severino Sandoval . [address] [facility], [place], [place], [address] , [place]. tel: [phone] [facility], [address] [address], [place], [place], [address], [place] tel:[phone] [facility] Other ascites 4 Severino Sandoval . [address] [facility], [facility] [address], [place], [place], [address] , [place]. [phone] Offic/outpt E&m [facility], [address] [address], [place], [place], [address], [place] [phone] [facility] GI Symptoms or Concerns (chief complaint) Other cirrhosis of liverCirrhosis of liver with ascites, unspecified hepatic cirrhosis typeOther ascites 4 [facility] Lori . [address] [facility], [facility] [address], [place], [place], [address] , [place]. [phone] Referring Provider: Russ Fontenot, [address] [place] [address], [address]. tel:[phone] [facility], [address] [address], [place], [place], [address], [place] [phone] [facility] No Information 4 Robert Oneil. [address] [facility], [facility] [address], [place], [place], [address] , [place]. [phone] [facility] [place], [address] [address], [place], [place], [address], [place] [phone] [facility] No Information 3 Robert Oneil. [address] [facility], [facility] [address], [place], [place], [address] , [place]. [phone] Family History Family Member Type Diagnosis Age [...] Payer name Insurance type Covered democrat ID Authoriza tion(s) Blue Cross Medicare Advantage [id number] Social History Type Description Quantity Date Captured Comments Sex Male Smoking Status No Information Chief Complaint And Reason For Visit No Information Reason For Referral Reason For Referral No Information Plan Of Treatment Date Type Action Status Referral Ordered: follow-up visit First Available Appointment date/timeframe: First Available ordered Referral Ordered: Alk Phos Isoenzyme Appointment date/timeframe: 07/13/2023 ordered Referral Ordered: PT/INR, Whole Blood Appointment [...] A Ab Appointment date/timeframe: First Available ordered Appointment Scott Angela BOOKED History Of Present [...] the emergency room at [facility] on 02/16/2023. Patient presented with [...] on 03/06/2023 and underwent a paracentesis at [facility]- unfortunately I do not have all the [...]
--- OUTSIDE RECORDS SUMMARY | 2023-07-26 21:52 | XMS_ITS | Clinical Summary ---
Author Organization [facility] Address [address] [place] [address] Care Team Providers Care Heel Sewer Name Role Phone Russ Curran MD Primary Care Provider [phone] Source Comments You are receiving this document as you are listed as the primary care provider,follow-up provider, or the patient has been referred to you for consultation.This is in compliance with the Medicare and[facility] System[facility] EHR Incentive Program,which states Providers who transition their patient to another setting of careor provider of care or refers their patient to another provider of care shouldprovide summary care record for each transition of care or referral. [facility] Allergies Active Allergy Reactions Criticality Noted Date [...] Subscriber ID Effective Dates Phone Address Type [employer] DENTAL PLAN HP PREVENTIVE SR PREV ONEVISIT [id number] 2001-Pre sent Preventive MEDICARE MEDICARE MANAGED CARE HP [id number] 2011-Pre sent Medicare [employer] HP FREEDOM [id number] 2011-Pre sent Medicare [employer] DENTAL PLAN HP COMM FULLY INSURED DENTAL [id number] 2012-Pre sent Commercial Care Teams Heel Sewer Relationship Specialty Start Date End Date Russ Curran MD [address] [place] [address] PCP - General 09/18/15
--- OUTSIDE RECORDS SUMMARY | 2023-07-26 21:52 | XMS_ITS | Clinical Summary ---
Author Organization [employer] [facility] Address [place], [place] [address] Care Team Providers Care Gunnery/Ordnance Officer Name Role Phone Russ Curran MD Primary [...] Department Care Team Description 05/05/2023 Lab Requisition [facility] [phone] Russ Curran MD 05/03/2023 11:30 AM LETTER STAMPING MACHINE OPERATOR Office Visit [facility] [address] [place] [address] Atul Fortune, AuD Hearing Problem [...] Comments Blood Pressure 106/71 04/18/2012 1:43 PM LETTER STAMPING MACHINE OPERATOR Pulse 96 04/18/2012 1:43 PM LETTER STAMPING MACHINE OPERATOR Temperature 36.9 ??C (98.4 ??F) 11/21/2011 8:00 [...] history exists Medical Devices Implanted Type Area Photographers' Model Device Identifier Shelf Expiration Date Model / Serial / Lot Plate Ti [id number] 4 Holes Low Profile Neuro Box - [id number] Implanted:Qty: 1 on 11/07/2011 by Angel Marie MD at [facility] Left: Cranium J And J Depuy CMF 421.511# / / Gurley Hole Cover 17mm Jocelin Ti Low Profile Neuro - [id number] Implanted:Qty: 1 on 11/07/2011 by Angel Marie MD at [facility] Left: Cranium J And J Depuy CMF 421.527# / / Set Plating Synthes Matex Neuro Profile - [id number] Implanted:Qty: 14 on 11/07/2011 by Angel Marie MD at [facility] Left: Cranium J And J Depuy CMF 04.503.10 4.01# / / Screw 5mm Emergency Titnm Matrixneuro - [id number] Implanted:Qty: 1 on 11/07/2011 by Angel Marie MD at [facility] Left: Cranium J And J Depuy CMF 04.503.11 5.01# / / Shunt Gurley Hole Covre 17mm Implanted:Qty: 1 on 11/07/2011 at [facility] Left: Cranium 421.544 / / Description:SHUNT WILMA HOLE COVRE 17MM Set Plating Synthes Matex Neuro Profile - [id number] Implanted:Qty: 7 on 11/17/2011 at [facility] 04.503.10 4.01# / / Procedures Procedure Name Priority Date/Time Associated Diagnosis Comments LAB TRACKING EVENT Routine 05/05/2023 1: 17 PM LETTER STAMPING MACHINE OPERATOR PATH NON CRISIS INTERVENTION SPECIALIST CYTOLOGY Routine 05/05/2023 1:17 PM LETTER STAMPING MACHINE OPERATOR from Last 3 Months Results * LAB TRACKING EVENT (05/05/2023 1:17 PM LETTER STAMPING MACHINE OPERATOR) Other PERITONEAL FLUID SPECIMEN / Unknown Client Collect / Unknown 05/05/2023 1:17 PM LETTER STAMPING MACHINE OPERATOR 05/05/2023 9:58 PM LETTER STAMPING MACHINE OPERATOR Russ Curran MD LAB BILL ONLY [facility] [address] [place] [address], * PATH NON CRISIS INTERVENTION SPECIALIST CYTOLOGY (05/05/2023 1:17 PM LETTER STAMPING MACHINE OPERATOR) Case Report Medical Cytology Report ? Case: [id number] ? Authorizing Provider: ??Russ Curran MD ?Collected: ? 05/05/2023 1317 ? Ordering Location: ? [facility] ?Received: ?05/06/2023 0831 ? Pathologist: ? Danielle Melara ? MD Jovita ? Specimen: ?Peritoneal Fluid ? 05/08/2023 9:15 AM [facility] Final Diagnosis PERITONEAL FLUID, CYTOLOGIC MATERIAL: Negative for malignancy in this sample 05/08/2023 9:15 AM [facility] Clinical Information Not provided. 05/08/2023 9:15 AM [facility] Gross Description A) SOURCE: [...] more than 72 hours. 05/08/2023 9:15 AM [facility] Microscopic Description Specimen adequacy: Adequate for interpretation. All slides were reviewed. The microscopic appearance substantiates the diagnosis. 05/08/2023 9:15 AM [facility] Additional Information Cytology is screened at [facility] - [address], [place] [address] and [facility] - [address] [place] [address] and [facility] - [address] [place] [address] Interpreted at [facility] - [address], [place] [address] 05/08/2023 9:15 AM [facility] Other PERITONEAL FLUID SPECIMEN / Unknown 05/05/2023 1:17 PM LETTER STAMPING MACHINE OPERATOR 05/06/2023 8:31 AM LETTER STAMPING MACHINE OPERATOR Russ Curran MD PATHOLOGY/CYTOLOGY [facility] [address] [place] [address], from Last 3 Months Advance Directives * [...] 10:42 AM 06/21/2011 1:23 PM Care Teams Gunnery/Ordnance Officer Relationship Specialty Start Date End Date Russ Curran MD [address] [place] [address] PCP - General 06/14/11
[2023-07-26] MEDS: 0.9 % SODIUM CHLORIDE 500 ML 500 ML IV (22:34)
[2023-07-27 14:16] LABS: Albumin Body Fluid* < 1.0 gm/dL; Body Fluid Total Protein* < 2.0 gm/dL
== END 2023-07-26 23:47 | disposition home or self-care (01) ==
PROVIDERS: Emergency Provider Emergency Medicine; PCP Internal Medicine
DX: R18.8 Other ascites (principal)
CPT/HCPCS: 36415; 80053; 82042; 83690; 84157; 85025; 87070; 89051; 96365; 99284; J7030; P9047

== ENCOUNTER 2023-08-02 11:58 | Outpatient (CLI) | payer MEDICARE, SELFPAY ==
[2023-08-02 12:35] VITALS: BP 132/76; RESP 16; TEMP 36.7; O2SAT 87
[2023-08-02 12:45] VITALS: BP 121/68; PULSE 84; RESP 16; TEMP 36.7; O2SAT 100
[2023-08-02] MEDS: ALBUMIN HUMAN 25% 25 GM/100 ML VIAL IVPB (12:53)
[2023-08-02 13:00] VITALS: BP 101/67; PULSE 81; RESP 16; TEMP 36.7; O2SAT 99
[2023-08-02 13:15] VITALS: BP 113/63; PULSE 79; RESP 16; TEMP 36.7; O2SAT 99
[2023-08-02 13:30] VITALS: BP 106/50; PULSE 82; RESP 16; O2SAT 100
[2023-08-02 13:45] VITALS: BP 100/57; PULSE 84; RESP 16; O2SAT 100
--- NOTE | 2023-08-02 16:36 | P.PCN_ITS ---
Procedure Note Time Seen by Provider: 12:30 Date Seen: 08/02/23 Provider Contact Time: 16:37 Date of procedure: 08/02/23 Will [facility] bill your pro fee for this procedure?: Yes Pre-op diagnosis: Ascites Post-op diagnosis: same Procedure: Paracentesis Procedure Description: The patient the recumbent position I did localized to the ascites to the left lower quadrant. After explaining the risks and benefits I did sterilely prepare the area above the ascitic fluid. I then created anesthesia with 2% lidocaine without epinephrine. A 1 cm incision was made and catheter with needle was inserted. Once flow was directed to the syringe I did remove the needle and left the catheter in place removing 8700 mL of opaque fluid. He tolerated procedure well. Once flow stopped I did carefully removed the catheter in close the defect both with suture as well as Dermabond. Anesthesia: local Surgeon: Magdy Pathology: none sent Condition: stable Disposition: other
== END 2023-08-02 14:00 | disposition home or self-care (01) ==
LOC: US 11:58
PROVIDERS: PCP Internal Medicine; Visit Provider Internal Medicine
DX: R18.8 Other ascites (principal); Z98.890 Other specified postprocedural states
CPT/HCPCS: 49083; P9047

== ENCOUNTER 2023-08-05 22:00 | Outpatient (CLI) | payer MEDICARE, SELFPAY ==
--- OUTSIDE RECORDS SUMMARY | 2023-08-12 09:14 | XMS_ITS | Clinical Summary ---
Author Organization [employer] [facility] [employer] Address [place], [place] [address] Care Team Providers Care Registered Nurse Step Down Name Role Phone Russ Curran MD Primary [...] Description 08/09/2023 9:00 AM CDT Ancillary Procedure [facility] [address] [place] [address] Arrived 08/09/2023 Travel from Last 3 Months [...] Comments Blood Pressure 106/71 04/18/2012 1:43 PM MINI SHIFTER Pulse 96 04/18/2012 1:43 PM MINI SHIFTER Temperature 36.9 ??C (98.4 ??F) 11/21/2011 8:00 [...] history exists Medical Devices Implanted Type Area Brand Marketing Coordinator Device Identifier Shelf Expiration Date Model / Serial / Lot Plate Ti [id number] 4 Holes Low Profile Neuro Box - [id number] Implanted:Qty: 1 on 11/07/2011 by Angel Marie MD at [facility] Left: Cranium J And J Depuy CMF 421.511# / / [place] Hole Cover 17mm Jocelin Ti Low Profile Neuro - [id number] Implanted:Qty: 1 on 11/07/2011 by Angle Marie MD at [facility] Left: Cranium J And J Depuy CMF 421.527# / / Set Plating Synthes Matex Neuro Profile - [id number] Implanted:Qty: 14 on 11/07/2011 by Angel Marie MD at [facility] Left: Cranium J And J Depuy CMF 04.503.10 4.01# / / Screw 5mm Emergency Titnm Matrixneuro - [id number] Implanted:Qty: 1 on 11/07/2011 by Angel Marie MD at [facility] Left: Cranium J And J Depuy CMF 04.503.11 5.01# / / Shunt [place] Hole Covre 17mm Implanted:Qty: 1 on 11/07/2011 at [facility] Left: Cranium 421.544 / / Description:[place]UN[place] HOLE COVRE 17MM Set Plating Synthes Matex Neuro Profile - [id number] Implanted:Qty: 7 on 11/17/2011 at [facility] 04.503.10 4.01# / / Procedures Procedure Name [...] AM CDT ECHOCARDIOGRAM SCOTT MARTIN ?Accession#: ?? [id number] : ?1935 87 years Study Date: ?? [...] . This study was interpreted by an [facility] accredited facility. CC: [facility] ([facility]. ??Final ?? Procedure Note Champ [...] 10:42 AM 06/21/2011 1:23 PM Care Teams Registered Nurse Step Down Relationship Specialty Start Date End Date Russ Curran MD [address] [place], [place] [id number] PCP - General 06/14/11
--- OUTSIDE RECORDS SUMMARY | 2023-08-12 09:14 | XMS_ITS | Clinical Summary ---
Author Organization [facility] Address [address] [place] [address] Care Team Providers Care Water Resource Specialist Name Role Phone Russ Curran MD Primary Care Provider +1- [phone] Source Comments You are receiving this document as you are listed as the primary care provider,follow-up provider, or the patient has been referred to you for consultation.This is in compliance with the Medicare andOhio[facility] Hospitalcaid EHR Incentive Program,which states Providers who transition their patient to another setting of careor provider of care or refers their patient to another provider of care shouldprovide summary care record for each transition of care or referral. [facility] Allergies Active Allergy Reactions Criticality Noted Date [...] to complete this topic Care Teams Water Resource Specialist Relationship Specialty Start Date End Date Russ Curran MD [address] [place] [address] PCP - General 09/18/15
== END 2023-08-05 22:01 | disposition home or self-care (01) ==
LOC: AMB 08-12 09:12
PROVIDERS: PCP Internal Medicine; Visit Provider Internal Medicine
DX: R53.1 Weakness (principal)
CPT/HCPCS: A0998

== ENCOUNTER 2023-08-07 10:58 | Outpatient (CLI) | payer MEDICARE, SELFPAY ==
--- NOTE | 2023-08-07 11:00 | CRLHL7_ITS ---
For Patients: As a result of the Century Cures Act, medical imaging exams and procedure reports are released immediately into your electronic medical record. You may view this report before your referring provider. If you have questions, please contact your health care provider. INDICATION: Cirrhosis and ascites TECHNIQUE: Color-flow and pulsed Doppler of the portal vein, hepatic veins and hepatic artery. COMPARISON: None. FINDINGS: A cirrhotic liver is demonstrated as well as ascites. There is hepatopetal portal vein flow. An angle corrected velocity of flow in the portal vein was not obtained. The hepatic veins are patent and demonstrate hepatofugal flow and grossly normal waveforms. The hepatic artery is also patent and demonstrates grossly normal waveforms. IMPRESSION: 1. Liver Doppler findings, as above. 2. Cirrhosis and ascites. Dictated by Bert Granados MD @ 08/08/2023 7:03:34 PM (Electronically Signed)
--- OUTSIDE RECORDS SUMMARY | 2023-08-07 11:01 | XMS_ITS | Clinical Summary ---
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 Immunizations Name Administration Dates Next Due Hepatitis [...] Comments Blood Pressure 106/71 04/18/2012 1:43 PM DIGITAL COMPUTER SYSTEMS ANALYST Pulse 96 04/18/2012 1:43 PM DIGITAL COMPUTER SYSTEMS ANALYST Temperature 36.9 ??C (98.4 ??F) 11/21/2011 8:00 [...] 11/05/2023 01/03/2007, 006 COVID-19 vaccine series Completed 12/23/19 23, 07/20/2021, 04/26/2020, Additional history exists Medical Devices Implanted Type Area Coating And Embossing Unit Operator Device Identifier Shelf Expiration Date Model / Serial / Lot Plate Ti [id number] 4 Holes Low Profile Neuro Box - [id number] Implanted:Qty: 1 on 11/07/2011 by Angel Marie MD at [facility] Left: Cranium J And J Depuy CMF 421.511# / / [place] Hole Cover 17mm Jocelin Ti Low Profile Neuro - [id number] Implanted:Qty: 1 on 11/07/2011 by Angel Marie MD at [facility] Left: Cranium J And J Depuy CMF 421.527# / / Set Plating Synthes Matex Neuro Profile - [id number] Implanted:Qty: 14 on 11/07/2011 by Angel Marie MD at [facility] Left: Cranium J And J Depuy CMF 04.503.10 4.01# / / Screw 5mm Emergency Titnm Matrixneuro - [id number] Implanted:Qty: 1 on 11/07/2011 by Angel Marie MD at [facility] Left: Cranium J And J Depuy CMF 04.503.11 5.01# / / Shunt [place] Hole Covre 17mm Implanted:Qty: 1 on 11/07/2011 at [facility] Left: Cranium 421.544 / / Description:SHUN[place] HOLE COVRE 17MM Set Plating Synthes Matex Neuro Profile - [id number] Implanted:Qty: 7 on 11/17/2011 at [facility] 04.503.10 4.01# / / Advance Directives * Full Code (Latest Code [...] 10:42 AM 06/21/2011 1:23 PM Care Teams Warehouse Incentive Selector Relationship Specialty Start Date End Date Russ Curran MD [address] [place] [address] PCP - General 06/14/11
--- OUTSIDE RECORDS SUMMARY | 2023-08-07 11:01 | XMS_ITS | Clinical Summary ---
Author Organization [facility] Address [address] [place] [address] Care Team Providers Care Plant Breeder Scientist Name Role Phone Russ Curran MD Primary Care Provider [phone]- [phone] Source Comments You are receiving this document as you are listed as the primary care provider,follow-up provider, or the patient has been referred to you for consultation.This is in compliance with the Medicare and[facility] Hospital[facility] EHR Incentive Program,which states Providers who transition their patient to another setting of careor provider of care or refers their patient to another provider of care shouldprovide summary care record for each transition of care or referral. [facility] Allergies Active Allergy Reactions Criticality Noted Date [...] age to complete this topic Care Teams Plant Breeder Scientist Relationship Specialty Start Date End Date Russ Curran MD [address] [place] [address] PCP - General 09/18/15
== END 2023-08-07 10:59 | disposition home or self-care (01) ==
LOC: RAD 10:59
PROVIDERS: PCP Internal Medicine; Visit Provider Physician Assistant
DX: R18.8 Other ascites (principal); K74.60 Unspecified cirrhosis of liver
CPT/HCPCS: 76705; 93975

== ENCOUNTER 2023-08-09 09:01 | Outpatient (CLI) | payer MEDICARE, SELFPAY | END 2023-08-09 09:02 | disposition home or self-care (01) | LOC: RAD 09:01 | PROVIDERS: PCP Internal Medicine; Visit Provider Physician Assistant | DX: R18.8 Other ascites (principal); I07.1 Rheumatic tricuspid insufficiency | CPT/HCPCS: 93306 ==

== ENCOUNTER 2023-08-11 12:17 | Outpatient (CLI) | payer MEDICARE, SELFPAY ==
[2023-08-11 12:19] VITALS: BP 97/61; PULSE 86; RESP 16; O2SAT 98
--- OUTSIDE RECORDS SUMMARY | 2023-08-11 12:20 | XMS_ITS | Clinical Summary ---
Author Organization [employer] [facility] [employer] [facility] Address [place], [place] [address] Care Team Providers Care Storage Battery Inspector Name Role Phone Russ Curran MD [...] Encounters Date Type Department Care Team Description 08/09/2023 9:00 AM CDT Ancillary Procedure [facility] [address] [place] [address] Arrived 08/09/2023 Travel from Last 3 Months Immunizations Name [...] Comments Blood Pressure 106/71 04/18/2012 1:43 PM DIRECTOR TELECOMMUNICATIONS Pulse 96 04/18/2012 1:43 PM DIRECTOR TELECOMMUNICATIONS Temperature 36.9 ??C (98.4 ??F) 11/21/2011 8:00 [...] history exists Medical Devices Implanted Type Area Power Regulator Device Identifier Shelf Expiration Date Model / Serial / Lot Plate Ti [id number] 4 Holes Low Profile Neuro Box - [id number] Implanted:Qty: 1 on 11/07/2011 by Angel Marie MD at [facility] Left: Cranium J And J Depuy CMF 421.511# / / [place] Hole Cover 17mm Jocelin Ti Low Profile Neuro - [id number] Implanted:Qty: 1 on 11/07/2011 by Angel Marie MD at [facility] Left: Cranium J And J Depuy CMF 421.527# / / Set Plating Synthes Matex Neuro Profile - [id number] Implanted:Qty: 14 on 11/07/2011 by Angel Marie MD at [facility] Left: Cranium J And J Depuy CMF 04.503.10 4.01# / / Screw 5mm Emergency Titnm Matrixneuro - [id number] Implanted:Qty: 1 on 11/07/2011 by Angel Marie MD at [facility] Left: Cranium J And J Depuy CMF 04.503.11 5.01# / / Shunt [place] Hole Covre 17mm Implanted:Qty: 1 on 11/07/2011 at [facility] Left: Cranium 421.544 / / Description:SHUN[place] HOLE COVRE 17MM Set Plating Synthes Matex Neuro Profile - [id number] Implanted:Qty: 7 on 11/17/2011 at [facility] 04.503.10 4.01# / / Procedures Procedure Name Priority Date/Time Associated Diagnosis Comments ECHO TTE COMPLETE WO CONTRAST Routine 08/09/2023 9:59 AM CDT Other ascites from Last 3 Months Results * ECHO TTE COMPLETE WO CONTRAST (08/09/2023 9:59 AM CDT) AORTIC VALVE MEAN PG 5 mmHg EJECTION FRACTION 67 % PEAK TR VELOCITY 2.5 m/s LVEDD 3.9 cm EJECTION FRACTION > 75% Anatomical Region Laterality Modality Ultrasound 08/09/2023 9:24 AM CDT Narrative 08/09/2023 10:31 AM CDT ECHOCARDIOGRAM SCOTT MARTIN ?Accession#: ?? [id number] : ?1935 87 years Study Date: ?? 08/09/2023 9:24:40 AM Gender: M ? BP: ? 103/67 mmHg Height: 180.00 cm ? BSA: ?2.19 m? ? ? Weight: 99.00 kg ?Tech: ? MSR ?Referring MD: MARTINA HUYNH Site: ? [facility] Reading Location: Mobile OP Patient Location: Outpatient. Procedure: 2D, Color Doppler and Spectral Doppler. Indication for study: Other ascites Cardiac Rhythm: Regular.Study quality: Final Impressions: 1. Normal LV size, normal wall thickness, hyperdynamic global systolic function with an estimated EF of > 75%. 2. Right ventricular cavity size is moderately enlarged, global systolic RV function is normal. 3. The aortic valve is trileaflet and sclerotic, no stenosis and no regurgitation. 4. Mild-moderate tricuspid regurgitation. 5. The inferior vena cava is normal sized, respiratory size variation greater than 50%. 6. Normal estimated pulmonary pressures by tricuspid regurgitation velocity and right atrial pressure (26 mmHg plus RAP). 7. The ascending aorta is normal for age/sex/bsa with a maximal diameter of 3.9 cm. Chamber Sizes and Function Normal left ventricular size, normal wall thickness, hyperdynamic global systolic function with an estimated EF of > 75%. Left atrial size is normal. Left atrial pressure is normal. Right ventricular cavity size is moderately enlarged, global systolic RV function is normal. The right atrium is normal. The pulmonary artery is not well visualized. The sinus of Valsalva is normal sized. The ascending aorta is normal for age/sex/bsa. Valves, RV Pressures and Diastolic Function The aortic valve is trileaflet and sclerotic, no stenosis and no regurgitation. The mitral valve is normal in structure, trace mitral regurgitation. Spectral Doppler shows Grade 1 pattern of LV diastolic filling. The tricuspid valve is normal in structure. Tricuspid regurgitation is mild-moderate. The tricuspid regurgitant velocity is 2.5 m/s, the estimated right ventricular systolic pressure is 26 mmHg plus right atrial pressure. There is normal estimated pulmonary pressure by tricuspid regurgitation velocity and right atrial pressure. The pulmonic valve is normal. No pulmonary regurgitation. Masses, Effusion, Shunts There is no pericardial effusion. The inferior vena cava is normal sized, respiratory size variation greater than 50%. No left to right shunting was detected by limited color flow Doppler interrogation of the interatrial septum. MEASUREMENTS AND CALCULATIONS 2-D Measurements and LV Function: LVID (d) 3.9 cm LV FS% (2D) ?? 29 % LVID (s) 2.8 cm LVOT diameter 2.4 cm IVS (d) ??1.0 cm HR ?85 bpm LVPW (d) 0.9 cm LA Vol index ??15 ml/m2 Ao Sinus 3.6 cm RV Max 4C (d) 5.0 cm Asc Ao ?? 3.9 cm Diastology: Mitral ?Tissue Doppler E Peak 0.6 m/s ??e', Septum ? 0.08 m/s A Peak 1.0 m/s ??e', Lateral ?0.11 m/s E/A ?0.6 ?E/e' Average ?? 6.12 DT ? 219 msec Aortic Valve: Vmax ? 1.4 m/s ??ORLANDO (V) ?? 3.89 cm? ? ? VTI ?0.26 m ?? ORLANDO (I) ?? 3.88 cm? ? ? LVOT V max 1.3 m/s ??Max PG ?8 mmHg LVOT VTI ?? 0.23 m ?? Mean PG ?? 5 mmHg SV ? 101 ml ?? Dim Index 0.87 SV index ?? 46 ml/m? ? ? CO ?8.5 l/min ?CI ?3.9 l/min/m? ? ? Mitral Valve: MVA ? 3.5 cm? ? ? MV P 1/2 ??64 msec MV Mean G 1 mmHg MV VTI ?0.19 m Tricuspid Valve and estimated PA pressures: TR Vmax 2.5 m/s TAPSE 2.4 cm TR maxG 26 mmHg . This study was interpreted by an [facility] accredited facility. CC: [facility]. ??Final ?? Procedure Note Champ Raygoza MD - 08/09/2023 ECHOCARDIOGRAM SCOTT MARTIN : 1935 87 years Study Date: 08/09/2023 9:24:40 AM Gender: M BP: 103/67 mmHg Height: 180.00 cm BSA: 2.19 m? ? ? Weight: 99.00 kg Tech: R Referring MD: MARTINA HUYNH Site: [facility] Reading Location: Mobile OP Patient Location: Outpatient. Procedure: 2D, Color Doppler and Spectral Doppler. Indication for study: Other ascites Cardiac Rhythm: Regular.Study quality: Final Impressions: 1. Normal LV size, normal wall thickness, hyperdynamic global systolicfunction with an estimated EF of > 75%. 2. Right ventricular cavity size is moderately enlarged, global systolicRV function is normal. 3. The aortic valve is trileaflet and sclerotic, no stenosis and noregurgitation. 4. Mild-moderate tricuspid regurgitation. 5. The inferior vena cava is normal sized, respiratory size variationgreater than 50%. 6. Normal estimated pulmonary pressures by tricuspid regurgitationvelocity and right atrial pressure (26 mmHg plus RAP). 7. The ascending aorta is normal for age/sex/bsa with a maximal diameterof 3.9 cm. Chamber Sizes and Function Normal left ventricular size, normal wall thickness, hyperdynamic globalsystolic function with an estimated EF of > 75%. Left atrial size isnormal. Left atrial pressure is normal. Right ventricular cavity size ismoderately enlarged, global systolic RV function is normal. The rightatrium is normal. The pulmonary artery is not well visualized. The sinusof Valsalva is normal sized. The ascending aorta is normal forage/sex/bsa. Valves, RV Pressures and Diastolic Function The aortic valve is trileaflet and sclerotic, no stenosis and noregurgitation. The mitral valve is normal in structure, trace mitralregurgitation. Spectral Doppler shows Grade 1 pattern of LV diastolicfilling. The tricuspid valve is normal in structure. Tricuspidregurgitation is mild-moderate. The tricuspid regurgitant velocity is 2.5m/s, the estimated right ventricular systolic pressure is 26 mmHg plusright atrial pressure. There is normal estimated pulmonary pressure bytricuspid regurgitation velocity and right atrial pressure. The pulmonicvalve is normal. No pulmonary regurgitation. Masses, Effusion, Shunts There is no pericardial effusion. The inferior vena cava is normal sized,respiratory size variation greater than 50%. No left to right shunting wasdetected by limited color flow Doppler interrogation of the interatrialseptum. MEASUREMENTS AND CALCULATIONS 2-D Measurements and LV Function: LVID (d) 3.9 cm LV FS% (2D) 29 % LVID (s) 2.8 cm LVOT diameter 2.4 cm IVS (d) 1.0 cm HR 85 bpm LVPW (d) 0.9 cm LA Vol index 15 ml/m2 Ao Sinus 3.6 cm RV Max 4C (d) 5.0 cm Asc Ao 3.9 cm Diastology: Mitral Tissue Doppler E Peak 0.6 m/s e', Septum 0.08 m/s A Peak 1.0 m/s e', Lateral 0.11 m/s E/A 0.6 E/e' Average 6.12 DT 219 msec Aortic Valve: Vmax 1.4 m/s ORLANDO (V) 3.89 cm? ? ? VTI 0.26 m ORLANDO (I) 3.88 cm? ? ? LVOT V max 1.3 m/s Max PG 8 mmHg LVOT VTI 0.23 m Mean PG 5 mmHg SV 101 ml Dim Index 0.87 SV index 46 ml/m? ? ? CO 8.5 l/min CI 3.9 l/min/m? ? ? Mitral Valve: MVA 3.5 cm? ? ? MV P 1/2 64 msec MV Mean G 1 mmHg MV VTI 0.19 m Tricuspid Valve and estimated PA pressures: TR Vmax 2.5 m/s TAPSE 2.4 cm TR maxG 26 mmHg . This study was interpreted by an [facility] accredited facility. CC: [facility] (med records) [facility]. Final Martina COOL ECHO ORD from Last 3 Months Advance Directives * [...] 10:42 AM 06/21/2011 1:23 PM Care Teams Storage Battery Inspector Relationship Specialty Start Date End Date Russ Curran MD [address] [place], [place] [id number] PCP - General 06/14/11
--- OUTSIDE RECORDS SUMMARY | 2023-08-11 12:20 | XMS_ITS | Clinical Summary ---
Author Organization [facility] Address [address] [place] [address] Care Team Providers Care Favor Maker Name Role Phone Russ Curran MD Primary Care Provider [phone]- [phone] Source Comments You are receiving this document as you are listed as the primary care provider,follow-up provider, or the patient has been referred to you for consultation.This is in compliance with the Medicare andA[facility] Health Systemcaid EHR Incentive Program,which states Providers who transition their patient to another setting of careor provider of care or refers their patient to another provider of care shouldprovide summary care record for each transition of care or referral. [facility] Allergies Active Allergy Reactions Criticality Noted Date [...] age to complete this topic Care Teams Favor Maker Relationship Specialty Start Date End Date Russ Curran MD [address] [place] [address] PCP - General 09/18/15
[2023-08-11 12:30] VITALS: BP 88/48; PULSE 87; RESP 16; O2SAT 99
[2023-08-11 12:45] VITALS: BP 88/50; PULSE 84; RESP 16; O2SAT 99
[2023-08-11 13:00] VITALS: BP 105/66; PULSE 79; RESP 16; O2SAT 99
--- NOTE | 2023-08-11 13:04 | PM.PROC ---
Procedure Note Time Seen by Provider: 12:30 Date Seen: 08/11/23 Provider Contact Time: 12:30 Date of procedure: 08/11/23 Will [facility] bill your pro fee for this procedure?: Yes Pre-op diagnosis: Ascites Post-op diagnosis: same Procedure: With the patient in the recumbent position we did localize a large amount of ascites with ultrasound into the Right Lower Quadrant. I then created a sterile field after which I injected 1% lidocaine subcutaneously. A 1 cm incision was made through which a paracentesis catheter and needle were inserted. Once flow was noted, the needle was removed and flow was directed to 4 1 Liter vacutainer bottles. Once flow stopped, the catheter was removed and the defect was closed with 3-0 vicryl and dermabond. Instructions were given. Procedure Description: Paracentesis Anesthesia: none Estimated blood loss (mL): 2 Pathology: none sent Condition: stable Disposition: other
[2023-08-11 13:15] VITALS: BP 95/58; PULSE 78; RESP 16; O2SAT 99
[2023-08-11 13:30] VITALS: BP 95/55; PULSE 62; RESP 20; O2SAT 99
== END 2023-08-11 13:48 | disposition home or self-care (01) ==
PROVIDERS: PCP Internal Medicine; Referring Provider Physician Assistant; Visit Provider Internal Medicine
DX: R18.8 Other ascites (principal); K74.60 Unspecified cirrhosis of liver
CPT/HCPCS: 49083; P9047

== ENCOUNTER 2023-08-16 10:57 | Outpatient (CLI) | payer MEDICARE, SELFPAY ==
--- OUTSIDE RECORDS SUMMARY | 2023-08-16 10:59 | XMS_ITS | Clinical Summary ---
Author Organization [facility] Address [place], [place] [address] Care Team Providers Care Human Resource Advisor Name Role Phone Russ Curran MD Primary [...] 08/09/2023 9:00 AM CDT Ancillary Procedure [facility] [address] [place] [address] 08/09/2023 Travel from Last 3 Months Immunizations [...] Comments Blood Pressure 106/71 04/18/2012 1:43 PM MACHINE SAND MIXER Pulse 96 04/18/2012 1:43 PM MACHINE SAND MIXER Temperature 36.9 ??C (98.4 ??F) 11/21/2011 8:00 [...] 3) 05/23/2007 03/28/2007 Tetanus booster 01/16/2013 01/16/2003 COVID-19 vaccine series ( season) 2023 12/22/2022, 07/20/2021, 04/26/2020, Additional history exists Influenza for age 65+ 11/05/2023 01/03/2007, 006 Medical Devices Implanted Type Area Environmental Aid Device Identifier Shelf Expiration Date Model / Serial / Lot Plate Ti [id number] 4 Holes Low Profile Neuro Box - [id number] Implanted:Qty: 1 on 11/07/2011 by Angel Marie MD at [facility] Left: Cranium J And J Depuy CMF 421.511# / / Wilma Hole Cover 17mm Jocelin Ti Low Profile Neuro - [id number] Implanted:Qty: 1 on 11/07/2011 by Angel Marie MD at [facility] Left: Cranium J And J Depuy CMF 421.527# / / Set Plating Synthes Matex Neuro Profile - [id number] Implanted:Qty: 14 on 11/07/2011 by Angel Marie MD at [facility] Left: Cranium J And J Depuy CMF 04.503.10 4.01# / / Screw 5mm Emergency Titnm Matrixneuro - [id number] Implanted:Qty: 1 on 11/07/2011 by Angel Mraie MD at [facility] Left: Cranium J And J Depuy CMF 04.503.11 5.01# / / Shunt [place] Hole Covre 17mm Implanted:Qty: 1 on 11/07/[address] [facility] Left: Cranium 421.544 / / Description:SHUNT WILMA HOLE COVRE 17MM Set Plating Synthes Matex Neuro Profile - [id number] Implanted:Qty: 7 on 11/17/[address] [facility] 04.503.10 4.01# / / Procedures Procedure Name [...] AM CDT ECHOCARDIOGRAM SCOTT MARTIN ?Accession#: ?? [id number] : ?1935 87 years Study Date: ?? 08/09/2023 9:24:40 AM Gender: M ? BP: ? 103/67 mmHg Height: 180.00 cm ? BSA: ?2.19 m? ? ? Weight: 99.00 kg ?Tech: ? MSR ?Referring MD: MARTINA HUYNH Site: ? [facility] Reading Location: Mobile OP Patient [...] . This study was interpreted by an [facility] accredited facility. CC: HIM (med [facility]) [facility]. ??Final ?? Procedure Note Champ Raygoza MD - 08/09/2023 ECHOCARDIOGRAM SCOTT MARTIN : 1935 87 years Study Date: 08/09/2023 9:24:40 AM Gender: M BP: 103/67 mmHg Height: 180.00 cm BSA: 2.19 m? ? ? Weight: 99.00 kg Tech: MSR Referring MD: MARTINA HUYNH Site: [facility] Reading Location: Mobile OP Patient [...] IAC accredited facility. CC: [facility] (med records) [facility]. Final Martina COOL ECHO ORD from Last [...] 10:42 AM 06/21/2011 1:23 PM Care Teams Human Resource Advisor Relationship Specialty Start Date End Date Russ Curran MD [address] [place] [address] PCP - General 06/14/11
--- OUTSIDE RECORDS SUMMARY | 2023-08-16 10:59 | XMS_ITS | Clinical Summary ---
Author Organization [facility] [employer] [facility] Address [address] [place] [address] Care Team Providers Care Alining Inspector Name Role Phone Russ Curran MD Primary Care Provider +1- [phone] Source Comments You are receiving this document as you are listed as the primary care provider,follow-up provider, or the patient has been referred to you for consultation.This is in compliance with the Medicare andSt[facility] EHR Incentive Program,which states Providers who transition their patient to another setting of careor provider of care or refers their patient to another provider of care shouldprovide summary care record for each transition of care or referral. [facility] Allergies Active Allergy Reactions Criticality Noted [...] age to complete this topic Care Teams Alining Inspector Relationship Specialty Start Date End Date Russ Curran MD [address] [place] [address] PCP - General 09/18/15
--- NOTE | 2023-08-16 11:15 | CRLHL7_ITS ---
For Patients: As a result of the Century Cures Act, medical imaging exams and procedure reports are released immediately into your electronic medical record. You may view this report before your referring provider. If you have questions, please contact your health care provider. INDICATION: Left lower leg edema TECHNIQUE: Ultrasound venous duplex lower extremity bilateral. Compression venous exam was performed using bonds-scale, color Doppler, and spectral Doppler imaging. COMPARISON: None. FINDINGS: Sonographic imaging demonstrates the common femoral, deep femoral, superficial femoral, popliteal, posterior tibial and greater saphenous veins to be fully compressible with normal color Doppler blood flow in both lower extremities. IMPRESSION: Normal bilateral lower extremity venous ultrasound, no sign of deep venous thrombosis. Dictated by Doe Donnelly MD @ 08/16/2023 12:01:53 PM (Electronically Signed)
== END 2023-08-16 10:58 | disposition home or self-care (01) ==
PROVIDERS: PCP Internal Medicine; Visit Provider Physician Assistant
DX: R60.0 Localized edema
CPT/HCPCS: 93970

== ENCOUNTER 2023-08-22 12:08 | Outpatient (CLI) | payer MEDICARE, SELFPAY ==
--- OUTSIDE RECORDS SUMMARY | 2023-08-22 12:11 | XMS_ITS | Clinical Summary ---
Author Organization [facility] Address [address] [place] [address] Care Team Providers Care Improvement Manager Name Role Phone Russ Curran MD Primary Care Provider +1- [phone] Source Comments You are receiving this document as you are listed as the primary care provider,follow-up provider, or the patient has been referred to you for consultation.This is in compliance with the Medicare and[facility] Hospital[facility] EHR Incentive Program,which states Providers who transition their patient to another setting of careor provider of care or refers their patient to another provider of care shouldprovide summary care record for each transition of care or referral. [facility] Allergies Active Allergy Reactions Criticality Noted Date [...] age to complete this topic Care Teams Improvement Manager Relationship Specialty Start Date End Date Russ Curran MD [address] [place] [address] PCP - General 09/18/15
--- OUTSIDE RECORDS SUMMARY | 2023-08-22 12:11 | XMS_ITS | Clinical Summary ---
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 Pulse 96 04/18/2012 1:43 PM DONOR CENTER TECHNICIAN Temperature 36.9 ??C (98.4 ??F) 11/21/2011 8:00 [...] 01/03/2007, 006 Medical Devices Implanted Type Area Irrigation System Installer Device Identifier Shelf Expiration Date Model / Serial / Lot Plate Ti [id number] 4 Holes Low Profile Neuro Box - [id number] Implanted:Qty: 1 on 11/07/2011 by Angel Marie MD at [facility] Left: Cranium J And J Depuy CMF 421.511# / / Wilma Hole Cover 17mm Jocelin Ti Low Profile Neuro - [id number] Implanted:Qty: 1 on 11/07/2011 by Angel Marie MD at [facility] Left: Cranium J And J Depuy CMF 421.527# / / Set Plating Synthes Matex Neuro Profile - [id number] Implanted:Qty: 14 on 11/07/2011 by Angel Marie MD at [facility] Left: Cranium J And J Depuy CMF 04.503.10 4.01# / / Screw 5mm Emergency Titnm Matrixneuro - [id number] Implanted:Qty: 1 on 11/07/2011 by Angel Marie MD at [facility] Left: Cranium J And J Depuy CMF 04.503.11 5.01# / / Shunt Wilma Hole Covre 17mm Implanted:Qty: 1 on 11/07/2011 at [facility] Left: Cranium 421.544 / / Description:SHUNT WILMA HOLE COVRE 17MM Set Plating Synthes Matex Neuro Profile - [id number] Implanted:Qty: 7 on 11/17/2011 at [facility] 04.503.10 4.01# / / Procedures Procedure Name [...] AM CDT ECHOCARDIOGRAM SCOTT MARTIN ?Accession#: ?? [id number] : ?1935 87 years Study Date: ?? 08/09/2023 9:24:40 AM Gender: M ? BP: ? 103/67 mmHg Height: 180.00 cm ? BSA: ?2.19 m? ? ? Weight: 99.00 kg ?Tech: ? MSR ?Referring MD: MARTINA HUYNH Site: ? [facility] Reading Location: Mobile OP Patient [...] . This study was interpreted by an [facility] accredited facility. CC: HIM (med [facility]) [facility]. ??Final ?? Procedure Note Champ Raygoza MD - 08/09/2023 ECHOCARDIOGRAM SCOTT MARTIN : 1935 87 years Study Date: 08/09/2023 9:24:40 AM Gender: M BP: 103/67 mmHg Height: 180.00 cm BSA: 2.19 m? ? ? Weight: 99.00 kg Tech: MSR Referring MD: MARTINA HUYNH Site: [facility] Reading Location: Mobile OP Patient [...] IAC accredited facility. CC: [facility] (med records) [facility]. Final Martina COOL ECHO ORD from Last [...] 10:42 AM 06/21/2011 1:23 PM Care Teams Insurance Policy Issue Clerk Relationship Specialty Start Date End Date Russ Curran MD [address] [place] [address] PCP - General 06/14/11
[2023-08-22 12:15] VITALS: BP 102/65; PULSE 89; RESP 20; O2SAT 99
[2023-08-22 12:35] VITALS: BP 106/65; PULSE 99; RESP 18; O2SAT 95
[2023-08-22 12:45] VITALS: BP 100/62; PULSE 82; RESP 16; O2SAT 99
[2023-08-22 12:55] VITALS: BP 100/5; PULSE 82; RESP 18; O2SAT 100
[2023-08-22 13:03] VITALS: BP 102/53; PULSE 85; RESP 18; O2SAT 100
--- NOTE | 2023-08-22 13:10 | P.PCN_ITS ---
Procedure Note Time Seen by Provider: 13:11 Date Seen: 08/22/23 Provider Contact Time: 13:11 Date of procedure: 08/22/[address] [facility] bill your pro fee for this procedure?: Yes Pre-op diagnosis: Ascites Post-op diagnosis: same Procedure: paracentesis Procedure Description: after explaining the risks and benefits of the procedure and obtaining informed consent I had the patient on the recumbent position after which I localized to large amount of sites the right lower quadrant With ultrasound. The air was prepped and draped in the usual sterile fashion and after which I did provide local anesthesia with 1% lidocaine without epinephrine. I then made a 1 cm incision through which answer the paracentesis needle and catheter into the peritoneal space. Flow was then directed to series of back 10 years until 5500 mL of yellow fluid was removed. Once flow stopped I did remove the catheter and closed the defect with pursestring sutures as well as Dermabond. He is instructed on wound care will follow-up with u repeat paracentesis likely in 10 days. Anesthesia: local Estimated blood loss (mL): 3 Condition: stable Disposition: other
== END 2023-08-22 13:34 | disposition home or self-care (01) ==
LOC: US 12:08
PROVIDERS: PCP Internal Medicine; Visit Provider Internal Medicine
DX: K74.60 Unspecified cirrhosis of liver (principal); R74.8 Abnormal levels of other serum enzymes; R60.0 Localized edema
CPT/HCPCS: 49083; P9047

== ENCOUNTER 2023-09-01 11:09 | Outpatient (CLI) | payer MEDICARE, SELFPAY ==
--- OUTSIDE RECORDS SUMMARY | 2023-09-01 11:12 | XMS_ITS | Clinical Summary ---
Author Organization [facility] Address [place], [place] [address] Care Team Providers Care Due Diligence Coordinator Name Role Phone Russ Curran MD Primary [...] Description 08/09/2023 9:00 AM CDT [facility]illary [facility] [address] [place] [address] 08/09/2023 Travel from Last 3 Months Immunizations [...] Comments Blood Pressure 106/71 04/18/2012 1:43 PM HEATER ROOM HELPER Pulse 96 04/18/2012 1:43 PM HEATER ROOM HELPER Temperature 36.9 ??C (98.4 ??F) 11/21/2011 [...] 01/03/2007, 006 Medical Devices Implanted Type Area Loan Servicing Representative Device Identifier Shelf Expiration Date Model / Serial / Lot Plate Ti [id number] 4 Holes Low Profile Neuro Box - [id number] Implanted:Qty: 1 on 11/07/2011 by Angel Marie MD at [facility] Left: Cranium J And J Depuy CMF 421.511# / / Wilma Hole Cover 17mm Jocelin Ti Low Profile Neuro - [id number] Implanted:Qty: 1 on 11/07/2011 by Angel Marie MD at [facility] Left: Cranium J And J Depuy CMF 421.527# / / Set Plating Synthes Matex Neuro Profile - [id number] Implanted:Qty: 14 on 11/07/2011 by Angel Marie MD at [facility] Left: Cranium J And J Depuy CMF 04.503.10 4.01# / / Screw 5mm Emergency Titnm Matrixneuro - [id number] Implanted:Qty: 1 on 11/07/2011 by Angel Marie MD at [facility] Left: Cranium J And J Depuy CMF 04.503.11 5.01# / / Shunt Wilma Hole Covre 17mm Implanted:Qty: 1 on 11/07/[address] [facility] Left: Cranium 421.544 / / Description:SHUNT WILMA HOLE COVRE 17MM Set Plating Synthes Matex Neuro Profile - [id number] Implanted:Qty: 7 on 11/17/[address] [facility] 04.503.10 4.01# / / Procedures [...] AM CDT ECHOCARDIOGRAM SCOTT MARTIN ?Accession#: ?? [id number] : ?1935 87 years Study Date: ?? 08/09/2023 9:24:40 AM Gender: M ? BP: ? 103/67 mmHg Height: 180.00 cm ? BSA: ?2.19 m? ? ? Weight: 99.00 kg ?Tech: ? MSR ?Referring MD: MARTINA HUYNH Site: ? [facility] Reading Location: Mobile OP [...] . This study was interpreted by an [facility] accredited facility. CC: HIM (med [facility]) [facility]. ??Final ?? Procedure Note Champ Raygoza MD - 08/09/2023 ECHOCARDIOGRAM SCOTT MARTIN : 1935 87 years Study Date: 08/09/2023 9:24:40 AM Gender: M BP: 103/67 mmHg Height: 180.00 cm BSA: 2.19 m? ? ? Weight: 99.00 kg Tech: MSR Referring MD: MARTINA HUYNH Site: [facility] Reading Location: Mobile OP [...] IAC accredited facility. CC: [facility] (med records) [facility]. Final Martina COOL ECHO ORD from [...] 10:42 AM 06/21/2011 1:23 PM Care Teams Due Diligence Coordinator Relationship Specialty Start Date End Date Russ Curran MD [address] [place] [address] PCP - General 06/14/11
--- OUTSIDE RECORDS SUMMARY | 2023-09-01 11:13 | XMS_ITS | Clinical Summary ---
Author Organization [facility] Address [address] [place] [address] Care Team Providers Care Youth Care Professional Name Role Phone Russ Curran MD Primary Care Provider +1- [phone] Source Comments You are receiving this document as you are listed as the primary care provider,follow-up provider, or the patient has been referred to you for consultation.This is in compliance with the Medicare and[facility] Centercaid EHR Incentive Program,which states Providers who transition their patient to another setting of careor provider of care or refers their patient to another provider of care shouldprovide summary care record for each transition of care or referral. [facility] Allergies Active Allergy Reactions Criticality Noted Date [...] age to complete this topic Care Teams Youth Care Professional Relationship Specialty Start Date End Date Russ Curran MD [address] [place] [address] PCP - General 09/18/15
[2023-09-01 11:17] VITALS: BP 121/74; PULSE 85; RESP 16; O2SAT 99
[2023-09-01 12:21] VITALS: BP 100/59; PULSE 81; RESP 16; O2SAT 98
--- NOTE | 2023-09-01 12:27 | PM.PROC ---
Procedure Note Time Seen by Provider: : Date Seen: 09/01/23 Provider Contact Time: : Date of procedure: 09/01/23 Will [facility] bill your pro fee for this procedure?: Yes Pre-op diagnosis: Ascites Post-op diagnosis: same Procedure Description: With the patient in the recumbent position we did localize the ascitic fluid to the left lower quadrant with ultrasound. I then created a sterile field and provide local anesthesia with subcutaneous lidocaine 1%. I then made a 1 cm incision through which I inserted a paracentesis needle and catheter. Flow was then directed to his series of 7 1 L bottles until a total of 6800 mL of yellow fluid was removed. The catheter was then removed and the defect was closed with pursestring sutures and Dermabond. Anesthesia: local Surgeon: Magdy Estimated blood loss (mL): 3 Pathology: none sent Condition: stable Disposition: other
== END 2023-09-01 12:39 | disposition home or self-care (01) ==
LOC: US 11:10
PROVIDERS: PCP Internal Medicine; Visit Provider Internal Medicine
DX: R18.8 Other ascites (principal); K74.60 Unspecified cirrhosis of liver; R74.8 Abnormal levels of other serum enzymes; Z71.3 Dietary counseling and surveillance; R60.0 Localized edema
CPT/HCPCS: 49083

== ENCOUNTER 2023-09-11 10:49 | Outpatient (CLI) | payer MEDICARE, SELFPAY ==
--- OUTSIDE RECORDS SUMMARY | 2023-09-11 10:52 | XMS_ITS | Clinical Summary ---
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 Pulse 96 04/18/2012 1:43 PM DRY STARCH OPERATOR Temperature 36.9 ??C (98.4 ??F) 11/21/2011 [...] 01/03/2007, 006 Medical Devices Implanted Type Area Aerospace Engineer Device Identifier Shelf Expiration Date Model / Serial / Lot Plate Ti [id number] 4 Holes Low Profile Neuro Box - [id number] Implanted:Qty: 1 on 11/07/2011 by Angel Marie MD at [facility] Left: Cranium J And J Depuy CMF 421.511# / / [place] Hole Cover 17mm Jocelin Ti Low Profile Neuro - [id number] Implanted:Qty: 1 on 11/07/2011 by Angel Marie MD at [facility] Left: Cranium J And J Depuy CMF 421.527# / / Set Plating Synthes Matex Neuro Profile - [id number] Implanted:Qty: 14 on 11/07/2011 by Angel Marie MD at [facility] Left: Cranium J And J Depuy CMF 04.503.10 4.01# / / Screw 5mm Emergency Titnm Matrixneuro - [id number] Implanted:Qty: 1 on 11/07/2011 by Angel Marie MD at [facility] Left: Cranium J And J Depuy CMF 04.503.11 5.01# / / Shunt Wilma Hole Covre 17mm Implanted:Qty: 1 on 11/07/2011 at [facility] Left: Cranium 421.544 / / Description:SHUNT WILMA HOLE COVRE 17MM Set Plating Synthes Matex Neuro Profile - [id number] Implanted:Qty: 7 on 11/17/2011 at [facility] 04.503.10 4.01# / / Procedures [...] AM CDT ECHOCARDIOGRAM SCOTT MARTIN ?Accession#: ?? [id number] : ?1935 87 years Study Date: ?? 08/09/2023 9:24:40 AM Gender: M ? BP: ? 103/67 mmHg Height: 180.00 cm ? BSA: ?2.19 m? ? ? Weight: 99.00 kg ?Tech: ? MSR ?Referring MD: MARTINA HUYNH Site: ? [facility] Reading Location: Mobile [...] study was interpreted by an [facility] accredited facility. CC: HIM (med [facility]) [facility]. ??Final ?? Procedure Note Champ Raygoza MD - 08/09/2023 ECHOCARDIOGRAM SCOTT MARTIN : 1935 87 years Study Date: 08/09/2023 9:24:40 AM Gender: M BP: 103/67 mmHg Height: 180.00 cm BSA: 2.19 m? ? ? Weight: 99.00 kg Tech: MSR Referring MD: MARTINA HUYNH Site: [facility] Reading Location: Mobile [...] IAC accredited facility. CC: [facility] (med records) [facility]. Final Martina COOL ECHO ORD [...] AM 06/21/2011 1:23 PM Care Teams Manager Clinical Services Relationship Specialty Start Date End Date Russ Curran MD [address] [place] [address] PCP - General 06/14/11
--- OUTSIDE RECORDS SUMMARY | 2023-09-11 10:53 | XMS_ITS | Clinical Summary ---
Author Organization [facility] Address [address] [place] [address] Care Team Providers Care Guide Cruise Name Role Phone Russ Curran MD Primary Care Provider +1- [phone] Source Comments You are receiving this document as you are listed as the primary care provider,follow-up provider, or the patient has been referred to you for consultation.This is in compliance with the Medicare and[facility] Hospitalcaid EHR Incentive Program,which states Providers who transition their patient to another setting of careor provider of care or refers their patient to another provider of care shouldprovide summary care record for each transition of care or referral. [facility] Allergies Active Allergy Reactions Criticality Noted Date [...] 3) 05/23/2007 03/28/2007 COVID-19 Vaccine (3 - 2022- season) 2022 04/26/2020, 03/29/2020 DTaP/Tdap/Td (2 - Tdap) 11/16/2022 11/16/2012, 01/16 Influenza (#1) 2023 11/05/2019, 11/05, 12/06/2016, Additional history exists HepA Aged Out [...] age to complete this topic Care Teams Guide Cruise Relationship Specialty Start Date End Date Russ Curran MD [address] [place] [address] PCP - General 09/18/15
[2023-09-11 11:08] VITALS: BP 114/67; PULSE 81; RESP 18; O2SAT 100
[2023-09-11 11:49] VITALS: BP 95/57; PULSE 83; RESP 20; O2SAT 99
[2023-09-11 12:00] VITALS: BP 101/56; PULSE 80; RESP 20; O2SAT 99
[2023-09-11 12:14] VITALS: BP 100/59; PULSE 82; RESP 16; O2SAT 100
[2023-09-11 12:29] VITALS: BP 108/55; PULSE 82; RESP 16; O2SAT 100
--- NOTE | 2023-09-11 12:35 | PM.PROC ---
Procedure Note Time Seen by Provider: 12:36 Date Seen: 09/11/23 Provider Contact Time: 12:36 Date of procedure: 09/11/23 Will [facility] bill your pro fee for this procedure?: Yes Pre-op diagnosis: Ascites Post-op diagnosis: same Procedure: With patient the recumbent position did localized area of ascites to the right lower quadrant with ultrasound. The skin was then sterilely draped skin was prepped with topical alcohol. I then created day anesthesia with 1% lidocaine with epinephrine injected subcutaneously. I then made a 1 cm incision through which I inserted the paracentesis needle and catheter into the peritoneal space. Flow was then directed to a total of 6 back in her bottles removing 6000 mL of yellow fluid. Once flow stopped I did remove the catheter in close the defect with pursestring sutures as well as Dermabond. Procedure Description: Paracentesis Anesthesia: local Surgeon: Magdy Estimated blood loss (mL): 3 Pathology: none sent Condition: stable Disposition: other
== END 2023-09-11 12:48 | disposition home or self-care (01) ==
LOC: US 10:50
PROVIDERS: PCP Internal Medicine; Visit Provider Internal Medicine
DX: K74.60 Unspecified cirrhosis of liver (principal); R74.8 Abnormal levels of other serum enzymes
CPT/HCPCS: 49083; P9047

== ENCOUNTER 2023-09-17 04:48 | Outpatient (CLI) | payer MEDICARE, SELFPAY ==
--- OUTSIDE RECORDS SUMMARY | 2023-09-21 23:05 | XMS_ITS | Clinical Summary ---
Author Organization [employer] Address [address] [place] [address] Care Team Providers Care Protective Service Specialist Name Role Phone Russ Curran MD Primary Care Provider [phone] Source Comments You are receiving this document as you are listed as the primary care provider,follow-up provider, or the patient has been referred to you for consultation.This is in compliance with the Medicare and[facility] EHR Incentive Program,which states Providers who transition their patient to another setting of careor provider of care or refers their patient to another provider of care shouldprovide summary care record for each transition of care or referral. [employer] Allergies Active Allergy Reactions Criticality Noted Date [...] age to complete this topic Care Teams Protective Service Specialist Relationship Specialty Start Date End Date Russ Curran MD [address] [place] [address] PCP - General 09/18/15
--- OUTSIDE RECORDS SUMMARY | 2023-09-21 23:05 | XMS_ITS | Clinical Summary ---
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 Pulse 96 04/18/2012 1:43 PM BORING MILL OPERATOR Temperature 36.9 ??C (98.4 ??F) 11/21/2011 [...] 01/03/2007, 006 Medical Devices Implanted Type Area Tape Recording Machine Operator Device Identifier Shelf Expiration Date Model / Serial / Lot Plate Ti [id number] 4 Holes Low Profile Neuro Box - [id number] Implanted:Qty: 1 on 11/07/2011 by Angel Marie MD at [facility] Left: Cranium J And J Depuy CMF [id number]# / / Wilma Hole Cover 17mm Jocelin Ti Low Profile Neuro - [id number] Implanted:Qty: 1 on 11/07/2011 by Angel Marie MD at [facility] Left: Cranium J And J Depuy CMF [id number]# / / Set Plating Synthes Matex Neuro Profile - [id number] Implanted:Qty: 14 on 11/07/2011 by Angel Marie MD at [facility] Left: Cranium J And J Depuy CMF [id number] 4.01# / / Screw 5mm Emergency Titnm Matrixneuro - [id number] Implanted:Qty: 1 on 11/07/2011 by Angel Marie MD at [facility] Left: Cranium J And J Depuy CMF [id number] 5.01# / / Shunt Wilma Hole Covre 17mm Implanted:Qty: 1 on 11/07/2011 at [facility] Left: Cranium [id number] / / Description:SHUNT WILMA HOLE COVRE 17MM Set Plating Synthes Matex Neuro Profile - [id number] Implanted:Qty: 7 on 11/17/2011 at [facility] [id number] 4.01# / / Procedures Procedure [...] AM CDT ECHOCARDIOGRAM SCOTT MARTIN ?Accession#: ?? [id number] : ?1935 87 years Study Date: ?? 08/09/2023 9:24:40 AM Gender: M ? BP: ? 103/67 mmHg Height: 180.00 cm ? BSA: ?2.19 m? ? ? Weight: 99.00 kg ?Tech: ? MSR ?Referring MD: MARTINA HUYNH Site: ? [facility] Reading Location: Mobile OP [...] [facility] CC: [facility] ([facility]. ??Final ?? Procedure Note Champ Raygoza MD - 08/09/2023 ECHOCARDIOGRAM SCOTT MARTIN : 1935 87 years Study Date: 08/09/2023 9:24:40 AM Gender: M BP: 103/67 mmHg Height: 180.00 cm BSA: 2.19 m? ? ? Weight: 99.00 kg Tech: MSR Referring MD: MARTINA HUYNH Site: [facility] Reading Location: Mobile OP [...] IAC accredited facility. CC: ISIDRO (med records) [facility]. Final Martina COOL ECHO ORD from [...] 10:42 AM 06/21/2011 1:23 PM Care Teams Continuous Vulcanizing Machine Operator Relationship Specialty Start Date End Date Russ Curran MD [address] [place] [id number] PCP - General 06/14/11
--- OUTSIDE RECORDS SUMMARY | 2023-09-21 23:05 | XMS_ITS | Continuity of Care Document ---
Author Organization [facility] Address [address] [address] [place] [address] Phone Care Team Providers Care Public Aid Eligibility Assistant Name Role Phone Severino GIL, Lori Unavailable Unavailabl e Allergies, Adverse Reactions, Alerts [...] in the evening 40 MG - Active tamsulosin 0.4 mg capsule take [...] - Active Procedures Procedure Date Offic/outpt E&m [facility] 4 Routine Serum Collection Complex e/m visit add on Offic/outpt E&m [facility] 2 24 Offic/outpt E&m [facility] Routine Serum Collection Advance Directives Directive Yes / No Effective Date File Name No Information Encounters Encounter Description Practice Location Reason(s) For Visit Diagnoses Date Provider Providers Copied on Encounter [facility], [address] [address], [place], [id number], [place] tel:[phone] [facility] No Information 4 Severino Sandoval . [address] [facility], [facility] [address], [place], [id number] , [place]. tel:[phone] [facility], [address] [address], [place], [id number], [place] tel:[phone] [facility] Tricuspid valve insufficiency, unspecified etiologyAnemia, unspecified typeCirrhosis of liver with ascites, unspecified hepatic cirrhosis type 4 [place] JEFFERY Sandoval . [address] [facility], [facility] [address], [place], [id number] , [place]. tel:[phone] Offic/outpt E&m [facility] 4 [facility], [address] [address], [place], [id number], [place] tel:[phone] [facility] GI Symptoms or Concerns (chief complaint) Dietary counseling and surveillanceCirrhos is of liver with ascites, unspecified hepatic cirrhosis typeElevated alkaline phosphatase levelEdema of left lower leg 4 Severino Sandoval . [address] [facility], [address], [place], [id number] , [place]. tel:[phone] Referring Provider: Referral Self, USE FOR SELF REFERRALS. [facility], [address] [address], [place], [place], [id number], [place] tel:[phone] [facility] No Information 4 Severino Sandoval . [address] [facility] [address], [place], [place], [id number] , [place]. tel: [phone] [facility], [address] [address], [place], [id number], [place] tel:[phone] [facility] Other ascites 4 Severino Sadnoval . [address] [facility] [address], [address], [place], [place], [id number] , [place]. tel: [phone] [facility], [address] [address], [place], [id number], [place] tel:[phone] [facility] Cirrhosis of liver with ascites, unspecified hepatic cirrhosis type 4 Severino Sandoval . [address] [facility] [address], [address], [place], [place], [id number] , [place]. tel: [phone] [facility], [address] [address], [place], [id number], [place] tel:[phone] [facility] Other ascitesElevated alkaline phosphatase levelCirrhosis of liver with ascites, unspecified hepatic cirrhosis type 4 Severino Sandoval . [address] [facility] [address], [address], [place], [place], [id number] , [place]. tel: [phone] [facility], [address] [address], [place], [address], [place] tel:[phone] [facility] No Information 4 Severino Sandoval . [address] [facility] [address], [address], [place], [place], [id number] , [place]. tel: [phone] Offic/outpt E&m [facility] 2 [facility], [address] [address], [place], [place], [id number], [place] tel:[phone] [facility] GI Symptoms or Concerns (chief complaint) Cirrhosis of liver with ascites, unspecified hepatic cirrhosis type 0 4 Severino Sandoval . [address] [facility] [address], [place], [address] , [place]. tel: [phone] Referring Provider: Referral Self, USE FOR SELF REFERRALS. [facility], [address] [address], [place], [id number], [place] tel:[phone] [facility] Cirrhosis of liver with ascites, unspecified hepatic cirrhosis type 4 Severino GIL Lori . [address] [facility] [address], [address], [place], [id number] , [place]. tel: [phone] [facility], [address] [address], [place], [id number], [place] tel:[phone] [facility] Cirrhosis of liver with ascites, unspecified hepatic cirrhosis type 4 Severino Sandoval . [address] [facility] [address], [address], [place], [address] , [place]. tel: [phone] [facility], [address] [address], [place], [id number], [place] tel:[phone] [facility] Cirrhosis of liver with ascites, unspecified hepatic cirrhosis type 4 Severino Sandoval . [address] [facility] [address], [address], [place], [id number] , [place]. tel: [phone] [facility], [address] [address], [place], [address], [place] tel:[phone] [facility] Other ascites 4 Severino Sandoval . [address] [facility] [address], [address], [place], [address] , [place]. tel: [phone] Offic/outpt E&m [facility], [address] [address], [place], [id number], [place] tel:[phone] [facility] GI Symptoms or Concerns (chief complaint) Other cirrhosis of liverCirrhosis of liver with ascites, unspecified hepatic cirrhosis typeOther ascites 4 Severino GIL Lori . [address] [facility], [facility] [address], [place], [place], [id number] , [place]. tel:[phone] Referring Provider: Russ Fontenot, [address] [place] [address], [address]. tel:[phone] [facility], [address] [address], [place], [place], [id number], [place] tel:[phone] [facility] No Information 4 Robert Oneil. [address] [facility], [facility] [address], [facility] [place], [id number] , [place]. tel:[phone] [facility], [address] [address], [place], [place], [address], [place] tel:[phone] [facility] No Information 3 Robert Oneil. [address] [facility], [facility] [address], [facility] [place], [id number] , [place]. tel:[phone] Family History Family Member Type Diagnosis Age [...] name Insurance type Covered constitution party ID Authoriza tiherberth(s) [employer] Medicare Advantage [id number] Social History Type Description Quantity Date Captured Comments Alcohol Use Details Unknown Caffeine Use Details Unknown Tobacco Use Status No Information Smoking Status No Information Sex Male Chief Complaint And Reason For Visit No Information Reason For Referral Reason For Referral No Information Plan Of Treatment Date Type Action Status Goal Lifestyle education regardin g diet completed Referral Ordered: Paracentesis Abdominal WITH Ultrasound Guidance; Therapeutic Appointment date/timeframe: 09/14/2023 ordered Referral Ordered: Ultrasound Duplex Of Extremity Appointment date/timeframe: 09/14/2023 ordered Referral Ordered: Echocardiogram, Transthoracic, Complete Appointment date/timeframe: [...] Symptoms or Concerns Scott Angela is an 88-year-old male in today for follow-up of cirrhosis. He is accompanied today by his daughter. In review, patient has a history of cirrhosis which was diagnosed within the last year. He has a past medical history of hypertension, hyperlipidemia, BPH, gout and a subdural hematoma.He underwent extensive serological workup which revealed a normal alpha-1 antitrypsin level with MZ phenotype, negative SMA, SPARKLE and AMA. He was noted to have negative hepatitis B and hepatitis C serologies during prior hospitalization.He underwent EGD at [facility] and [facility] in April which showed an irregular Z-line with small hiatal hernia and grade 1 esophageal varices along with reactive gastropathy. Esophageal biopsy did show concern for reflux esophagitis.Recently, patient has had issues with requiring regular paracentesis. On average she has needed this every 2 weeks. Patient notes he will be feeling fine and then develops abdominal pain with shortness of breath out of nowhere. He reports his last paracentesis was on 08/11/23 and 4 L of fluid were removed.He reports he is not having issues with abdominal pain or shortness of breath currently. He has been following a low-salt diet and has been taking furosemide 40 mg daily and spironolactone 50 mg daily. As noted below, patient recently underwent ultrasound of the abdomen with Dopplers to assess for thrombosis-no evidence of thrombosis or malignancy based on this and no concerns with his biliary tree. Echocardiogram revealed a moderately enlarged right ventricle with mild to moderate tricuspid regurgitation. In review of radiologist impression of echocardiogram in February he was noted to have an normal ejection fraction and no evidence of right-sided heart failure. I do not have full report but will request.Patient reports issues of exhaustion with any activity but notes any shortness of breath or chest pain outside of when he is in need of paracentesis. He does have some lower extremity edema with left greater than right. He has not had a Doppler duplex of his lower extremities to assess for DVT. He denies any pain in his lower extremities.Denies any issues with confusions. He does endorse polydypsia. Has been drinking 4 glasses of water daily. Has also been using daily protein powder with gatorade to optimize protein intake. As noted below, most recent labs show hyponatremia, slightly elevated creatinine increase in alkaline phosphatase as well as elevated liver enzymes. Prior paracentesis on 522 was negative for SBP based on cell count.PRIOR IMAGING08/07/2023 u ltrasound abdomen limited with Doppler-no evidence of thrombosis. Noted to have cirrhosis with ascites.08/09/20232613-[id number] global systolic function with estimated EF of greater than 75% right ventricle moderately enlarged, mild to moderate tricuspid regurgitation, normal-sized IVC with respiratory size variation greater than 50%.LABS06/14/23CBC- Hgb 11.7, WBC 7.9, PLT 264INR 1.16CMP- Na 134, K+ 4.2, Creatinine 1.0, Albumin 2.7, T bili 1.0, AST 55, ALT 29, Alk phos [id number]/23AFP 2CBC- Hgb 11.9, WBC 8.0, Plt 194CMP- Na 133, K+ 3.9, Creatinine 1.2, Albumin 2.8, T bili 1.2, AST 61, ALT 36, Alk phos 305, INR 1.035/Paracentesis- WBC 233CBC-Hgb 11.6, WBC 9.65, Plt 312CMP- Na 129, K+ 4.4, creatinine 1.4, Albumin 2.8, AST 64, ALT 40, Alk phos 348 GI Symptoms or Concerns Scott Angela is [...] a presentation to the emergency room at [facility] on 02/16/2023. Patient presented [...] on 03/06/2023 and underwent a paracentesis at [facility]- unfortunately I do not [...] No Information Instructions Date Instruction Additional Infor bennett Lifestyle education regarding di et Related to Dietary counseling and surveillance Assessments Type Assessment Date No Information Patient Care Teams Name Effective Dates (start - stop) Status Members No Information
== END 2023-09-17 04:49 | disposition home or self-care (01) ==
LOC: AMB 09-21 23:03
PROVIDERS: PCP Internal Medicine; Visit Provider Internal Medicine
DX: R53.1 Weakness (principal)
CPT/HCPCS: A0425; A0427

== ENCOUNTER 2023-09-17 05:17 | Emergency (ER) | payer MEDICARE, SELFPAY ==
[2023-09-17 05:25] VITALS: BP 108/71; PULSE 94; RESP 18; TEMP 36.6; O2SAT 94
--- NOTE | 2023-09-17 05:27 | ED.GENADULT ---
HPI - General Adult General Chief complaint: Fall/Minor Trauma Stated complaint: Hypotension Time Seen by Provider: 09/17/23 05:24 History of Present Illness HPI narrative: Patient is 88-year-old gentleman well known to me with end-stage liver disease who got of use the restroom tonight and felt extremely weak. He slumped to the floor but did not hit his head did not lose consciousness is too weak to get up on his own. His called 911 and patient was brought to the emergency room patient has chronic ascites and I do paracentesis on him every 10 days. Patient has no significant pain at this time but feels very weak. Patient has been progressively getting weak over the last several months. No other acute injuries. Related Data Home Medications ?Medication ?Instructions ?Recorded ?Confirmed gabapentin 100 mg capsule 100 mg PO HS 02/16/23 07/26/23 furosemide 40 mg tablet 40 mg PO DAILY 06/21/23 07/26/23 omeprazole 20 mg capsule,delayed 20 mg PO DAILY 06/21/23 07/26/23 release spironolactone 100 mg tablet 100 mg PO DAILY 06/21/23 07/26/23 Previous Rx's ?Medication ?Instructions ?Recorded allopurinol 300 mg tablet 300 mg PO DAILY Gout #90 tabs 10/05/22 tamsulosin 0.4 mg capsule 0.4 mg PO DAILY BPH #90 caps 10/05/22 furosemide 20 mg tablet 20 mg PO DAILY@0800 #30 tabs 02/17/23 levetiracetam 1,000 mg tablet 2,000 mg (2 x 1,000 mg) PO BID 04/24/23 Seizure #360 tabs simvastatin 40 mg tablet 40 mg PO HS #90 tabs 08/16/23 Allergies Allergy/AdvReac Type Severity Reaction Status Date / Time enoxaparin Allergy Severe contraindictation Verified 07/26/23 19:46 to all anticoagulants - see history anticoagulants-relative AdvReac Unknown Uncoded 07/25/23 11:53 contraindication-brain bleed Review of Systems Status of ROS: Reports: 10 or more systems reviewed and unremarkable except as noted in History and below [facility] Medical History Hyperlipidemia (02/25/14) ?E78.5 - Hyperlipidemia, unspecified (ICD-10) Pulmonary nodules ?R91.8 - Other nonspecific abnormal finding of lung field (ICD-10) Ascites ?R18.8 - Other ascites (ICD-10) Bronchitis ?J40 - Bronchitis, not specified as acute or chronic (ICD-10) Cirrhosis ?K74.60 - Unspecified cirrhosis of liver (ICD-10) Hypertension (06/14/11) ?I10 - Essential (primary) hypertension (ICD-10) History of subdural hematoma (11/23/11) ?Z86.79 - Personal history of other diseases of the circulatory system (ICD-10) Gout (09/15/08) ?M10.9 - Gout, unspecified (ICD-10) Tubular adenoma of colon (09/15/08) ?D12.6 - Benign neoplasm of colon, unspecified (ICD-10) Traumatic brain injury (06/14/11) ?S06.9X9A - Unspecified intracranial injury with loss of consciousness of unspecified duration, initial encounter (ICD-10) Subjective tinnitus (10/06/11) ?H93.19 - Tinnitus, unspecified ear (ICD-10) Sensorineural hearing loss (SNHL) (11/23/11) ?H90.5 - Unspecified sensorineural hearing loss (ICD-10) Rosacea (05/21/06) ?L71.9 - Rosacea, unspecified (ICD-10) 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) ?L71.1 - Rhinophyma (ICD-10) Osteoarthritis of cervical spine ?M47.812 - Spondylosis without myelopathy or radiculopathy, cervical region (ICD-10) Obesity (08/16/10) ?E66.9 - Obesity, unspecified (ICD-10) Macular degeneration ?H35.30 - Unspecified macular degeneration (ICD-10) Intestinal obstruction ?K56.609 - Unspecified intestinal obstruction, unspecified as to partial versus complete obstruction (ICD-10) BPH (benign prostatic hyperplasia) ?N40.0 - Benign prostatic hyperplasia without lower urinary tract symptoms (ICD-10) History of seizure (11/23/11) ?Z87.898 - Personal history of other specified conditions (ICD-10) History of pancreatitis (09/15/08) ?Z87.19 - Personal history of other diseases of the digestive system (ICD-10) Surgical History History of carpal tunnel surgery of left wrist (06/27/23) ?Z98.890 - Other specified postprocedural states (ICD-10) History of carpal tunnel surgery of right wrist (06/08/23) ?Z98.890 - Other specified postprocedural states (ICD-10) Status post evacuation of subdural hematoma (06/01/11) ?Z98.890 - Other specified postprocedural states (ICD-10) ?Z86.79 - Personal history of other diseases of the circulatory system (ICD-10) History of tonsillectomy ?Z90.89 - Acquired absence of other organs (ICD-10) History of knee surgery (09/15/08) ?Z98.890 - Other specified postprocedural states (ICD-10) History of hemorrhoidectomy (09/15/08) ?Z98.890 - Other specified postprocedural states (ICD-10) Social History Narrative: -Snow former smoker What is your current living situation?: I presently have a place to live Problems where you live: no known problems Problems where you live details: N/A In the past 12 months, utilities in danger of being shut off: no In past 12 months, lack of transportation kept you from medical appts, meetings, work, or getting things needed for daily living: no In the past 12 mos, have been you worried that your food would run out before you had money to buy more?: never true In the past 12 mos, the food you bought just didn't last and you didn't have money to buy more?: never true Highest level of school completed/degree received: Bachelor's degree Smoking Status: Former smoker What tobacco products do you use: cigarettes Smoking quit date/years: >15 years ago Do you use any of these nicotine containing products: None How often do you have a drink containing alcohol: never How often do you have six or more drinks on one occasion: Never AUDIT-C Alcohol total score: 0 Non-prescribed substance use: denies use Caffeine: Yes How often does anyone, including family, friends and others, physically hurt you: never How often does anyone, including family, friends and others, insult or talk down to you: never How often does anyone, including family, friends and others, threaten you with harm: never How often does anyone, including family, friends and others, scream or curse at you: never Little interest or pleasure in doing things: not at all Feeling down, depressed, or hopeless: not at all service: No Exam Narrative: Exam Narrative: EXAM GENERAL: Patient appears elderly and frail. Head is normocephalic no signs recent trauma. EYES: No scleral icterus. LYMPH: No supraclavicular or cervical lymphadenopathy. SKIN: Visible skin seen during exam normal or with benign process only. EXT: No dependent lower extremity pedal edema. HEART: Regular rate and rhythm with no murmurs, rubs, or gallops. LUNGS: Clear to auscultation bilaterally with no crackles or wheezes. ABD: Soft, non tender mildly distended with chronic ascites. PSYCH: Good eye contact, speech is not pressured. Neurologic cranial nerves 2-12 grossly intact no focal defects. Const: Vital Signs, click to edit/add: Vital Signs - 24 hr 09/17/23 05:25 Temperature 97.9 F Pulse Rate [Pulse Oximeter] 94 Respiratory Rate 18 Blood Pressure [Ri ght Upper Arm] 108/71 Pulse Oximetry 94 Oxygen Delivery Me thod Room Air Course Course ED Course: Patient seen and examined. Comprehensive metabolic panel CBC and EKG pending. Vital Signs Vital signs: Initial Vital Signs Temperature 97.9 F 09/17/23 05:25 Temperature Source Temporal Artery Scan 09/17/23 05:25 Pulse Rate 94 09/17/23 05:25 Respiratory Rate 18 09/17/23 05:25 Blood Pressure 108/71 09/17/23 05:25 Blood Pressure Mean 83 09/17/23 05:25 Blood Pressure Position Sitting 09/17/23 05:25 Pulse Oximetry 94 09/17/23 05:25 Oxygen Delivery Method Room Air 09/17/23 05:25 Vital Signs Temperature 97.9 F 09/17/23 05:25 Pulse Rate 94 09/17/23 05:25 Respiratory Rate 18 09/17/23 05:25 Blood Pressure 108/71 09/17/23 05:25 Pulse Oximetry 94 09/17/23 05:25 Oxygen Delivery Method Room Air 09/17/23 05:25 Temperature 97.9 F 09/17/23 05:25 Pulse Rate 94 09/17/23 05:25 Respiratory Rate 18 09/17/23 05:25 Blood Pressure 108/71 09/17/23 05:25 Pulse Oximetry 94 09/17/23 05:25 Oxygen Delivery Method Room Air 09/17/23 05:25 Medical Decision Making MDM Narrative Medical decision making narrative: Patient is 88-year-old gentleman who fell weak at home but now feels back to baseline. Vital signs are stable my exam is stable. EKG is unremarkable upon my review. I did initially consider getting electrolytes and CBC however there is difficulty his laboratory is down. I do not believe the patient would benefit from further waiting is he is back at baseline and is well known to me. I did discharge him to home and will see him back for his paracentesis in 3 days. He will report any changes symptoms in the meantime. Discharge Plan Discharge Clinical Impression: Fall Patient Disposition: Home, Self-Care Condition: Stable Instructions: Fall Prevention (ED) Additional Instructions: Continue current care Follow-up with Dr. Curran at paracentesis. Activity Level: No Restrictions Discharge Diet: Regular Prescriptions: No Action spironolactone 100 mg tablet 100 mg PO DAILY furosemide 40 mg tablet 40 mg PO DAILY omeprazole 20 mg capsule,delayed release(DR/EC) 20 mg PO DAILY gabapentin 100 mg capsule 100 mg PO HS furosemide 20 mg tablet 20 mg PO DAILY@0800 Qty: 30 0RF allopurinol 300 mg tablet 300 mg PO DAILY Qty: 90 3RF tamsulosin 0.4 mg capsule 0.4 mg PO DAILY Qty: 90 3RF levetiracetam 1,000 mg tablet 2,000 mg PO BID Qty: 360 3RF simvastatin 40 mg tablet 40 mg PO HS Qty: 90 3RF Follow Up/Referrals: Russ Curran MD [Primary Care Provider] - Stand Alone Forms: [employer] Info Instructions
[2023-09-17 07:21] LABS: Anion Gap 13 mEq/L (7-15); Blood Urea Nitrogen* 61 mg/dL (7-30); Calcium* 8.7 mg/dL (8.4-10.6); Carbon Dioxide* 18 mmol/L (20-32); Chloride* 102 mmol/L (96-114); Estimated Glomerular Filt Rate 32 ml/min; Glucose* 120 mg/dL (60-115); Potassium* 4.4 mmol/L (3.6-5.1); Sodium* 133 mmol/L (135-149)
[2023-09-17 07:22] LABS: Alanine Aminotransferase* 31 U/L (4-50); Albumin* 2.9 g/dL (3.3-5.0); Alkaline Phosphatase* 276 U/L (40-150); Aspartate Amino Transferase* 50 U/L (12-35); Bilirubin Total* 0.8 mg/dL (0.1-1.5)
[2023-09-17 07:42] LABS: Red Blood Count 3.14 m/uL (4.30-5.90); White Blood Count* 8.97 K/uL (4.50-11.00)
[2023-09-17 07:43] LABS: Basophils Percent Auto 0.4 % (0.0-3.0); Eosinophils Percent Auto 1.6 % (0.0-7.0); Hemoglobin* 10.7 gm/dL (13.5-17.5); Lymphocytes Percent Auto 21.6 % (20-44); Mean Corpuscular HGB Conc 33 gm/dL (32-36); Mean Corpuscular Hemoglobin 34 pg (26-34); Mean Corpuscular Volume 102 fL (80-100); Monocytes Percent Auto 9.9 % (0.0-11.0); Neutrophils Percent Auto 65.5 % (42.0-72.0); Platelet Count* 210 K/uL (140-440); RDW Coefficient of Variation % 15.6 % (11.5-15.5); Slide Review Reflex No
== END 2023-09-17 07:45 | disposition home or self-care (01) ==
PROVIDERS: Emergency Provider Internal Medicine; PCP Internal Medicine
DX: R53.1 Weakness (principal); W19.XXXA Unspecified fall, initial encounter
CPT/HCPCS: 36415; 80053; 85025; 93005; 99283; 99284

== ENCOUNTER 2023-09-20 19:22 | Outpatient (CLI) | payer MEDICARE, SELFPAY ==
--- OUTSIDE RECORDS SUMMARY | 2023-09-23 03:14 | XMS_ITS | Continuity of Care Document ---
Author Organization [facility] Address [address] [address] [place] [address] Phone Care Team Providers Care Regional Business Development Manager Name Role Phone Severino GIL, Lori Unavailable [...] - Active Procedures Procedure Date Offic/outpt E&m [facility] 4 Routine Serum Collection Complex e/m visit add on Offic/outpt E&m [facility] 2 24 Offic/outpt E&m [facility] Routine Serum Collection Advance Directives Directive Yes / No Effective Date File Name No Information Encounters Encounter Description Practice Location Reason(s) For Visit Diagnoses Date Provider Providers Copied on Encounter [facility], [address] [address], [place], [id number], [place] tel:[phone] [facility] No Information 4 Severino Sandoval . [address] [address] [facility] [address], [place], [id number] , [place]. tel:[phone] [facility], [address] [address], [place], [id number], [place] tel:[phone] [facility] Tricuspid valve insufficiency, unspecified etiologyAnemia, unspecified typeCirrhosis of liver with ascites, unspecified hepatic cirrhosis type 4 [place] JEFFERY Sandoval . [address] [facility] [address], [facility] [address], [place], [id number] , [place]. tel:[phone] Offic/outpt E&m [facility] 4 [facility], [address] [address], [place], [id number], [place] tel:[phone] [facility] GI Symptoms or Concerns (chief complaint) Dietary counseling and surveillanceCirrhos is of liver with ascites, unspecified hepatic cirrhosis typeElevated alkaline phosphatase levelEdema of left lower leg 4 Severino Sandoval . [address] [facility] [address] [address], [address], [place], [id number] , [place]. tel:[phone] Referring Provider: Referral Self, USE FOR SELF REFERRALS. [facility], [address] [address], [place], [place], [id number], [place] tel:[phone] [facility] No Information 4 Severino Sandoval . [address] [facility] [address], [place], [place], [address] , [place]. tel: [phone] [facility], [address] [address], [place], [address], [place] tel:[phone] [facility] Other ascites 4 Severino Sandoval . [address] [facility] [address], [place], [id number] , [place]. tel: [phone] [facility], [address] [address], [place], [id number], [place] tel:[phone] [facility] Cirrhosis of liver with ascites, unspecified hepatic cirrhosis type 4 Severino Sandoval . [address] [facility] [address], [place], [place], [address] , [place]. tel: [phone] [facility], [address] [address], [place], [address], [place] tel:[phone] [facility] Other ascitesElevated alkaline phosphatase levelCirrhosis of liver with ascites, unspecified hepatic cirrhosis type 4 Severino Sandoval . [address] [facility] [address], [place], [id number] , [place]. tel: [phone] [facility], [address] [address], [place], [id number], [place] tel:[phone] [facility] No Information 4 Severino Sandoval . [address] [facility] [address], [place], [place], [address] , [place]. tel: [phone] Offic/outpt E&m [facility] 2 [facility], [address] [address], [place], [address], [place] tel:[phone] [facility] GI Symptoms or Concerns (chief complaint) Cirrhosis of liver with ascites, unspecified hepatic cirrhosis type 0 4 Severino Sandoval . [address] [facility] [address], [place], [place], [address] , [place]. tel: [phone] Referring Provider: Referral Self, USE FOR SELF REFERRALS. [facility], [address] [address], [place], [address], [place] tel:[phone] [facility] Cirrhosis of liver with ascites, unspecified hepatic cirrhosis type 4 Severino GIL Lori . [address] [facility] [address], [place], [address] , [place]. tel: [phone] [facility], [address] [address], [place], [id number], [place] tel:[phone] [facility] Cirrhosis of liver with ascites, unspecified hepatic cirrhosis type 4 Severino Sandoval . [address] [facility] [address], [place], [id number] , [place]. tel: [phone] [facility], [address] [address], [place], [address], [place] tel:[phone] [facility] Cirrhosis of liver with ascites, unspecified hepatic cirrhosis type 4 Severino Sandoval . [address] [facility] [address], [place], [address] , [place]. tel: [phone] [facility], [address] [address], [place], [address], [place] tel:[phone] [facility] Other ascites 4 Severino Sandoval . [address] [facility] [address], [place], [address] , [place]. tel: [phone] Offic/outpt E&m New Mod-hi [facility], [address] [address], [place], [address], [place] tel:[phone] [facility] GI Symptoms or Concerns (chief complaint) Other cirrhosis of liverCirrhosis of liver with ascites, unspecified hepatic cirrhosis typeOther ascites 4 Severino GIL Lori . [address] [facility] [address], [facility] [address], [place], [place], [address] , [place]. tel:[phone] Referring Provider: Russ Fontenot, [address] [place] [address], [address]. tel:[phone] [facility], [address] [address], [place], [place], [id number], [place] tel:[phone] [facility] No Information 4 Robert Oneil. [address] [facility] [address], [facility] [address], [facility] [place], [address] , [place]. tel:[phone] [facility], [address] [address], [place], [place], [address], [place] tel:[phone] [facility] No Information 3 Robert Oneil. [address] [address], [facility] [address], [facility] [place], [address] , [place]. tel:[phone] Family History Family Member Type Diagnosis Age [...] Registry Payers Payer name Insurance type Covered libertarian ID Authoriza tiherberth(s) Blue Cross Medicare Advantage [id number] Social History Type Description Quantity Date [...] serologies during prior hospitalization.He underwent EGD at [facility] and [facility] in April which showed [...] of thrombosis. Noted to have cirrhosis with ascites.08/09/20231107-nnicuadyvmpszn-dlzmeuoojnka global systolic function with estimated EF of greater than 75% right ventricle moderately enlarged, mild to moderate tricuspid regurgitation, normal-sized IVC with respiratory size variation greater than 50%.LABS06/14/23CBC- Hgb 11.7, WBC 7.9, PLT 264INR 1.16CMP- Na 134, K+ 4.2, Creatinine 1.0, Albumin 2.7, T bili 1.0, AST 55, ALT 29, Alk phos 6412507/11/23AFP 2CBC- Hgb 11.9, WBC 8.0, Plt 194CMP- [...] underwent a paracentesis at [facility]- unfortunately I do not have all [...]
--- OUTSIDE RECORDS SUMMARY | 2023-09-23 03:14 | XMS_ITS | Clinical Summary ---
Author Organization [facility] Address [address] [place] [address] Care Team Providers Care Computer Analyst Supervisor Name Role Phone Russ Curran MD Primary Care Provider [phone] Source Comments You are receiving this document as you are listed as the primary care provider,follow-up provider, or the patient has been referred to you for consultation.This is in compliance with the Medicare andHol[facility] Health Systemcaid EHR Incentive Program,which states Providers who transition their patient to another setting of careor provider of care or refers their patient to another provider of care shouldprovide summary care record for each transition of care or referral. [facility] Allergies Active Allergy Reactions Criticality Noted Date [...] age to complete this topic Care Teams Computer Analyst Supervisor Relationship Specialty Start Date End Date Russ Curran MD [address] [place] [address] PCP - General 09/18/15
--- OUTSIDE RECORDS SUMMARY | 2023-09-23 03:14 | XMS_ITS | Clinical Summary ---
Author Organization [employer] [facility] [employer] [facility] Address [place], [place] [address] Care Team Providers Care Testing Lead Name Role Phone Russ Curran MD Primary [...] Description 08/09/2023 9:00 AM CDT Ancillary Procedure [facility] [address] [place] [address] 08/09/2023 Travel from Last 3 Months Immunizations [...] Comments Blood Pressure 106/71 04/18/2012 1:43 PM MOSAIC TILE MAKER Pulse 96 04/18/2012 1:43 PM MOSAIC TILE MAKER Temperature 36.9 ??C (98.4 ??F) 11/21/2011 [...] 01/03/2007, 006 Medical Devices Implanted Type Area Pillar Worker Device Identifier Shelf Expiration Date Model / Serial / Lot Plate Ti [id number] 4 Holes Low Profile Neuro Box - [id number] Implanted:Qty: 1 on 11/07/2011 by Angel Marie MD at [facility] Left: Cranium J And J Depuy CMF 421.511# / / Wilma Hole Cover 17mm Jocelin Ti Low Profile Neuro - [id number] Implanted:Qty: 1 on 11/07/2011 by Angel Marie MD at [facility] Left: Cranium J And J Depuy CMF 421.527# / / Set Plating Synthes Matex Neuro Profile - [id number] Implanted:Qty: 14 on 11/07/2011 by Angel Marie MD at [facility] Left: Cranium J And J Depuy CMF 04.503.10 4.01# / / Screw 5mm Emergency Titnm Matrixneuro - [id number] Implanted:Qty: 1 on 11/07/2011 by Angel Marie MD at [facility] Left: Cranium J And J Depuy CMF 04.503.11 5.01# / / Shunt Wilma Hole Covre 17mm Implanted:Qty: 1 on 11/07/2011 at [facility] Left: Cranium 421.544 / / Description:SHUNT WILMA HOLE COVRE 17MM Set Plating Synthes Matex Neuro Profile - [id number] Implanted:Qty: 7 on 11/17/2011 at [facility] 04.503.10 4.01# / / Procedures Procedure [...] AM CDT ECHOCARDIOGRAM SCOTT MARTIN ?Accession#: ?? [id number] : ?1935 87 years Study Date: ?? [...] . This study was interpreted by an [facility] accredited facility. CC: HIM ([facility]) [facility]. ??Final ?? Procedure Note [...] 10:42 AM 06/21/2011 1:23 PM Care Teams Testing Lead Relationship Specialty Start Date End Date Russ Curran MD [address] [place] [address] PCP - General 06/14/11
== END 2023-09-20 19:23 | disposition home or self-care (01) ==
LOC: AMB 09-23 03:13
PROVIDERS: PCP Internal Medicine; Visit Provider Family Medicine
DX: S09.90XA Unspecified injury of head, initial encounter (principal); W19.XXXA Unspecified fall, initial encounter; Y92.009 Unspecified place in unspecified non-institutional (private) residence as the place of occurrence of the external cause
CPT/HCPCS: A0425; A0427

== ENCOUNTER 2023-09-20 19:50 | Inpatient (IN) | payer MEDICARE, SELFPAY ==
[2023-09-20] VITALS (34 sets, daily range): BP systolic 85–133; BP diastolic 45–119; PULSE 78–101; RESP 20; TEMP 37.1; O2SAT 95–100; BMI 28.9
--- NOTE | 2023-09-20 20:10 | ED.GENADULT ---
HPI - General Adult General Chief complaint: Fall/Minor Trauma Stated complaint: Fall Time Seen by Provider: 09/20/23 19:55 History of Present Illness HPI narrative: Pt aox4, pt arrives via EMS from [facility] for evaluation of a fall from standing. Pt states that he stood up and got dizzy and then fell to the ground. Pt states that he hit is head but it minor did have 8L of fluid pulled off today during his scheduled paracentesis. [age] year-old man presenting to the emergency department via EMS from [facility] following a fall from standing height. Did have 8 L apparently pulled off today during his scheduled paracentesis. He says he feels well otherwise but his head rueda a little bit where he hit it; he indicates the right posterior aspect. Denies any neck or back pain. No shortness of breath. No chest pain. Denies any pain other than his head. Does have a history of head bleed they are understanding concerned about another. Apparently he had gone to stand up got dizzy and then fell to the ground. He is not more specific than that. 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 Related Data Home Medications ?Medication ?Instructions ?Recorded ?Confirmed omeprazole 20 mg capsule,delayed 20 mg PO DAILY 06/21/23 09/20/23 release spironolactone 50 mg tablet 50 mg PO DAILY 09/21/23 09/21/23 Previous Rx's ?Medication ?Instructions ?Recorded furosemide 20 mg tablet 20 mg PO DAILY@0800 #30 tabs 02/17/23 levetiracetam 1,000 mg tablet 2,000 mg (2 x 1,000 mg) PO BID 04/24/23 Seizure #360 tabs allopurinol 300 mg tablet 300 mg PO DAILY Gout #90 tabs 09/18/23 simvastatin 40 mg tablet 40 mg PO HS #90 tabs 09/18/23 tamsulosin 0.4 mg capsule 0.4 mg PO DAILY BPH #90 caps 09/18/23 Allergies Allergy/AdvReac Type Severity Reaction Status Date / Time enoxaparin Allergy Severe contraindictation Verified 09/20/23 19:59 to all anticoagulants - see history anticoagulants-relative AdvReac Unknown Uncoded 07/25/23 11:53 contraindication-brain bleed Review of Systems Status of ROS: Reports: 6 or more systems reviewed and unremarkable except as noted in History and below [facility] Medical History BPH (benign prostatic hyperplasia) ?N40.0 - Benign prostatic hyperplasia without lower urinary tract symptoms (ICD-10) Hyperlipidemia (02/25/14) ?E78.5 - Hyperlipidemia, unspecified (ICD-10) Pulmonary nodules ?R91.8 - Other nonspecific abnormal finding of lung field (ICD-10) Ascites ?R18.8 - Other ascites (ICD-10) Bronchitis ?J40 - Bronchitis, not specified as acute or chronic (ICD-10) Cirrhosis ?K74.60 - Unspecified cirrhosis of liver (ICD-10) Hypertension (06/14/11) ?I10 - Essential (primary) hypertension (ICD-10) History of subdural hematoma (11/23/11) ?Z86.79 - Personal history of other diseases of the circulatory system (ICD-10) Gout (09/15/08) ?M10.9 - Gout, unspecified (ICD-10) Tubular adenoma of colon (09/15/08) ?D12.6 - Benign neoplasm of colon, unspecified (ICD-10) Traumatic brain injury (06/14/11) ?S06.9X9A - Unspecified intracranial injury with loss of consciousness of unspecified duration, initial encounter (ICD-10) Subjective tinnitus (10/06/11) ?H93.19 - Tinnitus, unspecified ear (ICD-10) Sensorineural hearing loss (SNHL) (11/23/11) ?H90.5 - Unspecified sensorineural hearing loss (ICD-10) Rosacea (05/21/06) ?L71.9 - Rosacea, unspecified (ICD-10) 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) ?L71.1 - Rhinophyma (ICD-10) Osteoarthritis of cervical spine ?M47.812 - Spondylosis without myelopathy or radiculopathy, cervical region (ICD-10) Obesity (08/16/10) ?E66.9 - Obesity, unspecified (ICD-10) Macular degeneration ?H35.30 - Unspecified macular degeneration (ICD-10) Intestinal obstruction ?K56.609 - Unspecified intestinal obstruction, unspecified as to partial versus complete obstruction (ICD-10) History of seizure (11/23/11) ?Z87.898 - Personal history of other specified conditions (ICD-10) History of pancreatitis (09/15/08) ?Z87.19 - Personal history of other diseases of the digestive system (ICD-10) Surgical History History of carpal tunnel surgery of left wrist (06/27/23) ?Z98.890 - Other specified postprocedural states (ICD-10) History of carpal tunnel surgery of right wrist (06/08/23) ?Z98.890 - Other specified postprocedural states (ICD-10) Status post evacuation of subdural hematoma (06/01/11) ?Z98.890 - Other specified postprocedural states (ICD-10) ?Z86.79 - Personal history of other diseases of the circulatory system (ICD-10) History of tonsillectomy ?Z90.89 - Acquired absence of other organs (ICD-10) History of knee surgery (09/15/08) ?Z98.890 - Other specified postprocedural states (ICD-10) History of hemorrhoidectomy (09/15/08) ?Z98.890 - Other specified postprocedural states (ICD-10) Social History Narrative: -Snow former smoker What is your current living situation?: I presently have a place to live Problems where you live: no known problems Problems where you live details: n/a In the past 12 months, utilities in danger of being shut off: no In past 12 months, lack of transportation kept you from medical appts, meetings, work, or getting things needed for daily living: unable to answer In the past 12 mos, have been you worried that your food would run out before you had money to buy more?: never true In the past 12 mos, the food you bought just didn't last and you didn't have money to buy more?: never true Highest level of school completed/degree received: some college, no degree Smoking Status: Never smoker Do you use any of these nicotine containing products: None Second hand tobacco smoke exposure: No How often do you have a drink containing alcohol: never How often do you have six or more drinks on one occasion: Never AUDIT-C Alcohol total score: 0 Non-prescribed substance use: denies use Caffeine: No How often does anyone, including family, friends and others, physically hurt you: never How often does anyone, including family, friends and others, insult or talk down to you: never How often does anyone, including family, friends and others, threaten you with harm: never How often does anyone, including family, friends and others, scream or curse at you: never Little interest or pleasure in doing things: not at all Feeling down, depressed, or hopeless: not at all service: No Exam Narrative: Exam Narrative: Seems little distracted. Hard of hearing. Hearing aids in place. 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 I do not see evidence of new trauma. Area that he indicates is the right posterior scalp without evidence of abrasion. There is a light abrasion on his right knee nontender. Lower extremities with 1 to 2+ pitting edema. Neck is supple nontender. Back nontender. Lower lung marley with crepitus. No wheeze. He is mildly labored in his breathing and mildly tachypneic. Abdomen is soft overweight. Bandage at right mid abdomen as site of paracentesis. There is trace erythema surrounding but no induration of the skin. Abdomen is nontender. Heart in regular rate and rhythm. Const: Vital Signs, click to edit/add: Vital Signs - 24 hr 09/20/23 20:01 09/20/23 20:01 09/20/23 20:02 Temperature 98.8 F Pulse Rate 87 88 Pulse Rate [Pulse Oximeter] 91 Pulse Rate [orthos tatic lying] Pulse Rate [orthos tatic sitting] Pulse Rate [orthos tatic standing] Respiratory Rate 20 Blood Pressure 95/59 L 92/54 L Blood Pressure [Ri ght Upper Arm] 133/119 H Blood Pressure [or thostatic lying] Blood Pressure [or thostatic sitting] Blood Pressure [or thostatic standing ] Pulse Oximetry 99 99 99 Oxygen Delivery Me thod Room Air 09/20/23 20:03 09/20/23 20:07 09/20/23 20:12 Temperature Pulse Rate 87 93 88 Pulse Rate [Pulse Oximeter] Pulse Rate [orthos tatic lying] Pulse Rate [orthos tatic sitting] Pulse Rate [orthos tatic standing] Respiratory Rate Blood Pressure 93/59 L 90/53 L Blood Pressure [Ri ght Upper Arm] Blood Pressure [or thostatic lying] Blood Pressure [or thostatic sitting] Blood Pressure [or thostatic standing ] Pulse Oximetry 99 98 99 [facility] 20:15 09/20/23 20:17 09/20/23 20:22 Temperature Pulse Rate 86 86 87 Pulse Rate [Pulse Oximeter] Pulse Rate [orthos tatic lying] Pulse Rate [orthos tatic sitting] Pulse Rate [orthos tatic standing] Respiratory Rate Blood Pressure 96/59 L 85/54 L Blood Pressure [Ri ght Upper Arm] Blood Pressure [or thostatic lying] Blood Pressure [or thostatic sitting] Blood Pressure [or thostatic standing ] Pulse Oximetry 100 100 99 [facility] 20:26 09/20/23 20:30 09/20/23 20:32 Temperature Pulse Rate 89 89 Pulse Rate [Pulse Oximeter] Pulse Rate [orthos tatic lying] Pulse Rate [orthos tatic sitting] Pulse Rate [orthos tatic standing] Respiratory Rate Blood Pressure 93/62 91/53 L Blood Pressure [Ri ght Upper Arm] Blood Pressure [or thostatic lying] Blood Pressure [or thostatic sitting] Blood Pressure [or thostatic standing ] Pulse Oximetry 98 98 [facility] 09[facility] 20:47 09/20/23 20:48 09/20/23 20:49 Temperature Pulse Rate 89 90 89 Pulse Rate [Pulse Oximeter] Pulse Rate [orthos tatic lying] Pulse Rate [orthos tatic sitting] Pulse Rate [orthos tatic standing] Respiratory Rate Blood Pressure 87/54 L 86/61 L Blood Pressure [Ri ght Upper Arm] Blood Pressure [or thostatic lying] Blood Pressure [or thostatic sitting] Blood Pressure [or thostatic standing ] Pulse Oximetry 99 99 98 [facility] 20:52 09/20/23 20:55 09/20/23 20:57 Temperature Pulse Rate 92 Pulse Rate [Pulse Oximeter] Pulse Rate [orthos tatic lying] 90 Pulse Rate [orthos tatic sitting] 92 Pulse Rate [orthos tatic standing] 101 H Respiratory Rate Blood Pressure 89/53 L 97/45 L Blood Pressure [Ri ght Upper Arm] Blood Pressure [or thostatic lying] 86/61 L Blood Pressure [or thostatic sitting] 89/53 L Blood Pressure [or thostatic standing ] 97/45 L Pulse Oximetry 100 [facility] 20:57 09/20/23 21:00 09/20/23 21:02 Temperature Pulse Rate 89 86 87 Pulse Rate [Pulse Oximeter] Pulse Rate [orthos tatic lying] Pulse Rate [orthos tatic sitting] Pulse Rate [orthos tatic standing] Respiratory Rate Blood Pressure 112/66 Blood Pressure [Ri ght Upper Arm] Blood Pressure [or thostatic lying] Blood Pressure [or thostatic sitting] Blood Pressure [or thostatic standing ] Pulse Oximetry 97 99 99 Oxygen Delivery [facility] 09/20/23 21:15 09/20/23 21:17 09/20/23 21:30 Temperature Pulse Rate 88 87 86 Pulse Rate [Pulse Oximeter] Pulse Rate [orthos tatic lying] Pulse Rate [orthos tatic sitting] Pulse Rate [orthos tatic standing] Respiratory Rate Blood Pressure 97/70 Blood Pressure [Ri ght Upper Arm] Blood Pressure [or thostatic lying] Blood Pressure [or thostatic sitting] Blood Pressure [or thostatic standing ] Pulse Oximetry 98 99 100 Oxygen Delivery [facility] 09/20/23 21:32 09/20/23 21:45 09/20/23 21:46 Temperature Pulse Rate 86 83 82 Pulse Rate [Pulse Oximeter] Pulse Rate [orthos tatic lying] Pulse Rate [orthos tatic sitting] Pulse Rate [orthos tatic standing] Respiratory Rate Blood Pressure 89/59 L 91/65 Blood Pressure [Ri ght Upper Arm] Blood Pressure [or thostatic lying] Blood Pressure [or thostatic sitting] Blood Pressure [or thostatic standing ] Pulse Oximetry 99 96 95 [facility] 22:00 09/20/23 22:02 Temperature Pulse Rate 80 81 Pulse Rate [Pulse Oximeter] Pulse Rate [orthos tatic lying] Pulse Rate [orthos tatic sitting] Pulse Rate [orthos tatic standing] Respiratory Rate Blood Pressure 91/57 L Blood Pressure [Ri ght Upper Arm] Blood Pressure [or thostatic lying] Blood Pressure [or thostatic sitting] Blood Pressure [or thostatic standing ] Pulse Oximetry 96 97 Oxygen Delivery Me thod Documenting provider has reviewed patient's vital signs: yes Course Vital Signs Vital signs: Initial Vital Signs Temperature 98.8 F 09/20/23 20:01 Temperature Source Temporal Artery Scan 09/20/23 20:01 Pulse Rate 87 09/20/23 20:01 Respiratory Rate 20 09/20/23 20:01 Blood Pressure 95/59 L 09/20/23 20:01 Blood Pressure Mean 71 09/20/23 20:01 Blood Pressure Position Sitting 09/20/23 20:01 Pulse Oximetry 99 09/20/23 20:01 Oxygen Delivery Method Room Air 09/20/23 20:01 Vital Signs Temperature 98.8 F 09/20/23 20:01 Pulse Rate 87 09/20/23 20:01 Respiratory Rate 20 09/20/23 20:01 Blood Pressure 95/59 L 09/20/23 20:01 Pulse Oximetry 99 09/20/23 20:01 Oxygen Delivery Method Room Air 09/20/23 20:01 Temperature 97 F L 09/22/23 07:00 Pulse Rate 80 09/22/23 07:00 Respiratory Rate 16 09/22/23 07:00 Blood Pressure 90/63 09/22/23 07:00 Pulse Oximetry 98 09/22/23 07:00 Oxygen Delivery Method Room Air 09/22/23 07:00 Medications Administered Medications: Discontinued Medications Generic Name Dose Route Start Last Admin Trade Name Freq PRN Reason Stop Dose Admin Allopurinol 300 mg 09/21/23 09:00 09/22/23 09:00 Allopurinol 300 Mg Tablet PO 300 mg DAILY DENNIS Administration Sodium Chloride 1,000 mls @ 1,000 mls/hr 09/20/23 21:33 09/20/23 21:41 0.9 % Sodium Chloride 1000 Ml IV 09/20/23 22:32 1,000 mls/hr .Q1H ONE Administration Albumin Human 25 gm in 100 mls @ 100 mls/hr 09/20/23 23:20 09/21/23 02:35 Albumin Human 25% IVPB 09/21/23 00:19 Infused ONCE ONE Infusion Albumin Human 25 gm in 100 mls @ 100 mls/hr 09/20/23 23:21 09/21/23 03:40 Albumin Human 25% IVPB 09/21/23 00:20 Infused ONCE ONE Infusion Sodium Chloride 1,000 mls @ 75 mls/hr 09/20/23 23:21 09/20/23 23:56 0.9 % Sodium Chloride 1000 Ml IV 75 mls/hr .[id number] DENNIS Administration Albumin Human 25 gm in 100 mls @ 100 mls/hr 09/21/23 16:00 09/21/23 18:46 Albumin Human 25% IVPB 09/21/23 16:59 Infused ONCE ONE Infusion Lactated Ringer's 500 mls @ 500 mls/hr 09/21/23 15:29 09/21/23 16:45 Lactated Ringers 500 Ml IV 09/21/23 16:28 Infused .Q1H ONE Infusion Levetiracetam 2,000 mg 09/21/23 09:00 09/22/23 09:00 Levetiracetam 500 Mg Tablet PO 2,000 mg BID DENNIS Administration Midodrine 5 mg 09/21/23 15:30 09/21/23 16:05 Midodrine Hcl 5 Mg Tablet PO 09/21/23 15:31 5 mg ONCE ONE Administration Omeprazole 20 mg 09/21/23 09:00 09/22/23 09:00 Omeprazole [address] PO 20 mg DAILY DENNIS Administration Sodium Chloride 5 ml 09/21/23 09:00 09/22/23 09:01 Sodium Chloride 0.9 % (Flush) 10 Ml Syringe IVF 5 ml BID DENNIS Administration Tamsulosin HCl 0.4 mg 09/21/23 09:00 09/22/23 09:00 Tamsulosin Hcl 0.4 Mg Capsule PO 0.4 mg DAILY DENNIS Administration Medical Decision Making MDM Narrative Medical decision making narrative: Checking orthostatics. Blood pressure is general little soft though this is not too far from baseline. Would monitor for evolution of sepsis. Would like to collect least 1 blood culture; have limited supplies for this. Would bolus L of fluid. Initially notes he is feeling fine but then later feels he is too weak to go home. I do have a conversation with spouse. They do live independently at [facility] and she would have concerns about his safety returning home. Will look for further sign of infection. Creatinine was 2 last check. That was up from baseline. Now 2.2. Hemoglobin has been drifting down little bit. Spouse notes DNR Blood pressure softening a little bit 80s over 50s at 1 point. Improved with initiation of normal saline bolus. Did do a head CT and chest x-ray both of which reviewed by me. Appear to show chronic changes. Reviewed radiology over-reads Discussed with hospitalist for admission Medical Records Medical records reviewed: Yes I reviewed the patient's medical records Lab Data Lab results reviewed: Yes I reviewed the patient's lab results Labs: Lab Results 09/20/23 09/20/23 09/20/23 Range/Units 21:15 21:56 22:23 WBC 8.53 (4.50-11.00) K/uL RBC 2.76 L (4.30-5.90) m/uL Hgb 9.7 L (13.5-17.5) gm/dL Hct 28.2 L (37.0-53.0) % MCV 102 H (80-100) fL MCH 35 H (26-34) pg MCHC 34 (32-36) gm/dL RDW Coeff of Jose 15.5 (11.5-15.5) % Plt Count 179 (140-440) K/uL Neut % (Auto) 72.8 H (42.0-72.0) % Lymph % (Auto) 16.8 L (20-44) % [place] % (Auto) 8.8 (0.0-11.0) % Eos % (Auto) 1.1 (0.0-7.0) % Baso % (Auto) 0.4 (0.0-3.0) % Neut # (Auto) 6.20 (1.7-7.0) K/uL Lymph # (Auto) 1.40 (0.90-2.90) K/uL [place] # (Auto) 0.80 (0.00-0.90) K/UL Eos # (Auto) 0.09 (0.00-0.50) K/uL Baso # (Auto) 0.03 (0.00-0.30) K/uL Abs Immat Gran (auto) 0.01 (0.00-0.30) K/uL Imm/Tot Granulo (auto) 0.1 % INR (0.91-1.10) Sodium 132 L (135-149) mmol/L Potassium 4.4 (3.6-5.1) mmol/L Chloride 102 (96-114) mmol/L Carbon Dioxide 23 (20-32) mmol/L Anion Gap 7 (7-15) mEq/L BUN 65 H (7-30) mg/dL Creatinine 2.2 H (0.5-1.5) mg/dL Estimated Creat Clear 25.96 Estimated GFR 28 ml/min Glucose 151 H (60-115) mg/dL Lactate 1.6 (0.5-1.9) mmol/L Calcium 8.7 (8.4-10.6) mg/dL Magnesium (1.5-2.6) mg/dL Iron (49-181) ug/dL TIBC (261-462) ug/dL % Saturation (20-50) % Total Bilirubin (0.1-1.5) mg/dL AST (12-35) U/L ALT (4-50) U/L Alkaline Phosphatase (40-150) U/L NT-Pro-B Natriuret Pep 367 pg/mL Total Protein (6.0-8.3) g/dL Albumin (3.3-5.0) g/dL Urine Color (Yellow) Urine Appearance (Clear) Urine pH (5.0-8.5) Ur Specific [place] (1.000-1.030) Urine Protein (Negative) Urine Glucose (UA) (Negative) Urine Ketones (Negative) Urine Blood (Negative) Urine Nitrite (Negative) Urine Bilirubin (Negative) Urine Urobilinogen (0.2-1.0) Ur Leukocyte Esterase (Negative) Urine RBC (0-2) Urine WBC (0-5) Ur Squamous Epith Cells (None-Few) Amorphous Sediment (None) Urine Bacteria (None) Levetiracetam 164 H (10-40) ug/mL Lab Acknowledgement Test Added Blood Type Antibody Screen 09/20/23 09/20/23 09/21/23 Range/Units 22:30 22:51 06:03 WBC 5.52 (4.50-11.00) K/uL RBC 2.21 L (4.30-5.90) m/uL Hgb 7.8 L* (13.5-17.5) gm/dL Hct 22.4 L (37.0-53.0) % MCV 101 H (80-100) fL MCH 35 H (26-34) pg MCHC 35 (32-36) gm/dL RDW Coeff of Jose 15.3 (11.5-15.5) % Plt Count 97 L (140-440) K/uL Neut % (Auto) 64.6 (42.0-72.0) % Lymph % (Auto) 21.0 (20-44) % [place] % (Auto) 11.1 H (0.0-11.0) % Eos % (Auto) 2.4 (0.0-7.0) % Baso % (Auto) 0.7 (0.0-3.0) % Neut # (Auto) 3.57 (1.7-7.0) K/uL Lymph # (Auto) 1.16 (0.90-2.90) K/uL [place] # (Auto) 0.60 (0.00-0.90) K/UL Eos # (Auto) 0.13 (0.00-0.50) K/uL Baso # (Auto) 0.04 (0.00-0.30) K/uL Abs Immat Gran (auto) 0.01 (0.00-0.30) K/uL Imm/Tot Granulo (auto) 0.2 % INR 1.26 H (0.91-1.10) Sodium 134 L (135-149) mmol/L Potassium 4.4 (3.6-5.1) mmol/L Chloride 106 (96-114) mmol/L Carbon Dioxide 20 (20-32) mmol/L Anion Gap 8 (7-15) mEq/L BUN 66 H (7-30) mg/dL Creatinine 1.9 H (0.5-1.5) mg/dL Estimated Creat Clear 30.06 Estimated GFR 34 ml/min Glucose 81 (60-115) mg/dL Lactate (0.5-1.9) mmol/L Calcium 8.9 (8.4-10.6) mg/dL Magnesium 1.9 (1.5-2.6) mg/dL Iron 87 (49-181) ug/dL TIBC 161 L (261-462) ug/dL % Saturation 54 H (20-50) % Total Bilirubin 1.4 (0.1-1.5) mg/dL AST 50 H (12-35) U/L ALT 23 (4-50) U/L Alkaline Phosphatase 156 H (40-150) U/L NT-Pro-B Natriuret Pep pg/mL Total Protein 5.4 L (6.0-8.3) g/dL Albumin 3.0 L (3.3-5.0) g/dL Urine Color Yellow (Yellow) Urine Appearance Clear (Clear) Urine pH 5.0 (5.0-8.5) Ur Specific [place] 1.020 (1.000-1.030) Urine Protein Negative (Negative) Urine Glucose (UA) Negative (Negative) Urine Ketones Negative (Negative) Urine Blood Negative (Negative) Urine Nitrite Negative (Negative) Urine Bilirubin Negative (Negative) Urine Urobilinogen 0.2 (0.2-1.0) Ur Leukocyte Esterase Negative (Negative) Urine RBC 0-2 (0-2) Urine WBC 0-2 (0-5) Ur Squamous Epith Cells None (None-Few) Amorphous Sediment Few A (None) Urine Bacteria None (None) Levetiracetam (10-40) ug/mL Lab Acknowledgement Test Added Blood Type Antibody Screen 09/21/23 09/21/23 Range/Units 10:22 10:57 WBC (4.50-11.00) K/uL RBC (4.30-5.90) m/uL Hgb 9.3 L (13.5-17.5) gm/dL Hct (37.0-53.0) % MCV (80-100) fL MCH (26-34) pg MCHC (32-36) gm/dL RDW Coeff of Jose (11.5-15.5) % Plt Count (140-440) K/uL Neut % (Auto) (42.0-72.0) % Lymph % (Auto) (20-44) % [place] % (Auto) (0.0-11.0) % Eos % (Auto) (0.0-7.0) % Baso % (Auto) (0.0-3.0) % Neut # (Auto) (1.7-7.0) K/uL Lymph # (Auto) (0.90-2.90) K/uL [place] # (Auto) (0.00-0.90) K/UL Eos # (Auto) (0.00-0.50) K/uL Baso # (Auto) (0.00-0.30) K/uL Abs Immat Gran (auto) (0.00-0.30) K/uL Imm/Tot Granulo (auto) % INR (0.91-1.10) Sodium (135-149) mmol/L Potassium (3.6-5.1) mmol/L Chloride (96-114) mmol/L Carbon Dioxide (20-32) mmol/L Anion Gap (7-15) mEq/L BUN (7-30) mg/dL Creatinine (0.5-1.5) mg/dL Estimated Creat Clear Estimated GFR ml/min Glucose (60-115) mg/dL Lactate (0.5-1.9) mmol/L Calcium (8.4-10.6) mg/dL Magnesium (1.5-2.6) mg/dL Iron (49-181) ug/dL TIBC (261-462) ug/dL % Saturation (20-50) % Total Bilirubin (0.1-1.5) mg/dL AST (12-35) U/L ALT (4-50) U/L Alkaline Phosphatase (40-150) U/L NT-Pro-B Natriuret Pep pg/mL Total Protein (6.0-8.3) g/dL Albumin (3.3-5.0) g/dL Urine Color (Yellow) Urine Appearance (Clear) Urine pH (5.0-8.5) Ur Specific [place] (1.000-1.030) Urine Protein (Negative) Urine Glucose (UA) (Negative) Urine Ketones (Negative) Urine Blood (Negative) Urine Nitrite (Negative) Urine Bilirubin (Negative) Urine Urobilinogen (0.2-1.0) Ur Leukocyte Esterase (Negative) Urine RBC (0-2) Urine WBC (0-5) Ur Squamous Epith Cells (None-Few) Amorphous Sediment (None) Urine Bacteria (None) Levetiracetam (10-40) ug/mL Lab Acknowledgement Blood Type O Positive Antibody Screen NEGATIVE ECG Data Attestation: I personally reviewed and interpreted this ECG as follows: (Sinus rhythm, PACs, low voltage. Rate of 89) Discharge Plan Discharge Clinical Impression: Weakness, Fall, Closed head injury Patient Disposition: Admitted As Observation Condition: Stable Activity Level: Use Walker Discharge Diet: Renal
--- NOTE | 2023-09-20 20:23 | CRLHL7_ITS ---
For Patients: As a result of the Century Cures Act, medical imaging exams and procedure reports are released immediately into your electronic medical record. You may view this report before your referring provider. If you have questions, please contact your health care provider. Indication: Fall, head trauma Technique: Noncontrast CT through the head with multiplanar reformats Comparison: None Findings: Brain: No acute hemorrhage. No acute infarct. No significant mass effect or midline shift. No gross evidence of a mass lesion or cerebral edema. Moderate chronic microvascular ischemic disease and mild to moderate global parenchymal volume loss. Ventricles: No acute abnormality appreciated. Orbits, sinuses, mastoids: No acute abnormality appreciated. Calvarium and soft tissues: Bilateral geovanna holes and craniotomy defects. Impression: No acute abnormality appreciated. Please note that all CT scans at this facility use dose modulation, iterative reconstruction, and/or weight-based dosing when appropriate to reduce radiation dose to as low as reasonably achievable. Dictated by Bakari Araujo MD @ 09/20/2023 9:09:23 PM (Electronically Signed)
[2023-09-20 21:17] LABS: Basophils Absolute Auto 0.03 K/uL (0.00-0.30); Basophils Percent Auto 0.4 % (0.0-3.0); Eosinophils Absolute Auto 0.09 K/uL (0.00-0.50); Eosinophils Percent Auto 1.1 % (0.0-7.0); Hematocrit* 28.2 % (37.0-53.0); Hemoglobin* 9.7 gm/dL (13.5-17.5); Immature Granulocytes Abs Auto 0.01 K/uL (0.00-0.30); Immature Granulocytes Pct Auto 0.1 %; Lymphocytes Percent Auto 16.8 % (20-44); Mean Corpuscular HGB Conc 34 gm/dL (32-36); Mean Corpuscular Hemoglobin 35 pg (26-34); Mean Corpuscular Volume 102 fL (80-100); Monocytes Percent Auto 8.8 % (0.0-11.0); Neutrophils Percent Auto 72.8 % (42.0-72.0); Platelet Count* 179 K/uL (140-440); RDW Coefficient of Variation % 15.5 % (11.5-15.5); Red Blood Count* 2.76 m/uL (4.30-5.90); White Blood Count* 8.53 K/uL (4.50-11.00)
[2023-09-20 21:31] LABS: Chloride* 102 mmol/L (96-114); Potassium* 4.4 mmol/L (3.6-5.1); Sodium* 132 mmol/L (135-149)
[2023-09-20 21:34] LABS: Anion Gap 7 mEq/L (7-15); Blood Urea Nitrogen* 65 mg/dL (7-30); Carbon Dioxide* 23 mmol/L (20-32); Creatinine* 2.2 mg/dL (0.5-1.5); Est. Creatinine Clearance* 25.96; Estimated Glomerular Filt Rate 28 ml/min
[2023-09-20 21:35] LABS: Calcium* 8.7 mg/dL (8.4-10.6); Glucose* 151 mg/dL (60-115)
[2023-09-20 21:37] LABS: Slide Review Reflex No
[2023-09-20] MEDS: 0.9 % SODIUM CHLORIDE 1000 ml 1,000 ML IV (21:41)
--- NOTE | 2023-09-20 21:41 | CRLHL7_ITS ---
For Patients: As a result of the Cures Act, medical imaging exams and procedure reports are released immediately into your electronic medical record. You may view this report before your referring provider. If you have questions, please contact your health care provider. INDICATION: Congestion, chest tightness. TECHNIQUE: Chest 1 view. COMPARISON: Chest radiograph 06/14/2023. FINDINGS: No focal consolidation, pleural effusion, or pneumothorax. Linear atelectasis or scarring in the left lower lung. Normal heart size. Enlargement of the left main pulmonary artery again noted. No significant pulmonary vascular congestion. Degenerative changes of the shoulders. IMPRESSION: No acute cardiopulmonary findings. Dictated by Mary Ellen Holt MD @ 09/20/2023 10:42:03 PM (Electronically Signed)
[2023-09-20 22:24] LABS: Lactate* 1.6 mmol/L (0.5-1.9)
--- NOTE | 2023-09-20 22:29 | P.IMHP_ITS ---
Hospitalist- H&P: HPI History of Present Illness Date Seen: 09/20/23 Chief complaint: Fall Narrative: Scott Angela is a 88 year old male with past medical history noted below including history of cirrhosis, ascites, hyperlipidemia, BPH, seizure disorder, previous intracranial hemorrhage (now off anticoagulants), osteoarthritis of cervical spine, obesity presenting for evaluation of fall. The patient underwent routine therapeutic paracentesis earlier today. He had 7 liters removed. The patient had a fall earlier today; he got up felt dizzy and lightheaded. He had a fall and hit his head. He was too weak to get up. He presented to ED where CT head showed no acute findings. CXR showed no acute findings. He denies headache. He denies abdominal pain. 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 He is very hard of hearing. In the ED he was given IVF and admitted for further evaluation. Notable labs normal WBC, hgb 9.7, Sodium 132, Cr 2.2, lactate WNL. CXR IMPRESSION: No acute cardiopulmonary findings. CT head No acute abnormality appreciated. Review of Systems Status of ROS: Reports: 10 or more systems reviewed and unremarkable except as noted in History and below [facility] Medical History (Updated 09/20/23 @ 23:26 by Jordan Bunch MD) BPH (benign prostatic hyperplasia) ?N40.0 - Benign prostatic hyperplasia without lower urinary tract symptoms (ICD-10) Hyperlipidemia (02/25/14) ?E78.5 - Hyperlipidemia, unspecified (ICD-10) Pulmonary nodules ?R91.8 - Other nonspecific abnormal finding of lung field (ICD-10) Ascites ?R18.8 - Other ascites (ICD-10) Bronchitis ?J40 - Bronchitis, not specified as acute or chronic (ICD-10) Cirrhosis ?K74.60 - Unspecified cirrhosis of liver (ICD-10) Hypertension (06/14/11) ?I10 - Essential (primary) hypertension (ICD-10) History of subdural hematoma (11/23/11) ?Z86.79 - Personal history of other diseases of the circulatory system (ICD- 10) Gout (09/15/08) ?M10.9 - Gout, unspecified (ICD-10) Tubular adenoma of colon (09/15/08) ?D12.6 - Benign neoplasm of colon, unspecified (ICD-10) Traumatic brain injury (06/14/11) ?S06.9X9A - Unspecified intracranial injury with loss of consciousness of unspecified duration, initial encounter (ICD-10) Subjective tinnitus (10/06/11) ?H93.19 - Tinnitus, unspecified ear (ICD-10) Sensorineural hearing loss (SNHL) (11/23/11) ?H90.5 - Unspecified sensorineural hearing loss (ICD-10) Rosacea (05/21/06) ?L71.9 - Rosacea, unspecified (ICD-10) 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) ?L71.1 - Rhinophyma (ICD-10) Osteoarthritis of cervical spine ?M47.812 - Spondylosis without myelopathy or radiculopathy, cervical region (ICD-10) Obesity (08/16/10) ?E66.9 - Obesity, unspecified (ICD-10) Macular degeneration ?H35.30 - Unspecified macular degeneration (ICD-10) Intestinal obstruction ?K56.609 - Unspecified intestinal obstruction, unspecified as to partial versus complete obstruction (ICD-10) History of seizure (11/23/11) ?Z87.898 - Personal history of other specified conditions (ICD-10) History of pancreatitis (09/15/08) ?Z87.19 - Personal history of other diseases of the digestive system (ICD-10) Surgical History History of carpal tunnel surgery of left wrist (06/27/23) ?Z98.890 - Other specified postprocedural states (ICD-10) History of carpal tunnel surgery of right wrist (06/08/23) ?Z98.890 - Other specified postprocedural states (ICD-10) Status post evacuation of subdural hematoma (06/01/11) ?Z98.890 - Other specified postprocedural states (ICD-10) ?Z86.79 - Personal history of other diseases of the circulatory system (ICD- 10) History of tonsillectomy ?Z90.89 - Acquired absence of other organs (ICD-10) History of knee surgery (09/15/08) ?Z98.890 - Other specified postprocedural states (ICD-10) History of hemorrhoidectomy (09/15/08) ?Z98.890 - Other specified postprocedural states (ICD-10) Social History Narrative: -Snow former smoker What is your current living situation?: I presently have a place to live Problems where you live: no known problems Problems where you live details: n/a In the past 12 months, utilities in danger of being shut off: no In past 12 months, lack of transportation kept you from medical appts, meetings, work, or getting things needed for daily living: unable to answer In the past 12 mos, have been you worried that your food would run out before you had money to buy more?: never true In the past 12 mos, the food you bought just didn't last and you didn't have money to buy more?: never true Highest level of school completed/degree received: some college, no degree Smoking Status: Never smoker Do you use any of these nicotine containing products: None How often do you have a drink containing alcohol: never How often do you have six or more drinks on one occasion: Never AUDIT-C Alcohol total score: 0 Non-prescribed substance use: denies use Caffeine: No How often does anyone, including family, friends and others, physically hurt you : never How often does anyone, including family, friends and others, insult or talk down to you: never How often does anyone, including family, friends and others, threaten you with harm: never How often does anyone, including family, friends and others, scream or curse at you: never Little interest or pleasure in doing things: not at all Feeling down, depressed, or hopeless: not at all service: No Meds Home Medications and Allergies Home Medications ?Medication ?Instructions ?Recorded ?Confirmed ?Type omeprazole 20 mg capsule,delayed 20 mg PO DAILY 06/21/23 09/20/23 History release spironolactone 50 mg tablet 50 mg PO DAILY 09/21/23 09/21/23 History Allergies Allergy/AdvReac Type Severity Reaction Status Date / Time enoxaparin Allergy Severe contraindictation Verified 09/20/23 19:59 to all anticoagulants - see history anticoagulants-relative AdvReac Unknown Uncoded 07/25/23 11:53 contraindication-brain bleed Exam Narrative: Exam Narrative: Gen: no acute distress HEENT: NCAT EOMI mmm Neck: Supple CV: RRR normal s1 s2 Lungs: CTAB Abd: Soft,nt, nd Neuro: Alert, orientedX2, CN grossly intact; Psych: appropriate affect MSK: age appropriate muscle mass Skin; Warm, dry no rash on face Ext: 2+ Le edema Const: Vital Signs, click to edit/add: Vital Signs - 24 hr 09/20/23 20:01 09/20/23 20:01 09/20/23 20:02 Temperature 98.8 F Pulse Rate 87 88 Pulse Rate [Pulse Oximeter] 91 Pulse Rate [orthos tatic lying] Pulse Rate [orthos tatic sitting] Pulse Rate [orthos tatic standing] Respiratory Rate 20 Blood Pressure 95/59 L 92/54 L Blood Pressure [Ri ght Upper Arm] 133/119 H Blood Pressure [or thostatic lying] Blood Pressure [or thostatic sitting] Blood Pressure [or thostatic standing ] Pulse Oximetry 99 99 99 Oxygen Delivery [facility] Room Air 09/20/23 20:03 09/20/23 20:07 09/20/23 20:12 Temperature Pulse Rate 87 93 88 Pulse Rate [Pulse Oximeter] Pulse Rate [orthos tatic lying] Pulse Rate [orthos tatic sitting] Pulse Rate [orthos tatic standing] Respiratory Rate Blood Pressure 93/59 L 90/53 L Blood Pressure [Ri ght Upper Arm] Blood Pressure [or thostatic lying] Blood Pressure [or thostatic sitting] Blood Pressure [or thostatic standing ] Pulse Oximetry 99 98 99 Oxygen Delivery [facility] 09/20/23 20:15 09/20/23 20:17 09/20/23 20:22 Temperature Pulse Rate 86 86 87 Pulse Rate [Pulse Oximeter] Pulse Rate [orthos tatic lying] Pulse Rate [orthos tatic sitting] Pulse Rate [orthos tatic standing] Respiratory Rate Blood Pressure 96/59 L 85/54 L Blood Pressure [Ri ght Upper Arm] Blood Pressure [or thostatic lying] Blood Pressure [or thostatic sitting] Blood Pressure [or thostatic standing ] Pulse Oximetry 100 100 99 [facility] 09/20/23 20:26 09/20/23 20:30 09/20/23 20:32 Temperature Pulse Rate 89 89 Pulse Rate [Pulse Oximeter] Pulse Rate [orthos tatic lying] Pulse Rate [orthos tatic sitting] Pulse Rate [orthos tatic standing] Respiratory Rate Blood Pressure 93/62 91/53 L Blood Pressure [Ri ght Upper Arm] Blood Pressure [or thostatic lying] Blood Pressure [or thostatic sitting] Blood Pressure [or thostatic standing ] Pulse Oximetry 98 98 [facility] 09/20/23 20:47 09/20/23 20:48 09/20/23 20:49 Temperature Pulse Rate 89 90 89 Pulse Rate [Pulse Oximeter] Pulse Rate [orthos tatic lying] Pulse Rate [orthos tatic sitting] Pulse Rate [orthos tatic standing] Respiratory Rate Blood Pressure 87/54 L 86/61 L Blood Pressure [Ri ght Upper Arm] Blood Pressure [or thostatic lying] Blood Pressure [or thostatic sitting] Blood Pressure [or thostatic standing ] Pulse Oximetry 99 99 98 [facility] 09/20/23 20:52 09/20/23 20:55 09/20/23 20:57 Temperature Pulse Rate 92 Pulse Rate [Pulse Oximeter] Pulse Rate [orthos tatic lying] 90 Pulse Rate [orthos tatic sitting] 92 Pulse Rate [orthos tatic standing] 101 H Respiratory Rate Blood Pressure 89/53 L 97/45 L Blood Pressure [Ri ght Upper Arm] Blood Pressure [or thostatic lying] 86/61 L Blood Pressure [or thostatic sitting] 89/53 L Blood Pressure [or thostatic standing ] 97/45 L Pulse Oximetry 100 [facility] 09/20/23 20:57 09/20/23 21:00 09/20/23 21:02 Temperature Pulse Rate 89 86 87 Pulse Rate [Pulse Oximeter] Pulse Rate [orthos tatic lying] Pulse Rate [orthos tatic sitting] Pulse Rate [orthos tatic standing] Respiratory Rate Blood Pressure 112/66 Blood Pressure [Ri ght Upper Arm] Blood Pressure [or thostatic lying] Blood Pressure [or thostatic sitting] Blood Pressure [or thostatic standing ] Pulse Oximetry 97 99 99 [facility] 09/20/23 21:15 09/20/23 21:17 09/20/23 21:30 Temperature Pulse Rate 88 87 86 Pulse Rate [Pulse Oximeter] Pulse Rate [orthos tatic lying] Pulse Rate [orthos tatic sitting] Pulse Rate [orthos tatic standing] Respiratory Rate Blood Pressure 97/70 Blood Pressure [Ri ght Upper Arm] Blood Pressure [or thostatic lying] Blood Pressure [or thostatic sitting] Blood Pressure [or thostatic standing ] Pulse Oximetry 98 99 100 Oxygen Delivery [facility] 09/20/23 21:32 09/20/23 21:45 09/20/23 21:46 Temperature Pulse Rate 86 83 82 Pulse Rate [Pulse Oximeter] Pulse Rate [orthos tatic lying] Pulse Rate [orthos tatic sitting] Pulse Rate [orthos tatic standing] Respiratory Rate Blood Pressure 89/59 L 91/65 Blood Pressure [Ri ght Upper Arm] Blood Pressure [or thostatic lying] Blood Pressure [or thostatic sitting] Blood Pressure [or thostatic standing ] Pulse Oximetry 99 96 95 Oxygen Delivery [facility] 09/20/23 22:00 09/20/23 22:02 Temperature Pulse Rate 80 81 Pulse Rate [Pulse Oximeter] Pulse Rate [orthos tatic lying] Pulse Rate [orthos tatic sitting] Pulse Rate [orthos tatic standing] Respiratory Rate Blood Pressure 91/57 L Blood Pressure [Ri ght Upper Arm] Blood Pressure [or thostatic lying] Blood Pressure [or thostatic sitting] Blood Pressure [or thostatic standing ] Pulse Oximetry 96 97 Oxygen Delivery [facility] Hospitalist - H&P: Result Labs Labs: Short CBC 09/20/23 Range/Units 21:15 WBC 8.53 (4.50-11.00) K/uL Hgb 9.7 L (13.5-17.5) gm/dL Hct 28.2 L (37.0-53.0) % Plt Count 179 (140-440) K/uL BMP 09/20/23 21:15 Sodium 132 L Potassium 4.4 Chloride 102 Carbon Dioxide 23 BUN 65 H Creatinine 2.2 H Glucose 151 H Calcium 8.7 Assessment and Plan Assessment and plan (1) Cirrhosis: Problem comment: etiology of cirrhosis unknown; will have to obtain GI records in AM; check LFTs, INR Status: Acute (2) Fall: Problem comment: suspect secondary to hypovolemia after paracentesis earlier today 7liters removed Status: Acute (3) Acute renal failure: Problem comment: Cr 2.2 previously 2.0 on 09/16 Status: Acute (4) Hyponatremia: Problem comment: Sodium 132 following 7liter removal; on aldactone and lasix Status: Acute (5) Anemia of chronic disease: Problem comment: hgb below baseline; no overt GIB; Status: Acute (6) BPH (benign prostatic hyperplasia): Problem comment: -continue Flomax Status: Acute (7) History of seizure: Problem comment: on keppra Status: Acute Plan Scott Angela is a 88 year old male with past medical history noted below including history of cirrhosis, ascites, hyperlipidemia, BPH, seizure disorder, previous intracranial hemorrhage (now off anticoagulants), osteoarthritis of cervical spine, obesity presenting for evaluation of fall. The patient underwent routine therapeutic paracentesis earlier today. He had 7 liters removed. The patient had a fall earlier today; he got up felt dizzy and lightheaded. He had a fall and hit his head. He was too weak to get up. He presented to ED where CT head showed no acute findings. CXR showed no acute findings. He denies headache. He denies abdominal pain. 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 He is very hard of hearing. In the ED he was given IVF and admitted for further evaluation. Notable labs normal WBC, hgb 9.7, Sodium 132, Cr 2.2, lactate WNL. Plan -unclear if patient was given albumin after paracentesis earlier today after 7L removed -admit to inpatient -albumin infusion -IVF -hold nephrotoxic agents -repeat CMP/INR in AM -Fall precautions -hold diuretics (lasix and aldactone) -will need to discuss goals of care with family -consider renal US tomorrow if renal function not improving; possible early hepatorenal syndrome -repeat cbc -obtain UA
[2023-09-20 22:38] LABS: Appearance Urine Clear (Clear); Bilirubin Urine Negative (Negative); Blood Urine Negative (Negative); Color Urine Yellow (Yellow); Glucose Urine Negative (Negative); Ketones Urine Negative (Negative); Leukocyte Esterase Urine Negative (Negative); Nitrite Urine Negative (Negative); Protein Urine Negative (Negative); Urobilinogen Urine 0.2 (0.2-1.0)
[2023-09-20 23:03] LABS: Amorphous Sediment Urine Few; RBC Urine 0-2 (0-2); WBC Urine 0-2 (0-5)
[2023-09-20 23:52] LABS: NT Pro B Type NatriureticPept* 367 pg/mL
[2023-09-20] MEDS: 0.9 % SODIUM CHLORIDE 1000 ml 1,000 ML 75 ML IV (23:56)
[2023-09-21] VITALS (7 sets, daily range): BP systolic 86–114; BP diastolic 43–69; PULSE 72–90; RESP 16–18; TEMP 36.2–37.1; O2SAT 96–100; BMI 27.3
[2023-09-21] MEDS: ALBUMIN HUMAN 25% 25 GM/100 ML VIAL IVPB ×3 (00:25→17:18)
--- NOTE | 2023-09-21 06:32 | PC.NURSE ---
Arrived to floor at 2315: A&O and cooperative. [place]. Denies pain. Hypotensive on arrival but asymptomatic. Stood on side of bed w/ A1 and walker. Tolerated well. Using call light appropriately.
[2023-09-21 06:47] LABS: Basophils Absolute Auto 0.04 K/uL (0.00-0.30); Basophils Percent Auto 0.7 % (0.0-3.0); Eosinophils Absolute Auto 0.13 K/uL (0.00-0.50); Eosinophils Percent Auto 2.4 % (0.0-7.0); Hematocrit* 22.4 % (37.0-53.0); Immature Granulocytes Abs Auto 0.01 K/uL (0.00-0.30); Immature Granulocytes Pct Auto 0.2 %; Lymphocytes Absolute Auto 1.16 K/uL (0.90-2.90); Mean Corpuscular HGB Conc 35 gm/dL (32-36); Mean Corpuscular Hemoglobin 35 pg (26-34); Mean Corpuscular Volume 101 fL (80-100); Monocytes Percent Auto 11.1 % (0.0-11.0); Neutrophils Absolute Auto 3.57 K/uL (1.7-7.0); Neutrophils Percent Auto 64.6 % (42.0-72.0); Platelet Count* 97 K/uL (140-440); RDW Coefficient of Variation % 15.3 % (11.5-15.5); Red Blood Count* 2.21 m/uL (4.30-5.90); White Blood Count* 5.52 K/uL (4.50-11.00)
[2023-09-21 07:01] LABS: Iron* 87 ug/dL (49-181)
[2023-09-21 07:04] LABS: Hemoglobin* 7.8 gm/dL (13.5-17.5); INR 1.26 (0.91-1.10); Prothrombin Time 16.7 Seconds
[2023-09-21 07:05] LABS: Slide Review Reflex No
[2023-09-21 07:08] LABS: Chloride* 106 mmol/L (96-114); Potassium* 4.4 mmol/L (3.6-5.1); Sodium* 134 mmol/L (135-149)
[2023-09-21 07:10] LABS: Anion Gap 8 mEq/L (7-15); Aspartate Amino Transferase* 50 U/L (12-35); Bilirubin Total* 1.4 mg/dL (0.1-1.5); Carbon Dioxide* 20 mmol/L (20-32); Creatinine* 1.9 mg/dL (0.5-1.5); Est. Creatinine Clearance* 30.06; Estimated Glomerular Filt Rate 34 ml/min; Total Protein* 5.4 g/dL (6.0-8.3)
[2023-09-21 07:11] LABS: Alanine Aminotransferase* 23 U/L (4-50); Alkaline Phosphatase* 156 U/L (40-150); Blood Urea Nitrogen* 66 mg/dL (7-30); Calcium* 8.9 mg/dL (8.4-10.6); Glucose* 81 mg/dL (60-115); Magnesium* 1.9 mg/dL (1.5-2.6); Percent Iron Saturation 54 % (20-50); Total Iron Binding Capacity 161 ug/dL (261-462)
[2023-09-21] MEDS: allopurinoL 300 MG TABLET PO (08:37)
[2023-09-21] MEDS: TAMSULOSIN HCL 0.4 MG CAPSULE PO (08:37)
[2023-09-21] MEDS: OMEPRAZOLE 20 MG CAPSULE DR PO (08:37)
[2023-09-21] MEDS: levETIRAcetam 500 MG TABLET 2000 MG PO ×2 (08:37→21:09)
[2023-09-21 11:50] LABS: Hemoglobin* 9.3 gm/dL (13.5-17.5)
--- NOTE | 2023-09-21 12:05 | P.IMPN_ITS ---
Progress Note: A&P Assessment and plan (1) Acute renal failure: Problem details: Cr 2.2 previously 2.0 on 09/16..His Cr has improved to 1.9; will obtain renal us Status: Acute (2) Fall: Problem details: suspect secondary to hypovolemia after paracentesis on 09/19 7liters removed Status: Acute (3) Cirrhosis: Problem details: etiology of cirrhosis unknown; per Dr Curran requires paracentesis every 7-10 days. will trend LFTs and INR; will give additional dose of albumin Status: Acute (4) Anemia of chronic disease: Problem details: hgb below baseline; no overt GIB; 09/20: AM hgb 7.8 repeat hgb this afternoon 9.3 Status: Acute (5) Hyponatremia: Problem details: Admission Sodium 132 following 7liter removal; on aldactone and lasix. Sodium today has improved to 134 Status: Acute (6) BPH (benign prostatic hyperplasia): Problem details: -continue Flomax Status: Acute (7) History of seizure: Problem details: on ke Status: Acute (8) Thrombocytopenia: Problem details: secondary to cirrhosis of the liver; daily CBC Status: Acute Plan Dispo-Anticipated TCU/SNF in 1-2 days DVT ppx-SCD Code Status-DNR/DNI Family communication: updated by telephone today Subjective Date Seen: 09/21/23 Interval history: patient feels more alert this morning eating lunch this afternoon AM hgb was 7.8 repeat hgb 9.3 renal function improving Exam Narrative: Exam Narrative: Gen: no acute distress HEENT: NCAT EOMI mmm CV: RRR normal s1 s2 Lungs: CTAB Abd: Soft,nt, nd Neuro: Alert, , CN grossly intact; Psych: appropriate affect MSK: age appropriate muscle mass Skin; Warm, dry no rash on face Const: Vital Signs, click to edit/add: Vital Signs - 24 hr 09/20/23 20:01 09/20/23 20:01 09/20/23 20:02 Temperature 98.8 F Pulse Rate 87 88 Pulse Rate [Pulse Oximeter] 91 Pulse Rate [orthos tatic lying] Pulse Rate [orthos tatic sitting] Pulse Rate [orthos tatic standing] Respiratory Rate 20 Blood Pressure 95/59 L 92/54 L Blood Pressure [Ri ght Arm] Blood Pressure [Ri ght Upper Arm] 133/119 H Blood Pressure [or thostatic lying] Blood Pressure [or thostatic sitting] Blood Pressure [or thostatic standing ] Pulse Oximetry 99 99 [facility] 09/20/23 20:03 09/20/23 20:07 09/20/23 20:12 Temperature Pulse Rate 87 93 88 Pulse Rate [Pulse Oximeter] Pulse Rate [orthos tatic lying] Pulse Rate [orthos tatic sitting] Pulse Rate [orthos tatic standing] Respiratory Rate Blood Pressure 93/59 L 90/53 L Blood Pressure [Ri ght Arm] Blood Pressure [Ri ght Upper Arm] Blood Pressure [or thostatic lying] Blood Pressure [or thostatic sitting] Blood Pressure [or thostatic standing ] Pulse Oximetry 99 98 99 [facility] 09/[facility]/23 20:15 09/20/23 20:17 09/20/23 20:22 Temperature Pulse Rate 86 86 87 Pulse Rate [Pulse Oximeter] Pulse Rate [orthos tatic lying] Pulse Rate [orthos tatic sitting] Pulse Rate [orthos tatic standing] Respiratory Rate Blood Pressure 96/59 L 85/54 L Blood Pressure [Ri ght Arm] Blood Pressure [Ri ght Upper Arm] Blood Pressure [or thostatic lying] Blood Pressure [or thostatic sitting] Blood Pressure [or thostatic standing ] Pulse Oximetry 100 100 99 Oxygen Delivery [facility] 09/20/23 20:26 09/20/23 20:30 09/20/23 20:32 Temperature Pulse Rate 89 89 Pulse Rate [Pulse Oximeter] Pulse Rate [orthos tatic lying] Pulse Rate [orthos tatic sitting] Pulse Rate [orthos tatic standing] Respiratory Rate Blood Pressure 93/62 91/53 L Blood Pressure [Ri ght Arm] Blood Pressure [Ri ght Upper Arm] Blood Pressure [or thostatic lying] Blood Pressure [or thostatic sitting] Blood Pressure [or thostatic standing ] Pulse Oximetry 98 98 Oxygen Delivery Ut [facility]od 09/20/23 20:47 09/20/23 20:48 09/20/23 20:49 Temperature Pulse Rate 89 90 89 Pulse Rate [Pulse Oximeter] Pulse Rate [orthos tatic lying] Pulse Rate [orthos tatic sitting] Pulse Rate [orthos tatic standing] Respiratory Rate Blood Pressure 87/54 L 86/61 L Blood Pressure [Ri ght Arm] Blood Pressure [Ri ght Upper Arm] Blood Pressure [or thostatic lying] Blood Pressure [or thostatic sitting] Blood Pressure [or thostatic standing ] Pulse Oximetry 99 99 98 [facility] 09/[facility]/23 20:52 09/20/23 20:55 09/20/23 20:57 Temperature Pulse Rate 92 Pulse Rate [Pulse Oximeter] Pulse Rate [orthos tatic lying] 90 Pulse Rate [orthos tatic sitting] 92 Pulse Rate [orthos tatic standing] 101 H Respiratory Rate Blood Pressure 89/53 L 97/45 L Blood Pressure [Ri ght Arm] Blood Pressure [Ri ght Upper Arm] Blood Pressure [or thostatic lying] 86/61 L Blood Pressure [or thostatic sitting] 89/53 L Blood Pressure [or thostatic standing ] 97/45 L Pulse Oximetry 100 [facility] 09/20/23 20:57 09/20/23 21:00 09/20/23 21:02 Temperature Pulse Rate 89 86 87 Pulse Rate [Pulse Oximeter] Pulse Rate [orthos tatic lying] Pulse Rate [orthos tatic sitting] Pulse Rate [orthos tatic standing] Respiratory Rate Blood Pressure 112/66 Blood Pressure [Ri ght Arm] Blood Pressure [Ri ght Upper Arm] Blood Pressure [or thostatic lying] Blood Pressure [or thostatic sitting] Blood Pressure [or thostatic standing ] Pulse Oximetry 97 99 99 [facility] 09/20/23 21:15 09/20/23 21:17 09/20/23 21:30 Temperature Pulse Rate 88 87 86 Pulse Rate [Pulse Oximeter] Pulse Rate [orthos tatic lying] Pulse Rate [orthos tatic sitting] Pulse Rate [orthos tatic standing] Respiratory Rate Blood Pressure 97/70 Blood Pressure [Ri ght Arm] Blood Pressure [Ri ght Upper Arm] Blood Pressure [or thostatic lying] Blood Pressure [or thostatic sitting] Blood Pressure [or thostatic standing ] Pulse Oximetry 98 99 100 [facility] 09/20/23 21:32 09/20/23 21:45 09/20/23 21:46 Temperature Pulse Rate 86 83 82 Pulse Rate [Pulse Oximeter] Pulse Rate [orthos tatic lying] Pulse Rate [orthos tatic sitting] Pulse Rate [orthos tatic standing] Respiratory Rate Blood Pressure 89/59 L 91/65 Blood Pressure [Ri ght Arm] Blood Pressure [Ri ght Upper Arm] Blood Pressure [or thostatic lying] Blood Pressure [or thostatic sitting] Blood Pressure [or thostatic standing ] Pulse Oximetry 99 96 95 [facility] 09/20/23 22:00 09/20/23 22:02 09/20/23 22:03 Temperature Pulse Rate 80 81 78 Pulse Rate [Pulse Oximeter] Pulse Rate [orthos tatic lying] Pulse Rate [orthos tatic sitting] Pulse Rate [orthos tatic standing] Respiratory Rate Blood Pressure 91/57 L Blood Pressure [Ri ght Arm] Blood Pressure [Ri ght Upper Arm] Blood Pressure [or thostatic lying] Blood Pressure [or thostatic sitting] Blood Pressure [or thostatic standing ] Pulse Oximetry 96 97 96 [facility] 09/20/23 22:15 09/20/23 22:18 09/20/23 22:23 Temperature Pulse Rate 86 81 87 Pulse Rate [Pulse Oximeter] Pulse Rate [orthos tatic lying] Pulse Rate [orthos tatic sitting] Pulse Rate [orthos tatic standing] Respiratory Rate Blood Pressure 95/61 Blood Pressure [Ri ght Arm] Blood Pressure [Ri ght Upper Arm] Blood Pressure [or thostatic lying] Blood Pressure [or thostatic sitting] Blood Pressure [or thostatic standing ] Pulse Oximetry 98 97 98 [facility] 09/20/23 22:32 09/20/23 22:47 09/20/23 23:02 Temperature Pulse Rate Pulse Rate [Pulse Oximeter] Pulse Rate [orthos tatic lying] Pulse Rate [orthos tatic sitting] Pulse Rate [orthos tatic standing] Respiratory Rate Blood Pressure 106/78 98/61 94/60 Blood Pressure [Ri ght Arm] Blood Pressure [Ri ght Upper Arm] Blood Pressure [or thostatic lying] Blood Pressure [or thostatic sitting] Blood Pressure [or thostatic standing ] Pulse Oximetry [facility] 09/21/23 00:08 09/21/23 02:39 09/21/23 07:21 Temperature 97.2 F L 97.6 F 97.9 F Pulse Rate Pulse Rate [Pulse Oximeter] 90 77 81 Pulse Rate [orthos tatic lying] Pulse Rate [orthos tatic sitting] Pulse Rate [orthos tatic standing] Respiratory Rate 18 16 18 Blood Pressure Blood Pressure [Ri ght Arm] 100/58 L 98/55 L 87/51 L Blood Pressure [Ri ght Upper Arm] Blood Pressure [or thostatic lying] Blood Pressure [or thostatic sitting] Blood Pressure [or thostatic standing ] Pulse Oximetry 98 97 96 Oxygen Delivery [facility] Room Air Room Air Room Air 09/21/23 11:21 Temperature 98.0 F Pulse Rate Pulse Rate [Pulse Oximeter] 72 Pulse Rate [orthos tatic lying] Pulse Rate [orthos tatic sitting] Pulse Rate [orthos tatic standing] Respiratory Rate 18 Blood Pressure Blood Pressure [Ri ght Arm] 102/62 Blood Pressure [Ri ght Upper Arm] Blood Pressure [or thostatic lying] Blood Pressure [or thostatic sitting] Blood Pressure [or thostatic standing ] Pulse Oximetry 98 Oxygen Delivery [facility] Room Air Labs Labs: Laboratory Results - last 24 hr 09/20/23 09/20/23 09/20/23 21:15 21:56 22:23 WBC 8.53 RBC 2.76 L Hgb 9.7 L Hct 28.2 L MCV 102 H MCH 35 H MCHC 34 RDW Coeff of Jose 15.5 Plt Count 179 Neut % (Auto) 72.8 H Lymph % (Auto) 16.8 L Archer % (Auto) 8.8 Eos % (Auto) 1.1 Baso % (Auto) 0.4 Neut # (Auto) 6.20 Lymph # (Auto) 1.40 Archer # (Auto) 0.80 Eos # (Auto) 0.09 Baso # (Auto) 0.03 Abs Immat Gran (auto) 0.01 Imm/Tot Granulo (auto) 0.1 INR Sodium 132 L Potassium 4.4 Chloride 102 Carbon Dioxide 23 Anion Gap 7 BUN 65 H Creatinine 2.2 H Estimated Creat Clear 25.96 Estimated GFR 28 Glucose 151 H Lactate 1.6 Calcium 8.7 Magnesium Iron TIBC % Saturation Total Bilirubin AST ALT Alkaline Phosphatase NT-Pro-B Natriuret Pep 367 Total Protein Albumin Urine Color Urine Appearance Urine pH Ur Specific Centuria Urine Protein Urine Glucose (UA) Urine Ketones Urine Blood Urine Nitrite Urine Bilirubin Urine Urobilinogen Ur Leukocyte Esterase Urine RBC Urine WBC Ur Squamous Epith Cells Amorphous Sediment Urine Bacteria Lab Acknowledgement Test Added Blood Type Antibody Screen 09/20/23 09/20/23 09/21/23 22:30 22:51 06:03 WBC 5.52 RBC 2.21 L Hgb 7.8 L* Hct 22.4 L MCV 101 H MCH 35 H MCHC 35 RDW Coeff of Jose 15.3 Plt Count 97 L Neut % (Auto) 64.6 Lymph % (Auto) 21.0 Archer % (Auto) 11.1 H Eos % (Auto) 2.4 Baso % (Auto) 0.7 Neut # (Auto) 3.57 Lymph # (Auto) 1.16 Archer # (Auto) 0.60 Eos # (Auto) 0.13 Baso # (Auto) 0.04 Abs Immat Gran (auto) 0.01 Imm/Tot Granulo (auto) 0.2 INR 1.26 H Sodium 134 L Potassium 4.4 Chloride 106 Carbon Dioxide 20 Anion Gap 8 BUN 66 H Creatinine 1.9 H Estimated Creat Clear 30.06 Estimated GFR 34 Glucose 81 Lactate Calcium 8.9 Magnesium 1.9 Iron 87 TIBC 161 L % Saturation 54 H Total Bilirubin 1.4 AST 50 H ALT 23 Alkaline Phosphatase 156 H NT-Pro-B Natriuret Pep Total Protein 5.4 L Albumin 3.0 L Urine Color Yellow Urine Appearance Clear Urine pH 5.0 Ur Specific Centuria 1.020 Urine Protein Negative Urine Glucose (UA) Negative Urine Ketones Negative Urine Blood Negative Urine Nitrite Negative Urine Bilirubin Negative Urine Urobilinogen 0.2 Ur Leukocyte Esterase Negative Urine RBC 0-2 Urine WBC 0-2 Ur Squamous Epith Cells None Amorphous Sediment Few A Urine Bacteria None Lab Acknowledgement Test Added Blood Type Antibody Screen 09/21/23 09/21/23 10:22 10:57 WBC RBC Hgb 9.3 L Hct MCV MCH MCHC RDW Coeff of Jose Plt Count Neut % (Auto) Lymph % (Auto) Archer % (Auto) Eos % (Auto) Baso % (Auto) Neut # (Auto) Lymph # (Auto) Archer # (Auto) Eos # (Auto) Baso # (Auto) Abs Immat Gran (auto) Imm/Tot Granulo (auto) INR Sodium Potassium Chloride Carbon Dioxide Anion Gap BUN Creatinine Estimated Creat Clear Estimated GFR Glucose Lactate Calcium Magnesium Iron TIBC % Saturation Total Bilirubin AST ALT Alkaline Phosphatase NT-Pro-B Natriuret Pep Total Protein Albumin Urine Color Urine Appearance Urine pH Ur Specific Centuria Urine Protein Urine Glucose (UA) Urine Ketones Urine Blood Urine Nitrite Urine Bilirubin Urine Urobilinogen Ur Leukocyte Esterase Urine RBC Urine WBC Ur Squamous Epith Cells Amorphous Sediment Urine Bacteria Lab Acknowledgement Blood Type O Positive Antibody Screen NEGATIVE
--- NOTE | 2023-09-21 14:39 | PC.NURSE ---
Shift (7-15) Pt alert and oriented. Pt had no complaints of pain. Pt up with an assist of one with gait belt and walker. Pt up to chair multiple times during shifts.Pt is [facility]. Pt comes from [facility] with .
[2023-09-21] MEDS: LACTATED RINGERS 500 ML 500 ML IV (15:36)
[2023-09-21] MEDS: MIDODRINE HCL 5 MG TABLET PO (16:05)
--- NOTE | 2023-09-21 18:48 | PC.NURSE ---
End of shift note: [id number], Patients BP was 86/43, MD notified and Midodrine and a 500cc bolus was administered. upon Recheck, Patients BP was 97/56. Patient pleasant and cooperative.
[2023-09-21] MEDS: SODIUM CHLORIDE 0.9 % (FLUSH) 10 ML SYRINGE 5 ML IVF (21:12)
[2023-09-22 01:25] VITALS: BP 116/68; PULSE 80; RESP 16; TEMP 36.5; O2SAT 97
--- NOTE | 2023-09-22 06:22 | PC.NURSE ---
Pt is alert and oriented x3. Afebrile. Pt denies pain, SOB, and N/V. Pt reports I feel better than before. Not as weak Pt is up SBA with walker to bathroom, voiding, tolerating regular diet. Pt slept throughout most of night. Night uneventful.
[2023-09-22 07:00] VITALS: BP 90/63; PULSE 80; RESP 16; TEMP 36.1; O2SAT 98
[2023-09-22 08:54] LABS: Ionized Calcium* 1.19 mmol/L (1.11-1.30); Lactate* 1.1 mmol/L (0.5-1.9)
[2023-09-22 08:57] LABS: Hematocrit* 29.7 % (37.0-53.0); Hemoglobin* 10.2 gm/dL (13.5-17.5); Mean Corpuscular HGB Conc 34 gm/dL (32-36); Mean Corpuscular Hemoglobin 35 pg (26-34); Mean Corpuscular Volume 102 fL (80-100); Platelet Count* 180 K/uL (140-440); Red Blood Count* 2.91 m/uL (4.30-5.90); White Blood Count* 7.79 K/uL (4.50-11.00)
[2023-09-22] MEDS: allopurinoL 300 MG TABLET PO (09:00)
[2023-09-22] MEDS: levETIRAcetam 500 MG TABLET 2000 MG PO (09:00)
[2023-09-22] MEDS: OMEPRAZOLE 20 MG CAPSULE DR PO (09:00)
[2023-09-22] MEDS: TAMSULOSIN HCL 0.4 MG CAPSULE PO (09:00)
[2023-09-22] MEDS: SODIUM CHLORIDE 0.9 % (FLUSH) 10 ML SYRINGE 5 ML IVF (09:01)
[2023-09-22 09:03] LABS: Slide Review Reflex No
[2023-09-22 09:17] LABS: Albumin* 3.4 g/dL (3.3-5.0); Chloride* 105 mmol/L (96-114); INR 1.18 (0.91-1.10); Prothrombin Time 15.8 Seconds; Sodium* 133 mmol/L (135-149)
[2023-09-22 09:18] LABS: Potassium* 4.5 mmol/L (3.6-5.1)
[2023-09-22 09:20] LABS: Alanine Aminotransferase* 27 U/L (4-50); Alkaline Phosphatase* 185 U/L (40-150); Anion Gap 4 mEq/L (7-15); Aspartate Amino Transferase* 46 U/L (12-35); Bilirubin Total* 1.5 mg/dL (0.1-1.5); Blood Urea Nitrogen* 61 mg/dL (7-30); Carbon Dioxide* 24 mmol/L (20-32); Creatinine* 1.8 mg/dL (0.5-1.5); Est. Creatinine Clearance* 31.73; Estimated Glomerular Filt Rate 36 ml/min
[2023-09-22 09:21] LABS: Calcium* 9.2 mg/dL (8.4-10.6); Glucose* 98 mg/dL (60-115); Magnesium* 1.9 mg/dL (1.5-2.6)
[2023-09-22 09:23] LABS: C Reactive Protein* 1.6 mg/dL (0.5-1.0)
[2023-09-22 09:37] LABS: Hemoglobin A1C* 5.3 % (0-5.6)
[2023-09-22 09:39] LABS: Troponin I* < 0.01 ng/mL (0.01-0.04)
--- NOTE | 2023-09-22 10:57 | PM.DS1 ---
DS: Providers Provider Time Seen by Provider: 09:20 Date Seen: 09/22/23 Date of admission: 09/21/23 12:41 Primary care physician: Russ Curran MD Admitting Clinician: Jordan Bunch MD Consults: 09/20/23 23:19 Consult to Occupational Therapy [CONS] Routine Comment: Reason(s) for OT Consult:: Evaluate and Treat Any Restrictions?:: No Restrictions Consult to Physical Therapy [CONS] Routine Comment: Reason(s) for PT Consult:: Evaluate and Treat Any Restrictions?:: No Restrictions Consult to [facility] [CONS] Routine Comment: Reason for Consult:: Discharge Planning Needs Attending Physician on discharge: Sarah Bustillos MD Date of Discharge: 09/22/23 DS: Diagnosis Discharge Diagnosis (1) Acute renal failure: Status: Acute Problem details: Cr 2.2 previously 2.0 on 09/16..His Cr has improved to 1.8; Suspect secondary to hepatorenal syndrome. I spoke with PCP (Dr. Curran), will obtain renal us as outpatient (2) Fall: Status: Acute (3) Cirrhosis: Status: Chronic Problem details: etiology of cirrhosis unknown; per Dr Curran requires paracentesis every 7-10 days. - planning increased frequency of paracenteses - weekly starting this and then every Monday going forward. (4) Anemia of chronic disease: Status: Chronic Problem details: hgb below baseline; no overt GIB; 09/20: AM hgb 7.8 repeat hgb this afternoon 9.3 - 09/21 Hgb stable at 10.2 (5) Hyponatremia: Status: Chronic Problem details: Admission Sodium 132 following 7liter removal; on aldactone and lasix. Sodium near baseline (133 today, baseline 134) (6) BPH (benign prostatic hyperplasia): Status: Chronic Problem details: -continue Flomax (7) History of seizure: Status: Chronic Problem details: on keppra (8) Thrombocytopenia: Status: Resolved Problem details: secondary to cirrhosis of the liver (9) Fall: Status: Acute Problem details: suspect secondary to hypovolemia after paracentesis on 09/19 7liters removed - Improved, at baseline ambulatory status today 09/21 (10) Weakness: Status: Acute Problem details: - Improved, at baseline ambulatory status today 09/21 DS: Summary Hospital Course Hospital Course: Per H&P: Scott B Renander is a 88 year old male with past medical history noted below including history of cirrhosis, ascites, hyperlipidemia, BPH, seizure disorder, previous intracranial hemorrhage (now off anticoagulants), osteoarthritis of cervical spine, obesity presenting for evaluation of fall. The patient underwent routine therapeutic paracentesis earlier today. He had 7 liters removed. The patient had a fall earlier today; he got up felt dizzy and lightheaded. He had a fall and hit his head. He was too weak to get up. He presented to ED where CT head showed no acute findings. CXR showed no acute findings. He denies headache. He denies abdominal pain. 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 He is very hard of hearing. In the ED he was given IVF and admitted for further evaluation. Notable labs normal WBC, hgb 9.7, Sodium 132, Cr 2.2, lactate WNL. Patient's ambulatory status and labs improved. His ambulatory status is now at baseline and he desires homegoing. I spoke with his PCP, Dr. Curran who agrees with this plan and would like him to follow-up on . 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 I have ordered an outpatient renal ultrasound. I have also ordered labs to be done later this week when he goes in for his paracentesis on . He will follow-up with Dr. Curran at that time and be getting paracentesis weekly to try to prevent the need for large volume paracentesis. Time Spent with Patient Time attestation: Total time spent providing and/or coordinating discharge services: Exam Narrative: Exam Narrative: General: No acute distress. Awake, alert, oriented x3. Tabitha and I have a common friend/old neighbor, and he was able to connect the dots and recall detailed information about people we know in common and about the street I used to live on. No pallor. No jaundice. Oropharynx: Clear. Mucous membranes moist. Cardiovascular: Regular rate and rhythm. No murmurs, gallops, or rubs. Respiratory: Clear to auscultation bilaterally. No wheezes or crackles. Abdomen: Bowel sounds present. Soft, nondistended, nontender. Const: Vital Signs, click to edit/add: Vital Signs - 24 hr 09/21/23 11:21 09/21/23 15:00 09/21/23 15:00 Temperature 98.0 F 97.6 F Pulse Rate [Pulse Oximeter] 72 75 75 Respiratory Rate 18 18 18 Blood Pressure [Ri ght Arm] 102/62 86/43 L Pulse Oximetry 98 99 Oxygen Delivery Me thod Room Air Room Air 09/21/23 20:06 09/21/23 22:29 09/21/23 22:29 Temperature 97.8 F 98.8 F Pulse Rate [Pulse Oximeter] 86 78 78 Respiratory Rate 16 16 16 Blood Pressure [Ri ght Arm] 114/69 100/57 L Pulse Oximetry 100 97 Oxygen Delivery Me thod Room Air Room Air 09/22/23 01:25 09/22/23 07:00 09/22/23 07:00 Temperature 97.7 F 97 F L Pulse Rate [Pulse Oximeter] 80 80 80 Respiratory Rate 16 16 16 Blood Pressure [Ri ght Arm] 116/68 90/63 Pulse Oximetry 97 98 Oxygen Delivery Me thod Room Air Room Air DS: Data Data Completed and Pending Completed studies during hospitalization: 09/20/2023 EKG: Sinus rhythm with premature atrial complexes. 89 beats per minute. Low-voltage QRS. Nonspecific ST wave abnormality. Ordering Physician: Isai Cox M.D. Date of Service: 09/20/23 Procedure(s): CT head/brain wo con Accession Number(s): [id number] cc: Russ Curran M.D.; Isai Cox M.D.~ For Patients: As a result of the Cures Act, medical imaging exams and procedure reports are released immediately into your electronic medical record. You may view this report before your referring provider. If you have questions, please contact your health care provider. Indication: Fall, head trauma Technique: Noncontrast CT through the head with multiplanar reformats Comparison: None Findings: Brain: No acute hemorrhage. No acute infarct. No significant mass effect or midline shift. No gross evidence of a mass lesion or cerebral edema. Moderate chronic microvascular ischemic disease and mild to moderate global parenchymal volume loss. Ventricles: No acute abnormality appreciated. Orbits, sinuses, mastoids: No acute abnormality appreciated. Calvarium and soft tissues: Bilateral geovanna holes and craniotomy defects. Impression: No acute abnormality appreciated. Please note that all CT scans at this facility use dose modulation, iterative reconstruction, and/or weight-based dosing when appropriate to reduce radiation dose to as low as reasonably achievable. Dictated by Bakari Araujo MD @ 09/20/2023 9:09:23 PM (Electronically Signed) Ordering Physician: Isai Cox M.D. Date of Service: 09/20/23 Procedure(s): XR chest 1V portable Accession Number(s): [id number] cc: Russ Curran M.D.; Isai Cox M.D.~ For Patients: As a result of the Century Cures Act, medical imaging exams and procedure reports are released immediately into your electronic medical record. You may view this report before your referring provider. If you have questions, please contact your health care provider. INDICATION: Congestion, chest tightness. TECHNIQUE: Chest 1 view. COMPARISON: Chest radiograph 06/14/2023. FINDINGS: No focal consolidation, pleural effusion, or pneumothorax. Linear atelectasis or scarring in the left lower lung. Normal heart size. Enlargement of the left main pulmonary artery again noted. No significant pulmonary vascular congestion. Degenerative changes of the shoulders. IMPRESSION: No acute cardiopulmonary findings. Dictated by Mary Ellen Holt MD @ 09/20/2023 10:42:03 PM (Electronically Signed) Labs on day of discharge: Labs from last 24 hours 09/22/23 09/21/23 09/21/23 08:37 10:57 10:22 WBC 7.79 RBC 2.91 L Hgb 10.2 L 9.3 L Hct 29.7 L MCV 102 H MCH 35 H MCHC 34 Plt Count 180 INR 1.18 H Sodium 133 L Potassium 4.5 Chloride 105 Carbon Dioxide 24 Anion Gap 4 L BUN 61 H Creatinine 1.8 H Estimated Creat Clear 31.73 Estimated GFR 36 Glucose 98 Hemoglobin A1c 5.3 Lactate 1.1 Calcium 9.2 Ionized Calcium Carrie 1.19 Magnesium 1.9 Total Bilirubin 1.5 AST 46 H ALT 27 Alkaline Phosphatase 185 H Troponin I < 0.01 L C-Reactive Protein 1.6 H Total Protein 6.0 Albumin 3.4 TSH 22.300 H Blood Type O Positive Antibody Screen NEGATIVE Preliminary micro results at discharge 09/20/23 22:23 Blood Culture - Preliminary Blood NO GROWTH AFTER 24 HOURS Discharge Plan Discharge Disposition: Home, Self-Care Date of Admission: 09/21/23 12:41 Attending Provider on Discharge: Sarah Bustillos Primary Care Provider: Russ Curran Condition: Stable Anticipated Discharge Date/Time: 09/22/23 11:26 Discharge Medications: Continued omeprazole 20 mg capsule,delayed release(DR/EC) 20 mg PO DAILY furosemide 20 mg tablet 20 mg PO DAILY@0800 Qty: 30 0RF spironolactone 50 mg tablet 50 mg PO DAILY levetiracetam 1,000 mg tablet 2,000 mg PO BID Qty: 360 3RF tamsulosin 0.4 mg capsule 0.4 mg PO DAILY Qty: 90 2RF allopurinol 300 mg tablet 300 mg PO DAILY Qty: 90 2RF simvastatin 40 mg tablet 40 mg PO HS Qty: 90 3RF Discharge Orders: Discharge Order (Routine); Ordered 09/22/23 Ordered By: Sarah Bustillos Patient Education: Fall Prevention for Older Adults (DC), Weakness (DC) Additional Instructions: - Renal US for worsening CKD, suspect hepatorenal syndrome. - F/u Reister , CMP - Paracentesis ([facility]) this and weekly on Mondays. - TSH in one month Activity Level: Use Walker Discharge Diet: Renal Follow Up Appointments: Russ Curran MD [Primary Care Provider] - ( with CMP) Forms: [employer] Info Instructions
--- NOTE | 2023-09-22 13:02 | PC.SOCIAL ---
Discharge planning: Per MD, pt is ready for discharge today with no need for an increase in services at [facility]. Pt also stated that he is not interested in increased services at [facility] at this time. music worker informed pt's and daughter, Deepthi. Both were pleased with this plan and glad that pt is moving around and feeling much better today. music worker explained to pt's and daughter that if they are interested in increasing services at [facility] in the future, they can reach out to Tess(DON at [facility]) to get those services started. Pt's family friend, Mary Jo, will be coming to the hospital to pick him up this afternoon. Social work to follow-up as needed.
[2023-09-22 19:05] LABS: Keppra (Levetiracetam) 164 ug/mL (10-40)
== END 2023-09-22 12:45 | disposition home or self-care (01) | DRG 682 ==
LOC: ED 22:56 → MEDSURG 23:10
PROVIDERS: Family Medicine; Admitting Provider Hospitalist; Emergency Provider Family Medicine; PCP Internal Medicine; Visit Provider Hospitalist
DX: N17.9 Acute kidney failure, unspecified (principal); K76.7 Hepatorenal syndrome; E87.1 Hypo-osmolality and hyponatremia; R18.8 Other ascites; K74.60 Unspecified cirrhosis of liver; R07.89 Other chest pain; R42 Dizziness and giddiness; I95.1 Orthostatic hypotension; D64.9 Anemia, unspecified; R60.0 Localized edema; D69.59 Other secondary thrombocytopenia; E86.1 Hypovolemia; Z79.899 Other long term (current) drug therapy; D63.8 Anemia in other chronic diseases classified elsewhere; I10 Essential (primary) hypertension; S09.90XA Unspecified injury of head, initial encounter; W19.XXXA Unspecified fall, initial encounter; E66.9 Obesity, unspecified; N40.0 Benign prostatic hyperplasia without lower urinary tract symptoms; E78.5 Hyperlipidemia, unspecified; G40.909 Epilepsy, unspecified, not intractable, without status epilepticus
CPT/HCPCS: 36415; 49083; 70450; 71045; 80048; 80053; 80177; 81001; 81003; 82330; 83036; 83540; 83550; 83605; 83735; 83880; 84443; 84484; 85018; 85025; 85027; 85610; 86140; 86850; 86900; 86901; 87040; 87081; 97110; 97116; 97162; 97165; 97530; 97535; 99284; A9270; G0378; J7030; J7120; P9047

== ENCOUNTER 2023-09-28 11:54 | Outpatient (CLI) | payer MEDICARE, SELFPAY ==
[2023-09-28 11:50] VITALS: BP 130/65; PULSE 91; RESP 20; O2SAT 100
[2023-09-28 12:15] VITALS: BP 112/71; PULSE 85; RESP 18; O2SAT 98
[2023-09-28 12:30] VITALS: BP 94/67; PULSE 82; RESP 18; O2SAT 98
[2023-09-28 12:45] VITALS: BP 96/64; PULSE 79; RESP 16; O2SAT 98
[2023-09-28 13:00] VITALS: BP 110/65; PULSE 78; RESP 16; O2SAT 98
--- NOTE | 2023-09-28 13:12 | PM.PROC ---
Procedure Note Time Seen by Provider: 13:12 Date Seen: 09/28/23 Provider Contact Time: 13:12 Date of procedure: 09/28/23 Will [facility] bill your pro fee for this procedure?: Yes Pre-op diagnosis: Ascites Post-op diagnosis: same Procedure: Paracentesis Procedure Description: With patient the recumbent and slightly rotated to the left position we did localized is a fluid to the left lower quadrant. After explaining the risks and benefits of procedure I did create a sterile field. I then created local anesthesia with 1% lidocaine. I had made a 1 cm incision through which I answered the paracentesis catheter in needle into the peritoneal space. A total of 5700 mL of yellow fluid was removed. Once flow stopped we did remove the catheter and close the defect with pursestring sutures and Dermabond. He is instructed on wound care will follow-up with me closely. Anesthesia: none Estimated blood loss (mL): 3 Pathology: none sent Condition: stable Disposition: other
[2023-09-28 13:15] VITALS: BP 102/66; PULSE 77; RESP 16; O2SAT 100
== END 2023-09-28 13:30 | disposition home or self-care (01) ==
PROVIDERS: PCP Internal Medicine; Visit Provider Internal Medicine
DX: R18.8 Other ascites (principal); Z98.890 Other specified postprocedural states
CPT/HCPCS: 49083; P9047

== ENCOUNTER 2023-10-05 11:40 | Outpatient (CLI) | payer MEDICARE, SELFPAY ==
[2023-10-05] VITALS (7 sets, daily range): BP systolic 88–117; BP diastolic 47–65; PULSE 79–91; RESP 14–20; O2SAT 98–99
--- OUTSIDE RECORDS SUMMARY | 2023-10-05 11:42 | XMS_ITS | Clinical Summary ---
Author Organization [employer] [facility] [employer] [facility] Address [place], [place] [address] Care Team Providers Care Cooker Pie Filling Name Role Phone Russ Curran MD Primary [...] Description 08/09/2023 9:00 AM CDT Ancillary Procedure [facility] [address] [place] [address] 08/09/2023 Travel from Last 3 Months Immunizations [...] Comments Blood Pressure 106/71 04/18/2012 1:43 PM HISTORIC SITE ADMINISTRATOR Pulse 96 04/18/2012 1:43 PM HISTORIC SITE ADMINISTRATOR Temperature 36.9 ??C (98.4 ??F) 11/21/2011 [...] 01/03/2007, 006 Medical Devices Implanted Type Area Antisqueak Applier Device Identifier Shelf Expiration Date Model / Serial / Lot Plate Ti [id number] 4 Holes Low Profile Neuro Box - [id number] Implanted:Qty: 1 on 11/07/2011 by Angel Marie MD at [facility] Left: Cranium J And J Depuy CMF 421.511# / / Wilma Hole Cover 17mm Jocelin Ti Low Profile Neuro - [id number] Implanted:Qty: 1 on 11/07/2011 by Angel Marie MD at [facility] Left: Cranium J And J Depuy CMF 421.527# / / Set Plating Synthes Matex Neuro Profile - [id number] Implanted:Qty: 14 on 11/07/2011 by Angel Marei MD at [facility] Left: Cranium J And J Depuy CMF 04.503.10 4.01# / / Screw 5mm Emergency Titnm Matrixneuro - [id number] Implanted:Qty: 1 on 11/07/2011 by Angel Marie MD at [facility] Left: Cranium J And J Depuy CMF 04.503.11 5.01# / / Shunt Hubbard Hole Covre 17mm Implanted:Qty: 1 on 11/07/2011 at [facility] Left: Cranium 421.544 / / Description:SHUNT WILMA HOLE COVRE 17MM Set Plating Synthes Matex Neuro Profile - [id number] Implanted:Qty: 7 on 11/17/2011 at [facility] 04.503.10 4.01# / / Procedures Procedure [...] AM CDT ECHOCARDIOGRAM SCOTT MARTIN ?Accession#: ?? [id number] : ?1935 87 years Study Date: ?? 08/09/2023 9:24:40 AM Gender: M ? BP: ? 103/67 mmHg Height: 180.00 cm ? BSA: ?2.19 m? ? ? Weight: 99.00 kg ?Tech: ? MSR ?Referring MD: MARTINA HUYNH Site: ? [facility] Reading Location: Mobile OP [...] . This study was interpreted by an [facility] accredited facility. CC: HIM ([facility]) [facility]. ??Final ?? Procedure Note Champ Raygoza MD - 08/09/2023 ECHOCARDIOGRAM SCOTT MARTIN : 1935 87 years Study Date: 08/09/2023 9:24:40 AM Gender: M BP: 103/67 mmHg Height: 180.00 cm BSA: 2.19 m? ? ? Weight: 99.00 kg Tech: MSR Referring MD: MARTINA HUYNH Site: [facility] Reading Location: Mobile OP [...] [facility] accredited facility. CC: [facility] (med records) [facility]. Final Martina COOL ECHO ORD from [...] 10:42 AM 06/21/2011 1:23 PM Care Teams Cooker Pie Filling Relationship Specialty Start Date End Date Russ Curran MD [address] [place] [address] PCP - General 06/14/11
--- OUTSIDE RECORDS SUMMARY | 2023-10-05 11:43 | XMS_ITS | Clinical Summary ---
Author Organization [facility] Address [address] [place] [address] Care Team Providers Care Tombstone Setter Name Role Phone Russ Curran MD Primary Care Provider [phone] Source Comments You are receiving this document as you are listed as the primary care provider,follow-up provider, or the patient has been referred to you for consultation.This is in compliance with the Medicare and[facility] EHR Incentive Program,which states Providers who transition their patient to another setting of careor provider of care or refers their patient to another provider of care shouldprovide summary care record for each transition of care or referral. [facility] Allergies Active Allergy Reactions Criticality Noted Date [...] age to complete this topic Care Teams Tombstone Setter Relationship Specialty Start Date End Date Russ Curran MD [address] [place] [address] PCP - General 09/18/15
--- NOTE | 2023-10-05 16:29 | PM.PROC ---
Procedure Note Time Seen by Provider: : Date Seen: 10/05/23 Provider Contact Time: 16: Date of procedure: 10/05/23 Will [facility] bill your pro fee for this procedure?: Yes Pre-op diagnosis: Ascites Post-op diagnosis: other Procedure: Paracentesis Procedure Description: With the patient in the recumbent and slightly rotated to the right position an area of large volume ascites was noted in the right mid to lower quadrant with ultrasound. The area was then sterilely prepared and I did create anesthesia with subcutaneously injected lidocaine 1%. I then made a 1 cm incision through which I inserted a paracentesis needle and catheter. Once flow was directed to a syringe the syringe was removed along with the needle leaving the catheter in place. Flow was then directed to a series of 7 1 L evacuated bottles. A total of 6700 mL of yellow fluid was removed. Once of flow. The catheter was carefully removed and hemostasis was achieved. I did close the defect with running sutures as well as with Dermabond. Anesthesia: other Surgeon: Magdy Estimated blood loss (mL): 3 Pathology: none sent Condition: stable Disposition: other
== END 2023-10-05 13:29 | disposition home or self-care (01) ==
LOC: US 11:41
PROVIDERS: PCP Internal Medicine; Visit Provider Internal Medicine
DX: R18.8 Other ascites (principal); Z98.890 Other specified postprocedural states
CPT/HCPCS: 49083; 80053; 85025; 85610; P9047

== ENCOUNTER 2023-10-08 19:28 | Outpatient (CLI) | payer MEDICARE, SELFPAY ==
--- OUTSIDE RECORDS SUMMARY | 2023-10-09 21:27 | XMS_ITS | Clinical Summary ---
Author Organization [employer] Address [address] [place] [address] Care Team Providers Care Practice Business Asst Name Role Phone Russ Curran MD Primary Care Provider [phone]- [phone] Source Comments You are receiving this document as you are listed as the primary care provider,follow-up provider, or the patient has been referred to you for consultation.This is in compliance with the Medicare and[facility] E[facility] Incentive Program,which states Providers who transition their patient to another setting of careor provider of care or refers their patient to another provider of care shouldprovide summary care record for each transition of care or referral. [employer] Allergies Active Allergy Reactions Criticality Noted Date [...] age to complete this topic Care Teams Practice Business Asst Relationship Specialty Start Date End Date Russ Curran MD [address] [place] [address] PCP - General 09/18/15
--- OUTSIDE RECORDS SUMMARY | 2023-10-09 21:27 | XMS_ITS | Clinical Summary ---
Author Organization [employer] [facility] [employer] [facility] Address [place], [place] [address] Care Team Providers Care Water Taxi Ferry Operator Name Role Phone Russ Curran MD [...] Description 08/09/2023 9:00 AM CDT Ancillary Procedure [facility] [address] [place] [address] 08/09/2023 Travel from Last 3 Months Immunizations [...] Comments Blood Pressure 106/71 04/18/2012 1:43 PM UX UI DESIGNER Pulse 96 04/18/2012 1:43 PM UX UI DESIGNER Temperature 36.9 ??C (98.4 ??F) 11/21/2011 8:00 [...] 01/03/2007, 006 Medical Devices Implanted Type Area Small Business Banking Officer Device Identifier Shelf Expiration Date Model / Serial / Lot Plate Ti [id number] 4 Holes Low Profile Neuro Box - [id number] Implanted:Qty: 1 on 11/07/2011 by Angel Marie MD at [facility] Left: Cranium J And J Depuy CMF 421.511# / / Wilma Hole Cover 17mm Jocelin Ti Low Profile Neuro - [id number] Implanted:Qty: 1 on 11/07/2011 by Angel Marie MD at [facility] Left: Cranium J And J Depuy CMF 421.527# / / Set Plating Synthes Matex Neuro Profile - [id number] Implanted:Qty: 14 on 11/07/2011 by Angel Marie MD at [facility] Left: Cranium J And J Depuy CMF 04.503.10 4.01# / / Screw 5mm Emergency Titnm Matrixneuro - [id number] Implanted:Qty: 1 on 11/07/2011 by Angel Marie MD at [facility] Left: Cranium J And J Depuy CMF 04.503.11 5.01# / / Shunt Zearing Hole Covre 17mm Implanted:Qty: 1 on 11/07/2011 at [facility] Left: Cranium 421.544 / / Description:SHUNT WILMA HOLE COVRE 17MM Set Plating Synthes Matex Neuro Profile - [id number] Implanted:Qty: 7 on 11/17/2011 at [facility] 04.503.10 4.01# / / Procedures [...] AM CDT ECHOCARDIOGRAM SCOTT MARTIN ?Accession#: ?? [id number] : ?1935 87 years Study Date: ?? 08/09/2023 9:24:40 AM Gender: M ? BP: ? 103/67 mmHg Height: 180.00 cm ? BSA: ?2.19 m? ? ? Weight: 99.00 kg ?Tech: ? MSR ?Referring MD: MARTINA HUYNH Site: ? [facility] Reading Location: Mobile [...] . This study was interpreted by an [facility] accredited facility. CC: [facility] ([facility]. ??Final ?? Procedure Note Champ Raygoza MD - 08/09/2023 ECHOCARDIOGRAM SCOTT MARTIN : 1935 87 years Study Date: 08/09/2023 9:24:40 AM Gender: M BP: 103/67 mmHg Height: 180.00 cm BSA: 2.19 m? ? ? Weight: 99.00 kg Tech: MSR Referring MD: MARTINA HUYNH Site: [facility] Reading Location: Mobile [...] IAC accredited facility. CC: [facility] (med records) [facility]. Final Martina COOL ECHO ORD [...] 10:42 AM 06/21/2011 1:23 PM Care Teams Water Taxi Ferry Operator Relationship Specialty Start Date End Date Russ uCrran MD [address] [place] [address] PCP - General 06/14/11
== END 2023-10-08 19:29 | disposition home or self-care (01) ==
LOC: AMB 10-09 21:25
PROVIDERS: PCP Internal Medicine; Visit Provider Family Medicine
DX: R53.1 Weakness (principal)
CPT/HCPCS: A0425; A0429

== ENCOUNTER 2023-10-08 19:34 | Emergency (ER) | payer MEDICARE, SELFPAY ==
[2023-10-08 19:48] VITALS: BP 105/74; PULSE 95; RESP 12; TEMP 35.9; O2SAT 96; BMI 28.5
--- OUTSIDE RECORDS SUMMARY | 2023-10-08 20:34 | XMS_ITS | Continuity of Care Document ---
Author Organization [facility] Address [address] [address] [place] [address] Phone Care Team Providers Care Slab Installer Name Role Phone Severino GIL, Lori Unavailable [...] - Active Procedures Procedure Date Offic/outpt E&m [facility] 4 Routine Serum Collection Complex e/m visit add on Offic/outpt E&m [facility] 2 24 Offic/outpt E&m [facility] Routine Serum Collection Advance Directives Directive Yes / No Effective Date File Name No Information Encounters Encounter Description Practice Location Reason(s) For Visit Diagnoses Date Provider Providers Copied on Encounter [facility], [address] [address], [place], [id number], [place] tel:[phone] [facility] No Information 4 Severino Sandoval . [address] [facility] [facility] [address], [place], [id number] , [place]. tel:[phone] [facility], [address] [address], [place], [id number], [place] tel:[phone] [facility] Tricuspid valve insufficiency, unspecified etiologyAnemia, unspecified typeCirrhosis of liver with ascites, unspecified hepatic cirrhosis type 4 [place] JEFFERY Sandoval . [address] [facility], [facility] [address], [place], [id number] , [place]. tel:[phone] Offic/outpt E&m [facility] 4 [facility] [place], [address] [address], [place], [id number], [place] tel:[phone] [facility] GI Symptoms or Concerns (chief complaint) Dietary counseling and surveillanceCirrhos is of liver with ascites, unspecified hepatic cirrhosis typeElevated alkaline phosphatase levelEdema of left lower leg 4 Severino Sandoval . [address] [facility], [place], [id number] , [place]. tel:[phone] Referring Provider: Referral Self, USE FOR SELF REFERRALS. [facility], [address] [address], [place], [place], [id number], [place] tel:[phone] [facility] No Information 4 Severino Sandoval . [address] [facility] [address], [place], [place], [id number] , [place]. tel: [phone] [facility], [address] [address], [place], [id number], [place] tel:[phone] [facility] Other ascites 4 Severino Sandoval . [address] [facility] [address], [place], [place], [id number] , [place]. tel: [phone] [facility], [address] [address], [place], [id number], [place] tel:[phone] [facility] Cirrhosis of liver with ascites, unspecified hepatic cirrhosis type 4 Severino Sandoval . [address] [facility] [address], [place], [place], [id number] , [place]. tel: [phone] [facility], [address] [address], [place], [id number], [place] tel:[phone] [facility] Other ascitesElevated alkaline phosphatase levelCirrhosis of liver with ascites, unspecified hepatic cirrhosis type 4 Severino Sandoval . [address] [facility] [address], [place], [id number] , [place]. tel: [phone] [facility], [address] [address], [place], [id number], [place] tel:[phone] [facility] No Information 4 Severino Sandoval . [address] [facility] [address], [place], [address] , [place]. tel: [phone] Offic/outpt E&m [facility] 2 [facility], [address] [address], [place], [id number], [place] tel:[phone] [facility] GI Symptoms or Concerns (chief complaint) Cirrhosis of liver with ascites, unspecified hepatic cirrhosis type 0 4 Severino Sandoval . [address] [facility] [address], [place], [address] , [place]. tel: [phone] Referring Provider: Referral Self, USE FOR SELF REFERRALS. [facility], [address] [address], [place], [id number], [place] tel:[phone] [facility] Cirrhosis of liver with ascites, unspecified hepatic cirrhosis type 4 Severino GIL Lori . [address] [facility] [address], [place], [id number] , [place]. tel: [phone] [facility], [address] [address], [place], [id number], [place] tel:[phone] [facility] Cirrhosis of liver with ascites, unspecified hepatic cirrhosis type 4 Severino Sandoval . [address] [facility] [address], [place], [id number] , [place]. tel: [phone] [facility], [address] [address], [place], [id number], [place] tel:[phone] [facility] Cirrhosis of liver with ascites, unspecified hepatic cirrhosis type 4 Severino Sandoval . [address] [facility] [address], [place], [address] , [place]. tel: [phone] [facility], [address] [address], [place], [address], [place] tel:[phone] [facility] Other ascites 4 Severino Sandoval . [address] [facility] [address], [place], [id number] , [place]. tel: [phone] Offic/outpt E&m New Mod-[facility], [address] [address], [place], [id number], [place] tel:[phone] [facility] GI Symptoms or Concerns (chief complaint) Other cirrhosis of liverCirrhosis of liver with ascites, unspecified hepatic cirrhosis typeOther ascites 4 Severino GIL Lori . [address] [facility] [facility] [facility] [address], [place], [place], [id number] , [place]. tel:[phone] Referring Provider: Russ Fontenot, [address] [place] [address], [address]. tel:[phone] [facility], [address] [address], [place], [place], [id number], [place] tel:[phone] [facility] No Information 4 Robert Oneil. [address] [facility], [facility] [address], [facility] [place], [id number] , [place]. tel:[phone] [facility], [address] [address], [place], [id number], [place] tel:[phone] [facility] No Information 3 Robert Oneil. [address] [facility], [facility] [address], [facility] [place], [id number] , [place]. tel:[phone] Family History Family Member Type Diagnosis Age [...] name Insurance type Covered alliance party ID Authoriza tiherberth(s) Blue Cross Medicare Advantage [id number] Social History Type Description Quantity Date Captured Comments Alcohol Use Details Unknown Caffeine Use Details Unknown Tobacco Use Status No Information Smoking Status No Information Sex Male Chief Complaint And Reason For Visit No Information Reason For Referral Reason For Referral No Information Plan Of Treatment Date Type Action Status Goal Lifestyle education regardin g diet completed Referral Ordered: referred to cardiology First Available Appointment date/timeframe: First Available ordered Referral Ordered: Paracentesis Abdominal WITH Ultrasound [...] serologies during prior hospitalization.He underwent EGD at [facility] in April which showed an irregular Z-line [...] of thrombosis. Noted to have cirrhosis with ascites.08/09/20236249-zurgwlbnzyetgo-owwkeovejshv global systolic function with estimated EF of greater than 75% right ventricle moderately enlarged, mild to moderate tricuspid regurgitation, normal-sized IVC with respiratory size variation greater than 50%.LABS06/14/23CBC- Hgb 11.7, WBC 7.9, PLT 264INR 1.16CMP- Na 134, K+ 4.2, Creatinine 1.0, Albumin 2.7, T bili 1.0, AST 55, ALT 29, Alk phos 35504/09/26AFP 2CBC- Hgb 11.9, WBC 8.0, Plt 194CMP- [...] a presentation to the emergency room at [facility] on 02/16/2023. Patient presented with shortness of [...] in January of 2023 1 week before Thanks he started to notice shortness of breath that got progressively worse along with abdominal distention and lower extremity edema. He initially saw his primary care provider and was started on Lasix but as this was not helpful ended up going to the emergency room as noted above. He then returned to the Emergency on 03/06/2023 and underwent a paracentesis at [facility]- unfortunately I do not have all the [...]
--- OUTSIDE RECORDS SUMMARY | 2023-10-08 20:34 | XMS_ITS | Clinical Summary ---
Author Organization [facility] Address [place], [place] [address] Care Team Providers Care Bridge Expert Name Role Phone Russ Curran MD Primary [...] Procedure [facility] [address] [place] [address] 08/09/2023 Travel from Last 3 Months Immunizations [...] Comments Blood Pressure 106/71 04/18/2012 1:43 PM RETURNED CASE INSPECTOR Pulse 96 04/18/2012 1:43 PM RETURNED CASE INSPECTOR Temperature 36.9 ??C (98.4 ??F) 11/21/2011 8:00 [...] 01/03/2007, 006 Medical Devices Implanted Type Area Building Trades Teacher Device Identifier Shelf Expiration Date Model / Serial / Lot Plate Ti [id number] 4 Holes Low Profile Neuro Box - [id number] Implanted:Qty: 1 on 11/07/2011 by Angel Marie MD at [facility] Left: Cranium J And J Depuy CMF [id number]# / / Wilma Hole Cover 17mm Jocelin Ti Low Profile Neuro - [id number] Implanted:Qty: 1 on 11/07/2011 by Angel Marie MD at [facility] Left: Cranium J And J Depuy CMF 421.527# / / Set Plating Synthes Matex Neuro Profile - [id number] Implanted:Qty: 14 on 11/07/2011 by Angel Marie MD at [facility] Left: Cranium J And J Depuy CMF 04.503.10 4.01# / / Screw 5mm Emergency Titnm Matrixneuro - [id number] Implanted:Qty: 1 on 11/07/2011 by Angel Marie MD at [facility] Left: Cranium J And J Depuy CMF [id number] 5.01# / / Shunt [place] Hole Covre 17mm Implanted:Qty: 1 on 11/07/2011 at [facility] Left: Cranium 421.544 / / Description:SHUNT WILMA HOLE COVRE 17MM Set Plating Synthes Matex Neuro Profile - [id number] Implanted:Qty: 7 on 11/17/2011 at [facility] 04.503.10 4.01# / / Procedures [...] AM CDT ECHOCARDIOGRAM SCOTT MARTIN ?Accession#: ?? [id number] : ?1935 87 years Study Date: ?? 08/09/2023 9:24:40 AM Gender: M ? BP: ? 103/67 mmHg Height: 180.00 cm ? BSA: ?2.19 m? ? ? Weight: 99.00 kg ?Tech: ? MSR ?Referring MD: MARTINA HUYNH Site: ? [facility] Reading Location: Mobile OP [...] . This study was interpreted by an [facility] accredited facility. CC: HIM ([facility]) [facility]. ??Final ?? Procedure Note Champ Raygoza MD - 08/09/2023 ECHOCARDIOGRAM SCOTT MARTIN : 1935 87 years Study Date: 08/09/2023 9:24:40 AM Gender: M BP: 103/67 mmHg Height: 180.00 cm BSA: 2.19 m? ? ? Weight: 99.00 kg Tech: MSR Referring MD: MARTINA HUYNH Site: [facility] Reading Location: Mobile OP [...] [facility] accredited facility. CC: ISIDRO (med records) [facility]. Final Martina COOL ECHO ORD from [...] 10:42 AM 06/21/2011 1:23 PM Care Teams Bridge Expert Relationship Specialty Start Date End Date Russ Curran MD [address] [place] [address] PCP - General 06/14/11
--- OUTSIDE RECORDS SUMMARY | 2023-10-08 20:34 | XMS_ITS | Clinical Summary ---
Author Organization [facility] Address [address] [place] [address] Care Team Providers Care Metal Washing Machine Operator Name Role Phone Russ Curran MD Primary Care Provider [phone] Source Comments You are receiving this document as you are listed as the primary care provider,follow-up provider, or the patient has been referred to you for consultation.This is in compliance with the Medicare and[facility] EHR Incentive Program,which states Providers who transition their patient to another setting of careor provider of care or refers their patient to another provider of care shouldprovide summary care record for each transition of care or referral. [facility] Allergies Active Allergy Reactions Criticality Noted Date [...] age to complete this topic Care Teams Metal Washing Machine Operator Relationship Specialty Start Date End Date Russ Curran MD [address] [place] [address] PCP - General 09/18/15
--- NOTE | 2023-10-08 20:54 | PC.NURSE ---
Physician in talking with family about plan of care. Small sips of water given to pt as family states he has had minimal amount today, hasn't eaten solids since yesterday. Warm blankets given, warm washcloth to clean face.
--- NOTE | 2023-10-08 21:28 | PC.NURSE ---
Spoke with on-call RN at [facility] and discussed plan of care to send pt back to [facility] and continue with [facility] hospice care, family giving medcations as discussed.Ambulance crew paged out for Transfer backk to [facility]. grain commodity manager meeting family at Pt's apartment kori.
[2023-10-08] MEDS: fentaNYL 25 MCG/HR PATCH 1 PATCH TRANSDERMA (21:42)
[2023-10-08 22:00] VITALS: BP 80/67; PULSE 87; RESP 14; TEMP 35.9; O2SAT 92
--- NOTE | 2023-10-08 23:02 | ED_ITS ---
HPI - General Adult General Date Seen: 10/08/23 Chief complaint: Unspecified Complaint, Adult Stated complaint: Ambulance/hospice Time Seen by Provider: 10/08/23 19:42 Source: patient, family and EMS Mode of arrival: EMS Limitations: no limitations History of Present Illness HPI narrative: This 88-year-old gentleman who presents here by ambulance from [facility], he is under hospice there, he is receiving in the last 24 hours morphine and Ativan for end-stage bad a renal syndrome, he undergoes peritoneal removal of fluid. He gets this every 5 days from his primary care physician . Tonight he is brought in because they felt that initially they could not care for him over there, as it was a 2 r person to get him out of the bed. Hospice did recommend that he come over and be seen here in the emergency room. He is here with his 2 daughters. They clearly do not want any further testing done, they know he is at his in stage of his life they just want him to be comfort able, and secure. Hospital bed is coming tomorrow. Related Data Home Medications ?Medication ?Instructions ?Recorded ?Confirmed omeprazole 20 mg capsule,delayed 20 mg PO DAILY 06/21/23 09/20/23 release spironolactone 50 mg tablet 50 mg PO DAILY 09/21/23 09/21/23 Previous Rx's ?Medication ?Instructions ?Recorded furosemide 20 mg tablet 20 mg PO DAILY@0800 #30 tabs 02/17/23 levetiracetam 1,000 mg tablet 2,000 mg (2 x 1,000 mg) PO BID 04/24/23 Seizure #360 tabs allopurinol 300 mg tablet 300 mg PO DAILY Gout #90 tabs 09/18/23 simvastatin 40 mg tablet 40 mg PO HS #90 tabs 09/18/23 tamsulosin 0.4 mg capsule 0.4 mg PO DAILY BPH #90 caps 09/18/23 Allergies Allergy/AdvReac Type Severity Reaction Status Date / Time enoxaparin Allergy Severe contraindictation Verified 09/20/23 19:59 to all anticoagulants - see history anticoagulants-relative AdvReac Unknown Uncoded 07/25/23 11:53 contraindication-brain bleed Review of Systems Status of ROS: Reports: unobtainable due to medical condition and unobtainable due to mental status PFSH [facility] Medical History BPH (benign prostatic hyperplasia) ?N40.0 - Benign prostatic hyperplasia without lower urinary tract symptoms (ICD-10) Hyperlipidemia (02/25/14) ?E78.5 - Hyperlipidemia, unspecified (ICD-10) Pulmonary nodules ?R91.8 - Other nonspecific abnormal finding of lung field (ICD-10) Ascites ?R18.8 - Other ascites (ICD-10) Bronchitis ?J40 - Bronchitis, not specified as acute or chronic (ICD-10) Cirrhosis ?K74.60 - Unspecified cirrhosis of liver (ICD-10) Hypertension (06/14/11) ?I10 - Essential (primary) hypertension (ICD-10) History of subdural hematoma (11/23/11) ?Z86.79 - Personal history of other diseases of the circulatory system (ICD- 10) Gout (09/15/08) ?M10.9 - Gout, unspecified (ICD-10) Tubular adenoma of colon (09/15/08) ?D12.6 - Benign neoplasm of colon, unspecified (ICD-10) Traumatic brain injury (06/14/11) ?S06.9X9A - Unspecified intracranial injury with loss of consciousness of unspecified duration, initial encounter (ICD-10) Subjective tinnitus (10/06/11) ?H93.19 - Tinnitus, unspecified ear (ICD-10) Sensorineural hearing loss (SNHL) (11/23/11) ?H90.5 - Unspecified sensorineural hearing loss (ICD-10) Rosacea (05/21/06) ?L71.9 - Rosacea, unspecified (ICD-10) 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) ?L71.1 - Rhinophyma (ICD-10) Osteoarthritis of cervical spine ?M47.812 - Spondylosis without myelopathy or radiculopathy, cervical region (ICD-10) Obesity (08/16/10) ?E66.9 - Obesity, unspecified (ICD-10) Macular degeneration ?H35.30 - Unspecified macular degeneration (ICD-10) Intestinal obstruction ?K56.609 - Unspecified intestinal obstruction, unspecified as to partial versus complete obstruction (ICD-10) History of seizure (11/23/11) ?Z87.898 - Personal history of other specified conditions (ICD-10) History of pancreatitis (09/15/08) ?Z87.19 - Personal history of other diseases of the digestive system (ICD-10) Surgical History History of carpal tunnel surgery of left wrist (06/27/23) ?Z98.890 - Other specified postprocedural states (ICD-10) History of carpal tunnel surgery of right wrist (06/08/23) ?Z98.890 - Other specified postprocedural states (ICD-10) Status post evacuation of subdural hematoma (06/01/11) ?Z98.890 - Other specified postprocedural states (ICD-10) ?Z86.79 - Personal history of other diseases of the circulatory system (ICD- 10) History of tonsillectomy ?Z90.89 - Acquired absence of other organs (ICD-10) History of knee surgery (09/15/08) ?Z98.890 - Other specified postprocedural states (ICD-10) History of hemorrhoidectomy (09/15/08) ?Z98.890 - Other specified postprocedural states (ICD-10) Social History Narrative: -Snow former smoker What is your current living situation?: I presently have a place to live Problems where you live: no known problems Problems where you live details: n/a In the past 12 months, utilities in danger of being shut off: no In past 12 months, lack of transportation kept you from medical appts, meetings, work, or getting things needed for daily living: unable to answer In the past 12 mos, have been you worried that your food would run out before you had money to buy more?: never true In the past 12 mos, the food you bought just didn't last and you didn't have money to buy more?: never true Highest level of school completed/degree received: some college, no degree Smoking Status: Never smoker Do you use any of these nicotine containing products: None Second hand tobacco smoke exposure: No How often do you have a drink containing alcohol: never How often do you have six or more drinks on one occasion: Never AUDIT-C Alcohol total score: 0 Non-prescribed substance use: denies use Caffeine: No How often does anyone, including family, friends and others, physically hurt you : never How often does anyone, including family, friends and others, insult or talk down to you: never How often does anyone, including family, friends and others, threaten you with harm: never How often does anyone, including family, friends and others, scream or curse at you: never Little interest or pleasure in doing things: not at all Feeling down, depressed, or hopeless: not at all service: No Exam Narrative: Exam Narrative: He is breathing in the room, he does not wake up at all he looks very comfortable in the family agrees that he is as comfortable as he has been, little bit pale, chest is good air entry bilaterally no wheezing crackles noted heart sounds are normal abdomen is soft there is no guarding, he has a little bit of bruising on his right arm, but other than that he is very comfortable. Const: Vital Signs, click to edit/add: Vital Signs - 24 hr 10/08/23 19:48 10/08/23 22:00 Temperature 96.7 F L 96.7 F L Pulse Rate [Pulse Oximeter] 95 87 Respiratory Rate 12 14 Blood Pressure [Ri ght Upper Arm] 105/74 80/67 L Pulse Oximetry 96 92 Oxygen Delivery Me thod Room Air Room Air Documenting provider has reviewed patient's vital signs: yes Course Vital Signs Vital signs: Initial Vital Signs Temperature 96.7 F L 10/08/23 19:48 Temperature Source Temporal Artery Scan 10/08/23 19:48 Pulse Rate 95 10/08/23 19:48 Respiratory Rate 12 10/08/23 19:48 Blood Pressure 105/74 10/08/23 19:48 Blood Pressure Mean 84 10/08/23 19:48 Blood Pressure Position Supine 10/08/23 19:48 Pulse Oximetry 96 10/08/23 19:48 Oxygen Delivery Method Room Air 10/08/23 19:48 Vital Signs Temperature 96.7 F L 10/08/23 19:48 Pulse Rate 95 10/08/23 19:48 Respiratory Rate 12 10/08/23 19:48 Blood Pressure 105/74 10/08/23 19:48 Pulse Oximetry 96 10/08/23 19:48 Oxygen Delivery Method Room Air 10/08/23 19:48 Temperature 96.7 F L 10/08/23 22:00 Pulse Rate 87 10/08/23 22:00 Respiratory Rate 14 10/08/23 22:00 Blood Pressure 80/67 L 10/08/23 22:00 Pulse Oximetry 92 10/08/23 22:00 Oxygen Delivery Method Room Air 10/08/23 22:00 Medications Administered Medications: Discontinued Medications Generic Name Dose Route Start Last Admin Trade Name Song PRN Reason Stop Dose Admin Fentanyl 1 patch 10/08/23 21:15 10/08/23 21:42 Fentanyl 25 Mcg/Hr Patch TRANSDERMA 1 patch Q72H DENNIS Administration Medical Decision Making MDM Narrative Medical decision making narrative: I had a long talk with him, I involved Dr. Ni from Hospital Medicine, he would have to revoke is hospice care to come into the hospital night really do not want this I think [facility] to give him a fentanyl patch, get the ambulance to take him back, hospice agreed to care for him there [facility] with [facility]. And they will at bring a hospital bed [facility]. I do not really think he is going to get out of the hospital bed, if they have any further issues or questions they can always come back in. Medical Records Medical records reviewed: Yes I reviewed the patient's medical records Discharge Plan Discharge Clinical Impression: Zvumwow-vsukhp-rrxsp syndrome, Hospice care, End of life care Patient Disposition: Xfer Other Condition: Guarded Instructions: and Dying (DC) Additional Instructions: Transfer back to [facility], Activity Level: No Restrictions Prescriptions: No Action omeprazole 20 mg capsule,delayed release(DR/EC) 20 mg PO DAILY furosemide 20 mg tablet 20 mg PO DAILY@0800 Qty: 30 0RF spironolactone 50 mg tablet 50 mg PO DAILY levetiracetam 1,000 mg tablet 2,000 mg PO BID Qty: 360 3RF tamsulosin 0.4 mg capsule 0.4 mg PO DAILY Qty: 90 2RF allopurinol 300 mg tablet 300 mg PO DAILY Qty: 90 2RF simvastatin 40 mg tablet 40 mg PO HS Qty: 90 3RF Stand Alone [facility]: [facility] Info Instructions
== END 2023-10-08 22:01 | disposition other institution (70) ==
PROVIDERS: Emergency Provider Family Medicine; PCP Internal Medicine
DX: Z51.5 Encounter for palliative care (principal)
CPT/HCPCS: 99284; A9270

== ENCOUNTER 2023-10-08 21:45 | Outpatient (CLI) | payer MEDICARE, SELFPAY ==
--- OUTSIDE RECORDS SUMMARY | 2023-11-01 09:00 | XMS_ITS | Clinical Summary ---
Author Organization [employer] [facility] [employer] Address [place], [place] [address] Care Team Providers Care Billing Coordinator Name Role Phone Russ Curran MD Primary Care Provider [phone] Allergies No known active allergies Medications Medication [...] 08/09/2023 9:00 AM CDT Ancillary Procedure [facility] [address] [place] [address] 08/09/2023 Travel from Last 3 Months Immunizations [...] Comments Blood Pressure 106/71 04/18/2012 1:43 PM UTILITY LOCATOR Pulse 96 04/18/2012 1:43 PM UTILITY LOCATOR Temperature 36.9 ??C (98.4 ??F) 11/21/2011 8:00 AM CD T Respiratory Rate 18 11/21/2011 8:00 AM CDT Oxygen Saturation 98% 11/21/2011 8:00 AM CDT Inhaled Oxygen Concentration - - Weight 98.6 kg (217 lb 6 oz) 11/10/2011 6:00 AM CDT Height 180.3 cm (5' 11) 11/06/2011 8:00 PM CDT Body Mass Index 30.32 11/06/2011 8:00 PM CDT Plan of Treatment Not on file Medical Devices Implanted Type Area Food Analyst Device Identifier Shelf Expiration Date Model / Serial / Lot Plate Ti [id number] 4 Holes Low Profile Neuro Box - [id number] Implanted:Qty: 1 on 11/07/2011 by Angel Marie MD at [facility] Left: Cranium J And J Depuy CMF 421.511# / / Spencer Hole Cover 17mm Jocelin Ti Low Profile Neuro - [id number] Implanted:Qty: 1 on 11/07/2011 by Angel Marie MD at [facility] Left: Cranium J And J Depuy CMF 421.527# / / Set Plating Synthes Matex Neuro Profile - [id number] Implanted:Qty: 14 on 11/07/2011 by Angel Marie MD at [facility] Left: Cranium J And J Depuy CMF .10 4.01# / / Screw 5mm Emergency Titnm Matrixneuro - [id number] Implanted:Qty: 1 on 11/07/2011 by Angel Marie MD at [facility] Left: Cranium J And J Depuy CMF .11 5.01# / / Shunt Spencer Hole Covre 17mm Implanted:Qty: 1 on 11/07/2011 at [facility] Left: Cranium 421.544 / / Description:SHUNT WILMA HOLE COVRE 17MM Set Plating Synthes Matex Neuro Profile - [id number] Implanted:Qty: 7 on 11/17/2011 at [facility] .10 4.01# / / Procedures Procedure Name Priority [...] AM CDT ECHOCARDIOGRAM SCOTT MARTIN ?Accession#: ?? [id number] : ?1935 87 years Study Date: ?? 08/09/2023 9:24:40 AM Gender: M ? BP: ? 103/67 mmHg Height: 180.00 cm ? BSA: ?2.19 m? ? ? Weight: 99.00 kg ?Tech: ? MSR ?Referring MD: MARTINA HUYNH Site: ? [facility] Reading Location: Mobile OP Patient Location: Outpatient. [...] . This study was interpreted by an [facility] accredited facility. CC: [facility] (med records) [facility]. ??Final ?? Procedure Note [...] 10:42 AM 06/21/2011 1:23 PM Care Teams Billing Coordinator Relationship Specialty Start Date End Date Russ Curran MD [address] [place] [address] PCP - General 06/14/11
--- OUTSIDE RECORDS SUMMARY | 2023-11-01 09:00 | XMS_ITS | Clinical Summary ---
Author Organization [employer] Address [address] [place] [address] Care Team Providers Care Barrel Charrer Name Role Phone Russ Curran MD Primary Care Provider [phone]- [phone] Source Comments You are receiving this document as you are listed as the primary care provider,follow-up provider, or the patient has been referred to you for consultation.This is in compliance with the Medicare and[facility] EHR Incentive Program,which states Providers who transition their patient to another setting of careor provider of care or refers their patient to another provider of care shouldprovide summary care record for each transition of care or referral. [employer] Allergies Active Allergy Reactions Criticality Noted Date [...] Date Diagnosed Date Trigger finger, acquired 09/10/2012 Overview (10/26/2016): Trigger finger (acquired) Radial styloid tenosynovitis 08/06/2012 [...] Health Maintenance Due Date Last Done Comments MTM Covered 1935 Medicare Annual Wellness Visit 1935 Zoster/Shingles (2 [...] age to complete this topic Care Teams Barrel Charrer Relationship Specialty Start Date End Date Russ Curran MD [address] [place] [address] PCP - General 09/18/15
== END 2023-10-08 21:46 | disposition home or self-care (01) ==
PROVIDERS: PCP Internal Medicine; Visit Provider Family Medicine
DX: R53.1 Weakness (principal); Z74.01 Bed confinement status
CPT/HCPCS: A0425; A0428

== ENCOUNTER 2023-10-08 22:17 | Outpatient (CLI) | payer MEDICARE, SELFPAY ==
--- OUTSIDE RECORDS SUMMARY | 2023-11-01 09:52 | XMS_ITS | Clinical Summary ---
Author Organization [email or web address] Address [address] [place] [address] Care Team Providers Care Willow Analyst Name Role Phone Russ Curran MD Primary Care Provider [phone]- [phone] Source Comments You are receiving this document as you are listed as the primary care provider,follow-up provider, or the patient has been referred to you for consultation.This is in compliance with the Medicare and[facility] Cent[facility] EHR Incentive Program,which states Providers who transition their patient to another setting of careor provider of care or refers their patient to another provider of care shouldprovide summary care record for each transition of care or referral. [email or web address] Allergies Active Allergy Reactions Criticality Noted Date [...] age to complete this topic Care Teams Willow Analyst Relationship Specialty Start Date End Date Russ Curran MD [address] [place] [address] PCP - General 09/18/15
--- OUTSIDE RECORDS SUMMARY | 2023-11-01 09:52 | XMS_ITS | Clinical Summary ---
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 Tool Name Role Phone Russ Curran MD Primary [...] Description 08/09/2023 9:00 AM CDT [facility]illary [facility] [address] [place] [address] 08/09/2023 Travel from Last 3 Months Immunizations [...] Comments Blood Pressure 106/71 04/18/2012 1:43 PM CURATOR OF MANUSCRIPTS Pulse 96 04/18/2012 1:43 PM CURATOR OF MANUSCRIPTS Temperature 36.9 ??C (98.4 ??F) 11/21/2011 8:00 [...] on file Medical Devices Implanted Type Area Reconnaissance Man Device Identifier Shelf Expiration Date Model / Serial / Lot Plate Ti [id number] 4 Holes Low Profile Neuro Box - [id number] Implanted:Qty: 1 on 11/07/2011 by Angel Marie MD at [facility] Left: Cranium J And J Depuy CMF 421.511# / / Secor Hole Cover 17mm Jocelin Ti Low Profile Neuro - [id number] Implanted:Qty: 1 on 11/07/2011 by Angel Marie MD at [facility] Left: Cranium J And J Depuy CMF 421.527# / / Set Plating Synthes Matex Neuro Profile - [id number] Implanted:Qty: 14 on 11/07/2011 by Angel Marie MD at [facility] Left: Cranium J And J Depuy CMF .10 4.01# / / Screw 5mm Emergency Titnm Matrixneuro - [id number] Implanted:Qty: 1 on 11/07/2011 by Angel Marie MD at [facility] Left: Cranium J And J Depuy CMF .11 5.01# / / Shunt Secor Hole Covre 17mm Implanted:Qty: 1 on 11/07/2011 at [facility] Left: Cranium 421.544 / / Description:SHUNT WILMA HOLE COVRE 17MM Set Plating Synthes Matex Neuro Profile - [id number] Implanted:Qty: 7 on 11/17/2011 at [facility] .10 4.01# / / Procedures Procedure Name [...] AM CDT ECHOCARDIOGRAM SCOTT MARTIN ?Accession#: ?? [id number] : ?1935 87 years Study Date: ?? 08/09/2023 9:24:40 AM Gender: M ? BP: ? 103/67 mmHg Height: 180.00 cm ? BSA: ?2.19 m? ? ? Weight: 99.00 kg ?Tech: ? MSR ?Referring MD: MARTINA HUYNH Site: ? [facility] Reading Location: Mobile OP Patient Location: Outpatient. [...] . This study was interpreted by an [facility] accredited facility. CC: [facility] (med records) [facility]. ??Final ?? Procedure Note Champ Raygoza MD - 08/09/2023 ECHOCARDIOGRAM SCOTT MARTIN : 1935 87 years Study Date: 08/09/2023 9:24:40 AM Gender: M BP: 103/67 mmHg Height: 180.00 cm BSA: 2.19 m? ? ? Weight: 99.00 kg Tech: MSR Referring MD: MARTINA HUYNH Site: [facility] Reading Location: Mobile [...] IAC accredited facility. CC: [facility] (med records) [facility]. Final Martina COOL ECHO ORD [...] 10:42 AM 06/21/2011 1:23 PM Care Teams Chucking Machine Set Up Operator Tool Relationship Specialty Start Date End Date Russ Curran MD [address] [place] [address] PCP - General 06/14/11
== END 2023-10-08 22:18 | disposition home or self-care (01) ==
PROVIDERS: PCP Internal Medicine; Visit Provider Family Medicine
DX: R53.1 Weakness (principal)

== ENCOUNTER 2023-10-09 10:52 | Outpatient (CLI) | payer MEDICARE, SELFPAY | END 2023-10-09 10:53 | disposition home or self-care (01) | LOC: AMB 10-10 00:41 | PROVIDERS: PCP Internal Medicine; Visit Provider Student in an Organized Health Care Education/Training Program | DX: R53.1 Weakness (principal) | CPT/HCPCS: A0998 ==